=== PATIENT | female | born 1955 | race Caucasian/White ===

== ENCOUNTER 2016-08-25 16:36 | Inpatient (IN) ==
[2016-08-25] MEDS ORDERED: ASPIRIN 325 MG TABLET PO STA (17:23)
[2016-08-25] MEDS ORDERED: NITROGLYCERIN 2% OINT 1 INCH/GM PACK TOP STA (17:23)
[2016-08-25] MEDS ORDERED: NITROGLYCERIN 2% OINT 1 INCH/GM PACK TOP ONE (17:30)
[2016-08-25] MEDS ORDERED: ASPIRIN 325 MG TABLET ONE (17:31)
[2016-08-25] MEDS ORDERED: SODIUM CHLORIDE 0.9% 500 ML IV STA (18:04)
[2016-08-25] MEDS ORDERED: ENOXAPARIN 60 MG/0.6 ML SYRINGE SUBCUT STA (18:04)
--- NOTE | 2016-08-25 18:32 | Emergency Department Note ---
Hanh Alex Brittany, am scribing for, and in the presence of, Dani Goode MD 17:25. Russel Alex Doug C, MD, personally performed the services described in this documentation, ascribed by Trisha Schafer in my presence, and it is both accurate and complete 832 . Arrival - Arrival Chief Complaint: Chest Pain Stated Complaint: Chest pain ED Nursing Triage Note: Patient arrived from [place] via EMS. Complains of chest pain with shortness of breath. Denies pain at present. Patient had a CT at [place] and experienced a reaction. She was given Pepcid, Epi, SoluMedrol. Mode of Arrival: Stretcher Limitations: No Limitations Source: Patient Time Seen by Provider: 08/25/16 17:23 - History of Present Illness HPI Narrative: Patient is a 61-year-old white female who was sent here from [facility] for further evaluation of chest pain. Patient states the pain was substernal and sharp in character. Patient states she has had multiple episodes of the pain and it lasts up to 30 minutes of the time. Patient states it makes her nauseated and short of breath but does not radiate. Patient states he does have some pain between her shoulders now that she did not notice at the time of these episodes. Patient does have a history of coronary artery disease and had left heart cath and stenting performed earlier this year. Patient states she has several the blockages that need to be attended to according to her clinical data abstractor. Patient states she is not having any of the chest pain at present just a dull ache between her shoulders. She did have a CT of the chest performed at the other hospital that showed no evidence of pulmonary emboli. Patient did have an EKG performed at the other hospital that showed a interventricular conduction defect which has now resolved. Onset (ago): hour(s) (Started this morning at 1100) Consistency: constant Severity: mild, moderate Quality: sharp Allergies/Adverse Reactions: Allergies Allergy/AdvReac Type Severity Reaction Status Date / Time ceftriaxone [From Rocephin] Allergy Severe SHORTNESS Verified 05/26/16 07:39 OF BREATH Home Medications: Home Medications Medication Instructions Recorded Confirmed Type Omeprazole 20 mg PO DAILY 03/24/16 05/26/16 History PARoxetine [Paxil] 20 mg PO DAILY 03/24/16 05/26/16 History amLODIPine [Norvasc] 5 tablet PO DAILY 03/24/16 05/26/16 History Lisinopril/Hydrochlorothiazide 1 each PO DAILY 04/05/16 05/26/16 History [Lisinopril-Hctz 20-12.5 mg Tab] Aspirin Chew Tab 81 mg PO BEDTIME 05/26/16 05/26/16 History Cilostazol 50 mg PO BID 05/26/16 05/26/16 History Isosorbide Mononitrate [Isosorbide 30 mg PO DAILY 05/26/16 05/26/16 History Mononitrate ER] Metoprolol Succinate Xl [Toprol Xl] 25 mg PO BEDTIME 05/26/16 05/26/16 History Rosuvastatin [Crestor] 40 mg PO BEDTIME 05/26/16 05/26/16 History Ticagrelor [Brilinta] 90 mg PO BID #60 tablet 05/27/16 Rx Review of System - Review of System 12 point system: reviewed and no additional remarkable complaints except as stated - Review of System Constitutional: Present: chills. Absent: diaphoresis Cardiovascular: Present: chest pain, dyspnea on exertion Gastrointestinal: Present: nausea. Absent: vomiting Medical,Surgical,& Family Hx - Medical History Cardio: History of: Hypertension Comment Only: Valvular Heart Disease (DID NOT TELL DR Barajas NURSE ABOUT THIS EKG FAX TO [facility]03/24/15 9406), Cardiovascular Problems (DR TIERNEY IN [facility] SAID MAY HAVE BLOCKGE HAS NOT BEEN CHECK FOR THIS) Neurology: No history of: Seizures Genitourinary: History of: Bladder Problem (stress incontinence) Musculoskeletal: History of: Musculoskeletal Problems (legs hurt with ambulation ) No history of: Amputation Reproductive: History of: Breast Cancer (Rt) Other: History of: Anaphylaxis (rocephin), Cancer (R BREAST), MRSA, Miscellaneous Medical Problems (SEPIS COLON FROM BACTERILA INFECTION) - Surgical History Cardiac Surgeries: Sugical HX of: Cardiac Catheterization Thoracic Surgeries: Patient denies;: Organ Transplant, Lobectomy HEENT Surgeries: Patient denies: Eye Surgery, Tonsilectomy & Adenoidectomy Reproductive Surgeries: Surgical HX of;: Breast Surgery (RIGHT Mastectomy), Tubal Ligation Orthopedic Surgeries: Patient denies;: Implanted Devices - Family History Family History: Reports;: Family Cancer (MOM BROTHER 2 SISTRS), Family Diabetes (BROTHER), Family Heart Disease (SISTER) - Social History Smoking Status: Former smoker Exam Vital Signs: Vital Signs Temperature 99.6 F 08/25/16 16:52 Pulse Rate 96 H 08/25/16 16:52 Respiratory Rate 14 08/25/16 16:52 Blood Pressure 93/48 08/25/16 16:52 O2 Sat by Pulse Oximetry 99 08/25/16 16:52 - General General appearance: alert, in no apparent distress - Head Head exam: Present: atraumatic, normocephalic, normal inspection - Eye Eye exam: Present: normal appearance, PERRL, EOMI. Absent: scleral icterus, conjunctival injection, nystagmus, miosis, mydriasis - ENT ENT exam: Present: normal exam, normal oropharynx, mucous membranes moist - Neck Neck exam: Present: normal inspection, full ROM, trachea midline. Absent: tenderness, meningismus, lymphadenopathy, thyromegaly - Chest Chest inspection: Present: normal inspection, symmetric chest wall rise. Absent : tenderness, rash, abscess - Respiratory Respiratory exam: Present: normal lung sounds bilaterally. Absent: prolonged expiratory phase, rales, respiratory distress, rhonchi, stridor, wheezes - Cardiovascular Cardiovascular exam: Present: regular rate, normal rhythm, normal heart sounds. Absent: murmur, rubs, gallop, clicks, JVD - Abdominal Exam Abdominal exam: Present: soft, normal bowel sounds. Absent: distention, tenderness, guarding, rebound, rigidity - Rectal Exam Rectal exam: Present: deferred - Extremities Exam Extremities exam: Present: normal inspection, full ROM, normal capillary refill. Absent: tenderness, pedal edema, joint swelling, calf tenderness - Back Exam Back exam: Present: normal inspection, full ROM. Absent: tenderness, muscle spasm, rashes - Neurological Exam Neurological exam: Present: alert, oriented X3, CN II-XII intact. Absent: motor sensory deficit - Psychiatric Psychiatric exam: Present: normal affect, normal mood. Absent: depressed, agitated, anxious, flat affect, manic - Skin Skin exam: Present: warm, dry, intact, normal color. Absent: rash, cyanosis, diaphoresis, erythema, pallor, mottled Course Course Narrative: Patient's clinical presentation, laboratory radiograph findings were discussed with Dr. Ledy Rizzo. Patient will be admitted to telemetry unit and she was cautioned to notify the nurses immediately if she develops recurrent pain. She was given aspirin and some cutaneous Lovenox in the emergency room. Her Brilinta will be continued. Results - Labs Lab Results: I have reviewed the patients labs - EKG EKG results: interpreted by ALFIE, sinus rhythm (89 bpm), no acute changes Disposition Clinical Impression: Unstable angina Case discussed with: patient, patient's family Disposition: Still a Patient Condition: Guarded Time of Disposition: 18:32
[2016-08-25] MEDS ORDERED: MAGNESIUM SULF RIDER 2 GM in PREMIX 1 EACH IV PRN (18:33)
[2016-08-25] MEDS ORDERED: MAGNESIUM SULF RIDER 4 GM in PREMIX 1 EACH IV PRN (18:33)
[2016-08-25] MEDS ORDERED: POTASSIUM CHLORIDE 20 MEQ TABLET PO PRN (18:33)
[2016-08-25] MEDS ORDERED: MORPHINE 2 MG/1 ML SYRINGE IV PRN (18:33)
[2016-08-25] MEDS ORDERED: NITROGLYCERIN SL 0.4 MG TABLET SL PRN (18:43)
[2016-08-25] MEDS: SODIUM CHLORIDE 0.9% 1,000 ML IV SCH (20:06)
[2016-08-25] MEDS: CILOSTAZOL 50 MG TABLET PO SCH (20:31)
[2016-08-25] MEDS: TICAGRELOR 90 MG TABLET PO SCH (20:32)
[2016-08-25] MEDS: ROSUVASTATIN 20 MG TABLET PO SCH (20:32)
[2016-08-25] MEDS ORDERED: amLODIPine 5 MG TABLET PO SCH (21:00)
[2016-08-25] MEDS ORDERED: METOPROLOL SUCCINATE XL 25 MG TABLET PO SCH (21:00)
[2016-08-25] MEDS: ENOXAPARIN 60 MG/0.6 ML SYRINGE SUBCUT SCH (21:36)
[2016-08-26] MEDS: SODIUM CHLORIDE 0.9% 1,000 ML IV SCH ×4 (04:12→22:49)
--- NOTE | 2016-08-26 08:07 | EKG Report ---
Stationary ECG Study 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
--- NOTE | 2016-08-26 08:26 | EKG Report ---
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
[2016-08-26] MEDS ORDERED: ONDANSETRON 4 MG/2 ML VIAL IV PRN (08:37)
[2016-08-26] MEDS ORDERED: LOPERAMIDE 2 MG CAPSULE PO PRN (08:37)
--- NOTE | 2016-08-26 08:51 | Cardiology History & Physical ---
Assessment and Plan - Time spent with patient Time spent with patient: Greater than 30 minutes (1) Anemia Status: Acute Current Visit: Yes (2) Leukocytosis Status: Acute Assessment and plan: suspect demargination from epi and solumedrol, but given her c/o chill must have a high suspicion for infection. She has been getting CTX. I will ask Dr. Mejía to assist. Current Visit: Yes (3) CAD (coronary artery disease) Status: Chronic Current Visit: No (4) Dyslipidemia Status: Chronic Current Visit: No (5) S/P right mastectomy Status: Chronic Current Visit: No (6) Diarrhea Status: Acute Assessment and plan: likely CTX related but potentially infectious. Get studies. Current Visit: Yes (7) Chest pain Status: Acute Assessment and plan: sounds non-cardiac but she has severe CADz and got SC epinepherine. This looks like a med Rx situation unless becomes unstable. Current Visit: Yes History of Present Illness Chief complaint: Chills and shortness of breath History of present illness: Ms. Umana is a 61 year old female who presented to the [facility] emergency room yesterday after having a severe chill and acute onset of shortness of breath. She went to their facility and had labs drawn she had a mildly elevated d-dimer subsequently had a CT scan of the chest to rule out pulmonary embolism which was ruled out. She states that after getting to the emergency room she also complained of chest discomfort that was very sharp. Shortly after coming back from CT scan she developed a pruritic rash and was given epinephrine subcutaneously as well as a high dose of Solu-Medrol. I reviewed the labs from [facility] and she had a white count of 24,000 and a hemoglobin of 8. I do not know if these were drawn before or after the epinephrine and Solu-Medrol. The patient did have an abnormal EKG with intraventricular conduction delay and what appears to be secondary ST segment changes and was transferred here for cardiovascular evaluation. There is a rather impressive difference in her ECG with the IVCD. She has not had any cardiac sounding chest pain. She recieved SQ epinephrine and did not have any chest pain. She had a mild movement in troponin. Home Medications Medication Instructions Recorded Confirmed Type Omeprazole 20 mg PO QAM 03/24/16 08/25/16 History PARoxetine [Paxil] 20 mg PO QAM 03/24/16 08/25/16 History amLODIPine [Norvasc] 5 mg PO BEDTIME 03/24/16 08/25/16 History Lisinopril/Hydrochlorothiazide 1 each PO QAM 04/05/16 08/25/16 History [Lisinopril-Hctz 20-12.5 mg Tab] Aspirin Chew Tab 81 mg PO BEDTIME 05/26/16 08/25/16 History Cilostazol 50 mg PO BID 05/26/16 08/25/16 History Isosorbide Mononitrate [Isosorbide 30 mg PO QAM 05/26/16 08/25/16 History Mononitrate ER] Metoprolol Succinate Xl [Toprol Xl] 25 mg PO BEDTIME 05/26/16 08/25/16 History Rosuvastatin [Crestor] 40 mg PO BEDTIME 05/26/16 08/25/16 History Ticagrelor [Brilinta] 90 mg PO BID #60 tablet 05/27/16 08/25/16 Rx Allergies Allergy/AdvReac Type Severity Reaction Status Date / Time ceftriaxone [From Rocephin] Allergy Severe SHORTNESS Verified 05/26/16 07:39 OF BREATH - Constitutional Constitutional: Present: anorexia, fatigue, weakness, weight loss. Absent: fever(s) - EENT Eyes: Absent: blurry vision Ears: Absent: decreased hearing Nose, mouth and throat: Present: sore throat. Absent: epistaxis, hoarseness, lip swelling, neck mass, neck pain - Cardiovascular Cardiovascular: Present: chest pain at rest, dyspnea. Absent: chest pain with activity, diaphoresis, dyspnea on exertion, edema, lightheadedness, orthopnea, palpitations - Respiratory Respiratory: Present: dyspnea, dyspnea on exertion. Absent: cough, change in phlegm color - Gastrointestinal Gastrointestinal: Absent: abdominal pain, bloating, dyspepsia, early satiety, fecal incontinence - Genitourinary Genitourinary: Absent: abnormal vaginal bleeding, flank pain - Musculoskeletal Musculoskeletal: Absent: arthralgias, joint swelling - Neurological Neurological: Absent: abnormal gait, convulsions, disequilibrium, dizziness, memory loss - Psychiatric Psychiatric: Absent: anxiety, depression - Endocrine Endocrine: Absent: cold intolerance, heat intolerance - Hematologic/Lymphatic Hematologic/Lymphatic: Present: easy bruising. Absent: easy bleeding Medical,Surgical,& Family Hx - Medical History Cardio: History of: CAD, Hypertension Comment Only: Valvular Heart Disease (DID NOT TELL DR Barajas NURSE ABOUT THIS EKG FAX TO [facility]03/24/15 5720), Cardiovascular Problems (DR TIERNEY IN [facility] SAID MAY HAVE BLOCKGE HAS NOT BEEN CHECK FOR THIS) Psychological: No history of: Depression Neurology: No history of: Seizures Genitourinary: History of: Bladder Problem (stress incontinence) Musculoskeletal: History of: Musculoskeletal Problems (legs hurt with ambulation ) No history of: Amputation Reproductive: History of: Breast Cancer (Rt) Other: History of: Anaphylaxis (rocephin), Cancer (R BREAST), MRSA, Miscellaneous Medical Problems (SEPIS COLON FROM BACTERILA INFECTION) - Surgical History Cardiac Surgeries: Sugical HX of: Cardiac Catheterization Thoracic Surgeries: Patient denies;: Organ Transplant, Lobectomy HEENT Surgeries: Patient denies: Eye Surgery, Tonsilectomy & Adenoidectomy Reproductive Surgeries: Surgical HX of;: Breast Surgery (RIGHT Mastectomy), Tubal Ligation Orthopedic Surgeries: Patient denies;: Implanted Devices - Family History Family History: Reports;: Family Cancer (MOM BROTHER 2 SISTRS), Family Diabetes (BROTHER), Family Heart Disease (SISTER) - Social History Smoking Status: Former smoker Frequency of Alcohol Use: None Type of Drug Use: None Marital Status: Lives With:: Spouse Cardiology Physical Exam - Constitutional Vitals: Vital Signs Temp Pulse Resp BP Pulse Ox 97.6 F 86 18 92/51 96 08/26/16 08:00 08/26/16 08:00 08/26/16 08:00 08/26/16 08:00 08/26/16 08:00 Intake and Output 08/25/16 08/26/16 08/26/16 23:59 07:59 15:59 Intake Total 860 / 860 1260 / 1260 Output Total 200 / 200 1800 / 1800 Balance 660 / 660 -540 / -540 Intake: IV 1000 / 1000 Ns 1,000 ml @ 125 mls/hr 1000 / 1000 IV .Q8H MINDI Rx#: [id number] Intake - Additional IV 500 / 500 Volume (mLs) Left Hand 500 / 500 Oral 360 / 360 260 / 260 Output: Urine 200 / 200 1800 / 1800 Other: Weight 69.938 kg 71.384 kg Patient Weight 08/26/16 23:59 Weight 71.384 kg General appearance: normal weight - Head Head exam: Present: normal inspection - Eye Eye exam: Present: EOMI, other (pallor) Pupils: Present: ROSIE - ENT ENT exam: Present: normal exam - Neck Neck exam: Present: normal inspection - Respiratory Respiratory exam: Present: clear to auscultation bilaterally - Cardiovascular Cardiovascular exam: Present: regular rate and rhythm - GI/Abdominal GI/Abdominal exam: Present: normal bowel sounds - Extremities Exam Extremities exam: Present: normal inspection - Back Exam Back exam: Present: normal inspection - Neurological Exam Neurological exam: Present: alert, oriented X3 - Psychiatric Psychiatric exam: Present: normal affect - Skin Skin exam: Present: normal color, warm Result/EKG - Labs CBC & BMP: 08/26/16 08:48 Labs: Laboratory Results - last 24 hr 08/25/16 08/25/16 08/25/16 17:31 19:51 19:51 Troponin I < 0.015 0.027 TSH 3rd Generation 1.170 08/25/16 08/25/16 08/25/16 19:51 22:01 23:34 Troponin I 0.023 0.027 0.022 TSH 3rd Generation 08/26/16 04:34 Troponin I 0.055 H D TSH 3rd Generation - EKG EKG results: interpreted by me (intermittent IVCD - no diagnostic ECG changes)
[2016-08-26 08:55] LABS: Basophils # 0.1 10*3/uL (0.0-0.2); Basophils % 0.2 % (0.0-0.8); Hematocrit 22.3 VOL% (35.7-47.0); Hemoglobin 7.1 GM/DL (12.0-16.0); Immature Granulocytes % 12.5 %; Immature Granulocytes Absolute 4.04 #; Lymphocytes # 1.4 10*3/uL (1.4-4.0); Lymphocytes % 4.2 % (21.3-54.2); Mean Corpuscular HGB Conc 31.8 GM/DL (32-36); Mean Corpuscular Hemoglobin 32 PG (27-34); Mean Corpuscular Volume 99.1 FL (87-102); Mean Platelet Volume 9.6 FL (9.6-12.0); Monocytes # 1.5 10*3/uL (0.11-0.8); Monocytes % 4.7 % (1.7-12.7); Neutrophils # 25.3 10*3/uL (1.4-7.4); Neutrophils % 78.4 % (38.7-73.9); Platelet Count 160 T/CUMM (130-400); Red Blood Count 2.25 MC/CUMM (3.8-5.5); Red Cell Distribution Width 18.1 % (9.3-17.3); White Blood Count 32.3 T/CUMM (4-12)
[2016-08-26] MEDS ORDERED: PANTOPRAZOLE 40 MG TABLET PO SCH (09:00)
[2016-08-26 09:15] LABS: Band Neutrophils 6 % (0-10); Lymphocytes 3 % (20-55); Segmented Neutrophils 88 % (50-85); Total Cells Counted 100
[2016-08-26 09:16] LABS: Hypochromasia 1+; Microcytosis Slight; Ovalocytes Slight; Platelet Estimate Normal
[2016-08-26 09:24] LABS: Calcium 7.5 MG/DL (8.5-10.1); Osmolality,Calculated 292.6 MOS/KG (273-304); Potassium 4.2 MMOL/L (3.5-5.1)
[2016-08-26] MEDS ORDERED: LEVOFLOXACIN INJ 500 MG in PREMIX 1 EACH IV SCH (09:30)
[2016-08-26] MEDS ORDERED: SODIUM CHLORIDE 0.9% 250 ML IV PRN (09:34)
--- NOTE | 2016-08-26 09:39 | Oncology Progress Note ---
Oncology Subjective PN Interval history: Patient with early-stage good prognosis breast cancer who has recently completed 4 cycles of adjuvant chemotherapy. This chemotherapy was approximately 8-9 days prior. She did receive Neulasta as a white blood cell growth factor. She was given 2 L of IV fluids in the office earlier this week for diarrhea. This has significantly improved. She presented yesterday to outside ER initially with chills and some shortness of breath. During the course of her hospital evaluation this worsened to include chest pain with radiation to the left jaw and left shoulder. At the outside hospital CT chest was negative for PE. She was given epinephrine injection subcutaneously for concern of allergic reaction to IV contrast. She was admitted to [facility] after transfer for further cardiac evaluation. Coronary history is notable for cardiac stent placement 1 as well as peripheral leg stance 2. Case has been discussed with cardiology who will likely recommend medical management due to the fact of patient with small coronary vessels and diffuse disease. We are going to give a transfusion as her anemia is severe at this time. She denies bleeding and this is from the last 12 weeks of chemotherapy. On exam her heart rhythm is regular. Her lungs are clear. No leg edema is noted. No calf tenderness. Abdomen soft and nontender. Breast exam deferred. Labs are noted with normal creatinine. Very mild troponin elevation. Patient appears nontoxic. We will transfuse red blood cells and likely discharge home within the next 24 hours. Exam - Constitutional Vitals: Period Temp Pulse Resp BP Sys/Guaman Pulse Ox Last 24 Hr 97.2 F-99.6 F 73-99 12-20 76-113/30-60 96-99 Results - Labs CBC & BMP: 08/26/16 08:48 08/26/16 08:48
[2016-08-26] MEDS: CARVEDILOL 3.125 MG TABLET PO SCH ×2 (09:47→20:07)
[2016-08-26] MEDS: TICAGRELOR 90 MG TABLET PO SCH ×2 (09:47→20:07)
[2016-08-26] MEDS: CILOSTAZOL 50 MG TABLET PO SCH ×2 (09:47→20:07)
[2016-08-26] MEDS: PARoxetine 20 MG TABLET PO SCH (09:47)
[2016-08-26] MEDS: ENOXAPARIN 60 MG/0.6 ML SYRINGE SUBCUT SCH ×2 (09:47→20:10)
[2016-08-26] MEDS: PANTOPRAZOLE 40 MG TABLET PO SCH (09:47)
[2016-08-26] MEDS: LISINOPRIL 2.5 MG TABLET PO SCH (09:47)
[2016-08-26] MEDS: ISOSORBIDE MONONITRATE 30 MG TABLET PO SCH (09:47)
--- NOTE | 2016-08-26 10:44 | XRay Report ---
XR chest 2V Date: 08/26/2016 8:34 AM History: Shortness of breath with chills and leukocytosis Comparison: 03/24/2016 Technique: PA and lateral chest Findings: The heart is normal in size. The lungs are overexpanded with progressive minimal diffuse parenchymal findings with very small pleural effusions. Prior right mastectomy with postoperative findings right axilla. Osteopenia with atelectasis. Impression: COPD with chronic scarring. Findings which can be seen with mild CHF/pneumonitis. Minimal atelectasis and small pleural effusions. Prior right mastectomy and therefore follow-up x-ray may be helpful to document clearing. PROCEDURE INTERPRETED AT [facility] DEPARTMENT OF RADIOLOGY Final Report Signed by: Dr. Elsa Marcano
[2016-08-26] MEDS: ASPIRIN CHEW 81 MG TABLET PO SCH (20:07)
[2016-08-26] MEDS: ROSUVASTATIN 20 MG TABLET PO SCH (20:07)
[2016-08-26 22:35] LABS: Hematocrit 27.5 VOL% (35.7-47.0)
[2016-08-27 03:30] LABS: Basophils # 0.1 10*3/uL (0.0-0.2); Basophils % 0.2 % (0.0-0.8); Hematocrit 24.5 VOL% (35.7-47.0); Hemoglobin 7.8 GM/DL (12.0-16.0); Immature Granulocytes % 8.9 %; Immature Granulocytes Absolute 2.45 #; Lymphocytes # 1.7 10*3/uL (1.4-4.0); Mean Corpuscular HGB Conc 31.8 GM/DL (32-36); Mean Corpuscular Hemoglobin 30 PG (27-34); Mean Platelet Volume 10.5 FL (9.6-12.0); Monocytes # 1.9 10*3/uL (0.11-0.8); Monocytes % 6.8 % (1.7-12.7); NRBC # 0.03 10*3/uL; Neutrophils # 21.4 10*3/uL (1.4-7.4); Neutrophils % 78.1 % (38.7-73.9); Platelet Count 129 T/CUMM (130-400); Red Blood Count 2.58 MC/CUMM (3.8-5.5); Red Cell Distribution Width 18.9 % (9.3-17.3); White Blood Count 27.5 T/CUMM (4-12)
[2016-08-27 04:07] LABS: Calcium 7.6 MG/DL (8.5-10.1); Osmolality,Calculated 291.4 MOS/KG (273-304); Potassium 4.1 MMOL/L (3.5-5.1)
[2016-08-27] MEDS: SODIUM CHLORIDE 0.9% 1,000 ML IV SCH ×2 (04:21→10:39)
[2016-08-27 04:54] LABS: Band Neutrophils 2 % (0-10); Lymphocytes 5 % (20-55); Myelocytes 1 %; Segmented Neutrophils 90 % (50-85); Total Cells Counted 100
[2016-08-27 04:55] LABS: Anisocytosis 1+; Hypochromasia 1+; Platelet Estimate Normal
--- NOTE | 2016-08-27 07:34 | EKG Report ---
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
[2016-08-27] MEDS: LISINOPRIL 2.5 MG TABLET PO SCH (08:47)
[2016-08-27] MEDS: TICAGRELOR 90 MG TABLET PO SCH ×2 (08:47→20:11)
[2016-08-27] MEDS: CILOSTAZOL 50 MG TABLET PO SCH ×2 (08:47→20:11)
[2016-08-27] MEDS: CARVEDILOL 3.125 MG TABLET PO SCH ×2 (08:48→20:11)
[2016-08-27] MEDS: PANTOPRAZOLE 40 MG TABLET PO SCH (08:48)
[2016-08-27] MEDS: PARoxetine 20 MG TABLET PO SCH (08:48)
[2016-08-27] MEDS: ISOSORBIDE MONONITRATE 30 MG TABLET PO SCH (08:48)
--- NOTE | 2016-08-27 10:13 | Cardiology Progress Note ---
Assessment and Plan - Time spent with patient Time spent with patient: Less than 30 minutes (1) Anemia Status: Acute Assessment and plan: as per HPI Current Visit: Yes (2) Leukocytosis Status: Acute Assessment and plan: suspect demargination from epi and solumedrol, but given her c/o chill must have a high suspicion for infection. She has been getting CTX and recently got Nuelasta. Current Visit: Yes (3) CAD (coronary artery disease) Status: Chronic Current Visit: No (4) Dyslipidemia Status: Chronic Current Visit: No (5) S/P right mastectomy Status: Chronic Current Visit: No (6) Diarrhea Status: Resolved Current Visit: Yes (7) Chest pain Status: Acute Assessment and plan: sounds non-cardiac but she has severe CADz and got SC epinepherine. This looks like a med Rx situation unless becomes unstable. Current Visit: Yes Cardiology - PN: Subj Interval history: This this is a 61-year-old patient who is admitted yesterday with chest discomfort and shortness of breath. She has breast carcinoma is undergoing chemotherapy she is approximately week and 1/2-2 weeks after her last treatment she was found to be anemic. She had a CT PE protocol at [place] which time they felt she was having a reaction to contrast the gave her subcu epinephrine and Solu-Medrol. She has known advanced coronary disease with a very small diffusely diseased dominant RCA that Dr. Marks attempted PCI on back in May unsuccessfully. He did PCI the proximal vessel but the whole vessel had limited flow completion of the procedure despite concerted effort to get this open. She also has an ostial circumflex disease that was mild. Her chest pain was atypical and very short-lived but she did have mild troponin elevation. She is anemic. She is on Brilinta. We have been observing. She had a significant amount of diarrhea that has resolved she denies any melena. She has not had a bowel movement since she has been here she is status post 2 units of packed red cells and continues to have declining H&H. Dr. Mejía is assisting with her care. I am reluctant to hold her Brilinta at this time given her recent stent. Ms. Umana has no complaints this morning no chest pain no shortness of breath and she not had any bowel movements. She received 2 units of packed cells yesterday and initially her hemoglobin came up but is back down to 7.8 today. She has not had any bowel movements. This is concerning. She has been receiving rather aggressive hydration I will see her back this off. She has not had any more chest pain no more shortness of breath. Her biomarkers were up slightly and I did clarify that her chest discomfort occurred before she received her epinephrine in the emergency room at [place]. Exam (Progress Note) - Constitutional Vitals: Period Temp Pulse Resp BP Sys/Guaman Pulse Ox Last 24 Hr 96.6 F-97.8 F 76-96 16-20 95-130/22-66 93-99 General appearance: normal weight - Head Head exam: Present: normal inspection - Eye Eye exam: Present: EOMI, other (pallor) Pupils: Present: ROSIE - ENT ENT exam: Present: normal exam - Respiratory Respiratory exam: Present: clear to auscultation bilaterally - Cardiovascular Cardiovascular exam: Present: regular rate and rhythm - GI/Abdominal GI/Abdominal exam: Present: normal bowel sounds - Extremities Exam Extremities exam: Present: normal inspection - Back Exam Back exam: Present: normal inspection - Neurological Exam Neurological exam: Present: alert, oriented X3 - Psychiatric Psychiatric exam: Present: normal affect, normal mood - Skin Skin exam: Present: normal color, warm, dry Result/EKG - Labs CBC & BMP: 08/27/16 02:52 08/27/16 02:52 Labs: Laboratory Results - last 24 hr 08/26/16 08/26/16 08/26/16 08:48 11:41 22:14 WBC RBC Hgb 9.0 L D Hct 27.5 L MCV MCH MCHC RDW Plt Count MPV Neut % (Auto) Lymph % (Auto) Sampson % (Auto) Eos % (Auto) Baso % (Auto) Neut # (Auto) Lymph # (Auto) Sampson # (Auto) Eos # (Auto) Baso # (Auto) Total Counted Immature Gran % Nucleated RBC % Immature Gran # Segmented Neutrophils Band Neutrophils Lymphocytes Monocytes Myelocytes Nucleated RBCs # Platelet Estimate Hypochromasia Anisocytosis Sodium Potassium Chloride Carbon Dioxide Anion Gap BUN Creatinine GFR Calculation BUN/Creatinine Ratio Glucose Calculated Osmolality Calcium Troponin I 0.143 H D Blood Type B POSITIVE Antibody Screen Negative Crossmatch See Detail 08/26/16 08/27/16 08/27/16 Unknown 02:52 02:52 WBC 27.5 H RBC 2.58 L Hgb 7.8 L Hct 24.5 L MCV 95.0 MCH 30 MCHC 31.8 L RDW 18.9 H Plt Count 129 L MPV 10.5 Neut % (Auto) 78.1 H Lymph % (Auto) 6.0 L Sampson % (Auto) 6.8 Eos % (Auto) 0.0 Baso % (Auto) 0.2 Neut # (Auto) 21.4 H Lymph # (Auto) 1.7 Sampson # (Auto) 1.9 H Eos # (Auto) 0.0 Baso # (Auto) 0.1 Total Counted 100 Immature Gran % 8.9 Nucleated RBC % 0.1 Immature Gran # 2.45 Segmented Neutrophils 90 H Band Neutrophils 2 Lymphocytes 5 L Monocytes 2 Myelocytes 1 Nucleated RBCs # 0.03 Platelet Estimate Normal Hypochromasia 1+ Anisocytosis 1+ Sodium 147 H Potassium 4.1 Chloride 117 H Carbon Dioxide 24 Anion Gap 10.1 BUN 11 Creatinine 0.90 GFR Calculation 68 BUN/Creatinine Ratio 12.00 Glucose 110 H Calculated Osmolality 291.4 Calcium 7.6 L Troponin I Blood Type B POSITIVE Antibody Screen Crossmatch
[2016-08-27] MEDS: ACETAMINOPHEN 325 MG TABLET PO PRN ×2 (11:35→15:55)
[2016-08-27] MEDS: ROSUVASTATIN 20 MG TABLET PO SCH (20:11)
[2016-08-27] MEDS: ASPIRIN CHEW 81 MG TABLET PO SCH (20:11)
[2016-08-28 05:17] LABS: Basophils # 0.1 10*3/uL (0.0-0.2); Basophils % 0.4 % (0.0-0.8); Eosinophils % 0.2 % (0.00-10.9); Hematocrit 28.8 VOL% (35.7-47.0); Hemoglobin 9.4 GM/DL (12.0-16.0); Immature Granulocytes % 8.8 %; Immature Granulocytes Absolute 1.24 #; Mean Corpuscular HGB Conc 32.6 GM/DL (32-36); Mean Corpuscular Hemoglobin 30 PG (27-34); Mean Corpuscular Volume 93.2 FL (87-102); Mean Platelet Volume 10.5 FL (9.6-12.0); Monocytes # 1.1 10*3/uL (0.11-0.8); Monocytes % 8.1 % (1.7-12.7); Neutrophils # 9.7 10*3/uL (1.4-7.4); Neutrophils % 68.5 % (38.7-73.9); Platelet Count 155 T/CUMM (130-400); Red Blood Count 3.09 MC/CUMM (3.8-5.5); Red Cell Distribution Width 18.4 % (9.3-17.3); White Blood Count 14.1 T/CUMM (4-12)
[2016-08-28 05:58] LABS: Calcium 8.3 MG/DL (8.5-10.1); Osmolality,Calculated 286.8 MOS/KG (273-304); Potassium 3.8 MMOL/L (3.5-5.1)
[2016-08-28 05:59] LABS: Troponin I Only 0.299 NG/ML (0.00-0.045)
[2016-08-28 06:07] LABS: Band Neutrophils 5 % (0-10); Eosinophils 1 % (0-10); Lymphocytes 11 % (20-55); Platelet Estimate Normal; Segmented Neutrophils 82 % (50-85); Total Cells Counted 100
[2016-08-28 06:08] LABS: Hypochromasia 1+; Microcytosis Slight; Ovalocytes Slight
--- NOTE | 2016-08-28 06:51 | EKG Report ---
Stationary ECG Study [facility] Test Date: 08/28/2016 6:52:39 AM Pat Name: ROME PERALTA Department: Room: 290 Gender: F Plan Nurse: ALL : 1955 Requested by: Romero Tolentino Order Number: [id number] Reading MD: JARRELL LUNA Intervals [place] Rate: 70 P: 69 ME: 134 QRS: 51 QRSD: 94 T: 37 QT: 388 QTc: 409 Interpretive Statements SINUS RHYTHM LOW QRS VOLTAGE IN PRECORDIAL LEADS Electronically Signed On 08-28-16 13:05:52 CDT by JARRELL LUNA [email or web address]
[2016-08-28] MEDS: PANTOPRAZOLE 40 MG TABLET PO SCH (08:41)
[2016-08-28] MEDS: TICAGRELOR 90 MG TABLET PO SCH ×2 (08:41→20:20)
[2016-08-28] MEDS: CILOSTAZOL 50 MG TABLET PO SCH ×2 (08:41→20:20)
[2016-08-28] MEDS: PARoxetine 20 MG TABLET PO SCH (08:41)
[2016-08-28] MEDS: ISOSORBIDE MONONITRATE 30 MG TABLET PO SCH (08:41)
[2016-08-28] MEDS: CARVEDILOL 3.125 MG TABLET PO SCH ×2 (08:42→20:20)
[2016-08-28] MEDS: LISINOPRIL 2.5 MG TABLET PO SCH (08:42)
--- NOTE | 2016-08-28 12:26 | Cardiology Progress Note ---
Cardiology - PN: Subj Interval history: Cardiology note 61-year-old woman with atypical chest and anemia. Status post right mastectomy April 17, [address] CA by Dr. Patrick. Patient completed 4 course of adjuvant chemotherapy with Dr. Mejía. Status post 2 unit transfusion. H&H 9.4 and 28.6 respectively No fever chills or itching. Decreased breath sounds but clear. Regular rhythm no murmur or gallop. No chest wall tenderness to palpation. Blood cultures negative at 24 hours. Negative for occult blood. Atypical chest pain Anemia status post 2 unit transfusion Shortness of breath with negative CT [facility] at [facility] Status post RCA stent May [address] Marks Bilateral leg PVD-office visit September [address] Marks Bilateral carotid bruits Tobacco abuse 1 pack per day since age 26, quit 2014 Hyperlipidemia Hypertension Status post right mastectomy April 17, [address] Patrick. She has completed 4 cycles of adjuvant chemotherapy today Plan Ambulate and monitor Home in a.m. Exam (Progress Note) - Constitutional Vitals: Period Temp Pulse Resp BP Sys/Guaman Pulse Ox Last 24 Hr 97.6 F-99.0 F 68-79 16-20 96-131/51-63 94-98 Result/EKG - Labs CBC & BMP: 08/28/16 04:41 08/28/16 04:41 Labs: Laboratory Results - last 24 hr 08/28/16 08/28/16 04:41 04:41 WBC 14.1 H D RBC 3.09 L Hgb 9.4 L D Hct 28.8 L MCV 93.2 MCH 30 MCHC 32.6 RDW 18.4 H Plt Count 155 D MPV 10.5 Neut % (Auto) 68.5 Lymph % (Auto) 14.0 L Sharp % (Auto) 8.1 Eos % (Auto) 0.2 Baso % (Auto) 0.4 Neut # (Auto) 9.7 H Lymph # (Auto) 2.0 Sharp # (Auto) 1.1 H Eos # (Auto) 0.0 Baso # (Auto) 0.1 Total Counted 100 Immature Gran % 8.8 Nucleated RBC % 0.7 Immature Gran # 1.24 Segmented Neutrophils 82 Band Neutrophils 5 Lymphocytes 11 L Monocytes 1 L Eosinophils 1 Nucleated RBCs # 0.10 Platelet Estimate Normal Hypochromasia 1+ Microcytosis Slight Ovalocytes Slight Sodium 144 Potassium 3.8 Chloride 108 H Carbon Dioxide 28 Anion Gap 11.8 BUN 14 Creatinine 1.00 GFR Calculation 60 BUN/Creatinine Ratio 14.00 Glucose 94 Calculated Osmolality 286.8 Calcium 8.3 L Troponin I 0.299 H D
[2016-08-28] MEDS: ROSUVASTATIN 20 MG TABLET PO SCH (20:20)
[2016-08-28] MEDS: ASPIRIN CHEW 81 MG TABLET PO SCH (20:20)
[2016-08-29 05:17] LABS: Basophils # 0.1 10*3/uL (0.0-0.2); Basophils % 0.5 % (0.0-0.8); Eosinophils # 0.1 10*3/uL (0.0-0.87); Eosinophils % 0.3 % (0.00-10.9); Hematocrit 32.7 VOL% (35.7-47.0); Hemoglobin 10.6 GM/DL (12.0-16.0); Immature Granulocytes % 5.3 %; Immature Granulocytes Absolute 0.79 #; Lymphocytes # 1.7 10*3/uL (1.4-4.0); Lymphocytes % 11.8 % (21.3-54.2); Mean Corpuscular HGB Conc 32.4 GM/DL (32-36); Mean Corpuscular Hemoglobin 30 PG (27-34); Mean Corpuscular Volume 92.9 FL (87-102); Monocytes % 6.5 % (1.7-12.7); NRBC # 0.05 10*3/uL; Neutrophils # 11.2 10*3/uL (1.4-7.4); Neutrophils % 75.6 % (38.7-73.9); Platelet Count 156 T/CUMM (130-400); Red Blood Count 3.52 MC/CUMM (3.8-5.5); Red Cell Distribution Width 17.9 % (9.3-17.3); White Blood Count 14.8 T/CUMM (4-12)
[2016-08-29 05:48] LABS: Calcium 8.9 MG/DL (8.5-10.1); Magnesium 2.1 MG/DL (1.8-2.4); Osmolality,Calculated 282.4 MOS/KG (273-304); Potassium 4.1 MMOL/L (3.5-5.1)
[2016-08-29 05:51] LABS: Band Neutrophils 4 % (0-10); Eosinophils 1 % (0-10); Hypochromasia 1+; Lymphocytes 16 % (20-55); Microcytosis 1+; Segmented Neutrophils 74 % (50-85); Total Cells Counted 100
[2016-08-29 05:52] LABS: Ovalocytes Slight; Platelet Estimate Adequate
[2016-08-29 07:31] VITALS: BP 113/55
[2016-08-29] MEDS: CILOSTAZOL 50 MG TABLET PO SCH (08:28)
[2016-08-29] MEDS: TICAGRELOR 90 MG TABLET PO SCH (08:28)
[2016-08-29] MEDS: PANTOPRAZOLE 40 MG TABLET PO SCH (08:28)
[2016-08-29] MEDS: ISOSORBIDE MONONITRATE 30 MG TABLET PO SCH (08:28)
[2016-08-29] MEDS: LISINOPRIL 2.5 MG TABLET PO SCH (08:28)
[2016-08-29] MEDS: PARoxetine 20 MG TABLET PO SCH (08:28)
[2016-08-29] MEDS: CARVEDILOL 3.125 MG TABLET PO SCH (08:28)
--- NOTE | 2016-08-29 10:24 | Discharge Summary ---
Hospital Course - Hospital Course Hospital Course: DRIVER STARTING GATE: DR. QUINN. Ms. Umana, 61WF, has a history of known diffuse coronary artery disease (Very small diffusely diseased dominant RCA that Dr. Quinn attempted PCI on back in May 2016 unsuccessfully. He did PCI the proximal vessel but the whole vessel had limited flow completion of the procedure despite concerted effort to get this open. She also has an ostial circumflex disease that was mild), PAD, hypertension, dyslipidemia and right breast cancer. Patient was admitted August 25, 2016 in transfer from [facility] after experiencing severe chill and acute onset of shortness of breath. She had a mildly elevated d-dimer, subsequently ruled out for pulmonary embolism with CT chest. She developed pruritic rash immediately post CT scan and was given epinephrine subcutaneously as well as a high dose of Solu-Medrol. Patient experienced abnormal EKG with impressive intraventricular conduction delay secondary to ST segment changes and was transferred to our facility. White blood cell count 22, 000 with a hemoglobin which decreased to 7.8. She was ruled out for infection ( blood cultures were negative, no UTI). Troponin was only minimally elevated but flat during hospital stay. She had only atypical chest pain which resolved prior to arrival. She required transfusion of 2 units of packed red blood cells. Labs were stable during the remainder the hospital stay and she is anxious for release home. She currently has an appointment to see Dr. Quinn September 13, 2016 at 10:40 AM. She has been instructed to keep this appointment. She will have the following labs drawn at this appointment: BMP, magnesium, CBC. Dr. Mejía was consulted during this hospitalization. At this point, she has been given good prognosis. She currently has an appointment to return to see divorce soon and, of course, she will keep this appointment. Having felt she met maximal medical therapy, patient is anxious for release home and she is being discharged home in stable condition. She will continue all of her preadmission medications including the following: Aspirin 81 mg orally daily Carvedilol 3.125 mg orally twice daily (new) Cilostazol 50 mg p.o. twice daily Isosorbide mononitrate 30 mg orally daily Lisinopril 2.5 mg orally daily (new) Pantoprazole 40 mm orally daily Crestor 40 mg orally each evening Brilinta 90 mg orally twice daily Paxil 20 mg orally daily - Time spent with patient Time with patient DS: Greater than 30 minutes Diagnosis - Discharge Diagnosis (1) Hypertension Status: Chronic (2) Breast cancer Status: Chronic (3) CAD (coronary artery disease) Status: Chronic (4) Dyslipidemia Status: Chronic (5) S/P right mastectomy Status: Chronic (6) Anemia Status: Chronic (7) Leukocytosis Status: Resolved (8) Chest pain Status: Resolved Specialty Discharge - Follow Up or Referrals Follow up with: Jac Quinn MD [Physician] - (Has appointment in September. Please keep appointment. Please arrange for the following labs at this appointment: BMP, Mg, CBC) Melo Mejía MD [Physician] - (Keep follow-up appointment with Dr. Mejía) Discharge Plan - Discharge Data Disposition: Disch To Home/Self Care Condition at Discharge: Stable Discharge Diet: heart healthy Activity: resume usual activities as tolerated Hygiene: no restrictions Weight Bearing at Discharge: full weight bearing Driving: no restrictions Contact your physician if you experience:: fever over 101, Difficulty voiding, Redness or swelling, Nausea/Vomiting, Shortness of breath, Bleeding, pain uncontrolled by pain medications - Discharge Medications New Lisinopril [Prinivil] 2.5 mg PO DAILY #30 tablet Nitroglycerin Sl Tab [Nitrostat] 0.4 mg SL Q5M PRN tablet PRN Reason: Chest Pain Pantoprazole Tab [Protonix Tab] 40 mg PO DAILY #30 tablet Carvedilol [Coreg] 3.125 mg PO BID #60 tablet Continue Omeprazole 20 mg PO QAM PARoxetine [Paxil] 20 mg PO QAM Rosuvastatin [Crestor] 40 mg PO BEDTIME Cilostazol 50 mg PO BID Isosorbide Mononitrate [Isosorbide Mononitrate ER] 30 mg PO QAM Ticagrelor [Brilinta] 90 mg PO BID #60 tablet Aspirin Chew Tab 81 mg PO BEDTIME Discontinued Metoprolol Succinate Xl [Toprol Xl] 25 mg PO BEDTIME amLODIPine [Norvasc] 5 mg PO BEDTIME Lisinopril/Hydrochlorothiazide [Lisinopril-Hctz 20-12.5 mg Tab] 1 each PO QAM - Follow Up or Referral - Forms/Instructions Exam - Constitutional Vitals: Period Temp Pulse Resp BP Sys/Guaman Pulse Ox Last 24 Hr 97.4 F-98.7 F 68-78 16-18 95-119/50-65 94-98 Exam: General: [Appears well with no apparent distress.] [Pleasant and cooperative. ] [Appears comfortable.] HEENT: [Alopecia. PERRL, normocephalic, atraumatic. Mucous membranes moist. No jaundice noted. Conjunctiva moist and clear, sclerae anicteric] Neck: No JVD/HJR, no thyromegaly or lymphadenopathy noted. No carotid bruit appreciated Cardiac: [Regular rate and rhythm.] [No murmur rub or gallop.] Lungs: [Clear to auscultation without accessory muscle use to assist the respiratory pattern.] Not requiring oxygen Abdomen: Soft, bowel sounds normoactive. Nontender and nondistended. No abdominal bruit or thrill noted. No masses noted. Musculoskeletal: No fluid collection. Decreased range of motion is noted. Extremities: No clubbing, cyanosis noted. [ No edema noted.] Upper extremity pulses 2+. Lower extremity pulses 2+. Capillary refill less than 3 seconds. Skin: No unusual lesions or rashes. No skin breakdown appreciated. Neuro: Awake, alert and oriented 3. Moves all extremities well without hemiparesis or paralysis. No essential tremor is appreciated. Discharge Results Procedures and tests throughout hospitalization: Pending Orders 08/26/16 09:16 Blood Culture Stat 08/28/16 06:36 Occult Blood, Stool Routine Labs on day of discharge: Labs from last 24 hours 08/29/16 08/29/16 04:46 04:46 WBC 14.8 H RBC 3.52 L Hgb 10.6 L Hct 32.7 L MCV 92.9 MCH 30 MCHC 32.4 RDW 17.9 H Plt Count 156 MPV 10.0 Neut % (Auto) 75.6 H Lymph % (Auto) 11.[address] [place] % (Auto) 6.5 Eos % (Auto) 0.3 Baso % (Auto) 0.5 Neut # (Auto) 11.2 H Lymph # (Auto) 1.7 [place] # (Auto) 1.0 H Eos # (Auto) 0.1 Baso # (Auto) 0.1 Total Counted 100 Immature Gran % 5.3 Nucleated RBC % 0.3 Immature Gran # 0.79 Segmented Neutrophils 74 Band Neutrophils 4 Lymphocytes 16 L Monocytes 5 Eosinophils 1 Nucleated RBCs # 0.05 Platelet Estimate Adequate Hypochromasia 1+ Microcytosis 1+ Ovalocytes Slight Sodium 140 Potassium 4.1 Chloride 104 Carbon Dioxide 26 Anion Gap 14.1 BUN 18 Creatinine 1.00 GFR Calculation 60 BUN/Creatinine Ratio 18.00 Glucose 132 H Calculated Osmolality 282.4 Calcium 8.9 Magnesium 2.1 Preliminary micro results at discharge 08/26/16 09:16 Blood Culture - Preliminary Blood No growth at 3 days 08/26/16 09:16 Blood Culture - Preliminary Blood No growth at 3 days - Imaging and Cardiology Cardiology Procedure: report reviewed by me Procedure: Chest x-ray: report reviewed by me, CT - chest: report reviewed by me DS: Provider Date of admission: 08/25/16 18:33 Primary care physician: . No PCP Attending physician on admission: Ledy Rizzo DO Consults: 08/25/16 20:05 Consult to Pastoral Services [CONS] Routine Comment: Pastoral Screen: Request Director Auto Visit Pastoral Screen Source of Request: Patient 08/26/16 08:34 Consult to Physician [CONS] Routine Comment: Consulting Provider: Melo Mejía Discharging clinician: Torie Carranza NP Expected date of discharge: 08/29/16
[2016-08-29] MEDS: ENOXAPARIN 60 MG/0.6 ML SYRINGE SUBCUT SCH (10:27)
== END 2016-08-29 11:23 | disposition home or self-care (01) | DRG 198 ==
LOC: EDUNIT# → EDBD → N.ED 16:36 → N.EDINP 18:33 → N.TELEN 19:12
PROVIDERS: ADMIT Internal Medicine Cardiovascular Disease; ATTEND Internal Medicine Cardiovascular Disease

== ENCOUNTER 2016-10-11 09:15 | Inpatient (IN) ==
[2016-10-11 09:54] LABS: Basophils % 0.2 % (0.0-0.8); Hematocrit 26.5 VOL% (35.7-47.0); Hemoglobin 8.9 GM/DL (12.0-16.0); Immature Granulocytes % 0.8 %; Immature Granulocytes Absolute 0.14 #; Lymphocytes # 1.1 10*3/uL (1.4-4.0); Lymphocytes % 6.1 % (21.3-54.2); Mean Corpuscular HGB Conc 33.6 GM/DL (32-36); Mean Corpuscular Hemoglobin 31 PG (27-34); Mean Corpuscular Volume 91.7 FL (87-102); Mean Platelet Volume 9.6 FL (9.6-12.0); Monocytes # 0.9 10*3/uL (0.11-0.8); Monocytes % 4.9 % (1.7-12.7); Neutrophils # 15.4 10*3/uL (1.4-7.4); Platelet Count 272 T/CUMM (130-400); Red Blood Count 2.89 MC/CUMM (3.8-5.5); Red Cell Distribution Width 17.3 % (9.3-17.3); White Blood Count 17.5 T/CUMM (4-12)
[2016-10-11 10:09] LABS: Albumin 2.7 G/DL (3.4-5.0); Bilirubin,Total 0.9 MG/DL (0.2-1.0); Calcium 8.1 MG/DL (8.5-10.1); Magnesium 1.8 MG/DL (1.8-2.4); Osmolality,Calculated 261.1 MOS/KG (273-304)
[2016-10-11] MEDS ORDERED: SODIUM CHLORIDE 0.9% 1,000 ML IV STA (10:12)
--- NOTE | 2016-10-11 10:12 | Emergency Department Note ---
Bryon Alex Manpreet, am scribing for, and in the presence of, Toño Melchor MD 10: 06. Jill Alex James D, MD, personally performed the services described in this documentation, ascribed by Enrico Slater in my presence, and it is both accurate and complete . Arrival - Arrival Chief Complaint: Extremity Problem Stated Complaint: foot swollen/fever/chills ED Nursing Triage Note: PT C/O EDEMA TO RIGHT FOOT SINCE THIS MORNING. PT HAS HISTORY OF DVT WITH STENTS IN RIGHT GROIN/RLE. PT REPORTS CHILLS AND TEMP OF 104 THIS MORNING. Mode of Arrival: Wheelchair Limitations: No Limitations Source: Patient, RN Notes Reviewed Time Seen by Provider: 10/11/16 09:55 - History of Present Illness HPI Narrative: Pt is a 61 y/o female, with PMHx of Breast CA, CAD, and HTN, who presents to the ED with CC of fever, chills, and swollen right foot. Pt states she had fever for the past few days and decided to come to the ED. Pt also had stents placed in right leg and ankle recently. Pt went to her PCP last week for the same complaint and was Rx Bactrim for a UTI. Pt states she is finished with her breast CA treatments. No other pains/complaints reported to ED. Onset (ago): day(s) Consistency: constant Severity: moderate Allergies/Adverse Reactions: Allergies Allergy/AdvReac Type Severity Reaction Status Date / Time ceftriaxone [From Rocephin] Allergy Severe SHORTNESS Verified 10/11/16 09:23 OF BREATH Home Medications: Home Medications Medication Instructions Recorded Confirmed Type Omeprazole 20 mg PO QAM 03/24/16 09/28/16 History PARoxetine [Paxil] 20 mg PO QAM 03/24/16 09/28/16 History Aspirin Chew Tab 81 mg PO BEDTIME 05/26/16 09/28/16 History Cilostazol 50 mg PO BID 05/26/16 09/28/16 History Isosorbide Mononitrate [Isosorbide 30 mg PO QAM 05/26/16 09/28/16 History Mononitrate ER] Rosuvastatin [Crestor] 40 mg PO BEDTIME 05/26/16 09/28/16 History Carvedilol [Coreg] 3.125 mg PO BID #60 tablet 08/29/16 09/28/16 Rx Lisinopril [Prinivil] 2.5 mg PO DAILY #30 tablet 08/29/16 09/28/16 Rx Nitroglycerin Sl Tab [Nitrostat] 0.4 mg SL Q5M PRN tablet 08/29/16 09/28/16 Rx Pantoprazole Tab [Protonix Tab] 40 mg PO DAILY #30 tablet 08/29/16 09/28/16 Rx Clopidogrel [Plavix] 75 mg PO DAILY 09/28/16 09/28/16 History Ranolazine [Ranexa] 500 mg PO BID 09/28/16 09/28/16 History Review of System - Review of System 12 point system: reviewed and no additional remarkable complaints except as stated - Review of System Constitutional: Present: chills, fever. Absent: diaphoresis Respiratory: Present: cough. Absent: respiratory distress Cardiovascular: Present: edema (Swollen right foot). Absent: chest pain Gastrointestinal: Absent: abdominal pain, nausea, vomiting Genitourinary female: Absent: dysuria Musculoskeletal: Absent: back pain, lower back pain, leg pain, upper back pain Neurological: Absent: headache, weakness, numbness, paresthesias Medical,Surgical,& Family Hx - Medical History Cardio: History of: CAD, Hypertension Comment Only: Valvular Heart Disease (DID NOT TELL DR Barajas NURSE ABOUT THIS EKG FAX TO [facility]03/24/15 4142), Cardiovascular Problems (DR TIERNEY IN [facility] SAID MAY HAVE BLOCKGE HAS NOT BEEN CHECK FOR THIS) Psychological: No history of: Depression Neurology: No history of: Seizures Genitourinary: History of: Bladder Problem (stress incontinence) Musculoskeletal: History of: Musculoskeletal Problems (legs hurt with ambulation ) No history of: Amputation Reproductive: History of: Breast Cancer (Rt mastectomy) Other: History of: Anaphylaxis (rocephin), Cancer (R BREAST), MRSA, Miscellaneous Medical Problems (SEPIS COLON FROM BACTERILA INFECTION) - Surgical History Cardiac Surgeries: Sugical HX of: Cardiac Catheterization Thoracic Surgeries: Patient denies;: Organ Transplant, Lobectomy HEENT Surgeries: Patient denies: Eye Surgery, Tonsilectomy & Adenoidectomy Reproductive Surgeries: Surgical HX of;: Breast Surgery (RIGHT Mastectomy), Tubal Ligation Orthopedic Surgeries: Patient denies;: Implanted Devices - Family History Family History: Reports;: Family Cancer (MOM BROTHER 2 SISTRS), Family Diabetes (BROTHER), Family Heart Disease (SISTER) - Social History Smoking Status: Former smoker Frequency of Alcohol Use: None Type of Drug Use: None Exam Vital Signs: Vital Signs Temperature 100 F H 10/11/16 09:48 Pulse Rate 96 H 10/11/16 09:48 Respiratory Rate 16 10/11/16 09:48 Blood Pressure 110/61 10/11/16 09:48 O2 Sat by Pulse Oximetry 95 10/11/16 09:19 GENERAL: This is a well-nourished well-developed white female, chronically ill- appearing, in no apparent distress. VITAL SIGNS: Reviewed HEENT: Head is atraumatic and normocephalic. Pupils are equal round react to light. Extraocular movements are intact. Oropharynx is benign with moist mucous membranes. NECK: Neck is soft and supple without tenderness. There are no masses. There is no lymphadenopathy. LUNGS: Lungs are clear to auscultation. Chest rises symmetrically. There is no chest wall tenderness. CV: Heart is regular rate and rhythm without murmurs rubs or gallops. ABDOMEN: Abdomen is soft, nontender to palpation. There are no abdominal abnormal masses palpated. There is no organomegaly. Bowel sounds are present and active. SKIN: Skin is warm and dry. No rash. EXTREMITIES: Patient has full range of motion without tenderness. There is trace to 1+ nonpitting pedal edema of right lower extremity. There is no erythema but right ankle is warm to touch. NEUROLOGIC: Awake alert and oriented 4. Cranial nerves II through XII are grossly intact. Motor is 5 over 5 in all extremities bilaterally. Deep tendon reflexes are 2+ and bilaterally equal. Course Course Narrative: Patient was given a bolus of normal saline 1 L. Patient was given Levaquin while in the emergency department. - Consultations Consultation #1: Discussed with hospitalist. Patient will be admitted to their service. Time: 11:23 Results - Labs CBC & BMP: 10/11/16 09:38 10/11/16 09:38 Lab Results: I have reviewed the patients labs Labs: Laboratory Tests 10/11/16 09:38 Lactic Acid 1.5 Laboratory Tests 10/11/16 09:59 Urine pH 5.0 Ur Specific [place] 1.017 Urine Protein 100 Urine RBC 3 Urine WBC 3 - Diagnostic Findings Procedure: Chest x-ray: image reviewed by me (No infiltrates, no pleural effusions.), X-ray: image reviewed by me (Right ankle x-ray:) Critical Care Time Critical Care Time: No Disposition Clinical Impression: Fever, Peripheral artery disease, SIRS (systemic inflammatory response syndrome ), Hypokalemia, Hyponatremia Case discussed with: patient, patient's family Disposition: Still a Patient Condition: Stable
[2016-10-11 10:16] LABS: Apearance,Urine Slightly Hazy (Clear); Bacteria,Urine Occasional /HPF (Few); Bilirubin,Urine Negative (Negative); Blood, Urine Small mg/dL (Negative); Glucose,Urine (UA) Negative (Negative); Ketones,Urine Negative (Negative); Mucus,Urine Moderate /LPF (Occasional); Nitrite,Urine Negative (Negative); Protein,Urine 100 MG/DL; RBC,Urine 3 /HPF (0-4); Squamous Epithelial Cell,Urine Occasional /HPF (0-10); Urine Specific Gravity 1.017 (1.001-1.035); WBC,Urine 3 /HPF (0-6)
[2016-10-11 10:16] LABS: Lactic Acid 1.5 MMOL/L (0.4-2.0)
[2016-10-11 10:17] LABS: Urine Color Dark yellow (Yellow)
--- NOTE | 2016-10-11 10:33 | Ultrasound Report ---
Venous Doppler ultrasound right lower extremity Indication: Edema and fever Comparison: None available Findings: No evidence of echogenic, noncompressible thrombus seen in the visualized veins of the extremities. Color Doppler venous waveform pattern is within normal limits. Impression: No evidence of deep venous thrombosis. Ultrasound images stored and captured. PROCEDURE INTERPRETED AT [facility] DEPARTMENT OF RADIOLOGY Final Report Signed by: Dr. Jean Babcock
--- NOTE | 2016-10-11 11:08 | XRay Report ---
XR chest 1V portable Indication: Fever Comparison: Chest x-ray dated August 26, 2016 Technique: Single frontal view of the chest. Findings: The cardiomediastinal silhouette is stable in configuration. Chronic change of the lungs without focal consolidation, pleural effusion, or pneumothorax. Visualized osseous and surrounding soft tissue structures appear grossly unchanged. IMPRESSION: No acute cardiopulmonary process demonstrated. PROCEDURE INTERPRETED AT [facility] DEPARTMENT OF RADIOLOGY Final Report Signed by: Dr Jack Gauthier
[2016-10-11] MEDS ORDERED: POTASSIUM CHLORIDE 20 MEQ TABLET PO STA (11:19)
[2016-10-11] MEDS ORDERED: LEVOFLOXACIN INJ 500 MG in PREMIX 1 EACH IV STA (11:20)
[2016-10-11] MEDS ORDERED: POTASSIUM CHLORIDE 20 MEQ TABLET PO ONE (11:23)
[2016-10-11] MEDS ORDERED: LEVOFLOXACIN INJ 100 ML IV ONE (11:23)
--- NOTE | 2016-10-11 11:40 | XRay Report ---
XR ankle 2V RT Indication: Ankle pain Comparison: None available Findings: No evidence of fracture seen. The alignment of the joints appears normal. Mild ankle degenerative change is present. No soft tissue abnormality is seen. Impression: Mild ankle osteoarthrosis. PROCEDURE INTERPRETED AT [facility] DEPARTMENT OF RADIOLOGY Final Report Signed by: Dr. Jean Babcock
--- NOTE | 2016-10-11 12:16 | Hospitalist History & Physical ---
<Symone Parsonsda - Last Filed: 10/11/16 12:13> Assessment and Plan (1) Fever Status: Acute Assessment and plan: The patient was febrile at the time of ED presentation with a temperature noted at 100.00 and white blood cell count was noted at 17.5. Blood cultures have been obtained we will await culture and sensitivity report. We will continue empiric antibiotic coverage as previously ordered. Current Visit: Yes (2) Hypokalemia Status: Acute Assessment and plan: Potassium is noted at 3.0. We will gently rehydrate and correct the deficit. We will recheck labs in a.m. Current Visit: Yes (3) Hyponatremia Status: Acute Assessment and plan: Sodium noted at 128. We will gently rehydrate and correct the deficit. We will recheck labs in a.m Current Visit: Yes (4) Edema of right lower extremity Status: Acute Assessment and plan: +1 edema noted to the right lower extremity. Venous Doppler studies were essentially negative for DVT. X-ray was essentially unremarkable for any acute deformity or fracture; however reported mild ankle osteoarthrosis. We will consult physical therapy to evaluate. Current Visit: Yes History of Present Illness Chief complaint: right foot edema History of present illness: This is a chronically ill 61-year-old female that presented to the ED at [facility] this morning for the evaluation of peripheral edema. The patient has a medical history significant for hypertension, valvular heart disease, coronary artery disease, stress incontinence, and breast cancer. Patient surgical history significant for cardiac catheterization , right mastectomy, tubal ligation. The patient reported the onset of symptoms this morning. Patient reported that she noticed that her right foot the swelling this morning upon awakening. In addition, the patient reported that she had had fever for the past few days however she did not report exactly how high the fever was. She presented to her primary care physician on last week for the above complaint. During that encounter, the patient was subsequently diagnosed with a urinary tract infection and discharged home with Bactrim. She became concerned because of recent stent placement to the right leg; which prompted her to present to the ED for further evaluation. The patient was seen at the time of ED presentation. Labs were obtained; m complete blood count reported white blood cell count 17.5, hemoglobin 8.9, hematocrit 26.5, platelet count of 272, sodium 128, potassium 3.0, chloride 91, carbon dioxide 28, BUN 11, creatinine 1.20, and glucose at 208. Lactic acid was noted at 1.5. Urinalysis reported red blood cell count at 3, white blood cell count at 3, and urine urobilinogen at 4.0. In addition urinalysis reported occasional squamous epithelial cells, urine bacteria, and a moderate amount of mucus was noted. Chest x-ray was essentially unremarkable for any acute cardiopulmonary processes. Venous Doppler studies of the right lower extremity were unremarkable for the presence of deep vein thrombosis. After brief discussion with both Dr. Melchor and Dr. Mccoy, the patient will be admitted to the hospitalist group for continuation of care. Home medications have been reviewed and reconciled. CODE STATUS discussed; patient is FULL CODE. Home Medications Medication Instructions Recorded Confirmed Type Omeprazole 20 mg PO QAM 03/24/16 10/11/16 History PARoxetine [Paxil] 20 mg PO QAM 03/24/16 10/11/16 History Aspirin Chew Tab 81 mg PO BEDTIME 05/26/16 10/11/16 History Cilostazol 50 mg PO BID 05/26/16 10/11/16 History Isosorbide Mononitrate [Isosorbide 30 mg PO QAM 05/26/16 10/11/16 History Mononitrate ER] Rosuvastatin [Crestor] 40 mg PO BEDTIME 05/26/16 10/11/16 History Carvedilol [Coreg] 3.125 mg PO BID #60 tablet 08/29/16 10/11/16 Rx Nitroglycerin Sl Tab [Nitrostat] 0.4 mg SL Q5M PRN tablet 08/29/16 10/11/16 Rx Clopidogrel [Plavix] 75 mg PO QPM 09/28/16 10/11/16 History Ranolazine [Ranexa] 500 mg PO BID 09/28/16 10/11/16 History Lisinopril [Prinivil] 2.5 mg PO QAM 10/11/16 10/11/16 History Pantoprazole Tab [Protonix Tab] 40 mg PO QAM 10/11/16 10/11/16 History Allergies Allergy/AdvReac Type Severity Reaction Status Date / Time ceftriaxone [From Rocephin] Allergy Severe SHORTNESS Verified 10/11/16 09:23 OF BREATH Medical,Surgical,& Family Hx - Medical History Cardio: History of: CAD, Hypertension Comment Only: Valvular Heart Disease (DID NOT TELL DR Barajas NURSE ABOUT THIS EKG FAX TO [facility]03/24/15 7965), Cardiovascular Problems (DR TIERNEY IN [facility] SAID MAY HAVE BLOCKGE HAS NOT BEEN CHECK FOR THIS) Psychological: No history of: Depression Neurology: No history of: Seizures Genitourinary: History of: Bladder Problem (stress incontinence) Musculoskeletal: History of: Musculoskeletal Problems (legs hurt with ambulation ) No history of: Amputation Reproductive: History of: Breast Cancer (Rt mastectomy) Other: History of: Anaphylaxis (rocephin), Cancer (R BREAST), MRSA, Miscellaneous Medical Problems (SEPIS COLON FROM BACTERILA INFECTION) - Surgical History Cardiac Surgeries: Sugical HX of: Cardiac Catheterization Thoracic Surgeries: Patient denies;: Organ Transplant, Lobectomy HEENT Surgeries: Patient denies: Eye Surgery, Tonsilectomy & Adenoidectomy Reproductive Surgeries: Surgical HX of;: Breast Surgery (RIGHT Mastectomy), Tubal Ligation Orthopedic Surgeries: Patient denies;: Implanted Devices - Family History Family History: Reports;: Family Cancer (MOM BROTHER 2 SISTRS), Family Diabetes (BROTHER), Family Heart Disease (SISTER) - Social History Smoking Status: Former smoker Frequency of Alcohol Use: None Type of Drug Use: None 12 point system: reviewed and no additional remarkable complaints except as stated Exam - Constitutional Vitals: Period Temp Pulse Resp BP Sys/[place] Pulse Ox Last 24 Hr 100 F-100.0 F 96-96 16-16 110-110/61-61 95 General appearance: normal weight, no acute distress - Head Head exam: Present: normal inspection, normocephalic, atraumatic - Eye Eye exam: Present: EOMI. Absent: conjunctival injection, nystagmus Pupils: Present: ROSIE, normal accommodation - ENT ENT exam: Present: normal exam, normal external ear exam - Neck Neck exam: Present: normal inspection. Absent: lymphadenopathy, meningismus, thyromegaly - Respiratory Respiratory exam: Present: clear to auscultation bilaterally. Absent: rales, rhonchi, stridor, wheezes - Cardiovascular Cardiovascular exam: Present: regular rate and rhythm. Absent: carotid bruit, diastolic murmur, gallop, JVD, rubs, systolic murmur - GI/Abdominal GI/Abdominal exam: Present: normal bowel sounds. Absent: tenderness - Extremities Exam Extremities exam: Present: normal inspection, normal capillary refill, edema (+ 1 edema noted in the right lower extremity) - Back Exam Back exam: Present: normal inspection - Neurological Exam Neurological exam: Present: alert, oriented X3, CN II-XII intact - Psychiatric Psychiatric exam: Present: normal affect, normal mood - Skin Skin exam: Present: normal color, warm, dry Results - Labs CBC & BMP: 10/11/16 09:38 10/11/16 09:38 Lab Results: I have reviewed the past 24 hour labs <Haley Mccoy - Last Filed: 10/11/16 14:48> History of Present Illness History of present illness: Ms. Umana is a 61 year old female with multiple medical issues now presenting with fever and electrolytes derrangement. Patient was seen, examined by me.I agree with the current management. Plan -will broaden antibiotic coverage to meropenem and vanc -conley culture doppler uss of left leg to r/o DVT Tylenol prn for fever labs in am Exam - Constitutional Vitals: Period Temp Pulse Resp BP Sys/[place]aman Pulse Ox Last 24 Hr 100 F-105.5 F 96-97 16-20 110-118/44-61 94-95 Results - Labs CBC & BMP: 10/11/16 09:38 10/11/16 09:38
[2016-10-11] MEDS ORDERED: ACETAMINOPHEN 325 MG TABLET PO PRN (12:51)
[2016-10-11] MEDS ORDERED: ONDANSETRON 4 MG/2 ML VIAL IV PRN (12:51)
[2016-10-11] MEDS ORDERED: SODIUM CHLORIDE 0.9% 1,000 ML IV SCH (13:00)
[2016-10-11] MEDS ORDERED: ENOXAPARIN 40 MG/0.4 ML SYRINGE SUBCUT SCH (13:00)
[2016-10-11] MEDS ORDERED: NITROGLYCERIN SL 0.4 MG TABLET SL PRN (13:54)
[2016-10-11] MEDS ORDERED: LEVOFLOXACIN INJ 500 MG in PREMIX 1 EACH IV SCH (14:00)
[2016-10-11] MEDS ORDERED: VANCOMYCIN INJ 1,000 MG in SODIUM CHLORIDE 0.9% 250 ML IV ONE (15:00)
[2016-10-11] MEDS ORDERED: MEROPENEM 500 MG in SODIUM CHLORIDE 0.9% 100 ML IV SCH (16:00)
--- NOTE | 2016-10-11 16:22 | Ultrasound Report ---
US venous doppler LE LT Indication: Swelling of leg. Comparison: None. Technique: Grayscale, spectral, and color Doppler interrogation of the left lower extremity veins was performed. Augmentation and compression was performed. Findings: Grayscale, color Doppler, and pulsed Doppler evaluation of the veins of the left lower extremity demonstrates no evidence of deep venous thrombosis. IMPRESSION: No evidence of deep venous thrombosis in the left lower extremity. PROCEDURE INTERPRETED AT [facility] DEPARTMENT OF RADIOLOGY Final Report Signed by: Dr Jack Gauthier
--- NOTE | 2016-10-11 17:10 | Cardiology Consult Note ---
Assessment and Plan (1) Edema of right lower extremity Status: Acute Assessment and plan: 1. 61-year-old WF well known to me with breast cancer status post mastectomy, completed chemotherapy about 6-7 weeks ago, and whom I open her long right superficial femoral artery occlusion 2 weeks ago with stenting 2 who now has 3 days of right lower extremity pain and modest foot swelling as well as intermittent high fever. 2. Recent UTI treated with Bactrim 3. Routine culture and evaluation/treatment for infection or appropriate, given her history of cancer and recent chemotherapy. However I suspect her right leg pain is related to reperfusion pain from opening her long right SFA occlusion 2 weeks ago. This a bit of a late presentation, but would give NSAIDs and gentle hydration. She has a clearly palpable right DP pulse and is neurologically intact without deficit in her right foot or lower leg. Right distal anterior tibial access site is clean without tenderness per 4. We will follow with you. Current Visit: Yes (2) Fever Status: Acute Current Visit: Yes History of Present Illness - Consult Narrative History of present illness: Ms. Umana is a 61 year old female well known to me with breast cancer status post mastectomy and finished chemotherapy 6 or 7 weeks ago. She has coronary artery disease in the form of intervention percutaneously on her right coronary artery previously. She had a long right SFA occlusion that I opened and stented with 2 overlapping stents covering the ostium 2 weeks ago. She now has had 3 days of intermittent right leg pain especially on her right inner thigh this morning with swelling in her foot. There is wax and wane but was most severe this morning. Is improved a bit but still persists. She has had fever to over 104. She had UTI for which she got Bactrim and recent week or 2. CC: Haley Mccoy MD - Home Medications and Allergies Home Medications: Home Medications Medication Instructions Recorded Confirmed Type Omeprazole 20 mg PO QAM 03/24/16 10/11/16 History PARoxetine [Paxil] 20 mg PO QAM 03/24/16 10/11/16 History Aspirin Chew Tab 81 mg PO BEDTIME 05/26/16 10/11/16 History Cilostazol 50 mg PO BID 05/26/16 10/11/16 History Isosorbide Mononitrate [Isosorbide 30 mg PO QAM 05/26/16 10/11/16 History Mononitrate ER] Rosuvastatin [Crestor] 40 mg PO BEDTIME 05/26/16 10/11/16 History Carvedilol [Coreg] 3.125 mg PO BID #60 tablet 08/29/16 10/11/16 Rx Nitroglycerin Sl Tab [Nitrostat] 0.4 mg SL Q5M PRN tablet 08/29/16 10/11/16 Rx Clopidogrel [Plavix] 75 mg PO QPM 09/28/16 10/11/16 History Ranolazine [Ranexa] 500 mg PO BID 09/28/16 10/11/16 History Lisinopril [Prinivil] 2.5 mg PO QAM 10/11/16 10/11/16 History Pantoprazole Tab [Protonix Tab] 40 mg PO QAM 10/11/16 10/11/16 History Allergies/Adverse Reactions: Allergies Allergy/AdvReac Type Severity Reaction Status Date / Time ceftriaxone [From Rocephin] Allergy Severe SHORTNESS Verified 10/11/16 09:23 OF BREATH Medical,Surgical,& Family Hx - Medical History Cardio: History of: CAD, Hypertension Comment Only: Valvular Heart Disease (DID NOT TELL DR Barajas NURSE ABOUT THIS EKG FAX TO [facility]03/24/15 2146), Cardiovascular Problems (DR TIERNEY IN [facility] SAID MAY HAVE BLOCKGE HAS NOT BEEN CHECK FOR THIS) Psychological: No history of: Depression Neurology: No history of: Seizures Genitourinary: History of: Bladder Problem (stress incontinence) Musculoskeletal: History of: Musculoskeletal Problems (legs hurt with ambulation ) No history of: Amputation Reproductive: History of: Breast Cancer (Rt mastectomy) Other: History of: Anaphylaxis (rocephin), Cancer (R BREAST), MRSA, Miscellaneous Medical Problems (SEPIS COLON FROM BACTERILA INFECTION) - Surgical History Cardiac Surgeries: Sugical HX of: Cardiac Catheterization Thoracic Surgeries: Patient denies;: Organ Transplant, Lobectomy HEENT Surgeries: Patient denies: Eye Surgery, Tonsilectomy & Adenoidectomy Reproductive Surgeries: Surgical HX of;: Breast Surgery (RIGHT Mastectomy), Tubal Ligation Orthopedic Surgeries: Patient denies;: Implanted Devices - Family History Family History: Reports;: Family Cancer (MOM BROTHER 2 SISTRS), Family Diabetes (BROTHER), Family Heart Disease (SISTER) - Social History Smoking Status: Former smoker Frequency of Alcohol Use: None Type of Drug Use: None Physical Examination Vital Signs Temp Pulse Resp BP Pulse Ox 100.0 F H 96 H 16 110/61 95 10/11/16 09:19 10/11/16 09:19 10/11/16 09:19 10/11/16 09:19 10/11/16 09:19 General: Present: Appears Well, No Apparent Distress, Other Cardiac: Present: Reg Rate and Rhythm. Absent: Systolic Murmur, Diastolic Murmur Lungs: Present: No Wheeze, Rales, Rhonchi Neuro: Absent: Resting Tremor Abdomen: Present: Soft, Non-Tender Extremities: Present: Other (Slightly warmer right leg and foot with mild swelling of the right foot; normal sensation of the foot normal motion of the foot is noted; palpable right DP pulse noted. No tenderness at the right distal anterior tibial artery access site.) Result/EKG - Labs CBC & BMP: 10/11/16 09:38 10/11/16 09:38 Labs: Laboratory Results - last 24 hr 10/11/16 10/11/16 10/11/16 09:38 09:38 09:38 WBC 17.5 H RBC 2.89 L Hgb 8.9 L Hct 26.5 L MCV 91.7 MCH 31 MCHC 33.6 RDW 17.3 Plt Count 272 MPV 9.6 Neut % (Auto) 88.0 H Lymph % (Auto) 6.1 L [place] % (Auto) 4.9 Eos % (Auto) 0.0 Baso % (Auto) 0.2 Neut # (Auto) 15.4 H Lymph # (Auto) 1.1 L [place] # (Auto) 0.9 H Eos # (Auto) 0.0 Baso # (Auto) 0.0 Immature Gran % 0.8 Nucleated RBC % 0.0 Immature Gran # 0.14 Nucleated RBCs # 0.00 Immature Plt Fraction 0.0 Sodium 128 L Potassium 3.0 L Chloride 91 L Carbon Dioxide 28 Anion Gap 12.0 BUN 11 Creatinine 1.20 H GFR Calculation 47 BUN/Creatinine Ratio 9.00 Glucose 208 H Calculated Osmolality 261.1 L Lactic Acid 1.5 Uric Acid 3.5 Calcium 8.1 L Magnesium 1.8 Total Bilirubin 0.90 AST 25 ALT 17 Alkaline Phosphatase 85 Total Protein 8.0 Albumin 2.7 L Globulin 5.3 H Albumin/Globulin Ratio 0.5 L Urine Color Urine Appearance Urine pH Ur Specific [place] Urine Protein Urine Glucose (UA) Urine Ketones Urine Blood Urine Nitrate Urine Bilirubin Urine Urobilinogen Urine Leukocytes Urine RBC Urine WBC Ur Squamous Epith Cells Urine Bacteria Urine Mucus Ur Culture Indicated? 10/11/16 09:59 WBC RBC Hgb Hct MCV MCH MCHC RDW Plt Count MPV Neut % (Auto) Lymph % (Auto) [place] % (Auto) Eos % (Auto) Baso % (Auto) Neut # (Auto) Lymph # (Auto) [place] # (Auto) Eos # (Auto) Baso # (Auto) Immature Gran % Nucleated RBC % Immature Gran # Nucleated RBCs # Immature Plt Fraction Sodium Potassium Chloride Carbon Dioxide Anion Gap BUN Creatinine GFR Calculation BUN/Creatinine Ratio Glucose Calculated Osmolality Lactic Acid Uric Acid Calcium Magnesium Total Bilirubin AST ALT Alkaline Phosphatase Total Protein Albumin Globulin Albumin/Globulin Ratio Urine Color Dark yellow Urine Appearance Slightly hazy Urine pH 5.0 Ur Specific [place] 1.017 Urine Protein 100 Urine Glucose (UA) Negative Urine Ketones Negative Urine Blood Small Urine Nitrate Negative Urine Bilirubin Negative Urine Urobilinogen 4.0 H Urine Leukocytes Negative Urine RBC 3 Urine WBC 3 Ur Squamous Epith Cells Occasional Urine Bacteria Occasional Urine Mucus Moderate Ur Culture Indicated? Not indicated
[2016-10-11] MEDS ORDERED: KETOROLAC 15 MG/1 ML VIAL IV PRN (17:19)
[2016-10-11] MEDS ORDERED: KETOROLAC 30 MG/1 ML VIAL IV ONE (17:30)
[2016-10-11] MEDS: CLOPIDOGREL 75 MG TABLET PO SCH (18:13)
[2016-10-11] MEDS: MEROPENEM 1,000 MG in SODIUM CHLORIDE 0.9% 100 ML IV SCH (18:14)
[2016-10-11] MEDS: SODIUM CHLORIDE 0.9% 1,000 ML IV SCH (18:16)
[2016-10-11] MEDS: ROSUVASTATIN 20 MG TABLET PO SCH (20:43)
[2016-10-11] MEDS: ASPIRIN CHEW 81 MG TABLET PO SCH (20:43)
[2016-10-11] MEDS: CILOSTAZOL 50 MG TABLET PO SCH (20:43)
[2016-10-11] MEDS ORDERED: RANOLAZINE 500 MG TABLET PO SCH (21:00)
[2016-10-11] MEDS ORDERED: IBUPROFEN 400 MG TABLET PO SCH (21:00)
[2016-10-11] MEDS ORDERED: CARVEDILOL 3.125 MG TABLET PO SCH (21:00)
[2016-10-11] MEDS ORDERED: SODIUM CHLORIDE 0.9% 500 ML IV ONE (21:38)
--- NOTE | 2016-10-11 22:31 | Event Note ---
Called to evaluate patient with hypotension. The chart was reviewed. The patient was admitted earlier today with fever. She also has leukocytosis and hypotension. She meets criteria for sepsis. Lactic acid was 1.5. She also has hyponatremia. Please see my sepsis physical exam below. Repeat lactic acid ordered given her hypotension. A definitive source is unclear. The patient was recently treated for urinary tract infection and has no urinary symptoms at this time. A Farrell catheter is in place. She complains of right lower extremity pain. Examination of her right lower extremity shows redness and swelling involving the toes of the right foot with tenderness to palpation of the right foot. She reports pain goes all the way up the leg and into the thigh. There is no girth discrepancy between the right and left. Bilateral lower extremity Dopplers are negative. She may have a reperfusion injury after stenting for her PAD. Cardiology notes reviewed. Will continue to monitor. Sepsis - Sepsis Classification of Sepsis: Sepsis Sepsis documentation within 6 hours of presentation: fluid change - Physical Exam Respiratory exam: clear to auscultation bilaterally Capillary Refill: Less Than 3 Seconds Peripheral pulses: Radial (L): 3+/4+, Radial (R): 3+/4+, Dorsalis Pedis (L) PM: 3+/4+, Dorsalis Pedis (R) PM: 3+/4+, Posterior Tibialis (L): 3+/4+, Posterior Tibialis (R): 3+/4+ Cardiovascular exam: regular rate and rhythm Skin exam: normal color
[2016-10-12 01:51] LABS: Basophils % 0.1 % (0.0-0.8); Eosinophils % 0.3 % (0.00-10.9); Hematocrit 21.6 VOL% (35.7-47.0); Hemoglobin 7.1 GM/DL (12.0-16.0); Immature Granulocytes % 0.8 %; Immature Granulocytes Absolute 0.07 #; Lymphocytes # 0.9 10*3/uL (1.4-4.0); Lymphocytes % 9.8 % (21.3-54.2); Mean Corpuscular HGB Conc 32.9 GM/DL (32-36); Mean Corpuscular Hemoglobin 30 PG (27-34); Mean Corpuscular Volume 92.3 FL (87-102); Mean Platelet Volume 9.7 FL (9.6-12.0); Monocytes # 0.6 10*3/uL (0.11-0.8); Monocytes % 6.8 % (1.7-12.7); Neutrophils # 7.3 10*3/uL (1.4-7.4); Neutrophils % 82.2 % (38.7-73.9); Platelet Count 204 T/CUMM (130-400); Red Blood Count 2.34 MC/CUMM (3.8-5.5); Red Cell Distribution Width 17.6 % (9.3-17.3); White Blood Count 8.9 T/CUMM (4-12)
[2016-10-12 02:15] LABS: Bilirubin,Total 0.5 MG/DL (0.2-1.0); Calcium 7.8 MG/DL (8.5-10.1); Magnesium 2.1 MG/DL (1.8-2.4); Osmolality,Calculated 272.8 MOS/KG (273-304); Potassium 3.3 MMOL/L (3.5-5.1); Total Protein 6.3 G/DL (6.4-8.3)
[2016-10-12] MEDS: SODIUM CHLORIDE 0.9% 1,000 ML IV SCH ×2 (02:19→10:10)
[2016-10-12 02:26] LABS: Eosinophils 1 % (0-10); Lymphocytes 8 % (20-55); Segmented Neutrophils 89 % (50-85); Total Cells Counted 100
[2016-10-12 02:27] LABS: Hypochromasia 1+; Microcytosis 1+; Platelet Estimate Normal
[2016-10-12] MEDS: MEROPENEM 1,000 MG in SODIUM CHLORIDE 0.9% 100 ML IV SCH ×3 (06:27→22:37)
[2016-10-12] MEDS ORDERED: POTASSIUM CHLORIDE 20 MEQ TABLET PO ONE (07:01)
--- NOTE | 2016-10-12 08:21 | Cardiology Progress Note ---
Assessment and Plan (1) Edema of right lower extremity Status: Acute Assessment and plan: 1. 61-year-old WF well known to me with breast cancer status post mastectomy, completed chemotherapy about 6-7 weeks ago, and whom I open her long right superficial femoral artery occlusion 2 weeks ago with stenting 2 who now has 3 days of right lower extremity pain and modest foot swelling as well as intermittent high fever. 2. Recent UTI treated with Bactrim 3. Routine culture and evaluation/treatment for infection or appropriate, given her history of cancer and recent chemotherapy. However I suspect her right leg pain is related to reperfusion pain from opening her long right SFA occlusion 2 weeks ago. This a bit of a late presentation, but would give NSAIDs and gentle hydration. She has a clearly palpable right DP pulse and is neurologically intact without deficit in her right foot or lower leg. Right distal anterior tibial access site is clean without tenderness per 4. We will follow with you. October 12, 2016: 1. Ms. Umana's fever has resolved but her hematocrit is dropped to below 20% 2. Her anemia is probably at least delusional in part, and has no evidence of bleeding. 3. She clearly has reperfusion pain (foot is slightly warmer and more swollen) that developed 10 days out from revascularization of right SFA occlusion, but also has septic picture with some hypotension and initial leukocytosis being immunocompromised with recent cancer/chemotherapy; she is currently on multiple IV antibiotics with cultures pending. 4. Continue NSAIDs to reduce inflammation 5. Reduce IV fluids to reduce a dilutional effect on her hematocrit 6. She still has a clearly palpable right dorsalis pedis pulse, will check segmental Dopplers to document perfusion. 7. Previous access sites in the distal anterior tibial artery and left groin both look good without evidence of tenderness hematoma or bleeding. Current Visit: Yes (2) Fever Status: Acute Current Visit: Yes Cardiology - PN: Subj Interval history: Ms. Umana had a bit of relief yesterday late but return of her right leg discomfort today "I feel like it has got fever". She is not having any cough dysuria or shortness of breath. She has not had any hematochezia or melena. She has not had any bleeding of any kind. Her fevers resolved. Exam (Progress Note) - Constitutional Vitals: Period Temp Pulse Resp BP Sys/[place] Pulse Ox Last 24 Hr 96.2 F-105.5 F 62-97 15-20 76-118/38-64 94-99 General appearance: normal weight, mild distress - Neck Neck exam: Present: normal inspection - Respiratory Respiratory exam: Present: clear to auscultation bilaterally - Cardiovascular Cardiovascular exam: Present: regular rate and rhythm. Absent: diastolic murmur , rubs - GI/Abdominal GI/Abdominal exam: Present: soft. Absent: tenderness - Extremities Exam Extremities exam: Present: edema (trace RLE edema; warm; palpable R DP pulse) - Neurological Exam Neurological exam: Present: alert, oriented X3 Result/EKG - Labs CBC & BMP: 10/12/16 01:25 10/12/16 01:25 Labs: Laboratory Results - last 24 hr 10/11/16 10/11/16 10/11/16 09:38 09:38 09:38 WBC 17.5 H RBC 2.89 L Hgb 8.9 L Hct 26.5 L MCV 91.7 MCH 31 MCHC 33.6 RDW 17.3 Plt Count 272 MPV 9.6 Neut % (Auto) 88.0 H Lymph % (Auto) 6.1 L [place] % (Auto) 4.9 Eos % (Auto) 0.0 Baso % (Auto) 0.2 Neut # (Auto) 15.4 H Lymph # (Auto) 1.1 L [place] # (Auto) 0.9 H Eos # (Auto) 0.0 Baso # (Auto) 0.0 Total Counted Immature Gran % 0.8 Nucleated RBC % 0.0 Immature Gran # 0.14 Segmented Neutrophils Lymphocytes Monocytes Eosinophils Nucleated RBCs # 0.00 Platelet Estimate Immature Plt Fraction 0.0 Hypochromasia Microcytosis Sodium 128 L Potassium 3.0 L Chloride 91 L Carbon Dioxide 28 Anion Gap 12.0 BUN 11 Creatinine 1.20 H GFR Calculation 47 BUN/Creatinine Ratio 9.00 Glucose 208 H Calculated Osmolality 261.1 L Lactic Acid 1.5 Uric Acid 3.5 Calcium 8.1 L Magnesium 1.8 Total Bilirubin 0.90 AST 25 ALT 17 Alkaline Phosphatase 85 Total Protein 8.0 Albumin 2.7 L Globulin 5.3 H Albumin/Globulin Ratio 0.5 L Urine Color Urine Appearance Urine pH Ur Specific [place] Urine Protein Urine Glucose (UA) Urine Ketones Urine Blood Urine Nitrate Urine Bilirubin Urine Urobilinogen Urine Leukocytes Urine RBC Urine WBC Ur Squamous Epith Cells Urine Bacteria Urine Mucus Ur Culture Indicated? 10/11/16 10/12/16 10/12/16 09:59 01:25 01:25 WBC 8.9 D RBC 2.34 L Hgb 7.1 L D Hct 21.6 L MCV 92.3 MCH 30 MCHC 32.9 RDW 17.6 H Plt Count 204 D MPV 9.7 Neut % (Auto) 82.2 H Lymph % (Auto) 9.8 L [place] % (Auto) 6.8 Eos % (Auto) 0.3 Baso % (Auto) 0.1 Neut # (Auto) 7.3 Lymph # (Auto) 0.9 L [place] # (Auto) 0.6 Eos # (Auto) 0.0 Baso # (Auto) 0.0 Total Counted 100 Immature Gran % 0.8 Nucleated RBC % 0.0 Immature Gran # 0.07 Segmented Neutrophils 89 H Lymphocytes 8 L Monocytes 2 Eosinophils 1 Nucleated RBCs # 0.00 Platelet Estimate Normal Immature Plt Fraction 0.0 Hypochromasia 1+ Microcytosis 1+ Sodium 137 Potassium 3.3 L Chloride 103 Carbon Dioxide 28 Anion Gap 9.3 BUN 12 Creatinine 0.90 GFR Calculation 67 BUN/Creatinine Ratio 13.00 Glucose 98 Calculated Osmolality 272.8 L Lactic Acid Uric Acid Calcium 7.8 L Magnesium 2.1 Total Bilirubin 0.50 AST 20 ALT 14 Alkaline Phosphatase 63 Total Protein 6.3 L Albumin 2.0 L Globulin 4.3 H Albumin/Globulin Ratio 0.4 L Urine Color Dark yellow Urine Appearance Slightly hazy Urine pH 5.0 Ur Specific [place] 1.017 Urine Protein 100 Urine Glucose (UA) Negative Urine Ketones Negative Urine Blood Small Urine Nitrate Negative Urine Bilirubin Negative Urine Urobilinogen 4.0 H Urine Leukocytes Negative Urine RBC 3 Urine WBC 3 Ur Squamous Epith Cells Occasional Urine Bacteria Occasional Urine Mucus Moderate Ur Culture Indicated? Not indicated 10/12/16 01:25 WBC RBC Hgb Hct MCV MCH MCHC RDW Plt Count MPV Neut % (Auto) Lymph % (Auto) [place] % (Auto) Eos % (Auto) Baso % (Auto) Neut # (Auto) Lymph # (Auto) [place] # (Auto) Eos # (Auto) Baso # (Auto) Total Counted Immature Gran % Nucleated RBC % Immature Gran # Segmented Neutrophils Lymphocytes Monocytes Eosinophils Nucleated RBCs # Platelet Estimate Immature Plt Fraction Hypochromasia Microcytosis Sodium Potassium Chloride Carbon Dioxide Anion Gap BUN Creatinine GFR Calculation BUN/Creatinine Ratio Glucose Calculated Osmolality Lactic Acid 0.9 Uric Acid Calcium Magnesium Total Bilirubin AST ALT Alkaline Phosphatase Total Protein Albumin Globulin Albumin/Globulin Ratio Urine Color Urine Appearance Urine pH Ur Specific [place] Urine Protein Urine Glucose (UA) Urine Ketones Urine Blood Urine Nitrate Urine Bilirubin Urine Urobilinogen Urine Leukocytes Urine RBC Urine WBC Ur Squamous Epith Cells Urine Bacteria Urine Mucus Ur Culture Indicated?
[2016-10-12] MEDS ORDERED: PANTOPRAZOLE 40 MG TABLET PO SCH (09:00)
[2016-10-12] MEDS ORDERED: ISOSORBIDE MONONITRATE 30 MG TABLET PO SCH (09:00)
[2016-10-12] MEDS ORDERED: LISINOPRIL 2.5 MG TABLET PO SCH (09:00)
[2016-10-12] MEDS: CILOSTAZOL 50 MG TABLET PO SCH ×2 (10:09→21:17)
[2016-10-12] MEDS: KETOROLAC 15 MG/1 ML VIAL IV SCH ×3 (10:10→21:11)
[2016-10-12] MEDS: PARoxetine 20 MG TABLET PO SCH (10:10)
[2016-10-12] MEDS: PANTOPRAZOLE 40 MG TABLET PO SCH (10:10)
[2016-10-12] MEDS: ENOXAPARIN 40 MG/0.4 ML SYRINGE SUBCUT SCH (12:52)
--- NOTE | 2016-10-12 14:16 | Hospitalist Progress Note ---
Assessment and Plan (1) CAD (coronary artery disease) Status: Chronic Assessment and plan: The patient had intra-vascular therapy for right leg ischemia. The patient then developed right hotness and swelling of that same extremity. This may be reperfusion injury or alternatively a somewhat localized reaction to methicillin sensitive staph aureus. We will continue antibiotics for now and await final culture reports. Current Visit: No (2) Anemia Status: Chronic Current Visit: No (3) Leukocytosis Status: Resolved Current Visit: No (4) Edema of right lower extremity Status: Acute Current Visit: Yes Hospitalist: Subjective Interval history: The patient began having right leg pain redness and swelling a couple of weeks after endovascular intervention to the circulation of the right leg. The patient now has fever and some hypotension overnight. She has responded to fluid challenge and the patient is afebrile in the face of new antibiotics with vancomycin and meropenem. The patient's blood cultures revealing methicillin sensitive staph aureus Exam - Constitutional Vitals: Period Temp Pulse Resp BP Sys/Guaman Pulse Ox Last 24 Hr 96.2 F-104.3 F 62-87 15-18 76-160/38-82 95-99 General appearance: mild distress - Respiratory Respiratory exam: Present: clear to auscultation bilaterally - Cardiovascular Cardiovascular exam: Present: regular rate and rhythm - GI/Abdominal GI/Abdominal exam: Present: hypoactive bowel sounds Results - Labs CBC & BMP: 10/12/16 01:25 10/12/16 01:25 Lab Results: I have reviewed the past 24 hour labs
[2016-10-12] MEDS: CLOPIDOGREL 75 MG TABLET PO SCH (18:11)
[2016-10-12] MEDS: ROSUVASTATIN 20 MG TABLET PO SCH (21:13)
[2016-10-12] MEDS: ASPIRIN CHEW 81 MG TABLET PO SCH (21:13)
[2016-10-13] MEDS: KETOROLAC 15 MG/1 ML VIAL IV SCH ×4 (01:30→20:53)
[2016-10-13] MEDS: SODIUM CHLORIDE 0.9% 1,000 ML IV SCH (05:43)
[2016-10-13] MEDS: MEROPENEM 1,000 MG in SODIUM CHLORIDE 0.9% 100 ML IV SCH ×3 (06:12→23:38)
--- NOTE | 2016-10-13 08:26 | Cardiology Progress Note ---
Assessment and Plan (1) Edema of right lower extremity Status: Acute Assessment and plan: 1. 61-year-old WF well known to me with breast cancer status post mastectomy, completed chemotherapy about 6-7 weeks ago, and whom I open her long right superficial femoral artery occlusion 2 weeks ago with stenting 2 who now has 3 days of right lower extremity pain and modest foot swelling as well as intermittent high fever. 2. Recent UTI treated with Bactrim 3. Routine culture and evaluation/treatment for infection or appropriate, given her history of cancer and recent chemotherapy. However I suspect her right leg pain is related to reperfusion pain from opening her long right SFA occlusion 2 weeks ago. This a bit of a late presentation, but would give NSAIDs and gentle hydration. She has a clearly palpable right DP pulse and is neurologically intact without deficit in her right foot or lower leg. Right distal anterior tibial access site is clean without tenderness per 4. We will follow with you. October 12, 2016: 1. Ms. Umana's fever has resolved but her hematocrit is dropped to below 20% 2. Her anemia is probably at least delusional in part, and has no evidence of bleeding. 3. She clearly has reperfusion pain (foot is slightly warmer and more swollen) that developed 10 days out from revascularization of right SFA occlusion, but also has septic picture with some hypotension and initial leukocytosis being immunocompromised with recent cancer/chemotherapy; she is currently on multiple IV antibiotics with cultures pending. 4. Continue NSAIDs to reduce inflammation 5. Reduce IV fluids to reduce a dilutional effect on her hematocrit 6. She still has a clearly palpable right dorsalis pedis pulse, will check segmental Dopplers to document perfusion. 7. Previous access sites in the distal anterior tibial artery and left groin both look good without evidence of tenderness hematoma or bleeding. October 13, 2016: 1. Previous fever to 105.5 but afebrile 36 hours with staph aureus and multiple blood cultures (not MRSA) on IV antibiotics. 2. Right foot swelling is still present but discomfort is much improved; her right inner thigh tenderness is unchanged; there was no access site here for her peripheral intervention, but this is over the area of her stent. I will order arterial ultrasound to check stent patency. Infected stent will be in the differential but is extremely uncommon. However her immunocompromised state with recent cancer and chemotherapy (last about 7 weeks ago) are noted. 3. Check CBC given her hematocrit just over 21% yesterday; she has no evidence of bleeding and anemia is normocytic. 4. Still has moderate hypotension with sepsis picture but this seems to be improving. Antihypertensives and beta-jennifer are held. 5. We will follow with you. Current Visit: Yes (2) Fever Status: Acute Current Visit: Yes Cardiology - PN: Subj Interval history: Ms. Umana feels better overall but still has unchanged tenderness at her right inner thigh. She still has right foot swelling but the discomfort has improved. Exam (Progress Note) - Constitutional Vitals: Period Temp Pulse Resp BP Sys/Guaman Pulse Ox Last 24 Hr 96.0 F-98.6 F 76-91 15-18 111-160/58-82 93-98 General appearance: normal weight, no acute distress - Head Head exam: Present: normal inspection, normocephalic, atraumatic - Neck Neck exam: Present: normal inspection - Respiratory Respiratory exam: Present: clear to auscultation bilaterally - Cardiovascular Cardiovascular exam: Present: diastolic murmur, regular rate and rhythm, rubs - GI/Abdominal GI/Abdominal exam: Present: soft. Absent: tenderness - Extremities Exam Extremities exam: Present: edema (Modest right foot edema; tiny ecchymotic area distal second toe; warm with palpable DP pulse) Result/EKG - Labs CBC & BMP: 10/12/16 01:25 10/12/16 01:25
[2016-10-13 08:40] LABS: Basophils % 0.2 % (0.0-0.8); Eosinophils # 0.1 10*3/uL (0.0-0.87); Eosinophils % 1.1 % (0.00-10.9); Immature Granulocytes % 0.6 %; Immature Granulocytes Absolute 0.05 #; Lymphocytes % 12.5 % (21.3-54.2); Mean Corpuscular Hemoglobin 30 PG (27-34); Mean Platelet Volume 9.7 FL (9.6-12.0); Monocytes # 0.4 10*3/uL (0.11-0.8); Monocytes % 4.4 % (1.7-12.7); Neutrophils # 6.8 10*3/uL (1.4-7.4); Neutrophils % 81.2 % (38.7-73.9); Platelet Count 221 T/CUMM (130-400); Red Blood Count 2.66 MC/CUMM (3.8-5.5); Red Cell Distribution Width 17.8 % (9.3-17.3); White Blood Count 8.3 T/CUMM (4-12)
[2016-10-13 09:21] LABS: Bilirubin,Total 0.4 MG/DL (0.2-1.0); Calcium 8.1 MG/DL (8.5-10.1); Osmolality,Calculated 274.7 MOS/KG (273-304); Total Protein 6.6 G/DL (6.4-8.3)
[2016-10-13] MEDS: PANTOPRAZOLE 40 MG TABLET PO SCH (10:09)
[2016-10-13] MEDS: PARoxetine 20 MG TABLET PO SCH (10:10)
[2016-10-13] MEDS: CILOSTAZOL 50 MG TABLET PO SCH ×2 (10:10→20:53)
--- NOTE | 2016-10-13 11:20 | Ultrasound Report ---
History: Right thigh pain and swelling. 2 weeks postop stent placement Date: 10/13/2016 Study: Ultrasound arterial duplex limited to the right leg Comparison exam: No previous similar study Real-time ultrasound images are captured and archived. Color Doppler, pulse wave Doppler, and grayscale images of the right lower extremity were obtained. The stents at the right SFA level are patent without obvious focal high-grade stenosis. As discussed Dr. Marks by telephone, the superior margin of the stent complex near the junction of the right common femoral and superficial femoral arteries is at the level of an area of apparent aneurysmal dilatation of the artery which measures up to 2.8 cm. This could represent true aneurysm or could represent potential pseudoaneurysm. CT angiogram may provide clarification. There is increased peak systolic velocity in the right common femoral artery superior to the stent compatible with moderate or greater stenosis. There is generally monophasic flow throughout. 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 Further evaluation with CTA may provide clarification PROCEDURE INTERPRETED AT [facility] DEPARTMENT OF RADIOLOGY Final Report Signed by: Dr. Isabella Alberto
[2016-10-13] MEDS: ENOXAPARIN 40 MG/0.4 ML SYRINGE SUBCUT SCH (11:36)
--- NOTE | 2016-10-13 12:36 | Hospitalist Progress Note ---
Assessment and Plan (1) CAD (coronary artery disease) Status: Chronic Assessment and plan: The patient had intra-vascular therapy for right leg ischemia. The patient then developed right hotness and swelling of that same extremity. Methicillin sensitive staph aureus was isolated from the patient's blood. 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 Dr. Lindsey is following that up Current Visit: No (2) Anemia Status: Chronic Current Visit: No (3) Leukocytosis Status: Resolved Current Visit: No (4) Edema of right lower extremity Status: Acute Current Visit: Yes Hospitalist: Subjective Interval history: The patient has less pain in the right foot. The patient has increased pain in the right thigh. The patient did not have fever today. Exam - Constitutional Vitals: Period Temp Pulse Resp BP Sys/Guaman Pulse Ox Last 24 Hr 96.0 F-98.6 F 75-91 15-18 111-146/58-78 93-99 General appearance: mild distress - Respiratory Respiratory exam: Present: clear to auscultation bilaterally - Cardiovascular Cardiovascular exam: Present: regular rate and rhythm - Extremities Exam Extremities exam: Present: other (Decreased pulses in the right leg. The right toes have less mottling than the had yesterday.) Results - Labs CBC & BMP: 10/13/16 08:33 10/13/16 08:33 Lab Results: I have reviewed the past 24 hour labs
--- NOTE | 2016-10-13 13:44 | CT Report ---
Exam: CT angio abdomen/femoral Date: 10/13/2016 11:26 AM Comparison: None Indication: Abnormal arterial Doppler ultrasound Technical: Axial CT imaging was performed from the lung bases through the iliac crest with to the toes. Coronal and sagittal reformatted images were additionally created and submitted for review. 3-D Maximal intensity projection images of the vasculature were additionally created and are available for review. 100 cc of Omnipaque 350 were utilized. Dose reduction: This CT exam was performed using one or more of the following dose reduction techniques: Automated exposure control, automated adjustment of the mA and/or KV according to patient size, or use of iterative reconstruction technique. Total DLP: 652 mGy*cm Findings: CT angiogram: Abdomen/pelvis. Descending thoracic aorta demonstrates multifocal noncalcified plaque but no luminal stenosis or aneurysm. The celiac and superior mesenteric arteries are essentially widely patent proximally. There are single bilateral renal arteries with minimal atherosclerotic disease and luminal stenosis. Infrarenal abdominal aorta is mildly ectatic measuring approximately 2.6 cm in the axial plane with multifocal scattered primarily noncalcified plaque. Additionally, there is a small noncalcified plaque versus thrombus versus dissection flap (axial image 67) noted within the distal aorta. The distal aorta is otherwise patent with mild (30-40%) luminal stenosis at the proximal right common iliac artery. Mild scattered atherosclerotic plaque is noted throughout the common, internal and external iliac arteries bilaterally. Right lower extremity: In the right groin soft tissues, there is an area of inflammatory changes measuring up to 3.9 x 3.8 cm in the axial plane. This area of inflammatory stranding is about the common femoral and proximal superficial femoral arteries immediately adjacent to the proximal aspect of the indwelling SFA stent. Additionally at the level of the proximal aspect of the indwelling SFA stent, there is a focal area of enhancement measuring approximately 1.3 x 0.9 cm, most compatible with a pseudoaneurysm. Deep femoral artery and muscular branches appear patent. The SFA stents are otherwise patent with mild-moderate scattered atherosclerotic plaque at the proximal popliteal artery and mild luminal stenosis. Below the knee, there is a normal popliteal trifurcation and runoff to the right foot. Some patient motion limits evaluation of the small vessels below the knee. Left lower extremity: Multifocal atherosclerotic plaque noted within the distal external iliac and common femoral arteries with mild stenosis noted. There is severe (99%) luminal stenosis within the proximal SFA which becomes complete occlusion throughout the remainder of the superficial femoral artery. There is reconstitution near the abductor hiatus with multiple large muscular branches noted. Posterior to the knee, the popliteal artery is essentially widely patent with minimal atherosclerotic plaque. Below the knee, there is a three-vessel runoff to the left foot with minimal atherosclerotic disease noted. Soft tissue analysis: Lung bases: Minimal posterior basilar atelectasis and trace left pleural effusion. No focal lesions. No pericardial effusion. Liver and gallbladder: No abnormal enhancing hepatic lesions. No gallstones or biliary ductal dilatation. Portal vein is patent. Spleen: Within normal limits Pancreas: Unremarkable Adrenals: Unremarkable Kidneys: Both kidneys are equally perfused and demonstrate no evidence for obstructive uropathy. Bowel and Mesentery: Small bowel is nondilated. No free fluid/air within the abdomen. Moderate stool throughout colon suggesting a degree of fecal stasis/constipation. No mesenteric adenopathy. There is a small anterior abdominal wall fascial defect containing herniated mesenteric fat near the umbilicus. Retroperitoneum: No enlarged lymph nodes. IVC: Patent Pelvis: Bladder: Bladder is nondistended and otherwise poorly evaluated with a Farrell catheter in place. Fluid: No free fluid identified. Lymph nodes: No enlarged lymph nodes. Pelvic organs: Unremarkable Osseous structures: No suspicious appearing osseous abnormalities noted. Impression: 1. Area of soft tissue thickening about the right common and superficial femoral arteries and indwelling patent right SFA stents as detailed above. There is an area of focal contrast adjacent to the proximal aspect of the SFA stent suggestive of a pseudoaneurysm measuring approximately 1.3 x 0.9 cm. 2. Patent SFA/popliteal arteries with indwelling stents and three-vessel runoff to the right lower extremity. Occluded left SFA with reconstitution at the popliteal artery above the knee and three-vessel runoff to the left foot. 3. Small distal aortic aneurysm/ectasia and scattered primarily noncalcified atherosclerotic plaque with possible small focal dissection flap or noncalcified thrombus within the distal aorta as detailed above. 4. Findings suggestive of moderate fecal stasis/constipation. PROCEDURE INTERPRETED AT [facility] DEPARTMENT OF RADIOLOGY Final Report Signed by: Ramiro Arechiga
--- NOTE | 2016-10-13 16:07 | Event Note ---
Ms. Umana is still afebrile for around 72 hours now. She still has a bit of swelling in her right foot but it is nontender since this morning, and her right groin/inner thigh is nontender currently. A relatively small pseudoaneurysm was noted at the proximal portion of the stent at the right SFA ostium. I would recommend simply continuing her IV antibiotics for her staph aureus bacteremia/sepsis (sensitivities?). Even if it was needed, I would not want to intervene on the area given her recent bacteremia. If she continues to be asymptomatic, I would just see her as an outpatient in consider angiography in the coming weeks. If significant symptoms return, will consider angiography without intervention early next week. I will check on her Sunday. 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
[2016-10-13] MEDS: CLOPIDOGREL 75 MG TABLET PO SCH (18:03)
[2016-10-13] MEDS: ROSUVASTATIN 20 MG TABLET PO SCH (20:52)
[2016-10-13] MEDS: ASPIRIN CHEW 81 MG TABLET PO SCH (20:53)
[2016-10-14] MEDS: SODIUM CHLORIDE 0.9% 1,000 ML IV SCH ×3 (02:02→22:36)
[2016-10-14] MEDS: KETOROLAC 15 MG/1 ML VIAL IV SCH ×4 (02:21→21:36)
[2016-10-14 03:30] LABS: Basophils % 0.3 % (0.0-0.8); Eosinophils # 0.2 10*3/uL (0.0-0.87); Eosinophils % 3.2 % (0.00-10.9); Hematocrit 23.3 VOL% (35.7-47.0); Hemoglobin 7.4 GM/DL (12.0-16.0); Immature Granulocytes % 0.7 %; Immature Granulocytes Absolute 0.05 #; Lymphocytes # 1.5 10*3/uL (1.4-4.0); Lymphocytes % 19.5 % (21.3-54.2); Mean Corpuscular HGB Conc 31.8 GM/DL (32-36); Mean Corpuscular Hemoglobin 30 PG (27-34); Mean Platelet Volume 10.2 FL (9.6-12.0); Monocytes # 0.6 10*3/uL (0.11-0.8); Monocytes % 7.6 % (1.7-12.7); Neutrophils # 5.2 10*3/uL (1.4-7.4); Neutrophils % 68.7 % (38.7-73.9); Platelet Count 233 T/CUMM (130-400); Red Blood Count 2.48 MC/CUMM (3.8-5.5); Red Cell Distribution Width 17.9 % (9.3-17.3); White Blood Count 7.5 T/CUMM (4-12)
[2016-10-14 03:43] LABS: Calcium 8.5 MG/DL (8.5-10.1); Magnesium 2.3 MG/DL (1.8-2.4); Osmolality,Calculated 274.5 MOS/KG (273-304); Potassium 4.1 MMOL/L (3.5-5.1)
[2016-10-14 05:02] LABS: Band Neutrophils 1 % (0-10); Eosinophils 2 % (0-10); Hypochromasia Slight; Lymphocytes 21 % (20-55); Ovalocytes 1+; Platelet Estimate Normal; Polychromasia 2+; Segmented Neutrophils 71 % (50-85); Total Cells Counted 100
[2016-10-14] MEDS: MEROPENEM 1,000 MG in SODIUM CHLORIDE 0.9% 100 ML IV SCH ×3 (06:04→22:35)
[2016-10-14] MEDS: CILOSTAZOL 50 MG TABLET PO SCH ×2 (08:29→21:36)
[2016-10-14] MEDS: PARoxetine 20 MG TABLET PO SCH (08:29)
[2016-10-14] MEDS: PANTOPRAZOLE 40 MG TABLET PO SCH (08:29)
--- NOTE | 2016-10-14 11:00 | Hospitalist Progress Note ---
Assessment and Plan (1) CAD (coronary artery disease) Status: Chronic Assessment and plan: The patient had intra-vascular therapy for right leg ischemia. The patient then developed right hotness and swelling of that same extremity. Methicillin sensitive staph aureus was isolated from the patient's blood. 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 Dr. Lindsey is following that. Current Visit: No (2) Anemia Status: Chronic Current Visit: No (3) Leukocytosis Status: Resolved Current Visit: No (4) Edema of right lower extremity Status: Acute Current Visit: Yes Hospitalist: Subjective Interval history: The patient has continued improvement. She has less tenderness in the right thigh today. The patient continues on antibiotics for MSSA bacteremia and sepsis. Exam - Constitutional Vitals: Period Temp Pulse Resp BP Sys/Guaman Pulse Ox Last 24 Hr 96.8 F-98.4 F 75-84 15-20 108-137/57-73 96-100 General appearance: no acute distress - Respiratory Respiratory exam: Present: clear to auscultation bilaterally - Cardiovascular Cardiovascular exam: Present: regular rate and rhythm - GI/Abdominal GI/Abdominal exam: Present: normal bowel sounds Results - Labs CBC & BMP: 10/14/16 02:29 10/14/16 02:29 Lab Results: I have reviewed the past 24 hour labs
[2016-10-14] MEDS: ENOXAPARIN 40 MG/0.4 ML SYRINGE SUBCUT SCH (11:31)
[2016-10-14] MEDS: CLOPIDOGREL 75 MG TABLET PO SCH (18:02)
[2016-10-14] MEDS: ASPIRIN CHEW 81 MG TABLET PO SCH (21:36)
[2016-10-14] MEDS: ROSUVASTATIN 20 MG TABLET PO SCH (21:36)
[2016-10-15] MEDS: KETOROLAC 15 MG/1 ML VIAL IV SCH ×4 (02:19→19:42)
[2016-10-15] MEDS: MEROPENEM 1,000 MG in SODIUM CHLORIDE 0.9% 100 ML IV SCH ×3 (06:24→23:15)
[2016-10-15] MEDS: PARoxetine 20 MG TABLET PO SCH (09:08)
[2016-10-15] MEDS: CILOSTAZOL 50 MG TABLET PO SCH ×2 (09:08→21:33)
[2016-10-15] MEDS: PANTOPRAZOLE 40 MG TABLET PO SCH (09:08)
--- NOTE | 2016-10-15 12:32 | Hospitalist Progress Note ---
Assessment and Plan (1) Edema of right lower extremity Status: Acute Assessment and plan: The patient has had inflammation and apparent infection of the right leg. This has improved with IV antibiotics. The patient's condition is improving and incremental fashion and will have further vascular reassessment tomorrow by Dr. Sheppard. Current Visit: Yes (2) CAD (coronary artery disease) Status: Chronic Assessment and plan: The patient had intra-vascular therapy for right leg ischemia. The patient then developed right hotness and swelling of that same extremity. Methicillin sensitive staph aureus was isolated from the patient's blood. 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 Dr. Lindsey is following that. Current Visit: No (3) Anemia Status: Chronic Current Visit: No Hospitalist: Subjective Interval history: This is a 61-year-old lady who had stent placement after intervention by Dr. Sheppard in the right femoral artery. 2 weeks following surgery the patient developed septicemia and has cultured methicillin sensitive staph aureus. The bacteremia is persistent and last culture on the still shows growth. Further cultures were obtained on the and are not yet intubated. The patient's symptoms are improving with the right leg being less tender and toes no longer blue. The patient has a possible fluid collection and/or aneurysm at the femoral artery site which Dr. Marks is evaluating. We note that access was via the left groin which is contralateral to the symptoms. Exam - Constitutional Vitals: Period Temp Pulse Resp BP Sys/Guaman Pulse Ox Last 24 Hr 96.8 F-99.1 F 67-78 16-20 120-154/56-83 96-98 General appearance: no acute distress - Respiratory Respiratory exam: Present: clear to auscultation bilaterally - Cardiovascular Cardiovascular exam: Present: regular rate and rhythm - GI/Abdominal GI/Abdominal exam: Present: normal bowel sounds - Extremities Exam Extremities exam: Present: other (Right lower extremity has less induration and pain in the right thigh and the dusky right toes are now with normal nail bed refill.) Results - Labs CBC & BMP: 10/14/16 02:29 10/14/16 02:29 Lab Results: I have reviewed the past 24 hour labs
[2016-10-15] MEDS: ENOXAPARIN 40 MG/0.4 ML SYRINGE SUBCUT SCH (13:17)
[2016-10-15] MEDS: SODIUM CHLORIDE 0.9% 1,000 ML IV SCH (18:17)
[2016-10-15] MEDS: CLOPIDOGREL 75 MG TABLET PO SCH (19:42)
[2016-10-15] MEDS: ASPIRIN CHEW 81 MG TABLET PO SCH (21:32)
[2016-10-15] MEDS: ROSUVASTATIN 20 MG TABLET PO SCH (21:32)
[2016-10-16] MEDS: KETOROLAC 15 MG/1 ML VIAL IV SCH ×4 (02:26→20:44)
[2016-10-16] MEDS: PARoxetine 20 MG TABLET PO SCH (08:51)
[2016-10-16] MEDS: CILOSTAZOL 50 MG TABLET PO SCH (08:51)
[2016-10-16] MEDS: PANTOPRAZOLE 40 MG TABLET PO SCH (08:51)
[2016-10-16] MEDS: MEROPENEM 1,000 MG in SODIUM CHLORIDE 0.9% 100 ML IV SCH (08:51)
--- NOTE | 2016-10-16 09:50 | Cardiology Progress Note ---
Assessment and Plan (1) Edema of right lower extremity Status: Acute Assessment and plan: 1. 61-year-old WF well known to me with breast cancer status post mastectomy, completed chemotherapy about 6-7 weeks ago, and whom I open her long right superficial femoral artery occlusion 2 weeks ago with stenting 2 who now has 3 days of right lower extremity pain and modest foot swelling as well as intermittent high fever. 2. Recent UTI treated with Bactrim 3. Routine culture and evaluation/treatment for infection or appropriate, given her history of cancer and recent chemotherapy. However I suspect her right leg pain is related to reperfusion pain from opening her long right SFA occlusion 2 weeks ago. This a bit of a late presentation, but would give NSAIDs and gentle hydration. She has a clearly palpable right DP pulse and is neurologically intact without deficit in her right foot or lower leg. Right distal anterior tibial access site is clean without tenderness per 4. We will follow with you. October 12, 2016: 1. Ms. Umana's fever has resolved but her hematocrit is dropped to below 20% 2. Her anemia is probably at least delusional in part, and has no evidence of bleeding. 3. She clearly has reperfusion pain (foot is slightly warmer and more swollen) that developed 10 days out from revascularization of right SFA occlusion, but also has septic picture with some hypotension and initial leukocytosis being immunocompromised with recent cancer/chemotherapy; she is currently on multiple IV antibiotics with cultures pending. 4. Continue NSAIDs to reduce inflammation 5. Reduce IV fluids to reduce a dilutional effect on her hematocrit 6. She still has a clearly palpable right dorsalis pedis pulse, will check segmental Dopplers to document perfusion. 7. Previous access sites in the distal anterior tibial artery and left groin both look good without evidence of tenderness hematoma or bleeding. October 13, 2016: 1. Previous fever to 105.5 but afebrile 36 hours with staph aureus and multiple blood cultures (not MRSA) on IV antibiotics. 2. Right foot swelling is still present but discomfort is much improved; her right inner thigh tenderness is unchanged; there was no access site here for her peripheral intervention, but this is over the area of her stent. I will order arterial ultrasound to check stent patency. Infected stent will be in the differential but is extremely uncommon. However her immunocompromised state with recent cancer and chemotherapy (last about 7 weeks ago) are noted. 3. Check CBC given her hematocrit just over 21% yesterday; she has no evidence of bleeding and anemia is normocytic. 4. Still has moderate hypotension with sepsis picture but this seems to be improving. Antihypertensives and beta-jennifer are held. 5. We will follow with you. October 16, 2016: 1. Ms. Umana's leg looks dramatically better and is basically asymptomatic with at most trivial tenderness at her right groin/inner thigh 2. She has been afebrile since the day after admission (staph aureus bacteremia with 105 5 temperature prior to that) now on IV antibiotics for 5 days 3. I suspect her small right proximal SFA pseudoaneurysm is the source of her bacteremia/sepsis (the right groin was not accessed, but I suspect a small " kyleigh "from the proximal portion of the stent made a tiny perforation that got infected late; angiographic result was very good after the procedure 3 weeks ago 4. Check arterial ultrasound right groin today to follow-up pseudoaneurysm; if it is not grown/stable I would simply complete her IV antibiotics (2 weeks?); if her pseudoaneurysms persists after thiis, I would consider angiography. 5. Stable normocytic anemia with no evidence of bleeding; likely related to her recent cancer/chemotherapy Current Visit: Yes (2) Fever Status: Acute Current Visit: Yes Cardiology - PN: Subj Interval history: Ms. Umana feels dramatically better and has no increased warmth or right foot swelling or pain. She has no or trivial right groin tenderness. She has had no bleeding. She is gotten up with assistance and "I feel a lot better if I can walk". Exam (Progress Note) - Constitutional Vitals: Period Temp Pulse Resp BP Sys/Guaman Pulse Ox Last 24 Hr 96.8 F-98.0 F 68-74 18-18 120-152/68-88 95-98 General appearance: normal weight, no acute distress - Head Head exam: Present: normal inspection, normocephalic, atraumatic - Neck Neck exam: Present: normal inspection - Respiratory Respiratory exam: Present: clear to auscultation bilaterally. Absent: stridor, wheezes - Cardiovascular Cardiovascular exam: Present: regular rate and rhythm. Absent: diastolic murmur , rubs - GI/Abdominal GI/Abdominal exam: Present: soft. Absent: tenderness - Extremities Exam Extremities exam: Present: edema, other (Palpable right DP pulse with trivial or no foot swelling; normal temperature/warm) Result/EKG - Labs CBC & BMP: 10/14/16 02:29 10/14/16 02:29
[2016-10-16] MEDS ORDERED: VANCOMYCIN INJ 1,000 MG in SODIUM CHLORIDE 0.9% 250 ML IV SCH (11:00)
--- NOTE | 2016-10-16 11:22 | Vascular Surgery Consult Note ---
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 Umana is a 61 year old female Ms. Mac is a 61-year-old woman admitted with acute fever infection and positive blood cultures growing staph aureus. She is approximately 2 weeks post recanalization and stenting of her right superficial femoral artery. She was admitted with a right groin and thigh pain which is still somewhat persistent just at the groin. She has defervesced her white blood count has come down and she is much more comfortable than she was on admission. CT angiogram has been done and shows what appears to be a small pseudoaneurysm at the very top of her superficial femoral stent. There is surrounding cellulitis noted on the CT angiogram but flows are good. Significantly Ms. Umana has been undergoing chemotherapy for breast cancer in her last treatment was in August Dr. Mejía is her oncologist. At this point I suspect that Ms. Umana has an infected pseudoaneurysm involving her right femoral artery. I have concerns that her stents have become infected as well. I do not know if these stents are covered with a PTFE material or whether there bare-metal stents. Bare metal stents would certainly be more easily cleared of colonizing bacteria. My thoughts are that we should ask infectious disease to advise on the long-term treatment plans similar to what would be done for endocarditis. I would also inform Dr. Mejía of this patient's presence and ask his advice if there is anything that may improve her immune status. The greatest concern that we will have is that of the infection cannot be cleared of the stents and if that is so will require likely the excision of the entire superficial femoral artery to remove all foreign material and that may also require an extra extra anatomic bypass to try to maintain flow in the lower leg away from the infected area. I will follow with you while she is hospitalized here. Home Medications Medication Instructions Recorded Confirmed Type Omeprazole 20 mg PO QAM 03/24/16 10/11/16 History PARoxetine [Paxil] 20 mg PO QAM 03/24/16 10/11/16 History Aspirin Chew Tab 81 mg PO BEDTIME 05/26/16 10/11/16 History Cilostazol 50 mg PO BID 05/26/16 10/11/16 History Isosorbide Mononitrate [Isosorbide 30 mg PO QAM 05/26/16 10/11/16 History Mononitrate ER] Rosuvastatin [Crestor] 40 mg PO BEDTIME 05/26/16 10/11/16 History Carvedilol [Coreg] 3.125 mg PO BID #60 tablet 08/29/16 10/11/16 Rx Nitroglycerin Sl Tab [Nitrostat] 0.4 mg SL Q5M PRN tablet 08/29/16 10/11/16 Rx Clopidogrel [Plavix] 75 mg PO QPM 09/28/16 10/11/16 History Ranolazine [Ranexa] 500 mg PO BID 09/28/16 10/11/16 History Lisinopril [Prinivil] 2.5 mg PO QAM 10/11/16 10/11/16 History Pantoprazole Tab [Protonix Tab] 40 mg PO QAM 10/11/16 10/11/16 History Allergies Allergy/AdvReac Type Severity Reaction Status Date / Time ceftriaxone [From Rocephin] Allergy Severe SHORTNESS Verified 10/11/16 09:23 OF BREATH Medical,Surgical,& Family Hx - Medical History Cardio: History of: CAD, Hypertension Comment Only: Valvular Heart Disease (DID NOT TELL DR Barajas NURSE ABOUT THIS EKG FAX TO [facility]03/24/15 9068), Cardiovascular Problems (DR TIERNEY IN [facility] SAID MAY HAVE BLOCKGE HAS NOT BEEN CHECK FOR THIS) Psychological: No history of: Depression Neurology: No history of: Seizures Genitourinary: History of: Bladder Problem (stress incontinence) Musculoskeletal: History of: Musculoskeletal Problems (legs hurt with ambulation ) No history of: Amputation Reproductive: History of: Breast Cancer (Rt mastectomy) Other: History of: Anaphylaxis (rocephin), Cancer (R BREAST), MRSA, Miscellaneous Medical Problems (SEPIS COLON FROM BACTERILA INFECTION) - Surgical History Cardiac Surgeries: Sugical HX of: Cardiac Catheterization Thoracic Surgeries: Patient denies;: Organ Transplant, Lobectomy HEENT Surgeries: Patient denies: Eye Surgery, Tonsilectomy & Adenoidectomy Reproductive Surgeries: Surgical HX of;: Breast Surgery (RIGHT Mastectomy), Tubal Ligation Orthopedic Surgeries: Patient denies;: Implanted Devices - Family History Family History: Reports;: Family Cancer (MOM BROTHER 2 SISTRS), Family Diabetes (BROTHER), Family Heart Disease (SISTER) - Social History Smoking Status: Former smoker Frequency of Alcohol Use: None Type of Drug Use: None Exam - Constitutional Vitals: Period Temp Pulse Resp BP Sys/Guaman Pulse Ox Last 24 Hr 96.8 F-98.0 F 68-74 18-18 120-152/68-88 95-98 Results - Labs CBC & BMP: 10/14/16 02:29 10/14/16 02:29
--- NOTE | 2016-10-16 11:41 | Ultrasound Report ---
US venous doppler LE RT Indication: Leg swelling. UNILATERAL (RIGHT) LOWER EXTREMITY VENOUS ULTRASOUND Comparison: None Findings: Graded grayscale compression, color Doppler and pulsed Doppler ultrasound evaluation of the venous structures performed. Normal compressibility, augmentation and color saturation is present within the right common femoral, superficial femoral, popliteal and proximal greater saphenous veins. Impression: No evidence of DVT. PROCEDURE INTERPRETED AT [facility] DEPARTMENT OF RADIOLOGY Final Report Signed by: Melo Ford M.D.
[2016-10-16] MEDS: ENOXAPARIN 40 MG/0.4 ML SYRINGE SUBCUT SCH (12:23)
--- NOTE | 2016-10-16 16:01 | Post Interventional Procedure ---
Pre-op diagnosis: possible infected pseudoaneurysm right SFA Post-op diagnosis: same Procedure: PICC placement Contrast: none Flouroscopy: 0.1 min Radiologist: Ramiro Arechiga Anesthesia: local Specimens: none sent Estimated blood loss: none Complications: none Condition: stable Description/Findings: 5 Turkish dual lumen PICC placement done and ready to use Assessment and Plan - Time spent with patient Time spent with patient: Less than 30 minutes
[2016-10-16] MEDS ORDERED: SODIUM CHLORIDE 0.9% 250 ML IV PRN (16:02)
--- NOTE | 2016-10-16 16:05 | Interventional Radiology Rpt ---
IR PICC line insertion, US guide vascular access IR PICC Placement Peripherally-inserted central catheter (PICC) placement using ultrasound and fluoroscopic guidance Ultrasound of the right upper extremity Clinical Information: Breast cancer with possible infected right groin pseudoaneurysm/endovascular stent. PICC line is requested for long-term intravenous antibiotic administration Physician: Dr. Arechiga Procedure: The patient was advised of the benefits, risks, and alternatives of the procedure and informed consent was obtained. A time out was performed with verification of the patient's name, MRN, site of procedure, and type of procedure to be performed. The patient was positioned in the supine position on the angiographic table. The site was prepped and draped in the usual sterile fashion. Additionally, maximal sterile barrier technique was employed for the procedure. A ticket attendant radiograph reveals no relevant abnormality. Ultrasound examination of the right arm demonstrates patent and compressible brachial and basilic veins. The right arm was prepped and draped in the usual sterile fashion. The right basilic vein was again identified. Using ultrasound guidance, a 21 gauge needle was used to access the vein. A permanent ultrasound recording of vascular access was obtained for the patient's record. A 0.018" cope wire was then advanced into the vein. The needle was exchanged for a 5 Vincentian peel-away sheath. A 5 Vincentian double lumen Bard Solo PICC catheter was measured and trimmed to the 40 cm jacque. The PICC line was advanced through the sheath and into the central circulation. The catheter tip was positioned at the cavo-atrial junction. The peel-away sheath was then removed. At the conclusion of the procedure, the catheter was secured in place using a Stat-Lock device. A sterile dressing was applied. The lumens aspirate and flush freely. The catheter is ready for immediate use. The patient tolerated the procedure well and was returned to the PRU in stable condition. EBL: < 5 mL. Complications: None. Fluoroscopy time: 0.1 minutes Total number of images for this study: 2 Conclusion: Successful placement of a 5 Vincentian double lumen Bard Solo power injectable PICC via the right basilic vein. The catheter is ready for immediate use. PROCEDURE INTERPRETED AT [facility] DEPARTMENT OF RADIOLOGY Final Report Signed by: Ramiro Arechiga
--- NOTE | 2016-10-16 16:21 | Hospitalist Progress Note ---
Assessment and Plan (1) Staphylococcus aureus bacteremia Status: Acute Assessment and plan: Unasyn 3 g IV every 6 for at least 6 weeks, Dr. Russell consulted for opinion. Dr. Sommer feels that patient will need to be treated for an extended period time as he does feel that the stent is the source of her infection. Patient has a small aneurysm or stent was placed. PICC line placed today Current Visit: Yes (2) Breast cancer Status: Acute Assessment and plan: Status post right mastectomy. Dr. Mejía is her oncologist. Her last chemotherapy was in August 2016 Current Visit: Yes (3) CAD (coronary artery disease) Status: Chronic Assessment and plan: Status post cardiac cath in May with stents to the mid RCA, continue aspirin and Plavix Current Visit: No (4) Anemia Status: Chronic Assessment and plan: We will stop DVT prophylaxis and Pletal continue Plavix and aspirin, stool for occult blood, transfuse 2 units packed red blood cells. Current Visit: No (5) Hypertension Status: Chronic Assessment and plan: Controlled on Coreg, isosorbide mononitrate and lisinopril. Current Visit: No (6) Peripheral artery disease Status: Acute Assessment and plan: Status post stent to right superficial femoral artery. Bare-metal stent was used. Stent is now thought to be infected. Current Visit: Yes Hospitalist: Subjective Interval history: Patient had a cardiac stent placed to the mid RCA back in May. Patient was being treated with chemotherapy for breast cancer by Dr. Mejía. Patient had a bare-metal stent placed by Dr. Marks on September 28, 2016. I am asked Dr. Sommer to see patient today and have spoken with him he believes patient will need 6 weeks of IV antibiotics. He reports the stent could not be removed and would have to be resected. He has asked Dr. Russell to see her with further recommendations. Patient denies any blood in her stools or any dark tarry stools. During her last admission she also had to receive blood. Patient sees Dr. Mejía for breast cancer. She has not had chemotherapy since August 2016. Exam - Constitutional Vitals: Period Temp Pulse Resp BP Sys/Guaman Pulse Ox Last 24 Hr 97.1 F-98.0 F 68-87 18-20 122-152/70-88 96-99 Exam: Heart Rate-[RRR] Lungs-[CTAB] GI-[+bs soft, NT] Ext-[no edema, good pulses] Neuro [Motor 5/5], [alert and oriented times 3] psych [normal mood and affect] General [no acute distress] Results - Labs CBC & BMP: 10/14/16 02:29 10/14/16 02:29 Lab Results: I have reviewed the past 24 hour labs Labs: Repeat blood cultures are negative will do PICC line today. - Diagnostic Findings Procedure: Ultrasound: report reviewed by me (No evidence of DVT)
[2016-10-16] MEDS: CLOPIDOGREL 75 MG TABLET PO SCH (18:09)
[2016-10-16] MEDS: AMPICILLIN/SULBACTAM 3,000 MG in SODIUM CHLORIDE 0.9% 100 ML IV SCH ×2 (18:10→23:39)
[2016-10-16] MEDS: ASPIRIN CHEW 81 MG TABLET PO SCH (20:44)
[2016-10-16] MEDS: ROSUVASTATIN 20 MG TABLET PO SCH (20:44)
[2016-10-17 01:44] LABS: Basophils % 0.7 % (0.0-0.8); Eosinophils # 0.4 10*3/uL (0.0-0.87); Eosinophils % 8.4 % (0.00-10.9); Hematocrit 29.5 VOL% (35.7-47.0); Hemoglobin 9.5 GM/DL (12.0-16.0); Immature Granulocytes % 0.7 %; Immature Granulocytes Absolute 0.03 #; Lymphocytes # 1.5 10*3/uL (1.4-4.0); Lymphocytes % 36.8 % (21.3-54.2); Mean Corpuscular HGB Conc 32.2 GM/DL (32-36); Mean Corpuscular Hemoglobin 29 PG (27-34); Mean Corpuscular Volume 90.2 FL (87-102); Monocytes # 0.5 10*3/uL (0.11-0.8); Monocytes % 11.5 % (1.7-12.7); Neutrophils # 1.8 10*3/uL (1.4-7.4); Neutrophils % 41.9 % (38.7-73.9); Platelet Count 239 T/CUMM (130-400); Red Blood Count 3.27 MC/CUMM (3.8-5.5); Red Cell Distribution Width 19.1 % (9.3-17.3); White Blood Count 4.2 T/CUMM (4-12)
[2016-10-17 01:49] LABS: Calcium 8.5 MG/DL (8.5-10.1); Osmolality,Calculated 277.3 MOS/KG (273-304)
[2016-10-17 02:40] LABS: Eosinophils 7 % (0-10); Lymphocytes 37 % (20-55); Myelocytes 1 %; Total Cells Counted 100
[2016-10-17 02:43] LABS: Ovalocytes Few; Platelet Estimate Normal; Polychromasia Few
[2016-10-17 02:44] LABS: Segmented Neutrophils 44 % (50-85)
[2016-10-17] MEDS: KETOROLAC 15 MG/1 ML VIAL IV SCH (03:22)
[2016-10-17] MEDS: AMPICILLIN/SULBACTAM 3,000 MG in SODIUM CHLORIDE 0.9% 100 ML IV SCH ×2 (05:01→10:23)
[2016-10-17] MEDS: PANTOPRAZOLE 40 MG TABLET PO SCH (08:34)
[2016-10-17] MEDS: PARoxetine 20 MG TABLET PO SCH (08:35)
--- NOTE | 2016-10-17 09:23 | Oncology Progress Note ---
Oncology Subjective PN Interval history: Stage I triple negative right-sided breast cancer with diagnosis early 2016. Patient received mastectomy followed by adjuvant chemotherapy. She completed this in August. Her hematocrit was around 28 at that time and was felt to be acceptable given the recent chemotherapy. She reports lower extremity stent placement 3 weeks ago with development of high fevers and chills 2 weeks thereafter. She has been in the hospital for 7 days now and has had PICC line placed and is receiving antibiotics. Chart review states these will be long- term up to 6 weeks. Blood cultures are positive for staph aureus. She appears nontoxic at this time. The right chest and axilla are clinically negative to palpation. No specific recommendations regarding breast cancer with plans to pursue long-term antibiotics Exam - Constitutional Vitals: Period Temp Pulse Resp BP Sys/Guaman Pulse Ox Last 24 Hr 96.9 F-99.4 F 58-87 16-20 122-166/69-91 96-100 Results - Labs CBC & BMP: 10/17/16 00:54 10/17/16 00:54
--- NOTE | 2016-10-17 09:28 | Discharge Summary ---
<Megan Blank - Last Filed: 10/17/16 08:39> Hospital Course - Hospital Course Hospital Course: Ms. Umana is a 61 yr old female with a history of hypertension, valvular heart disease, coronary artery disease, stress incontinence, and breast cancer ( s/p chemotherapy which was completed in 08/19) presents to the ED on 10/11 for evaluation of peripheral edema to right lower extremity. Pt had fever with a white blood cell count 17.5 and Lactic acid was noted at 1.5. Patient had a heart catheterization with a stent placed in May 26, 2016 without complication. Patient was also noted to have peripheral arterial disease and a stent was placed in her right SFA by Dr. Marks on September 28, 2016. This stent is now thought to be infected and the source of her fevers. CT angiogram shows a small pseudoaneurysm at the very top of her superficial femoral stent there is also surrounding cellulitis on the CT. Her serial blood cultures were positive for staph aureus sensitive to Unasyn. Her repeat blood cultures on October 15, 2016 show clearing of the infection. Patient will need 6 weeks of IV antibiotics starting from October 15, 2016. Dr. Sommer was consulted and he recommend 6 weeks of IV antibiotics and consulted Dr. Russell, [place], for her opinion. Pt. was noted to be anemic (7.1/21.6)during stay but must remain on Plavix and aspirin due to her recent stent. She received 2 units packed red blood cells and her hemoglobin is stabilized at 9.5. She also has hypertension which is well-controlled on her current medication. Patient also has a history of breast cancer and is status post right mastectomy. She finished all her chemo and radiation by Dr. Vasques in August 2016 and was [address] Mejía did see her while in the hospital. She will be discharged home today with follow-up with Dr. Verdugo, Dr. Sommer and Dr. Russell. Patient seen and examined. Hospital course reviewed and edited. Discharge Plan - Discharge Data Disposition: Home Health Service - Discharge Medications New Ampicillin/Sulbactam [Unasyn] 3,000 mg IV Q6H 42 Days HYDROcodone/ACETAMIN 7.5-325 [[place] 7.5-325] 1 tablet PO Q4H PRN #30 tablet PRN Reason: Pain Moderate (4-7) Lisinopril [Prinivil] 10 mg PO BID #60 tablet Continue PARoxetine [Paxil] 20 mg PO QAM Rosuvastatin [Crestor] 40 mg PO BEDTIME Isosorbide Mononitrate [Isosorbide Mononitrate ER] 30 mg PO QAM Nitroglycerin Sl Tab [Nitrostat] 0.4 mg SL Q5M PRN tablet PRN Reason: Chest Pain Clopidogrel [Plavix] 75 mg PO QPM Pantoprazole Tab [Protonix Tab] 40 mg PO QAM Aspirin Chew Tab 81 mg PO BEDTIME Carvedilol [Coreg] 3.125 mg PO BID #60 tablet Ranolazine [Ranexa] 500 mg PO BID Discontinued Omeprazole 20 mg PO QAM Cilostazol 50 mg PO BID Lisinopril [Prinivil] 2.5 mg PO QAM - Follow Up or Referral Follow Up: Jer Sommer MD [Physician] - 2 Weeks Jac Marks MD [Physician] - 2 Weeks Kennedi Hodgson MD [Physician] - 2 Weeks - Forms/Instructions Exam - Constitutional Vitals: Period Temp Pulse Resp BP Sys/Guaman Pulse Ox Last 24 Hr 96.9 F-99.4 F 58-87 16-20 122-166/69-91 96-100 Discharge Results Procedures and tests throughout hospitalization: Pending Orders 10/15/16 08:50 Blood Culture Routine 10/16/16 16:09 Occult Blood, Stool Routine 10/17/16 11:03 US arterial duplex LE RT Stat Labs on day of discharge: Labs from last 24 hours 10/17/16 10/17/16 10/16/16 00:54 00:54 16:30 WBC 4.2 D RBC 3.27 L D Hgb 9.5 L D Hct 29.5 L MCV 90.2 MCH 29 MCHC 32.2 RDW 19.1 H Plt Count 239 MPV 10.0 Neut % (Auto) 41.9 Lymph % (Auto) 36.8 [place] % (Auto) 11.5 Eos % (Auto) 8.4 Baso % (Auto) 0.7 Neut # (Auto) 1.8 Lymph # (Auto) 1.5 [place] # (Auto) 0.5 Eos # (Auto) 0.4 Baso # (Auto) 0.0 Total Counted 100 Immature Gran % 0.7 Nucleated RBC % 0.0 Immature Gran # 0.03 Segmented Neutrophils 44 L Lymphocytes 37 Monocytes 10 Eosinophils 7 Basophils 1.0 H Myelocytes 1 Nucleated RBCs # 0.00 Platelet Estimate Normal Immature Plt Fraction 0.0 Polychromasia Few Ovalocytes Few Sodium 141 Potassium 4.0 Chloride 106 Carbon Dioxide 29 Anion Gap 10.0 BUN 8 Creatinine 0.60 GFR Calculation 96 BUN/Creatinine Ratio 13.00 Glucose 85 Calculated Osmolality 277.3 Calcium 8.5 Blood Type B POSITIVE Antibody Screen Negative Crossmatch See Detail Preliminary micro results at discharge 10/15/16 08:50 Blood Culture - Preliminary Blood No growth at 1 day 10/15/16 08:50 Blood Culture - Preliminary Blood No growth at 1 day DS: Provider Date of admission: 10/11/16 12:23 Primary care physician: AYLEEN Lin Attending physician on admission: Haley Mccoy MD Consults: 10/11/16 12:52 Consult to Physical Therapy [CONS] Routine Reason for Physical Therapy: Evaluate and Treat 10/11/16 17:08 Consult to Physician [CONS] Routine Comment: Consulting Provider: Jac Marks Consulting Provider Notified: Yes When should Consulting Provider be notified: Now Person Notified: Dr. Marks saw 10/16/16 09:32 Consult to Physician [CONS] Routine Comment: infected stent Consulting Provider: Jer Sommer Consulting Provider Notified: Yes When should Consulting Provider be notified: Now Person Notified: diann called Date Notified: 10/16/16 Time Notified: 09:47 10/16/16 11:23 Consult to Physician [CONS] Routine Comment: possibly infected arterial stents Consulting Provider: Kennedi Hodgson Consulting Provider Notified: Yes When should Consulting Provider be notified: Now Consult to Specialist Group: Infectious Disease Person Notified: [email or web address] called Date Notified: 10/16/16 Time Notified: 16:17 Consult Notification Comment: message called at 12:00 10/16/16 10/16/16 11:24 Consult to Physician [CONS] Routine Comment: patient known to you Consulting Provider: Melo Mejía Consulting Provider Notified: Yes When should Consulting Provider be notified: Now Person Notified: jhonny called Date Notified: 10/16/16 Time Notified: 11:36 10/16/16 14:52 Consult to Case Mgmt/Social Srvs [CONS] Routine Reason for Case Mgmt/Social Srvs: Equipment Discharge Planning Consult Comment: rolator, IV abx for six 6 weeks 10/16/16 16:24 Consult to Case Mgmt/Social Srvs [CONS] Routine Reason for Case Mgmt/Social Srvs: Other Home IV Therapy Home Health Consult Comment: unasyn 3 grams IV every 6 hours for 6 weeks Discharging clinician: Megan Blank NP <Mirtha Garcia - Last Filed: 10/17/16 11:53> Hospital Course - Time spent with patient Time with patient DS: Greater than 30 minutes (50 min) Diagnosis - Discharge Diagnosis (1) Staphylococcus aureus bacteremia Status: Acute (2) Breast cancer Status: Acute (3) CAD (coronary artery disease) Status: Chronic (4) Anemia Status: Chronic (5) Hypertension Status: Chronic (6) Peripheral artery disease Status: Acute Discharge Plan - Discharge Data Condition at Discharge: Stable Discharge Diet: heart healthy Activity: resume usual activities as tolerated Hygiene: no restrictions Weight Bearing at Discharge: full weight bearing Contact your physician if you experience:: fever over 101 Exam - Constitutional General appearance: normal weight, no acute distress - Respiratory Respiratory exam: Present: clear to auscultation bilaterally. Absent: rhonchi, wheezes - Cardiovascular Cardiovascular exam: Present: regular rate and rhythm. Absent: systolic murmur - GI/Abdominal GI/Abdominal exam: Present: normal bowel sounds, soft. Absent: tenderness - Extremities Exam Extremities exam: Present: normal inspection, normal capillary refill. Absent: edema
--- NOTE | 2016-10-17 09:39 | Cardiology Progress Note ---
Assessment and Plan (1) Edema of right lower extremity Status: Acute Assessment and plan: 1. 61-year-old WF well known to me with breast cancer status post mastectomy, completed chemotherapy about 6-7 weeks ago, and whom I open her long right superficial femoral artery occlusion 2 weeks ago with stenting 2 who now has 3 days of right lower extremity pain and modest foot swelling as well as intermittent high fever. 2. Recent UTI treated with Bactrim 3. Routine culture and evaluation/treatment for infection or appropriate, given her history of cancer and recent chemotherapy. However I suspect her right leg pain is related to reperfusion pain from opening her long right SFA occlusion 2 weeks ago. This a bit of a late presentation, but would give NSAIDs and gentle hydration. She has a clearly palpable right DP pulse and is neurologically intact without deficit in her right foot or lower leg. Right distal anterior tibial access site is clean without tenderness per 4. We will follow with you. October 12, 2016: 1. Ms. Umana's fever has resolved but her hematocrit is dropped to below 20% 2. Her anemia is probably at least delusional in part, and has no evidence of bleeding. 3. She clearly has reperfusion pain (foot is slightly warmer and more swollen) that developed 10 days out from revascularization of right SFA occlusion, but also has septic picture with some hypotension and initial leukocytosis being immunocompromised with recent cancer/chemotherapy; she is currently on multiple IV antibiotics with cultures pending. 4. Continue NSAIDs to reduce inflammation 5. Reduce IV fluids to reduce a dilutional effect on her hematocrit 6. She still has a clearly palpable right dorsalis pedis pulse, will check segmental Dopplers to document perfusion. 7. Previous access sites in the distal anterior tibial artery and left groin both look good without evidence of tenderness hematoma or bleeding. October 13, 2016: 1. Previous fever to 105.5 but afebrile 36 hours with staph aureus and multiple blood cultures (not MRSA) on IV antibiotics. 2. Right foot swelling is still present but discomfort is much improved; her right inner thigh tenderness is unchanged; there was no access site here for her peripheral intervention, but this is over the area of her stent. I will order arterial ultrasound to check stent patency. Infected stent will be in the differential but is extremely uncommon. However her immunocompromised state with recent cancer and chemotherapy (last about 7 weeks ago) are noted. 3. Check CBC given her hematocrit just over 21% yesterday; she has no evidence of bleeding and anemia is normocytic. 4. Still has moderate hypotension with sepsis picture but this seems to be improving. Antihypertensives and beta-jennifer are held. 5. We will follow with you. October 16, 2016: 1. Ms. Umana's leg looks dramatically better and is basically asymptomatic with at most trivial tenderness at her right groin/inner thigh 2. She has been afebrile since the day after admission (staph aureus bacteremia with 105 5 temperature prior to that) now on IV antibiotics for 5 days 3. I suspect her small right proximal SFA pseudoaneurysm is the source of her bacteremia/sepsis (the right groin was not accessed, but I suspect a small " kyleigh "from the proximal portion of the stent made a tiny perforation that got infected late; angiographic result was very good after the procedure 3 weeks ago 4. Check arterial ultrasound right groin today to follow-up pseudoaneurysm; if it is not grown/stable I would simply complete her IV antibiotics (2 weeks?); if her pseudoaneurysms persists after thiis, I would consider angiography. 5. Stable normocytic anemia with no evidence of bleeding; likely related to her recent cancer/chemotherapy October 17, 2016: 1. Ms. Umana is feeling better after blood transfusion and is ambulating on the caba's "I feel much better after a walk" 2. 2+ right pedal pulse with mild tenderness at her proximal SFA stent site 3. Follow-up arterial ultrasound right groin was miss ordered as a venous Doppler; reordered today to follow-up pseudoaneurysm 4. I agree she likely has infected pseudoaneurysm with newly placed stent, and so 6 weeks of IV antibiotics seems reasonable; is encouraging that she defervesced rapidly and her staph aureus is sensitive to everything on her sensitivity panel. 5. Resume her low-dose Coreg 3.125 mg twice daily; hold if her heart rate runs 55 or lower bpm; add lisinopril given her hypertension and normal creatinine. Current Visit: Yes (2) Fever Status: Acute Current Visit: Yes Cardiology - PN: Subj Interval history: This is different Dong is feeling well today but still has mild tenderness in her right groin site. She feels better after blood transfusion. She has no chest discomfort shortness of breath or dizziness. She is walked up and down the halls "I feel a lot better after walking" Exam (Progress Note) - Constitutional Vitals: Period Temp Pulse Resp BP Sys/Guaman Pulse Ox Last 24 Hr 96.9 F-99.4 F 58-87 16-20 122-166/69-91 96-100 General appearance: normal weight, no acute distress - Head Head exam: Present: normal inspection, normocephalic, atraumatic - Neck Neck exam: Present: normal inspection - Respiratory Respiratory exam: Present: clear to auscultation bilaterally. Absent: stridor, wheezes - Cardiovascular Cardiovascular exam: Present: bradycardia. Absent: diastolic murmur, rubs - GI/Abdominal GI/Abdominal exam: Present: soft. Absent: tenderness - Extremities Exam Extremities exam: Present: other (Minimal right groin tenderness at the ostial stent site. 2+ right DP pulse). Absent: edema Result/EKG - Labs CBC & BMP: 10/17/16 00:54 10/17/16 00:54 Labs: Laboratory Results - last 24 hr 10/16/16 10/17/16 10/17/16 16:30 00:54 00:54 WBC 4.2 D RBC 3.27 L D Hgb 9.5 L D Hct 29.5 L MCV 90.2 MCH 29 MCHC 32.2 RDW 19.1 H Plt Count 239 MPV 10.0 Neut % (Auto) 41.9 Lymph % (Auto) 36.8 [place] % (Auto) 11.5 Eos % (Auto) 8.4 Baso % (Auto) 0.7 Neut # (Auto) 1.8 Lymph # (Auto) 1.5 [place] # (Auto) 0.5 Eos # (Auto) 0.4 Baso # (Auto) 0.0 Total Counted 100 Immature Gran % 0.7 Nucleated RBC % 0.0 Immature Gran # 0.03 Segmented Neutrophils 44 L Lymphocytes 37 Monocytes 10 Eosinophils 7 Basophils 1.0 H Myelocytes 1 Nucleated RBCs # 0.00 Platelet Estimate Normal Immature Plt Fraction 0.0 Polychromasia Few Ovalocytes Few Sodium 141 Potassium 4.0 Chloride 106 Carbon Dioxide 29 Anion Gap 10.0 BUN 8 Creatinine 0.60 GFR Calculation 96 BUN/Creatinine Ratio 13.00 Glucose 85 Calculated Osmolality 277.3 Calcium 8.5 Blood Type B POSITIVE Antibody Screen Negative Crossmatch See Detail
--- NOTE | 2016-10-17 12:14 | Ultrasound Report ---
US arterial duplex LE RT Indication: Follow-up pseudoaneurysm. Ultrasound right groin: Russ scale, color Doppler and pulsed Doppler interrogation of the right groin performed. Proximal right SFA stent is identified. Stent is patent. On the inflow side of the stent, there is an area of flow that is external to the stent, and somewhat anteromedial of the inflow margin of the stent. This area of flow measures approximately 10 x 25 mm in size and correlates to the small pseudoaneurysm present on the CT angiogram from 10/13/2016. The right from horse profunda is patent. No thrombus is seen in the right common femoral vein and normal arterial and venous waveforms are present in the right common femoral artery and vein respectively. Impression: Continued pseudoaneurysm around the anteromedial aspect of the inflow segment of the right SFA stent, unchanged and better demonstrated on CT angiogram from 10/13/2016. PROCEDURE INTERPRETED AT [facility] DEPARTMENT OF RADIOLOGY Final Report Signed by: Melo Ford M.D.
[2016-10-17] MEDS ORDERED: NAFCILLIN 2,000 MG in SODIUM CHLORIDE 0.9% 100 ML IV SCH (13:00)
--- NOTE | 2016-10-17 15:30 | Infectious Disease Consult ---
Assessment and Plan (1) Breast cancer Status: Acute Assessment and plan: Patient completed treatment for this. Current Visit: Yes (2) Edema of right lower extremity Status: Acute Assessment and plan: Probably related to infection of vascular stent with pseudoaneurysm formation. The edema has resolved since admission. Current Visit: Yes (3) Staphylococcus aureus bacteremia Status: Acute Assessment and plan: MSSA septicemia 2 weeks following vascular intervention with stent placement. Ultrasound shows pseudoaneurysm around the SFA stent and so there is concern that there is infection about the stent, that is endovascular infection. Patient has an allergic reaction documented to ceftriaxone but interestingly she has tolerated the Unasyn without any problems. Recommendations: 1. Since patient has tolerated Unasyn and I am going to try her on oxacillin 2 g IV every 4 hours and stop the Unasyn. 2. Once patient tolerates oxacillin she can go home on this as a continuous infusion for convenience sake so it would be 12 g per 24 hours. 3. Follow-up repeat blood cultures sent off yesterday; ideally I would have liked to see that they are indeed negative before she got her PICC line. 4. Given endovascular infection, duration of treatment will be for 6 weeks with antibiotics, so until November 26 5. Echocardiogram for completeness sake Thank you very much for the consult. Will follow. Discussed with Dr. Garcia. Current Visit: Yes History of Present Illness Chief complaint: MSSA bacteremia History of present illness: Ms. Umana is a 61 year old female presented to hospital last Sunday with severe swelling of her right lower extremity associated with pain, and also fever and chills. She had had a stent placed in that extremity about 2 weeks prior by cardiology. Blood cultures done on admission came out positive for MSSA in 4 of 4 sets. The patient has been on Unasyn and I am asked to advise therapy. The right lower extremity swelling has gone down since admission. She got a PICC line placed yesterday. Patient given history of being allergic to ceftriaxone, says it caused hives. She has been tolerating the Unasyn without any difficulties. Notably as well the patient has a history of breast cancer diagnosed earlier this year. She completed adjuvant chemotherapy this past August after initially having mastectomy done. Home Medications Medication Instructions Recorded Confirmed Type PARoxetine [Paxil] 20 mg PO QAM 03/24/16 10/11/16 History Aspirin Chew Tab 81 mg PO BEDTIME 05/26/16 10/11/16 History Isosorbide Mononitrate [Isosorbide 30 mg PO QAM 05/26/16 10/11/16 History Mononitrate ER] Rosuvastatin [Crestor] 40 mg PO BEDTIME 05/26/16 10/11/16 History Carvedilol [Coreg] 3.125 mg PO BID #60 tablet 08/29/16 10/11/16 Rx Nitroglycerin Sl Tab [Nitrostat] 0.4 mg SL Q5M PRN tablet 08/29/16 10/11/16 Rx Clopidogrel [Plavix] 75 mg PO QPM 09/28/16 10/11/16 History Ranolazine [Ranexa] 500 mg PO BID 09/28/16 10/11/16 History Pantoprazole Tab [Protonix Tab] 40 mg PO QAM 10/11/16 10/11/16 History Ampicillin/Sulbactam [Unasyn] 3,000 mg IV Q6H 42 Days 10/17/16 Rx HYDROcodone/ACETAMIN 7.5-325 1 tablet PO Q4H PRN #30 tablet 10/17/16 Rx [[place] 7.5-325] Lisinopril [Prinivil] 10 mg PO BID #60 tablet 10/17/16 Rx Allergies Allergy/AdvReac Type Severity Reaction Status Date / Time ceftriaxone [From Rocephin] Allergy Severe SHORTNESS Verified 10/11/16 09:23 OF BREATH 12 point system: reviewed and no additional remarkable complaints except as stated (Per HPI) Medical,Surgical,& Family Hx - Medical History Cardio: History of: CAD, Hypertension Comment Only: Valvular Heart Disease (DID NOT TELL DR Barajas NURSE ABOUT THIS EKG FAX TO [facility]03/24/15 8602), Cardiovascular Problems (DR TIERNEY IN [facility] SAID MAY HAVE BLOCKGE HAS NOT BEEN CHECK FOR THIS) Psychological: No history of: Depression Neurology: No history of: Seizures Genitourinary: History of: Bladder Problem (stress incontinence) Musculoskeletal: History of: Musculoskeletal Problems (legs hurt with ambulation ) No history of: Amputation Reproductive: History of: Breast Cancer (Rt mastectomy) Other: History of: Anaphylaxis (rocephin), Cancer (R BREAST), MRSA, Miscellaneous Medical Problems (SEPIS COLON FROM BACTERILA INFECTION) - Surgical History Cardiac Surgeries: Sugical HX of: Cardiac Catheterization Thoracic Surgeries: Patient denies;: Organ Transplant, Lobectomy HEENT Surgeries: Patient denies: Eye Surgery, Tonsilectomy & Adenoidectomy Reproductive Surgeries: Surgical HX of;: Breast Surgery (RIGHT Mastectomy), Tubal Ligation Orthopedic Surgeries: Patient denies;: Implanted Devices - Family History Family History: Reports;: Family Cancer (MOM BROTHER 2 SISTRS), Family Diabetes (BROTHER), Family Heart Disease (SISTER) - Social History Smoking Status: Former smoker Frequency of Alcohol Use: None Type of Drug Use: None Infectious Disease Exam H&P - Constitutional Vitals: Vital Signs Temp Pulse Resp BP Pulse Ox 97.6 F 55 L 16 141/77 98 10/17/16 11:07 10/17/16 11:07 10/17/16 11:07 10/17/16 11:07 10/17/16 11:07 Intake and Output 10/16/16 10/17/16 10/17/16 23:59 07:59 15:59 Intake Total 1040 / 1040 200 / 200 480 / 480 Balance 1040 / 1040 200 / 200 480 / 480 Intake: IV 100 / 100 200 / 200 Unasyn 3,000 mg In Ns 100 100 / 100 200 / 200 ml @ 200 mls/hr IV Q6H [facility] Rx#:[id number] Oral 240 / 240 480 / 480 Blood Product 700 / 700 Red Blood Cells Lr Split 350 / 350 1 Unit [id number] Red Blood Cells Lr Split 350 / 350 2 Unit [id number] Other: Voiding Method Toilet Toilet Toilet # Voids 3 3 3 # Bowel Movements 0 Exam: General: Patient comfortable, nontoxic appearing HEENT: Mucous membranes pink and moist, anicteric acyanotic, ROSIE, no oropharyngeal exudates Neck: Supple, no thyroid gland enlargement Respiratory system: Breath sounds vesicular, no crepitations or wheezes Cardiovascular: Normal S1 and S2, no murmurs appreciated Abdomen: Normal bowel sounds, soft nontender throughout, no organomegaly or mass Genitourinary: No suprapubic pain or bladder distention Extremities: no edema of either leg, but there is mild tenderness on palpation of right leg and thigh. No areas of redness or irritation noted in groin where she had access for placement of the stent. Skin: No rash Reports - Labs CBC & BMP: 10/17/16 00:54 10/17/16 00:54 Labs: Laboratory Results - last 24 hr 10/16/16 10/17/16 10/17/16 16:30 00:54 00:54 WBC 4.2 D RBC 3.27 L D Hgb 9.5 L D Hct 29.5 L MCV 90.2 MCH 29 MCHC 32.2 RDW 19.1 H Plt Count 239 MPV 10.0 Neut % (Auto) 41.9 Lymph % (Auto) 36.8 [place] % (Auto) 11.5 Eos % (Auto) 8.4 Baso % (Auto) 0.7 Neut # (Auto) 1.8 Lymph # (Auto) 1.5 [place] # (Auto) 0.5 Eos # (Auto) 0.4 Baso # (Auto) 0.0 Total Counted 100 Immature Gran % 0.7 Nucleated RBC % 0.0 Immature Gran # 0.03 Segmented Neutrophils 44 L Lymphocytes 37 Monocytes 10 Eosinophils 7 Basophils 1.0 H Myelocytes 1 Nucleated RBCs # 0.00 Platelet Estimate Normal Immature Plt Fraction 0.0 Polychromasia Few Ovalocytes Few Sodium 141 Potassium 4.0 Chloride 106 Carbon Dioxide 29 Anion Gap 10.0 BUN 8 Creatinine 0.60 GFR Calculation 96 BUN/Creatinine Ratio 13.00 Glucose 85 Calculated Osmolality 277.3 Calcium 8.5 Blood Type B POSITIVE Antibody Screen Negative Crossmatch See Detail - Diagnostic Findings Procedure: Ultrasound: report reviewed by me (Vascular ultrasound showed pseudoaneurysm around SFA stent in right lower extremity) Specialty Discharge - Follow Up or Referrals Follow up with: Kennedi Hodgson MD [Physician] - 2 Weeks Melo Mejía MD [Physician] - (KEEP SCHEDULED APPOINTMENT) Jac Marks MD [Physician] - (6 WEEKS) Jer Sommer MD [Physician] - 2 Weeks
[2016-10-17] MEDS: OXACILLIN 2,000 MG in SODIUM CHLORIDE 0.9% 100 ML IV SCH ×2 (17:09→21:06)
[2016-10-17] MEDS: CLOPIDOGREL 75 MG TABLET PO SCH (20:52)
[2016-10-17] MEDS: ROSUVASTATIN 20 MG TABLET PO SCH (21:18)
[2016-10-17] MEDS: ASPIRIN CHEW 81 MG TABLET PO SCH (21:18)
[2016-10-17] MEDS: CARVEDILOL 3.125 MG TABLET PO SCH (21:19)
[2016-10-17] MEDS: LISINOPRIL 10 MG TABLET PO SCH (21:19)
[2016-10-18] MEDS: OXACILLIN 2,000 MG in SODIUM CHLORIDE 0.9% 100 ML IV SCH ×3 (01:14→08:33)
[2016-10-18] MEDS: PARoxetine 20 MG TABLET PO SCH (08:32)
[2016-10-18] MEDS: CARVEDILOL 3.125 MG TABLET PO SCH (08:32)
[2016-10-18] MEDS: LISINOPRIL 10 MG TABLET PO SCH (08:32)
[2016-10-18] MEDS: PANTOPRAZOLE 40 MG TABLET PO SCH (08:32)
--- NOTE | 2016-10-18 10:30 | ECHO Report ---
Terri Umana Exam Date: 10/17/2016 13:59 Referring Physician: Technologist: Sheridan Medina RDCS Age: 61 Ht (in): 60 Wt (lb): 155 Gender: F Exam Location: [facility] Echo Indications: Staph aureus bacteremia, CAD with previoius stent, hx breast CA, Essential (primary) hypertension, PAD, Anemia BP: 141 / 77 HR: 57 Rhythm: Sinus Technical Quality: IMPRESSIONS Borderline left atrial enlargement 1+ concentric LVH Normal LV systolic function with ejection fraction estimated 60% without segmental wall motion reality 1+ tricuspid regurgitation with RVSP 29 mmHg plus RAP No evidence of vegetation MEASUREMENTS (Male / Female) Normal Values 2D ECHO LV Diastolic Diameter PLAX 4.8 cm 4.2 - 5.9 / 3.9 - 5.3 cm LV Systolic Diameter PLAX 3.5 cm LV Fractional Shortening PLAX 26.4 % IVS Diastolic Thickness 1.1 cm 0.6 - 1.0 / 0.6 - 0.9 cm LVPW Diastolic Thickness 1.1 cm 0.6 - 1.0 / 0.6 - 0.9 cm RV Internal Dim ED PLAX 2.7 cm Aortic Root Diameter 3.5 cm LA Systolic Diameter LX 3.5 cm 3.0 - 4.0 / 2.7 - 3.8 cm DOPPLER TR Peak Velocity 271.0 cm/s TR Peak Gradient 29.4 mmHg FINDINGS Left Ventricle Normal left ventricular cavity size. Mild left ventricular hypertrophy. Left ventricular ejection fraction is estimated at 55 %. Right Ventricle Mildly increased right ventricular size. Right Atrium Moderately increased right atrial size. Left Atrium The left atrium is mildly enlarged. Mitral Valve Morphologically normal mitral valve. Mild mitral annular calcification. Mild mitral valve regurgitation. Aortic Valve Morphologically normal aortic valve without significant sclerosis or stenosis. There is no aortic regurgitation. Tricuspid Valve Morphologically normal tricuspid valve. Mild tricuspid valve regurgitation. Tricuspid regurgitation velocities suggest a PAP of 39 mmHg. Pulmonic Valve Morphologically normal pulmonic valve. Trace pulmonary valve regurgitation. Pericardium Normal pericardium without effusion. Aorta Normal ascending aorta dimension. Jac Marks (Electronically Signed) Final Date: 18 October 2016 10:29
[2016-10-18 11:25] VITALS: BP 146/67
--- NOTE | 2016-10-18 12:02 | Infectious Disease Progress ---
Assessment and Plan (1) Breast cancer Status: Acute Assessment and plan: Patient completed treatment for this. Current Visit: Yes (2) Edema of right lower extremity Status: Acute Assessment and plan: Probably related to infection of vascular stent with pseudoaneurysm formation. Current Visit: Yes (3) Staphylococcus aureus bacteremia Status: Acute Assessment and plan: MSSA septicemia 2 weeks following vascular intervention with stent placement. Ultrasound shows pseudoaneurysm around the SFA stent and so there is concern that there is infection about the stent, that is, endovascular infection. Patient has an allergic reaction documented to ceftriaxone but interestingly she has tolerated the Unasyn and oxacillin without any problems. TTE without mention of endocarditis. Recommendations: 1. Patient's insurance improved nafcillin over oxacillin which is okay. She will go home on this as a continuous infusion for convenience sake; so it would be 12 g per 24 hours. 2. Given endovascular infection, duration of treatment will be for 6 weeks with antibiotics, so until November 26 3. I will review weekly labs while on IV antibiotics and I will see her in the office towards the end of therapy. Current Visit: Yes Infectious Disease - PN: Subj Interval history: Patient doing fairly okay, no fever, less right leg pain and swelling. Infectious Disease Exam (PN) - Constitutional Vitals: Temp Pulse Resp BP Pulse Ox 98.5 F 53 L 18 146/67 96 10/18/16 11:24 10/18/16 11:24 10/18/16 11:24 10/18/16 11:24 10/18/16 11:24 General appearance: normal weight, no acute distress Exam: General appearance: no acute distress - Eye Eye exam: Present: EOMI. no icterus Pupils: Present: ROSIE - ENT ENT exam: no oropharyhgeal exudates - Extremities Exam Extremities exam: Mild right lower extremity edema, with mild pain to inner thigh - Skin Skin exam: no rash Results - Labs CBC & BMP: 10/17/16 00:54 10/17/16 00:54 Lab Results: I have reviewed the past 24 hour labs (Blood cultures negative at day 3; TTE without mention of endocarditis; inflammatory markers noted elevated) Specialty Discharge - Follow Up or Referrals Follow up with: Kennedi Hodgson MD [Physician] - 11/28/16 9:00 am (CBC, CMP, SED RATE, C REACTIVE PROTEIN WEEKLY LABS FAXED TO [phone].) Melo Muñoz MD [Physician] - 11/29/16 12:10 pm (KEEP SCHEDULED APPOINTMENT LAB WORK AT 12:10, SEE DR MUÑOZ AT 12:40) Jac Marks MD [Physician] - 11/29/16 2:10 pm (6 WEEKS) Jer Sommer MD [Physician] - (CALL NEEDED)
--- NOTE | 2016-10-18 13:30 | Cardiology Progress Note ---
Assessment and Plan (1) Edema of right lower extremity Status: Acute Assessment and plan: 1. 61-year-old WF well known to me with breast cancer status post mastectomy, completed chemotherapy about 6-7 weeks ago, and whom I open her long right superficial femoral artery occlusion 2 weeks ago with stenting 2 who now has 3 days of right lower extremity pain and modest foot swelling as well as intermittent high fever. 2. Recent UTI treated with Bactrim 3. Routine culture and evaluation/treatment for infection or appropriate, given her history of cancer and recent chemotherapy. However I suspect her right leg pain is related to reperfusion pain from opening her long right SFA occlusion 2 weeks ago. This a bit of a late presentation, but would give NSAIDs and gentle hydration. She has a clearly palpable right DP pulse and is neurologically intact without deficit in her right foot or lower leg. Right distal anterior tibial access site is clean without tenderness per 4. We will follow with you. October 12, 2016: 1. Ms. Umana's fever has resolved but her hematocrit is dropped to below 20% 2. Her anemia is probably at least delusional in part, and has no evidence of bleeding. 3. She clearly has reperfusion pain (foot is slightly warmer and more swollen) that developed 10 days out from revascularization of right SFA occlusion, but also has septic picture with some hypotension and initial leukocytosis being immunocompromised with recent cancer/chemotherapy; she is currently on multiple IV antibiotics with cultures pending. 4. Continue NSAIDs to reduce inflammation 5. Reduce IV fluids to reduce a dilutional effect on her hematocrit 6. She still has a clearly palpable right dorsalis pedis pulse, will check segmental Dopplers to document perfusion. 7. Previous access sites in the distal anterior tibial artery and left groin both look good without evidence of tenderness hematoma or bleeding. October 13, 2016: 1. Previous fever to 105.5 but afebrile 36 hours with staph aureus and multiple blood cultures (not MRSA) on IV antibiotics. 2. Right foot swelling is still present but discomfort is much improved; her right inner thigh tenderness is unchanged; there was no access site here for her peripheral intervention, but this is over the area of her stent. I will order arterial ultrasound to check stent patency. Infected stent will be in the differential but is extremely uncommon. However her immunocompromised state with recent cancer and chemotherapy (last about 7 weeks ago) are noted. 3. Check CBC given her hematocrit just over 21% yesterday; she has no evidence of bleeding and anemia is normocytic. 4. Still has moderate hypotension with sepsis picture but this seems to be improving. Antihypertensives and beta-jennifer are held. 5. We will follow with you. October 16, 2016: 1. Ms. Umana's leg looks dramatically better and is basically asymptomatic with at most trivial tenderness at her right groin/inner thigh 2. She has been afebrile since the day after admission (staph aureus bacteremia with 105 5 temperature prior to that) now on IV antibiotics for 5 days 3. I suspect her small right proximal SFA pseudoaneurysm is the source of her bacteremia/sepsis (the right groin was not accessed, but I suspect a small " kyleigh "from the proximal portion of the stent made a tiny perforation that got infected late; angiographic result was very good after the procedure 3 weeks ago 4. Check arterial ultrasound right groin today to follow-up pseudoaneurysm; if it is not grown/stable I would simply complete her IV antibiotics (2 weeks?); if her pseudoaneurysms persists after thiis, I would consider angiography. 5. Stable normocytic anemia with no evidence of bleeding; likely related to her recent cancer/chemotherapy October 17, 2016: 1. Ms. Umana is feeling better after blood transfusion and is ambulating on the caba's "I feel much better after a walk" 2. 2+ right pedal pulse with mild tenderness at her proximal SFA stent site 3. Follow-up arterial ultrasound right groin was miss ordered as a venous Doppler; reordered today to follow-up pseudoaneurysm 4. I agree she likely has infected pseudoaneurysm with newly placed stent, and so 6 weeks of IV antibiotics seems reasonable; is encouraging that she defervesced rapidly and her staph aureus is sensitive to everything on her sensitivity panel. 5. Resume her low-dose Coreg 3.125 mg twice daily; hold if her heart rate runs 55 or lower bpm; add lisinopril given her hypertension and normal creatinine. October 18, 2016: 1. Ms. Umana is doing well clinically other than her mild right upper medial thigh tenderness which persists but is significantly improved. 2. Arterial ultrasound again demonstrates relatively small pseudoaneurysm relatively stable 3. Presumed infected pseudoaneurysm with resolved staph aureus bacteremia ( sensitive to everything) and follow-up cultures negative 3 days 4. Agree with 6 weeks of IV antibiotic 5. At follow-up would reassess pseudoaneurysm to decide if she needs endovascular open surgical intervention 6. Echocardiogram yesterday shows ejection fraction 65% with no evidence of endocarditis 7. She can be discharged from a cardiac standpoint Current Visit: Yes (2) Fever Status: Acute Current Visit: Yes Cardiology - PN: Subj Interval history: Terri is unchanged with no fever no chest pain or shortness of breath. Her right leg looks good with the exception of the mild tenderness just medial to the SFA stent. Exam (Progress Note) - Constitutional Vitals: Period Temp Pulse Resp BP Sys/Guaman Pulse Ox Last 24 Hr 97.0 F-98.5 F 53-72 18-18 145-160/67-92 94-99 General appearance: normal weight, no acute distress - Head Head exam: Present: normal inspection, normocephalic - Neck Neck exam: Present: normal inspection - Respiratory Respiratory exam: Present: clear to auscultation bilaterally. Absent: rales, stridor, wheezes - Cardiovascular Cardiovascular exam: Present: systolic murmur. Absent: diastolic murmur, rubs - GI/Abdominal GI/Abdominal exam: Present: soft. Absent: tenderness - Extremities Exam Extremities exam: Present: other (Right foot looks good with trivial edema; right groin has mild tenderness). Absent: edema Result/EKG - Labs CBC & BMP: 10/17/16 00:54 10/17/16 00:54 Labs: Laboratory Results - last 24 hr 10/17/16 10/17/16 15:49 15:49 ESR Westergren 122 H Total Creatine Kinase 45 C-Reactive Protein 5.73 H Specialty Discharge - Follow Up or Referrals Follow up with: Kennedi Hodgson MD [Physician] - 11/28/16 9:00 am (CBC, CMP, SED RATE, C REACTIVE PROTEIN WEEKLY LABS FAXED TO [phone].) Melo Muñoz MD [Physician] - 11/29/16 12:10 pm (KEEP SCHEDULED APPOINTMENT LAB WORK AT 12:10, SEE DR MUÑOZ AT 12:40) Jac Marks MD [Physician] - 11/29/16 2:10 pm (6 WEEKS) Jer Sommer MD [Physician] - (CALL NEEDED)
--- NOTE | 2016-10-24 14:26 | Physician Query Form ---
CLICK EDIT DOCUMENT TO SELECT QUERY ANSWER --> OK --> SIGN Theresa Tolliver RN Clinical Infusion Pharmacist W) [phone] (f) [phone] [email or web address] PROVIDERS: Make your selection(s) from the choices in EACH section by typing an "x" and enter comments in the comment section. Please use your independent medical judgment in providing your response. This request does not imply that any particular answer is desired or expected. CLINICAL INDICATORS: (Providers should not edit this section) Based on documentation of "stent placement after intervention by Dr. Sheppard in the right femoral artery . 2 weeks following surgery the patient developed septicemia and has cultured methicillin sensitive staph aureus" "Status post stent to right superficial femoral artery. Bare-metal stent was used. Stent is now thought to be infected" "Sepsis" Treated with IV Levaquin, IV Merrem, and IV Vancomycin. Based on the above, could you clarify the appropriate diagnosis, if significant , that supports the above abnormalities and additional evaluation, monitoring, and/or treatment rendered: ( x) Sepsis due to infection to bare metal stent placed to right superficial femoral artery ( ) Sepsis NOT due to infection to bare metal stent placed to right superficial femoral artery. ( ) Other, please specify: ( ) Clinically unable to determine COMMENTS: PLEASE ALSO DOCUMENT RESPONSE IN PROGRESS NOTES AND/OR DISCHARGE SUMMARY Use of terms such as suspected, likely, or probable (associated with a specific diagnosis that is being evaluated, monitored, or treated as if it exists) are acceptable and can be restated in the discharge summary if not ruled out. MTDD
== END 2016-10-18 13:10 | disposition home health service (06) | DRG 206 ==
LOC: N.ED 09:15 → N.EDINP 12:23 → SUATTDRO 12:23 → N.EDINP 13:33 → N.3E 13:39
PROVIDERS: ADMIT Internal Medicine; ATTEND Internal Medicine

== ENCOUNTER 2016-11-07 07:24 | Inpatient (IN) ==
[2016-11-02 11:24] LABS: Basophils # 0.1 10*3/uL (0.0-0.2); Basophils % 1.1 % (0.0-0.8); Eosinophils # 0.4 10*3/uL (0.0-0.87); Eosinophils % 7.6 % (0.00-10.9); Hemoglobin 11.3 GM/DL (12.0-16.0); Immature Granulocytes % 0.2 %; Immature Granulocytes Absolute 0.01 #; Lymphocytes % 36.7 % (21.3-54.2); Mean Corpuscular HGB Conc 31.4 GM/DL (32-36); Mean Corpuscular Hemoglobin 29 PG (27-34); Mean Corpuscular Volume 92.3 FL (87-102); Mean Platelet Volume 9.4 FL (9.6-12.0); Monocytes # 0.5 10*3/uL (0.11-0.8); Monocytes % 8.5 % (1.7-12.7); Neutrophils # 2.5 10*3/uL (1.4-7.4); Neutrophils % 45.9 % (38.7-73.9); Platelet Count 189 T/CUMM (130-400); Red Cell Distribution Width 18.7 % (9.3-17.3); White Blood Count 5.4 T/CUMM (4-12)
--- NOTE | 2016-11-02 11:55 | EKG Report ---
Stationary ECG Study [facility] Test Date: 11/02/2016 11:28:21 AM Pat Name: ROME PERALTA Department: Room: Gender: F Chute Greaser: NARESH FONSECA : 1955 Requested by: Gina White Order Number: [id number] Reading MD: ELDA GILLESPIE Intervals [place] Rate: 56 P: 39 UT: 149 QRS: 25 QRSD: 98 T: 11 QT: 449 QTc: 442 Interpretive Statements SINUS RHYTHM NONSPECIFIC T-WAVE ABNORMALITY Electronically Signed On 11-03-16 15:18:15 CDT by ELDA GILLESPIE [email or web address]
[2016-11-02 11:56] LABS: Calcium 9.1 MG/DL (8.5-10.1); Osmolality,Calculated 273.7 MOS/KG (273-304); Potassium 3.7 MMOL/L (3.5-5.1)
[~2016-11-07 07:24] MED LIST: VANCOMYCIN INJ 1,000 MG in SODIUM CHLORIDE 0.9% 250 ML IV ONE
[2016-11-07] MEDS ORDERED: VANCOMYCIN 1,000 MG VIAL ONE (07:31)
[2016-11-07] MEDS ORDERED: SODIUM CHLORIDE 0.9% 250 ML IV ONE (07:32)
--- NOTE | 2016-11-07 08:02 | History and Physical Update ---
History and Physical Update - History and Physical H&P was reviewed, the patient examined and there: are no changes in the patients condition since last H&P was completed.
[2016-11-07] MEDS ORDERED: HEPARIN 5,000 UNIT/1 ML VIAL ONE (08:06)
[2016-11-07] MEDS ORDERED: THROMBIN TOPICAL (RECOMBINANT) 5,000 UNIT VIAL TOP ONE (08:07)
[2016-11-07] MEDS ORDERED: VANCOMYCIN 500 MG VIAL ONE (08:07)
[2016-11-07] MEDS ORDERED: ALBUTEROL 2.5 MG/3 ML NEB RESP TX ONE (08:17)
[2016-11-07] MEDS ORDERED: DIAZEPAM 5 MG TABLET PO ONE (08:17)
[2016-11-07] MEDS ORDERED: FAMOTIDINE 20 MG TABLET PO ONE (08:17)
[2016-11-07] MEDS ORDERED: FAMOTIDINE 20 MG TABLET ONE (08:24)
[2016-11-07] MEDS ORDERED: DIAZEPAM 5 MG TABLET ONE (08:24)
[2016-11-07] MEDS: LACTATED RINGERS 1,000 ML IV SCH ×2 (08:25→20:30)
[2016-11-07] MEDS ORDERED: PROTAMINE SULFATE 50 MG/5 ML VIAL IV ONE ×2 (09:44→11:27)
[2016-11-07] MEDS ORDERED: TISSUE ADHESIVE 1 EACH APPLICATOR TOP ONE (10:25)
[2016-11-07] MEDS ORDERED: ONDANSETRON 4 MG/2 ML VIAL IV PRN ×2 (11:11→11:43)
[2016-11-07] MEDS ORDERED: NITROGLYCERIN SL 0.4 MG TABLET SL PRN (11:13)
--- NOTE | 2016-11-07 11:24 | Operative Note ---
Date of procedure: 11/07/16 Procedure: Dr. Sommer operative report Terri Umana. 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 Indications for the procedure: Ms. Mac is a 61-year-old woman underwent recanalization and stenting of her right superficial femoral artery approximately 5-6 weeks ago then developed what appeared to be an infected false aneurysm. She underwent IV antibiotic therapy for 3 weeks for a follow- up indicated the false aneurysm getting considerably larger. Therefore felt that proceeding with the repair was appropriate as we had gotten approximately 4 weeks of antibiotic therapy explained the procedure risk and complications which she understands and accepts Description of the procedure: After the induction of general endotracheal anesthesia the patient had a Farrell catheter placed her lower abdomen right groin and thigh are prepped with ChloraPrep Ioban and draped in usual fashion I made a somewhat vertical incision over the right femoral canal I cautiously dissected through the superficial femoral down to the superficial femoral artery noting an inflammatory changes no gross purulence. Continued dissecting keeping the false aneurysm intact I was able to control the superficial femoral artery with a vessel loop although the stents were palpable and would have would prevent control with the vessel loop I then dissected proximally up under the inguinal ligament was able to control external iliac artery with vessel loop as well with this done I really could not dissected around the false aneurysm to get good control of the profunda I therefore opened the false aneurysm noted good active bleeding from the profunda femoris but with a balloon catheter I was able to tap and I then dissected around the profunda notably there were branches just at the origin of the profunda that had some difficulty controlling with the balloon but was able to get Vesseloops around the profunda get control the patient received 5000 units of heparin I noted that it appeared that the anterior wall of the artery had basically disintegrated the stent was visible and was clear clearly exposed in the proximal superficial femoral artery I took cultures and then also sent portion of the wall of the aneurysm for further culture I felt with the previous infections of the stent should be removed and I was able to remove it from the artery without difficulty this was sent for culture as well I debrided the wall of the artery had actually is some moderate amount of a modest amount of the posterior wall of the artery I did a modest endarterectomy proximally as there was a large plaque just at the bifurcation of the femoral artery I chose a bovine pericardial patch as I did not really wish to use a totally prosthetic graft here this was trimmed in order to re-build the anterior wall of the common femoral artery and the proximal superficial femoral 5-0 Prolene was used to the anastomosis over the openings removing the balloon and flushing both sides prior to completing the anastomosis flow was then reestablished and was good by Doppler there was a bleeding site on the anastomosis at the superficial femoral that required a pledgeted suture this was placed and we then had good flow in the superficial femoral and profunda by Doppler hemostasis was obtained with 25 mg of protamine moderate pressure of then used Surgicel and Tisseel to seal the wound was irrigated copiously with vancomycin incision was closed with light 2 layers of 2-0 Monocryl and with 4 Monocryl on the skin and surgical glue blood loss is estimated at 300 cc sponge needle and instrument counts correct and the patient taken to recovery in reasonably stable condition. Surgeon / Physician: Jer Sommer Results - Labs CBC & BMP: 11/02/16 11:17 11/02/16 11:17 Discharge Plan - Discharge Medications No Action PARoxetine [Paxil] 20 mg PO QAM Rosuvastatin [Crestor] 40 mg PO BEDTIME Isosorbide Mononitrate [Isosorbide Mononitrate ER] 30 mg PO QAM Nitroglycerin Sl Tab [Nitrostat] 0.4 mg SL Q5M PRN tablet PRN Reason: Chest Pain Clopidogrel [Plavix] 75 mg PO QPM HYDROcodone/ACETAMIN 7.5-325 [[place] 7.5-325] 1 tablet PO Q4H PRN #30 tablet PRN Reason: Pain Moderate (4-7) Lisinopril [Prinivil] 10 mg PO BID #60 tablet Oxacillin 12,000 mg IV DAILY #0 vial Aspirin Chew Tab 81 mg PO BEDTIME Carvedilol [Coreg] 3.125 mg PO BID #60 tablet Ranolazine [Ranexa] 500 mg PO BID - Follow Up or Referral - Forms/Instructions
[2016-11-07] MEDS ORDERED: fentaNYL 100 MCG/2 ML VIAL ONE (11:25)
[2016-11-07] MEDS ORDERED: SEVOFLURANE 1 UNIT/15 MINUTE INH ONE (11:25)
[2016-11-07] MEDS ORDERED: MIDAZOLAM 2 MG/2 ML VIAL ONE (11:25)
[2016-11-07] MEDS ORDERED: HEPARIN 10,000 UNIT/10 ML VIAL ONE (11:26)
[2016-11-07] MEDS ORDERED: GLYCOPYRROLATE 0.4 MG/2 ML VIAL ONE (11:27)
[2016-11-07] MEDS ORDERED: ACETAMINOPHEN 1,000 MG/100 ML VIAL IV ONE (11:27)
[2016-11-07] MEDS ORDERED: ASPIRIN CHEW 81 MG TABLET PO SCH ×2 (11:30→21:00)
[2016-11-07] MEDS ORDERED: HYDROmorphone 2 MG/1 ML VIAL ONE (11:44)
[2016-11-07] MEDS ORDERED: ONDANSETRON 4 MG/2 ML VIAL ONE (11:44)
[2016-11-07] MEDS: HYDROmorphone 2 MG/1 ML VIAL IV PRN ×6 (11:45→21:09)
--- NOTE | 2016-11-07 12:26 | Anesthesia Post-Op ---
Anesthesia Post OP - Post Ansesthetic Evaluation Patient seen in post op: Yes Resp: within normal limits CV: within normal limits Mental: within normal limits Temp: within normal limits [id number]: within normal limits Nausea and Vomiting: within normal limits Pain: within normal limits
--- NOTE | 2016-11-07 14:00 | Cardiology Consult Note ---
Assessment and Plan (1) Peripheral artery disease Status: Acute Assessment and plan: 1. 61-year-old WF well known to me with history of recent breast cancer and mastectomy completed chemotherapy approximately 3 months ago, status post stenting of ostial to distal right SFA occlusion 2 6 weeks ago, who developed bacteremia/transient sepsis from apparent infected right ostial SFA/[employer] pseudoaneurysm (sensitive staph aureus), who had enlargement of the pseudoaneurysm noted last week by ultrasound (also had significant tenderness at the site), on IV antibiotics for about 4-1/2 weeks now immediately status post endarterectomy and removal of her proximal stent doing well clinically. 2. Known CAD status post proximal to mid RCA stenting (2.25 x 38) INOCENCIO with diffuse distal disease which was treated medically May 26, 2016 3. Normal overall LV systolic function with 65% ejection fraction early October 2016 here in the hospital. 4. Early October she had severe anemia with hematocrit to 20% or less but hematocrit is now stable status post transfusion at that time 5. Right foot is warm with at most trivial swelling, but pulses diminished to palpation. 6. She has no heart failure or angina symptoms today or in recent weeks 7. Check EKG and troponin in the morning 8. Would resume Plavix with baby aspirin when felt to be safe from a surgical standpoint 9. Continue high intensity statin therapy. 10. I will ask her to keep follow-up with oncology as well as with me later this month Current Visit: No (2) CAD (coronary artery disease) Status: Chronic Current Visit: No (3) Dyslipidemia Status: Chronic Current Visit: No (4) Hypertension Status: Chronic Current Visit: No History of Present Illness - Consult Narrative History of present illness: Ms. Umana is a 61 year old female admitted in early October with right groin pain and was found out pseudoaneurysm associated with staph aureus bacteremia with temperature to 105.5. She defervesced quickly after IV antibiotics were added but she continued to have some pain at her right inner thigh/groin area. She received well over 4 weeks of IV antibiotics but continued to have tenderness at her pseudoaneurysm site. She is now immediately status post bovine patch by Dr. Sommer and removal of her more proximal stent. She is doing well clinically currently and is alert and oriented. She denied any chest discomfort or shortness of breath today or in recent weeks. CC: Jer Sommer MD - Home Medications and Allergies Home Medications: Home Medications Medication Instructions Recorded Confirmed Type PARoxetine [Paxil] 20 mg PO QAM 03/24/16 11/07/16 History Aspirin Chew Tab 81 mg PO BEDTIME 05/26/16 11/07/16 History Isosorbide Mononitrate [Isosorbide 30 mg PO QAM 05/26/16 11/07/16 History Mononitrate ER] Rosuvastatin [Crestor] 40 mg PO BEDTIME 05/26/16 11/07/16 History Carvedilol [Coreg] 3.125 mg PO BID #60 tablet 08/29/16 11/07/16 Rx Nitroglycerin Sl Tab [Nitrostat] 0.4 mg SL Q5M PRN tablet 08/29/16 11/02/16 Rx Clopidogrel [Plavix] 75 mg PO QPM 09/28/16 11/07/16 History Ranolazine [Ranexa] 500 mg PO BID 09/28/16 11/07/16 History HYDROcodone/ACETAMIN 7.5-325 1 tablet PO Q4H PRN #30 tablet 10/17/16 11/07/16 Rx [[place] 7.5-325] Lisinopril [Prinivil] 10 mg PO BID #60 tablet 10/17/16 11/07/16 Rx Oxacillin 12,000 mg IV DAILY #0 vial 10/18/16 11/07/16 Rx Allergies/Adverse Reactions: Allergies Allergy/AdvReac Type Severity Reaction Status Date / Time ceftriaxone [From Rocephin] Allergy Severe SHORTNESS Verified 11/02/16 10:49 OF BREATH, RASH Medical,Surgical,& Family Hx - Medical History Cardio: History of: Cardiac Dysrhythmia (A FIB DR STONE, SAW BULK FOLDER NOV 02, 2016) , CAD, Hypertension Comment Only: Valvular Heart Disease (DID NOT TELL DR Barajas NURSE ABOUT THIS EKG FAX TO [facility]03/24/15 7113), Cardiovascular Problems (DR TIERNEY IN [facility] SAID MAY HAVE BLOCKGE HAS NOT BEEN CHECK FOR THIS) Psychological: No history of: Depression Neurology: No history of: Seizures HEENT: History of: Eye Problem (GLASSES), Dental Problems (NO TEETH) Respiratory: History of: COPD No history of: Respiratory Problems (FLU VAC-NO; PNEU VAC- NO.) Genitourinary: History of: Bladder Problem (stress incontinence) Gastrointestinal: History of: GERD (PAST HX.), GI Problems (BACTERIA IN COLON/ SEPSIS PAST HX, 2015) Musculoskeletal: History of: Musculoskeletal Problems (legs hurt with ambulation ) No history of: Amputation Reproductive: History of: Breast Cancer (Rt mastectomy, 2016) Other: History of: Anaphylaxis (rocephin), Cancer (R BREAST), MRSA, Miscellaneous Medical Problems (INFECTION TO RIGHT GROIN POSS FROM STENT PLACEMENT FOR SURG 11/07/16) No history of: Anesthesia Reactions - Surgical History Cardiac Surgeries: Sugical HX of: Cardiac Catheterization (1 CARDIAC STENT; 2 STENTS RT LEG.) Thoracic Surgeries: Patient denies;: Organ Transplant, Lobectomy HEENT Surgeries: Patient denies: Eye Surgery, Tonsilectomy & Adenoidectomy Abdominal Surgeries: Surgical HX of: Appendectomy Reproductive Surgeries: Surgical HX of;: Breast Surgery (RIGHT Mastectomy), Tubal Ligation Orthopedic Surgeries: Patient denies;: Implanted Devices - Family History Family History: Reports;: Family Cancer (MOM BROTHER 2 SISTRS), Family Diabetes (BROTHER), Family Heart Disease (SISTER) - Social History Smoking Status: Former smoker Frequency of Alcohol Use: None Type of Drug Use: None Physical Examination Vital Signs Temp Pulse Resp BP Pulse Ox 97.2 F L 61 18 140/78 96 11/07/16 07:47 11/07/16 07:47 11/07/16 07:47 11/07/16 07:47 11/07/16 07:47 General: Present: Appears Well HEENT: Present: Normocephaly Neck: Present: Supple Neck Cardiac: Present: Reg Rate and Rhythm, No Murmur Lungs: Present: Normal Exam Neuro: Absent: Resting Tremor Abdomen: Present: Soft, Non-Tender Extremities: Present: No Edema, Other (warm R foot with diminished/DP/PT pulse to palpation) Result/EKG - Labs CBC & BMP: 11/02/16 11:17 11/02/16 11:17 Quality Measures - VTE Contraindication to Pharmacological VTE Prophylaxis: High Risk of Bleeding
--- NOTE | 2016-11-07 14:30 | Event Note ---
Ms. Umana is awake alert doing well no hematoma forming groin incision looks good foot is warm.
--- NOTE | 2016-11-07 16:37 | Infectious Disease Consult ---
Assessment and Plan (1) MSSA (methicillin susceptible Staphylococcus aureus) septicemia Status: Acute Assessment and plan: Patient to continue oxacillin until November 26. Here instead of continuous infusion she will get 2 g IV every 4 hours. Current Visit: Yes (2) Pseudoaneurysm of right femoral artery Status: Acute Assessment and plan: The pseudoaneurysm is felt to be infected with MSSA. Cultures sent intraoperatively today. Patient will continue oxacillin therapy. If the culture intraoperatively comes back positive then we will need to prolong duration of IV antibiotic therapy. It will be for 6 weeks from today. Thank you very much for the consult. Will follow. Current Visit: Yes History of Present Illness Chief complaint: Infected pseudoaneurysm History of present illness: Ms. Umana is a 61 year old female was saw last month with MSSA septicemia. She had had a vascular procedure following which he developed a pseudoaneurysm to the right superficial femoral artery. It was felt that this aneurysm was infected and the cause of her MSSA septicemia. She has been at home getting continuous infusion oxacillin for the past 3+ weeks. The aneurysm was found to have doubled in size during an ultrasound last week and so she is brought in for repair of this aneurysm. She underwent surgery today with tissue sent for culture. I told patient has been doing well with no fever or other constitutional symptoms. Home Medications Medication Instructions Recorded Confirmed Type PARoxetine [Paxil] 20 mg PO QAM 03/24/16 11/07/16 History Aspirin Chew Tab 81 mg PO BEDTIME 05/26/16 11/07/16 History Isosorbide Mononitrate [Isosorbide 30 mg PO QAM 05/26/16 11/07/16 History Mononitrate ER] Rosuvastatin [Crestor] 40 mg PO BEDTIME 05/26/16 11/07/16 History Carvedilol [Coreg] 3.125 mg PO BID #60 tablet 08/29/16 11/07/16 Rx Nitroglycerin Sl Tab [Nitrostat] 0.4 mg SL Q5M PRN tablet 08/29/16 11/07/16 Rx Clopidogrel [Plavix] 75 mg PO QPM 09/28/16 11/07/16 History Ranolazine [Ranexa] 500 mg PO BID 09/28/16 11/07/16 History HYDROcodone/ACETAMIN 7.5-325 1 tablet PO Q4H PRN #30 tablet 10/17/16 11/07/16 Rx [[place] 7.5-325] Lisinopril [Prinivil] 10 mg PO BID #60 tablet 10/17/16 11/07/16 Rx Oxacillin 12,000 mg IV DAILY #0 vial 10/18/16 11/07/16 Rx Allergies Allergy/AdvReac Type Severity Reaction Status Date / Time ceftriaxone [From Rocephin] Allergy Severe SHORTNESS Verified 11/02/16 10:49 OF BREATH, RASH 12 point system: reviewed and no additional remarkable complaints except as stated (Per HPI) Medical,Surgical,& Family Hx - Medical History Cardio: History of: Cardiac Dysrhythmia (A FIB DR STONE, [employer] NOV 02, 2016) , CAD, Hypertension Comment Only: Valvular Heart Disease (DID NOT TELL DR Barajas NURSE ABOUT THIS EKG FAX TO [facility]03/24/15 6168), Cardiovascular Problems (DR TIERNEY IN [facility] SAID MAY HAVE BLOCKGE HAS NOT BEEN CHECK FOR THIS) Psychological: No history of: Depression Neurology: No history of: Seizures HEENT: History of: Eye Problem (GLASSES), Dental Problems (NO TEETH) Respiratory: History of: COPD No history of: Respiratory Problems (FLU VAC-NO; PNEU VAC- NO.) Genitourinary: History of: Bladder Problem (stress incontinence) Gastrointestinal: History of: GERD (PAST HX.), GI Problems (BACTERIA IN COLON/ SEPSIS PAST HX, 2014) Musculoskeletal: History of: Musculoskeletal Problems (legs hurt with ambulation ) No history of: Amputation Reproductive: History of: Breast Cancer (Rt mastectomy, 2016) Other: History of: Anaphylaxis (rocephin), Cancer (R BREAST), MRSA, Miscellaneous Medical Problems (INFECTION TO RIGHT GROIN POSS FROM STENT PLACEMENT FOR SURG 11/07/16) No history of: Anesthesia Reactions - Surgical History Cardiac Surgeries: Sugical HX of: Cardiac Catheterization (1 CARDIAC STENT; 2 STENTS RT LEG.) Thoracic Surgeries: Patient denies;: Organ Transplant, Lobectomy HEENT Surgeries: Patient denies: Eye Surgery, Tonsilectomy & Adenoidectomy Abdominal Surgeries: Surgical HX of: Appendectomy Reproductive Surgeries: Surgical HX of;: Breast Surgery (RIGHT Mastectomy), Tubal Ligation Orthopedic Surgeries: Patient denies;: Implanted Devices - Family History Family History: Reports;: Family Cancer (MOM BROTHER 2 SISTRS), Family Diabetes (BROTHER), Family Heart Disease (SISTER) - Social History Smoking Status: Former smoker Frequency of Alcohol Use: None Type of Drug Use: None Infectious Disease Exam H&P - Constitutional Vitals: Vital Signs Temp Pulse Resp BP Pulse Ox 97.2 F L 67 18 132/79 97 11/07/16 12:45 11/07/16 15:53 11/07/16 15:53 11/07/16 15:53 11/07/16 15:53 Intake and Output 11/07/16 11/07/16 11/07/16 07:59 15:59 23:59 Intake Total 100 / 100 Balance 100 / 100 Intake: IV 100 / 100 Lr 1,000 ml @ 100 mls/hr 100 / 100 IV .Q10H MINDI Rx#: [id number] Other: Weight 65.635 kg 68.674 kg Patient Weight 11/07/16 23:59 Weight 68.674 kg Exam: General: Patient comfortable HEENT: Mucous membranes pink and moist, anicteric acyanotic, ROSIE, no oropharyngeal exudates Neck: Supple, no thyroid gland enlargement Respiratory system: Breath sounds vesicular, no crepitations or wheezes Cardiovascular: Normal S1 and S2, no murmurs appreciated Abdomen: Normal bowel sounds, soft nontender throughout, no organomegaly or mass Genitourinary: No suprapubic pain or bladder distention Extremities: no edema, sutured wound to right groin Skin: No rash Reports - Labs CBC & BMP: 11/02/16 11:17 11/02/16 11:17
[2016-11-07] MEDS: OXACILLIN 2,000 MG in SODIUM CHLORIDE 0.9% 100 ML IV SCH ×2 (17:26→21:12)
[2016-11-07] MEDS ORDERED: CLOPIDOGREL 75 MG TABLET PO SCH (19:00)
[2016-11-07] MEDS: LISINOPRIL 10 MG TABLET PO SCH (20:27)
[2016-11-07] MEDS: CARVEDILOL 3.125 MG TABLET PO SCH (20:28)
[2016-11-07] MEDS: RANOLAZINE 500 MG TABLET PO SCH (20:28)
[2016-11-07] MEDS ORDERED: ROSUVASTATIN 20 MG TABLET PO SCH (21:00)
[2016-11-07] MEDS ORDERED: VANCOMYCIN INJ 750 MG in SODIUM CHLORIDE 0.9% 250 ML IV SCH (23:00)
[2016-11-08] MEDS: OXACILLIN 2,000 MG in SODIUM CHLORIDE 0.9% 100 ML IV SCH ×4 (01:39→13:26)
[2016-11-08] MEDS: HYDROmorphone 2 MG/1 ML VIAL IV PRN ×5 (01:41→17:30)
[2016-11-08 03:38] LABS: Basophils # 0.1 10*3/uL (0.0-0.2); Basophils % 0.5 % (0.0-0.8); Eosinophils # 0.3 10*3/uL (0.0-0.87); Hemoglobin 8.4 GM/DL (12.0-16.0); Immature Granulocytes % 0.5 %; Immature Granulocytes Absolute 0.05 #; Lymphocytes # 2.1 10*3/uL (1.4-4.0); Lymphocytes % 22.1 % (21.3-54.2); Mean Corpuscular HGB Conc 31.1 GM/DL (32-36); Mean Corpuscular Hemoglobin 30 PG (27-34); Mean Corpuscular Volume 96.4 FL (87-102); Mean Platelet Volume 10.4 FL (9.6-12.0); Monocytes # 0.8 10*3/uL (0.11-0.8); Monocytes % 8.7 % (1.7-12.7); Neutrophils # 6.1 10*3/uL (1.4-7.4); Neutrophils % 65.2 % (38.7-73.9); Platelet Count 147 T/CUMM (130-400); Red Cell Distribution Width 19.3 % (9.3-17.3); White Blood Count 9.4 T/CUMM (4-12)
[2016-11-08 04:01] LABS: Calcium 8.6 MG/DL (8.5-10.1); Magnesium 1.9 MG/DL (1.8-2.4); Osmolality,Calculated 276.5 MOS/KG (273-304); Potassium 3.6 MMOL/L (3.5-5.1)
[2016-11-08] MEDS: LACTATED RINGERS 1,000 ML IV SCH (05:38)
--- NOTE | 2016-11-08 07:44 | EKG Report ---
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
[2016-11-08] MEDS: CARVEDILOL 3.125 MG TABLET PO SCH (08:32)
[2016-11-08] MEDS: RANOLAZINE 500 MG TABLET PO SCH (08:32)
[2016-11-08] MEDS: LISINOPRIL 10 MG TABLET PO SCH (08:33)
[2016-11-08] MEDS ORDERED: ePHEDrine 50 MG/ML AMP ONE (08:37)
[2016-11-08] MEDS ORDERED: OXACILLIN 2,000 MG VIAL IV SCH (09:00)
[2016-11-08] MEDS ORDERED: ISOSORBIDE MONONITRATE 30 MG TABLET PO SCH (09:00)
[2016-11-08] MEDS ORDERED: CLOPIDOGREL 75 MG TABLET PO SCH (09:00)
[2016-11-08] MEDS ORDERED: PARoxetine 20 MG TABLET PO SCH (09:00)
--- NOTE | 2016-11-08 11:13 | Event Note ---
Ms. Umana is doing generally well today she is ambulated a bit in the room tolerating her diet labs are satisfactory with a reasonable drop in her hemoglobin and hematocrit. I do not feel that transfusion is indicated. Incision looks good with no hematoma, erythema or other complicating issues the foot is warm but without palpable pulses as they have been prior to the surgery. My thoughts are for her to ambulate more in the room today if she tolerates her diet and ambulates we can possibly let her go home. The Gram stain has not shown any bacteria from the wound we have wound cultures and culture of the aneurysm wall pending.
--- NOTE | 2016-11-08 12:34 | Infectious Disease Progress ---
Assessment and Plan (1) MSSA (methicillin susceptible Staphylococcus aureus) septicemia Status: Acute Assessment and plan: Patient to continue oxacillin until November 26. Here instead of continuous infusion she will get 2 g IV every 4 hours. Current Visit: Yes (2) Pseudoaneurysm of right femoral artery Status: Acute Assessment and plan: The pseudoaneurysm is felt to be infected with MSSA. Cultures sent intraoperatively are negative to date. Patient will continue oxacillin therapy. If the culture intraoperatively comes back positive then we will need to prolong duration of IV antibiotic therapy to 6 weeks from yesterday. Otherwise stop date as stated above. Will stop vancomycin today. Current Visit: Yes Infectious Disease - PN: Subj Interval history: Paitent doing ok, no fever since admission, only complaint is some swelling of Rt thigh. Infectious Disease Exam (PN) - Constitutional Vitals: Temp Pulse Resp BP Pulse Ox 99.9 F H 87 20 134/59 96 11/08/16 10:54 11/08/16 10:54 11/08/16 10:54 11/08/16 10:54 11/08/16 10:54 Exam: GEN: comfortable HEENT: no oral exudates RS: clear CVS: normal S1 and S2, no murmurs ABD: soft, non-tender EXTREMITIES: edema to Rt groin and thigh, the wound to Rt groin is without redness and drainage Results - Labs CBC & BMP: 11/08/16 02:46 11/08/16 02:46 Lab Results: I have reviewed the past 24 hour labs (wound/tissue cultures NGTD) Quality Measures - VTE Contraindication to Pharmacological VTE Prophylaxis: High Risk of Bleeding Specialty Discharge - Follow Up or Referrals Follow up with: Jer Sommer MD [Physician] -
[2016-11-08 16:35] VITALS: BP 122/55
--- NOTE | 2016-11-08 16:59 | Discharge Summary ---
Hospital Course - Hospital Course Hospital Course: Terri Umana 7-year-old woman had developed an infected pseudoaneurysm of the right femoral artery. She was treated with outpatient IV oxacillin for 3 weeks but the pseudoaneurysm was enlarging and therefore I recommended going ahead with repair as the fever and white blood count had resolved as had the induration and erythema. She underwent repair of the pseudoaneurysm of the right femoral artery yesterday with removal of the stent in the superficial femoral artery which was exposed with the entire anterior aspect of the common and superficial femoral artery disrupted I was able to get a good patch graft which I hope will remain healed and allow normal arterial flow at least into the prone the profunda femoris and hopefully through the superficial femoral artery. I believe there is still a stent further down in the superficial femoral that that I did not attempt to remove. At this point her right foot is well-perfused and warm and comfortable she is able to walk and has been up in the jones walking today the incision looks good with no sign of infection or hematoma. We will continue the outpatient IV oxacillin as thus far cultures and gram stains are negative on the tissue and wound culture from the surgery yesterday. I am going to give her 20 more [place] that she is approximately almost out of them and she will continue her aspirin and Plavix and I will see her in the office early next week. Specialty Discharge - Follow Up or Referrals Follow up with: Jac Marks MD [Physician] - 11/29/16 2:10 pm Jer Sommer MD [Physician] - Discharge Plan - Discharge Data Disposition: Disch To Home/Self Care Condition at Discharge: Stable Discharge Diet: advance to your usual diet Activity: resume usual activities as tolerated Hygiene: may shower Weight Bearing at Discharge: weight bear as tolerated Driving: not until seen by doctor Contact your physician if you experience:: fever over 101, Redness or swelling - Discharge Medications New Clopidogrel [Plavix] 75 mg PO DAILY tablet Lisinopril [Prinivil] 10 mg PO BID tablet Continue PARoxetine [Paxil] 20 mg PO QAM Rosuvastatin [Crestor] 40 mg PO BEDTIME Isosorbide Mononitrate [Isosorbide Mononitrate ER] 30 mg PO QAM Nitroglycerin Sl Tab [Nitrostat] 0.4 mg SL Q5M PRN tablet PRN Reason: Chest Pain Clopidogrel [Plavix] 75 mg PO QPM Oxacillin 12,000 mg IV DAILY #0 vial HYDROcodone/ACETAMIN 7.5-325 [[place] 7.5-325] 1 tablet PO Q4H PRN #20 tablet PRN Reason: Pain Moderate (4-7) Aspirin Chew Tab 81 mg PO BEDTIME Carvedilol [Coreg] 3.125 mg PO BID #60 tablet Ranolazine [Ranexa] 500 mg PO BID Lisinopril 10 mg PO DAILY - Follow Up or Referral Follow Up: Jac Marks MD [Physician] - 11/29/16 2:10 pm Jer Sommer MD [Physician] - 11/13/16 - Forms/Instructions Exam - Constitutional Vitals: Period Temp Pulse Resp BP Sys/[place] Pulse Ox Last 24 Hr 97.1 F-99.9 F 69-87 18-20 106-134/51-60 96-97 Discharge Results Procedures and tests throughout hospitalization: Pending Orders 11/07/16 09:55 Abscess Culture Routine Anaerobic Culture Routine Tissue (Biopsy) Culture and GS Routine Wound Culture Routine Labs on day of discharge: Labs from last 24 hours 11/08/16 11/08/16 11/08/16 02:46 02:46 02:46 WBC 9.4 RBC 2.80 L Hgb 8.4 L Hct 27.0 L MCV 96.4 MCH 30 MCHC 31.1 L RDW 19.3 H Plt Count 147 MPV 10.4 Neut % (Auto) 65.2 Lymph % (Auto) 22.1 [place] % (Auto) 8.7 Eos % (Auto) 3.0 Baso % (Auto) 0.5 Neut # (Auto) 6.1 Lymph # (Auto) 2.1 [place] # (Auto) 0.8 Eos # (Auto) 0.3 Baso # (Auto) 0.1 Immature Gran % 0.5 Nucleated RBC % 0.0 Immature Gran # 0.05 Nucleated RBCs # 0.00 Immature Plt Fraction 0.0 Sodium 139 Potassium 3.6 Chloride 104 Carbon Dioxide 30 Anion Gap 8.6 BUN 10 Creatinine 0.80 GFR Calculation 77 BUN/Creatinine Ratio 12.00 Glucose 120 H Calculated Osmolality 276.5 Calcium 8.6 Magnesium 1.9 Troponin I < 0.015 Preliminary micro results at discharge 11/07/16 09:55 Wound Culture - Preliminary Groin - Right No growth at 24 hours 11/07/16 09:55 Tissue Culture - Preliminary Groin - Right No growth at 24 hours 11/07/16 09:55 Abscess Culture - Preliminary Groin - Right No growth at 24 hours DS: Provider Date of admission: 11/07/16 11:11 Primary care physician: AYLEEN Lin Attending physician on admission: Jer Sommer MD Consults: 11/07/16 11:15 Consult to Physician [CONS] Routine Comment: patient known to you Consulting Provider: Kennedi Hodgson Consulting Provider Notified: Yes When should Consulting Provider be notified: Now Person Notified: brianna called Date Notified: 11/07/16 Time Notified: 13:03 11/07/16 11:16 Consult to Physician [CONS] Routine Comment: patient known to you Consulting Provider: Jac Marks Consulting Provider Notified: Yes When should Consulting Provider be notified: Now Person Notified: [place] called Date Notified: 11/07/16 Time Notified: 12:39 Discharging clinician: Jer Sommer MD
--- NOTE | 2016-11-08 19:32 | Cardiology Progress Note ---
Geneva Alex April RN, am scribing for, and in the presence of, Lele Colbert MD 19:32. Assessment and Plan (1) Peripheral artery disease Status: Chronic Assessment and plan: Initial assessment and plan November 08, 2016: No angina No heart failure Cardiac isoenzymes are negative EKG is negative Okay with me to ambulate Okay with me to discharge when you say so Patient will follow up with Dr. 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 Marks Summary: Ms. Umana is a 61 year old female admitted in early October with right groin pain and was found out pseudoaneurysm associated with staph aureus bacteremia with temperature to 105.5. She defervesced quickly after IV antibiotics were added but she continued to have some pain at her right inner thigh/groin area. She received well over 4 weeks of IV antibiotics but continued to have tenderness at her pseudoaneurysm site. She was admitted November 07 for bovine patch by Dr. Sommer and removal of her more proximal stent. November 08, 2016: Ms. Umana is seen resting in bed in no acute distress. She denies any chest pain, shortness of breath, or palpitations. He does complain of tenderness to her right groin. Lower extremities are warm to touch , unable to palpate pulses in either foot. While I was seeing patient, the nurse was able to Doppler pulses in both feet. She has been afebrile during the night and blood pressures been stable. She is on IV vancomycin as well as IV oxacillin. Plavix and baby aspirin have been restarted her H&H is lower today at 8.4 and 27.0. All other labs unremarkable, including a negative troponin. EKG this morning showed sinus rhythm with heart rate of 69. Exam (Progress Note) - Constitutional Vitals: Period Temp Pulse Resp BP Sys/[place] Pulse Ox Last 24 Hr 97.0 F-98.3 F 60-76 16-96 93-133/51-87 94-100 General appearance: no acute distress, over weight - Head Head exam: Absent: abrasion, hematoma - Eye Eye exam: Absent: periorbital swelling, laceration to eyelids Pupils: Present: ORSIE - Neck Neck exam: Absent: lymphadenopathy, tenderness - Respiratory Respiratory exam: Present: clear to auscultation bilaterally. Absent: accessory muscle use, chest wall tenderness - Cardiovascular Cardiovascular exam: Present: regular rate and rhythm. Absent: systolic murmur - GI/Abdominal GI/Abdominal exam: Present: normal bowel sounds, soft. Absent: distended, tenderness - Extremities Exam Extremities exam: Present: other (Both feet warm with diminished pulses). Absent: calf tenderness, edema - Neurological Exam Neurological exam: Present: alert, oriented X3 - Psychiatric Psychiatric exam: Present: normal affect, normal mood - Skin Skin exam: Present: warm, dry Result/EKG - Labs CBC & BMP: 11/08/16 02:46 11/08/16 02:46 Lab Results: I have reviewed the past 24 hour labs Labs: Laboratory Results - last 24 hr 11/08/16 11/08/16 11/08/16 02:46 02:46 02:46 WBC 9.4 RBC 2.80 L Hgb 8.4 L Hct 27.0 L MCV 96.4 MCH 30 MCHC 31.1 L RDW 19.3 H Plt Count 147 MPV 10.4 Neut % (Auto) 65.2 Lymph % (Auto) 22.1 [place] % (Auto) 8.7 Eos % (Auto) 3.0 Baso % (Auto) 0.5 Neut # (Auto) 6.1 Lymph # (Auto) 2.1 [place] # (Auto) 0.8 Eos # (Auto) 0.3 Baso # (Auto) 0.1 Immature Gran % 0.5 Nucleated RBC % 0.0 Immature Gran # 0.05 Nucleated RBCs # 0.00 Immature Plt Fraction 0.0 Sodium 139 Potassium 3.6 Chloride 104 Carbon Dioxide 30 Anion Gap 8.6 BUN 10 Creatinine 0.80 GFR Calculation 77 BUN/Creatinine Ratio 12.00 Glucose 120 H Calculated Osmolality 276.5 Calcium 8.6 Magnesium 1.9 Troponin I < 0.015 - EKG EKG results: interpreted by me EKG shows: sinus rhythm Quality Measures - VTE Contraindication to Pharmacological VTE Prophylaxis: High Risk of Bleeding Specialty Discharge - Follow Up or Referrals Follow up with: Jac Marks MD [Physician] - 11/29/16 2:10 pm Jer Sommer MD [Physician] - 11/13/16 (PLEASE CALL OFFICE IN THE MORNING AND SCHEDULE FOLLOW UP APPOINTMENT FOR 2016.) I, Lele Colbert MD, personally performed the services described in this documentation, ascribed by Alicia Bean RN in my presence, and it is both accurate and complete 932 .
--- NOTE | 2016-11-10 08:08 | Physician Query Form ---
CLICK EDIT DOCUMENT TO SELECT QUERY ANSWER --> OK --> SIGN Anita Martinez RN, CCDS Certified Clinical Door Assembler W) [phone] (f) [phone] [email or web address] PROVIDERS: Make your selection(s) from the choices in EACH section by typing an "x" and enter comments in the comment section. Please use your independent medical judgment in providing your response. This request does not imply that any particular answer is desired or expected. CLINICAL INDICATORS: (Providers should not edit this section) "She had had a vascular procedure following which he developed a pseudoaneurysm to the right superficial femoral artery" Please clarify the following: ( ) The above is an inherent, integral or routinely potential/expected occurrence of surgery (not a complication) (x ) The above was an inadvertent, unintended, iatrogenic, or unexpected occurrence of surgery (complication) ( ) The above is a complication but not due to the surgery, specify cause: ( ) Other, please specify: ( ) Clinically unable to determine COMMENTS: PLEASE ALSO DOCUMENT RESPONSE IN PROGRESS NOTES AND/OR DISCHARGE SUMMARY Use of terms such as suspected, likely, or probable (associated with a specific diagnosis that is being evaluated, monitored, or treated as if it exists) are acceptable and can be restated in the discharge summary if not ruled out. MTDD
== END 2016-11-08 17:50 | disposition home or self-care (01) | DRG 710 ==
LOC: N.OR 07:24 → N.SDSINP 07:25 → N.3E 09:53
PROVIDERS: ADMIT Surgery; ATTEND Surgery

== ENCOUNTER 2016-11-11 15:50 | Inpatient (IN) ==
--- NOTE | 2016-11-11 17:30 | EKG Report ---
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
[2016-11-11] MEDS ORDERED: SODIUM CHLORIDE 0.9% 1,000 ML IV STA (17:46)
[2016-11-11] MEDS ORDERED: VANCOMYCIN INJ 1,000 MG in SODIUM CHLORIDE 0.9% 250 ML IV STA (17:47)
[2016-11-11] MEDS ORDERED: VANCOMYCIN 1,000 MG VIAL ONE (18:36)
[2016-11-11 18:49] LABS: Basophils % 0.3 % (0.0-0.8); Eosinophils # 0.4 10*3/uL (0.0-0.87); Eosinophils % 4.8 % (0.00-10.9); Hemoglobin 7.3 GM/DL (12.0-16.0); Immature Granulocytes % 0.3 %; Immature Granulocytes Absolute 0.03 #; Lymphocytes # 1.7 10*3/uL (1.4-4.0); Lymphocytes % 19.1 % (21.3-54.2); Mean Corpuscular HGB Conc 31.7 GM/DL (32-36); Mean Corpuscular Hemoglobin 30 PG (27-34); Mean Corpuscular Volume 93.9 FL (87-102); Monocytes # 0.6 10*3/uL (0.11-0.8); Monocytes % 6.8 % (1.7-12.7); Neutrophils # 6.1 10*3/uL (1.4-7.4); Neutrophils % 68.7 % (38.7-73.9); Platelet Count 178 T/CUMM (130-400); Red Blood Count 2.45 MC/CUMM (3.8-5.5); Red Cell Distribution Width 19.2 % (9.3-17.3); White Blood Count 8.8 T/CUMM (4-12)
[2016-11-11 19:09] LABS: Albumin 2.7 G/DL (3.4-5.0); Bilirubin,Total 0.5 MG/DL (0.2-1.0); Calcium 8.5 MG/DL (8.5-10.1); Osmolality,Calculated 276.5 MOS/KG (273-304); Potassium 3.5 MMOL/L (3.5-5.1); Total Protein 7.2 G/DL (6.4-8.3)
--- NOTE | 2016-11-11 20:12 | Emergency Department Note ---
Cara Alex Mantricia, am scribing for, and in the presence of, Grace Cintron MD 17:11. ISaida Leanne, MD, personally performed the services described in this documentation, ascribed by Rossi Marroquin in my presence, and it is both accurate and complete . Arrival - Arrival Chief Complaint: Chest Pain Stated Complaint: pain in leg/chest pains ED Nursing Triage Note: c/o Having stent in the right groin on Sunday for vascular blockage by , states today when she woke up she started having pain in the right groin, states she is also having chest pain apx. 15-20 minutes ago., + SOB., denies having temp over the last 24 hours., denies having radiating pain, + nausea.,. currently being treated with antibiotic through picc line in the left arm for a " bacterial infection" , EKG obtained at time of triage Mode of Arrival: Ambulatory Limitations: No Limitations Source: Patient Time Seen by Provider: 11/11/16 16:56 - History of Present Illness HPI Narrative: Pt is a 61 y/o white female ambulating to ED with c/o right groin pain that onset 1300 today. Pt reports that she had a stent placed by Dr. García 4 days ago for vascular blockage. She states that around 1300 today she was walking to the restroom and felt a sharp pain shoot down her right leg. She states that she has always had circulation problems in her lower extremities. She states that once she contacted her home health nurse about her sxs, she was advised to come to ED. Pt also c/o chest pain, SOB, nausea, and coughing up green sputum since yesterday. Since being Dc'd from 3 days ago, she states that she has been taking her antibiotics as prescribed. Pt has a PMHx of breast cancer and reports that her last chemotherapy treatment was 09/15/16. No other complaints were reported to ED. Onset (ago): hour(s) Consistency: constant Severity: moderate Allergies/Adverse Reactions: Allergies Allergy/AdvReac Type Severity Reaction Status Date / Time ceftriaxone [From Rocephin] Allergy Severe SHORTNESS Verified 11/11/16 16:00 OF BREATH, RASH Home Medications: Home Medications Medication Instructions Recorded Confirmed Type PARoxetine [Paxil] 20 mg PO QAM 03/24/16 11/11/16 History Aspirin Chew Tab 81 mg PO BEDTIME 05/26/16 11/11/16 History Isosorbide Mononitrate [Isosorbide 30 mg PO QAM 05/26/16 11/11/16 History Mononitrate ER] Rosuvastatin [Crestor] 40 mg PO BEDTIME 05/26/16 11/11/16 History Carvedilol [Coreg] 3.125 mg PO BID #60 tablet 08/29/16 11/11/16 Rx Nitroglycerin Sl Tab [Nitrostat] 0.4 mg SL Q5M PRN tablet 08/29/16 11/11/16 Rx Ranolazine [Ranexa] 500 mg PO BID 09/28/16 11/11/16 History HYDROcodone/ACETAMIN 7.5-325 1 tablet PO Q4H PRN #20 tablet 11/08/16 11/11/16 Rx [[place] 7.5-325] Lisinopril [Prinivil] 10 mg PO BID tablet 11/08/16 11/11/16 Rx Clopidogrel [Plavix] 75 mg PO QAM 11/11/16 11/11/16 History Pantoprazole Tab [Protonix Tab] 40 mg PO DAILY 11/11/16 11/11/16 History Review of System - Review of System 12 point system: reviewed and no additional remarkable complaints except as stated - Review of System Constitutional: Absent: chills, diaphoresis, fever Respiratory: Present: cough (green sputum), other (SOB) Cardiovascular: Present: chest pain. Absent: palpitations Gastrointestinal: Present: nausea. Absent: abdominal pain, vomiting, diarrhea Musculoskeletal: Present: leg pain (right), other (right groin pain). Absent: arm pain, back pain, neck pain Medical,Surgical,& Family Hx - Medical History Cardio: History of: Cardiac Dysrhythmia (A FIB DR STONE, SAW ORDER MANAGER NOV 02, 2016) , CAD, Hypertension Comment Only: Valvular Heart Disease (DID NOT TELL DR Barajas NURSE ABOUT THIS EKG [facility]15 8581), Cardiovascular Problems (DR TIERNEY IN [facility] SAID MAY HAVE BLOCKGE HAS NOT BEEN CHECK FOR THIS) Psychological: No history of: Depression Neurology: No history of: Seizures HEENT: History of: Eye Problem (GLASSES), Dental Problems (NO TEETH) Respiratory: History of: COPD No history of: Respiratory Problems (FLU VAC-NO; PNEU VAC- NO.) Genitourinary: History of: Bladder Problem (stress incontinence) Gastrointestinal: History of: GERD (PAST HX.), GI Problems (BACTERIA IN COLON/ SEPSIS PAST HX, 2015) Musculoskeletal: History of: Musculoskeletal Problems (legs hurt with ambulation ) No history of: Amputation Reproductive: History of: Breast Cancer (Rt mastectomy, 2016) Other: History of: Anaphylaxis (rocephin), Cancer (R BREAST), MRSA, Miscellaneous Medical Problems (INFECTION TO RIGHT GROIN POSS FROM STENT PLACEMENT FOR SURG 11/07/16) No history of: Anesthesia Reactions - Surgical History Cardiac Surgeries: Sugical HX of: Cardiac Catheterization (1 CARDIAC STENT; 2 STENTS RT LEG.) Thoracic Surgeries: Patient denies;: Organ Transplant, Lobectomy HEENT Surgeries: Patient denies: Eye Surgery, Tonsilectomy & Adenoidectomy Abdominal Surgeries: Surgical HX of: Appendectomy Reproductive Surgeries: Surgical HX of;: Breast Surgery (RIGHT Mastectomy), Tubal Ligation Orthopedic Surgeries: Patient denies;: Implanted Devices - Family History Family History: Reports;: Family Cancer (MOM BROTHER 2 SISTRS), Family Diabetes (BROTHER), Family Heart Disease (SISTER) - Social History Smoking Status: Former smoker Frequency of Alcohol Use: None Type of Drug Use: None Exam Vital Signs: Vital Signs Temperature 98.3 F 11/11/16 16:53 Pulse Rate 96 H 11/11/16 16:53 Respiratory Rate 18 11/11/16 16:53 Blood Pressure 125/61 11/11/16 16:53 O2 Sat by Pulse Oximetry 96 11/11/16 15:53 - General General appearance: alert, in no apparent distress - Head Head exam: Present: atraumatic, normocephalic - Eye Eye exam: Present: normal appearance, PERRL, EOMI - ENT ENT exam: Present: normal exam - Neck Neck exam: Present: normal inspection - Chest Chest inspection: Present: normal inspection - Respiratory Respiratory exam: Present: normal lung sounds bilaterally - Cardiovascular Cardiovascular exam: Present: regular rate, normal rhythm, normal heart sounds - Abdominal Exam Abdominal exam: Present: soft. Absent: distention, tenderness, guarding, rebound - Extremities Exam Extremities exam: Present: tenderness, normal capillary refill, other (right groin surgical site is red, warm, indurated and TTP) - Back Exam Back exam: Present: normal inspection - Neurological Exam Neurological exam: Present: alert, oriented X3, CN II-XII intact - Psychiatric Psychiatric exam: Present: normal affect, normal mood - Skin Skin exam: Present: warm, dry, intact, normal color Course Course Narrative: pt has new cellulitis at surgical site. started vancomycin. h/h lower than one on 11/08 which was 8.4. could be a drop since surgery. will redraw this at 2200 to see if any change in h/h. Results - Labs CBC & BMP: 11/11/16 18:33 11/11/16 18:33 Lab Results: I have reviewed the patients labs (h/h low. may be after surgery but will monitor and recheck h/h at 2200) Disposition Clinical Impression: Cellulitis of groin, right Case discussed with: patient Additional Instructions: admit to dr. garcía with dr. frey student education specialist.
[2016-11-11 21:09] LABS: Sedimentation Rate-Westergren 125 MM/HR (0-30)
[2016-11-11] MEDS: MORPHINE 2 MG/1 ML SYRINGE IV PRN (21:40)
[2016-11-11 22:03] LABS: Hematocrit 23.2 VOL% (35.7-47.0); Hemoglobin 7.1 GM/DL (12.0-16.0)
[2016-11-12] MEDS: MORPHINE 2 MG/1 ML SYRINGE IV PRN ×6 (00:17→20:45)
[2016-11-12] MEDS ORDERED: VANCOMYCIN INJ 1,250 MG in SODIUM CHLORIDE 0.9% 250 ML IV SCH (06:00)
[2016-11-12] MEDS: VANCOMYCIN INJ 1,000 MG in SODIUM CHLORIDE 0.9% 250 ML IV SCH ×2 (06:04→18:32)
--- NOTE | 2016-11-12 10:31 | History and Physical Update ---
History and Physical Update - Physical Exam Mental Status: alert and oriented Heart: regular rate and rhythm Lung: clear to auscultation Abdomen: within normal limits Vitals: within normal limits History and Physical Changes: Interval admission on Terri Umana. Ms. Umana had a repair of a right femoral pseudoaneurysm last week and has been on chronic oxacillin due to what we felt was an infection of the right pseudoaneurysm. She had done well with surgery and was discharged home but developed discomfort and some drainage last night is come back again and was felt to have cellulitis in the area and has been readmitted. He states she has had some pain in her ankle but nothing to the extent of vascular problems that she has had in the past new On examination she is awake alert and oriented with no acute distress the right groin shows some modest contusion and definitely has some erythema in the area although it is not intense. Moderate swelling as I would expect with the surgery that was carried out there is a small amount of bloody drainage which again expect that this is a result of her surgery. At this time I am going to go ahead and continue the vancomycin and the oxacillin will use a K pad and follow this for several more days.
--- NOTE | 2016-11-12 10:34 | Event Note ---
I have reviewed the microbiology from the wound culture that I did at the time of the surgery to repair the pseudoaneurysm. It is growing a staph epidermidis that is resistant to oxacillin but sensitive to vancomycin Bactrim and tetracycline. I am going to go ahead and continue vancomycin now but asked Dr. Princess Alexandra to see her tomorrow.
--- NOTE | 2016-11-12 10:35 | General Surg History&Physical ---
Assessment and Plan - Time spent with patient Time spent with patient: Less than 30 minutes (1) Cellulitis of groin, right Status: Acute Assessment and plan: We will admit her to Dr. David. We will continue IV antibiotics. She already feels a little better with vancomycin. Current Visit: Yes History of Present Illness Chief complaint: Infection right groin History of present illness: Ms. Umana is a 61 year old female Who has had recent surgery in her right femoral artery where a stent was removed. Apparently she had an infection in this location before. The patient had a PICC line in place and was obtaining antibiotics at home. She states that she had increased redness and swelling and pain in her right groin and came to the emergency room where she was admitted to my service last night. She has not had any bleeding. She has not had any pain in her leg or foot to suggest ischemia. Home Medications Medication Instructions Recorded Confirmed Type PARoxetine [Paxil] 20 mg PO QAM 03/24/16 11/12/16 History Aspirin Chew Tab 81 mg PO BEDTIME 05/26/16 11/12/16 History Isosorbide Mononitrate [Isosorbide 30 mg PO QAM 05/26/16 11/12/16 History Mononitrate ER] Rosuvastatin [Crestor] 40 mg PO BEDTIME 05/26/16 11/12/16 History Carvedilol [Coreg] 3.125 mg PO BID #60 tablet 08/29/16 11/12/16 Rx Nitroglycerin Sl Tab [Nitrostat] 0.4 mg SL Q5M PRN tablet 08/29/16 11/12/16 Rx Ranolazine [Ranexa] 500 mg PO BID 09/28/16 11/12/16 History HYDROcodone/ACETAMIN 7.5-325 1 tablet PO Q4H PRN #20 tablet 11/08/16 11/12/16 Rx [[place] 7.5-325] Lisinopril [Prinivil] 10 mg PO BID tablet 11/08/16 11/12/16 Rx Clopidogrel [Plavix] 75 mg PO QAM 11/11/16 11/12/16 History Pantoprazole Tab [Protonix Tab] 40 mg PO DAILY 11/11/16 11/12/16 History Allergies Allergy/AdvReac Type Severity Reaction Status Date / Time ceftriaxone [From Rocephin] Allergy Severe SHORTNESS Verified 11/11/16 16:00 OF BREATH, RASH Medical,Surgical,& Family Hx - Medical History Cardio: History of: Cardiac Dysrhythmia (A FIB DR STONE, SAW ORAL THERAPIST NOV 02, 2016) , CAD, Hypertension Comment Only: Valvular Heart Disease (DID NOT TELL DR Barajas NURSE ABOUT THIS EKG FAX TO [facility]03/24/15 1053), Cardi[facility] Problems ([facility] HAS NOT BEEN CHECK FOR THIS) Psychological: No history of: Depression Neurology: No history of: Seizures HEENT: History of: Eye Problem (GLASSES), Dental Problems (NO TEETH) Respiratory: History of: COPD No history of: Respiratory Problems (FLU VAC-NO; PNEU VAC- NO.) Genitourinary: History of: Bladder Problem (stress incontinence) Gastrointestinal: History of: GERD (PAST HX.), GI Problems (BACTERIA IN COLON/ SEPSIS PAST HX, 2014) Musculoskeletal: History of: Musculoskeletal Problems (legs hurt with ambulation ) No history of: Amputation Reproductive: History of: Breast Cancer (Rt mastectomy, 2016) Other: History of: Anaphylaxis (rocephin), Cancer (R BREAST), MRSA, Miscellaneous Medical Problems (INFECTION TO RIGHT GROIN POSS FROM STENT PLACEMENT FOR SURG 11/07/16) No history of: Anesthesia Reactions - Surgical History Cardiac Surgeries: Sugical HX of: Cardiac Catheterization (1 CARDIAC STENT; 2 STENTS RT LEG.) Thoracic Surgeries: Patient denies;: Organ Transplant, Lobectomy HEENT Surgeries: Patient denies: Eye Surgery, Tonsilectomy & Adenoidectomy Abdominal Surgeries: Surgical HX of: Appendectomy Reproductive Surgeries: Surgical HX of;: Breast Surgery (RIGHT Mastectomy), Tubal Ligation Orthopedic Surgeries: Patient denies;: Implanted Devices - Family History Family History: Reports;: Family Cancer (MOM BROTHER 2 SISTRS), Family Diabetes (BROTHER), Family Heart Disease (SISTER) - Social History Smoking Status: Former smoker Frequency of Alcohol Use: None Type of Drug Use: None Exam - Constitutional Vitals: Period Temp Pulse Resp BP Sys/[place] Pulse Ox Last 24 Hr 97.9 F-99.0 F 69-96 16-20 119-151/53-81 95-100 General appearance: no acute distress - Head Head exam: Present: normocephalic - Eye Eye exam: Absent: scleral icterus - ENT Mouth exam: Present: normal voice - Neck Neck exam: Present: trachea midline - Respiratory Respiratory exam: Present: clear to auscultation bilaterally. Absent: accessory muscle use - Cardiovascular Cardiovascular exam: Present: RRR - GI/Abdominal GI/Abdominal exam: Present: soft. Absent: distended, tenderness - Extremities Exam Extremities exam: Present: other (She has erythema and induration surrounding her right groin incision. There is no fluctuance or necrosis or signs of a hematoma.). Absent: calf tenderness, edema - Constitutional Constitutional: Absent: anorexia, chills, fever(s) - Cardiovascular Cardiovascular: Absent: chest pain at rest, chest pain with activity, dyspnea, dyspnea on exertion - Respiratory Respiratory: Absent: dyspnea, hemoptysis, dyspnea on exertion - Gastrointestinal Gastrointestinal: Absent: abdominal pain - Genitourinary Genitourinary: Absent: hematuria - Neurological Neurological: Absent: focal weakness, syncope Results - Labs CBC & BMP: 11/11/16 21:41 11/11/16 18:33 Lab Results: I have reviewed the past 24 hour labs
[2016-11-13] MEDS: MORPHINE 2 MG/1 ML SYRINGE IV PRN ×6 (00:19→21:02)
[2016-11-13] MEDS: VANCOMYCIN INJ 1,000 MG in SODIUM CHLORIDE 0.9% 250 ML IV SCH ×2 (05:30→19:01)
--- NOTE | 2016-11-13 09:15 | Event Note ---
Ms. Umana is afebrile with definitely less swelling and erythema of the right thigh and groin incision. My thoughts are to continue vancomycin until we have the opportunity to review the situation with Dr. Hodgson and determine when or if the p.o. antibiotic would be appropriate for her. I am also interested in whether we should continue the oxacillin for completion of the full 6 week therapy.
--- NOTE | 2016-11-13 14:09 | Infectious Disease Consult ---
Assessment and Plan (1) Cellulitis of groin, right Status: Acute Assessment and plan: By patient report this cellulitis has improved since admission 2 days ago. Since this developed on oxacillin is possible that the MRSE was contributing to it. Recommendations: 1. Agree with vancomycin however tomorrow, in preparation for discharge home I am going to switch to daptomycin 6 mg/kg IV daily. 2. Consult clinical social work therapist to arrange outpatient daptomycin. Patient may need this at outpatient infusion center if cost of getting it at home is prohibitive 3. Because we are dealing with a vascular infection I prefer to be little more aggressive and treat with IV antibiotics for 4 weeks including what she got here so far. This treatment will continue until December 10. 4. CPK monitoring weekly while on daptomycin therapy Thank you very much for the consult. Will follow. Discussed with Dr. Sommer. Current Visit: Yes (2) Pseudoaneurysm of right femoral artery Status: Acute Assessment and plan: Treatment as above Current Visit: No (3) MSSA (methicillin susceptible Staphylococcus aureus) septicemia Status: Acute Assessment and plan: This infection was from last month and has not relapsed. Current Visit: No History of Present Illness Chief complaint: Cellulitis right thigh, infected pseudoaneurysm right superficial femoral History of present illness: Ms. Umana is a 61 year old female who was recently in hospital, sent home last Sunday. Essentially she had vascular intervention with placement of a stent in the right superficial femoral artery. She came back in because of swelling of that extremity and was found to have a pseudoaneurysm and positive blood cultures for MSSA. She was sent home on continuous infusion oxacillin however on review she had doubling of the size of the pseudoaneurysm and so was brought into hospital a week ago for surgical repair of this aneurysm. Intraoperative cultures were negative at the time of discharge however subsequently came back positive for MRS in 1 of 3 samples and MSSE in 2 of 3 samples. Patient is doing well at home continue with amoxicillin however 3 days ago she developed increasing pain and swelling to the right thigh and groin area. By this Sunday which was 2 days ago she could hardly walk because of severe pain in the area. She never had fever or other constitutional symptoms. Home health recommended that she go to the emergency room and she was admitted with cellulitis to that right thigh. Vancomycin was started and today she says she is significantly better with less swelling and pain. I am asked to assist with management. Of note no fever since admission. Home Medications Medication Instructions Recorded Confirmed Type PARoxetine [Paxil] 20 mg PO QAM 03/24/16 11/12/16 History Aspirin Chew Tab 81 mg PO BEDTIME 05/26/16 11/12/16 History Isosorbide Mononitrate [Isosorbide 30 mg PO QAM 05/26/16 11/12/16 History Mononitrate ER] Rosuvastatin [Crestor] 40 mg PO BEDTIME 05/26/16 11/12/16 History Carvedilol [Coreg] 3.125 mg PO BID #60 tablet 08/29/16 11/12/16 Rx Nitroglycerin Sl Tab [Nitrostat] 0.4 mg SL Q5M PRN tablet 08/29/16 11/12/16 Rx Ranolazine [Ranexa] 500 mg PO BID 09/28/16 11/12/16 History HYDROcodone/ACETAMIN 7.5-325 1 tablet PO Q4H PRN #20 tablet 11/08/16 11/12/16 Rx [[place] 7.5-325] Lisinopril [Prinivil] 10 mg PO BID tablet 11/08/16 11/12/16 Rx Clopidogrel [Plavix] 75 mg PO QAM 11/11/16 11/12/16 History Pantoprazole Tab [Protonix Tab] 40 mg PO DAILY 11/11/16 11/12/16 History Allergies Allergy/AdvReac Type Severity Reaction Status Date / Time ceftriaxone [From Rocephin] Allergy Severe SHORTNESS Verified 11/11/16 16:00 OF BREATH, RASH 12 point system: reviewed and no additional remarkable complaints except as stated (Per HPI) Medical,Surgical,& Family Hx - Medical History Cardio: History of: Cardiac Dysrhythmia (A FIB DR STONE, SAW ABSORPTION AND ADSORPTION ENGINEER NOV 02, 2016) , CAD, Hypertension Comment Only: Valvular Heart Disease (DID NOT TELL DR Barajas NURSE ABOUT THIS EKG FAX TO [facility]03/24/15 4508), Cardiovascular Problems (DR TIERNEY IN [facility] SAID MAY HAVE BLOCKGE HAS NOT BEEN CHECK FOR THIS) Psychological: No history of: Depression Neurology: No history of: Seizures HEENT: History of: Eye Problem (GLASSES), Dental Problems (NO TEETH) Respiratory: History of: COPD No history of: Respiratory Problems (FLU VAC-NO; PNEU VAC- NO.) Genitourinary: History of: Bladder Problem (stress incontinence) Gastrointestinal: History of: GERD (PAST HX.), GI Problems (BACTERIA IN COLON/ SEPSIS PAST HX, 2014) Musculoskeletal: History of: Musculoskeletal Problems (legs hurt with ambulation ) No history of: Amputation Reproductive: History of: Breast Cancer (Rt mastectomy, 2016) Other: History of: Anaphylaxis (rocephin), Cancer (R BREAST), MRSA, Miscellaneous Medical Problems (INFECTION TO RIGHT GROIN POSS FROM STENT PLACEMENT FOR SURG 11/07/16) No history of: Anesthesia Reactions - Surgical History Cardiac Surgeries: Sugical HX of: Cardiac Catheterization (1 CARDIAC STENT; 2 STENTS RT LEG.) Thoracic Surgeries: Patient denies;: Organ Transplant, Lobectomy HEENT Surgeries: Patient denies: Eye Surgery, Tonsilectomy & Adenoidectomy Abdominal Surgeries: Surgical HX of: Appendectomy Reproductive Surgeries: Surgical HX of;: Breast Surgery (RIGHT Mastectomy), Tubal Ligation Orthopedic Surgeries: Patient denies;: Implanted Devices - Family History Family History: Reports;: Family Cancer (MOM BROTHER 2 SISTRS), Family Diabetes (BROTHER), Family Heart Disease (SISTER) - Social History Smoking Status: Former smoker Frequency of Alcohol Use: None Type of Drug Use: None Infectious Disease Exam H&P - Constitutional Vitals: Vital Signs Temp Pulse Resp BP Pulse Ox 97.1 F L 82 20 123/74 99 11/13/16 11:00 11/13/16 12:24 11/13/16 11:00 11/13/16 12:24 11/13/16 11:00 Intake and Output 11/12/16 11/13/16 11/13/16 23:59 07:59 15:59 Intake Total 250 / 250 0 / 0 Balance 250 / 250 0 / 0 Intake: IV 250 / 250 0 / 0 Vancomycin Inj 1,000 mg 250 / 250 0 / 0 In Ns 250 ml @ 250 mls/hr IV Q12H MINDI Rx#: [id number] Other: Voiding Method Toilet Toilet # Voids 2 3 Exam: General: Patient relatively comfortable HEENT: Mucous membranes pink and moist, anicteric acyanotic, ROSIE, no oropharyngeal exudates Neck: Supple, no thyroid gland enlargement Respiratory system: Breath sounds vesicular, no crepitations or wheezes Cardiovascular: Normal S1 and S2, no murmurs appreciated Abdomen: Normal bowel sounds, soft nontender throughout, no organomegaly or mass Genitourinary: No suprapubic pain or bladder distention Extremities: Mild edema to right thigh, much improved from when I saw her in the hospital a week ago. Surgical wound noted to right groin which has some erythema and induration and a bit of maceration centrally as well. No ham drainage. The area is tender to touch. Skin: No rash Reports - Labs CBC & BMP: 11/11/16 21:41 11/11/16 18:33 - Reports Microbiology: Microbiology 11/11/16 18:17 Blood Culture - Preliminary Blood No growth at 1 day 11/11/16 18:17 Blood Culture - Preliminary Blood No growth at 1 day
[2016-11-14] MEDS: MORPHINE 2 MG/1 ML SYRINGE IV PRN ×4 (04:22→20:01)
[2016-11-14] MEDS ORDERED: VANCOMYCIN INJ 1,250 MG in SODIUM CHLORIDE 0.9% 250 ML IV SCH (08:00)
--- NOTE | 2016-11-14 11:04 | Event Note ---
Ms. Umana is afebrile and doing generally well. At this point her right groin still shows some induration which is not unexpected only mild cellulitis and minimal drainage. Dr. Drew Anaya is suggested changing to daptomycin for a daily outpatient antibiotic for 4 weeks time. I will go ahead and go to daptomycin today and stop vancomycin she has had her morning dose. We may continue this for 2-3 more days to be certain medication as tolerated and that we have all arrangements made for outpatient therapy but I would like to watch this area for another day or 2 but daptomycin
[2016-11-14] MEDS: DAPTOmycin 500 MG in SODIUM CHLORIDE 0.9% 50 ML IV SCH (11:10)
--- NOTE | 2016-11-14 16:01 | Infectious Disease Progress ---
Assessment and Plan (1) Cellulitis of groin, right Status: Acute Assessment and plan: Improved since admission but not much change between yesterday and today. Recommendations: 1. Switch from vancomycin to daptomycin today. Dose currently a bit high for her weight so we will decreased to 6 mg/kg every 24 hours 2. I am told that licensed social worker got her approved for home IV daptomycin. Therapy to be continued until December 10. 3. Local wound care Current Visit: Yes (2) Pseudoaneurysm of right femoral artery Status: Acute Assessment and plan: Treatment as above Current Visit: No (3) MSSA (methicillin susceptible Staphylococcus aureus) septicemia Status: Acute Assessment and plan: This infection was from last month and has not relapsed. Current Visit: No Infectious Disease - PN: Subj Interval history: Patient doing fair, not much improvement in right groin swelling and pain since yesterday. She has not had fever. No problems with antibiotics including no nausea vomiting or diarrhea. Infectious Disease Exam (PN) - Constitutional Vitals: Temp Pulse Resp BP Pulse Ox 97.1 F L 85 18 108/63 98 11/14/16 11:02 11/14/16 11:02 11/14/16 11:02 11/14/16 11:02 11/14/16 11:02 General appearance: no acute distress Exam: General appearance: no acute distress - Eye Eye exam: Present: EOMI. no icterus Pupils: Present: ROSIE - ENT ENT exam: no oral exudates - Respiratory Respiratory exam: vesicular BS, no crepitations or wheezes - Cardiovascular Cardiovascular exam: regular rate and rhythm, no murmurs - GI/Abdominal GI/Abdominal exam: normal bowel sounds, soft, non-tender, no organomegaly or mass - Extremities Exam Extremities exam: no edema, to be no improvement in right inguinal edema and induration since yesterday. Still a bit of maceration about the surgical wound with scant bloody drainage - Skin Skin exam: no rash Results - Labs CBC & BMP: 11/11/16 21:41 11/11/16 18:33 Lab Results: I have reviewed the past 24 hour labs
[2016-11-15] MEDS: MORPHINE 2 MG/1 ML SYRINGE IV PRN ×2 (03:21→10:25)
--- NOTE | 2016-11-15 09:21 | Event Note ---
Ms. Umana's leg is looking better with less induration and certainly less erythema she is tolerating the daptomycin at this stage. My thoughts are to continue here today with daptomycin and if everything is satisfactory she can be discharged home for home therapy tomorrow
[2016-11-15] MEDS ORDERED: NITROGLYCERIN SL 0.4 MG TABLET SL PRN (09:22)
[2016-11-15] MEDS: ISOSORBIDE MONONITRATE 30 MG TABLET PO SCH (10:11)
[2016-11-15] MEDS: RANOLAZINE 500 MG TABLET PO SCH ×2 (10:11→20:54)
[2016-11-15] MEDS: PANTOPRAZOLE 40 MG TABLET PO SCH (10:12)
[2016-11-15] MEDS: PARoxetine 20 MG TABLET PO SCH (10:12)
[2016-11-15] MEDS: CLOPIDOGREL 75 MG TABLET PO SCH (10:12)
[2016-11-15] MEDS: CARVEDILOL 3.125 MG TABLET PO SCH ×2 (10:13→20:54)
[2016-11-15] MEDS: LISINOPRIL 10 MG TABLET PO SCH ×2 (10:24→20:53)
[2016-11-15] MEDS: DAPTOmycin 500 MG in SODIUM CHLORIDE 0.9% 50 ML IV SCH (11:33)
--- NOTE | 2016-11-15 12:32 | Infectious Disease Progress ---
Assessment and Plan (1) Cellulitis of groin, right Status: Acute Assessment and plan: Improved since admission. Recommendations: 1. Continue daptomycin until December 10. 2. Hold rosuvastatin for duration of time on daptomycin; patient was informed of this and the risk of myositis if the 2 medicines are taken together Current Visit: Yes (2) Pseudoaneurysm of right femoral artery Status: Acute Assessment and plan: Treatment as above Current Visit: No (3) MSSA (methicillin susceptible Staphylococcus aureus) septicemia Status: Acute Assessment and plan: This infection was from last month and has not relapsed. Current Visit: No Infectious Disease - PN: Subj Interval history: Patient doing fairly okay, still some discomfort in the right groin area but improved. Tolerating daptomycin without muscle soreness; no nausea vomiting or diarrhea. She has not had any fever. Infectious Disease Exam (PN) - Constitutional Vitals: Temp Pulse Resp BP Pulse Ox 97.8 F 82 20 112/57 99 11/15/16 10:41 11/15/16 10:41 11/15/16 10:41 11/15/16 10:41 11/15/16 10:41 General appearance: no acute distress Exam: General appearance: no acute distress - Eye Eye exam: Present: EOMI. no icterus Pupils: Present: ROSIE - ENT ENT exam: no oral exudates - Extremities Exam Extremities exam: right inguinal edema and induration somewhat improved since yesterday. Still a bit of maceration about the surgical wound with scant bloody drainage - Skin Skin exam: no rash Results - Labs CBC & BMP: 11/11/16 21:41 11/11/16 18:33 Lab Results: I have reviewed the past 24 hour labs (Blood cultures remain negative to date)
[2016-11-15] MEDS ORDERED: ASPIRIN CHEW 81 MG TABLET PO SCH (21:00)
[2016-11-15] MEDS ORDERED: ROSUVASTATIN 20 MG TABLET PO SCH (21:00)
[2016-11-16] MEDS: MORPHINE 2 MG/1 ML SYRINGE IV PRN (00:20)
[2016-11-16] MEDS: ISOSORBIDE MONONITRATE 30 MG TABLET PO SCH (08:48)
[2016-11-16] MEDS: RANOLAZINE 500 MG TABLET PO SCH (08:49)
[2016-11-16] MEDS: LISINOPRIL 10 MG TABLET PO SCH (08:49)
[2016-11-16] MEDS: PARoxetine 20 MG TABLET PO SCH (08:50)
[2016-11-16] MEDS: CLOPIDOGREL 75 MG TABLET PO SCH (08:50)
[2016-11-16] MEDS: CARVEDILOL 3.125 MG TABLET PO SCH (08:50)
[2016-11-16] MEDS: PANTOPRAZOLE 40 MG TABLET PO SCH (08:51)
--- NOTE | 2016-11-16 10:49 | Discharge Summary ---
Hospital Course - Hospital Course Hospital Course: Ms. 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 katie Alexandra is recommended we switch to daptomycin until December 10 Ms. Mac is now ready to be discharged home and will continue with the PICC line in her left arm and the daptomycin I will see her in the office next week and I think Dr. Goodman Alexandra will see her in 2 weeks. Specialty Discharge - Follow Up or Referrals Follow up with: Kennedi Hodgson MD [Physician] - Jer Sommer MD [Physician] - 11/21/16 2:00 pm Discharge Plan - Discharge Data Disposition: Disch To Home/Self Care Condition at Discharge: Guarded Discharge Diet: advance to your usual diet Activity: resume usual activities as tolerated Hygiene: may shower Weight Bearing at Discharge: full weight bearing Driving: not until seen by doctor Contact your physician if you experience:: fever over 101, Redness or swelling - Discharge Medications No Action PARoxetine [Paxil] 20 mg PO QAM Rosuvastatin [Crestor] 40 mg PO BEDTIME Isosorbide Mononitrate [Isosorbide Mononitrate ER] 30 mg PO QAM Nitroglycerin Sl Tab [Nitrostat] 0.4 mg SL Q5M PRN tablet PRN Reason: Chest Pain Lisinopril [Prinivil] 10 mg PO BID tablet HYDROcodone/ACETAMIN 7.5-325 [Gibson 7.5-325] 1 tablet PO Q4H PRN #20 tablet PRN Reason: Pain Moderate (4-7) Pantoprazole Tab [Protonix Tab] 40 mg PO DAILY Aspirin Chew Tab 81 mg PO BEDTIME Carvedilol [Coreg] 3.125 mg PO BID #60 tablet Ranolazine [Ranexa] 500 mg PO BID Clopidogrel [Plavix] 75 mg PO QAM - Follow Up or Referral Follow Up: Kennedi Hodgson MD [Physician] - Jer Sommer MD [Physician] - 11/21/16 2:00 pm - Forms/Instructions Exam - Constitutional Vitals: Period Temp Pulse Resp BP Sys/Guaman Pulse Ox Last 24 Hr 96.3 F-98.2 F 70-84 18-20 105-134/48-65 97-100 Discharge Results Procedures and tests throughout hospitalization: Pending Orders 11/11/16 18:17 Blood Culture Stat Labs on day of discharge: Preliminary micro results at discharge 11/11/16 18:17 Blood Culture - Preliminary Blood No growth at 3 days 11/11/16 18:17 Blood Culture - Preliminary Blood No growth at 3 days DS: Provider Date of admission: 11/13/16 14:06 Primary care physician: AYLEEN Lin Attending physician on admission: Jer Sommer MD Consults: 11/11/16 21:49 Consult to Pharmacy [CONS] Routine Reason for Pharmacy Consult: Dose/Manage Vancomycin 11/12/16 10:32 Consult to Physician [CONS] Routine Comment: followup infected psuedoaneurysm Consulting Provider: Kennedi Hodgson Consulting Provider Notified: Yes When should Consulting Provider be notified: Now Person Notified: brianna dickens Date Notified: 11/13/16 Time Notified: 08:35 11/13/16 14:14 Consult to Case Mgmt/Social Srvs [CONS] Routine Reason for Case Mgmt/Social Srvs: Home IV Therapy Consult Comment: Arrange daptomycin 6 mg/kg IV daily until December 10 Discharging clinician: Jer Sommer MD
--- NOTE | 2016-11-16 12:01 | Infectious Disease Progress ---
Assessment and Plan (1) Cellulitis of groin, right Status: Acute Assessment and plan: I significantly mproved since admission. Recommendations: 1. Continue daptomycin until December 10. 2. Hold rosuvastatin for duration of time on daptomycin; 3. CPK monitoring weekly while on daptomycin See me in the office within 2 weeks of discharge Current Visit: Yes (2) Pseudoaneurysm of right femoral artery Status: Acute Assessment and plan: Treatment as above Current Visit: No (3) MSSA (methicillin susceptible Staphylococcus aureus) septicemia Status: Acute Assessment and plan: This infection was from last month and has not relapsed. Current Visit: No Infectious Disease - PN: Subj Interval history: Patient seen and examined this morning before she went home. Agreed that she was improving and ready to go home. No fever. Tolerating it better without any difficulties. Admits to less pain and swelling to right groin. Infectious Disease Exam (PN) - Constitutional Vitals: Temp Pulse Resp BP Pulse Ox 97.6 F 78 18 142/72 97 11/16/16 10:45 11/16/16 10:45 11/16/16 10:45 11/16/16 10:45 11/16/16 10:45 General appearance: no acute distress Exam: General appearance: no acute distress - Eye Eye exam: Present: EOMI. no icterus Pupils: Present: ROSIE - ENT ENT exam: no oral exudates - Extremities Exam Extremities exam: right inguinal edema and induration overall improved since admission. Still a bit of maceration about the surgical wound but no more significant drainage - Skin Skin exam: no rash Results - Labs CBC & BMP: 11/11/16 21:41 11/11/16 18:33 Lab Results: I have reviewed the past 24 hour labs (Blood cultures negative at day 3) Specialty Discharge - Follow Up or Referrals Follow up with: Kennedi Hodgson MD [Physician] - 11/30/16 9:15 am Jer Sommer MD [Physician] - 11/21/16 2:00 pm
[2016-11-16 16:10] VITALS: BP 105/52
== END 2016-11-16 17:14 | disposition home health service (06) | DRG 383 ==
LOC: N.ED 15:50 → N.EDINP 15:50 → N.3E 20:51
PROVIDERS: ADMIT Surgery; ATTEND Surgery

== ENCOUNTER 2016-12-05 16:46 | Inpatient (IN) ==
[2016-12-05] MEDS ORDERED: ACETAMINOPHEN 325 MG TABLET PO PRN (17:00)
[2016-12-05] MEDS ORDERED: ONDANSETRON 4 MG/2 ML VIAL IV PRN (17:00)
[2016-12-05] MEDS ORDERED: NITROGLYCERIN SL 0.4 MG TABLET SL PRN (17:08)
--- NOTE | 2016-12-05 18:52 | CT Report ---
Exam: CT angiography abdomen and pelvis with intravenous contrast Exam date: 12/05/2016 5: 43 PM Clinical History: 61 years,Female, right femoral aneurysm, pain Technique: Axial computed tomographic angiography images of the abdomen and pelvis with intravenous contrast using routine protocol. The CT exam was performed using one or more of the following dose reduction techniques: Automated exposure control, adjustment of the mA and/or kV according to patient size, or use of iterative reconstruction technique. Contrast: 100 mL of Omnipaque 350 administered intravenously Comparison: October 13, 2016 Findings: Atheromatous plaquing with irregular mural thrombus involving the visualized thoracic and abdominal aorta. Fusiform ectasia of the distal aorta at the bifurcation with small flap formation, unchanged. Hard and soft plaquing at the origins of the internal iliac artery with mild narrowing bilaterally. Interval increase in size of the heterogeneous, hypoattenuating mass within the right groin abutting the right common femoral artery at the origin of the femoral stent takeoff. There is focal nodule of enhancement adjacent to the right common femoral artery. Stranding within the adjacent soft tissues. Occlusion of the proximal to mid right femoral stent reconstituting distally just above the popliteal artery. Occlusion of the left superficial femoral artery reconstituting distally just above the popliteal fossa, unchanged. Again three-vessel runoff to the bilateral extremities. Gallbladder is distended. No demonstratable stones. Fat-containing ventral hernia is again noted. Impression: 1. Interval enlargement of the right femoral pseudoaneurysm with appearance that suggests near complete thrombosis. 2. Reactive inflammatory changes within the right groin soft tissues 3. Occlusion of the right superficial femoral arterial stent, reconstituting distally just above the popliteal fossa 4. 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
[2016-12-05 19:09] LABS: Alanine Aminotransferase 13 U/L (13-56); Albumin 3.3 G/DL (3.4-5.0); Alkaline Phosphatase 78 U/L (45-117); Aspartate Amino Transferase 16 U/L (0-37); Bilirubin,Total < 0.39 MG/DL (0.2-1.0); Blood Urea Nitrogen 12 MG/DL (7-18); Calcium 8.8 MG/DL (8.5-10.1); Glucose 96 MG/DL (74-106); Osmolality,Calculated 274.7 MOS/KG (273-304); Potassium 3.7 MMOL/L (3.5-5.1); Sodium 138 MMOL/L (136-145); Total Protein 7.2 G/DL (6.4-8.3)
[2016-12-05] MEDS ORDERED: ROSUVASTATIN 20 MG TABLET PO SCH (21:00)
[2016-12-05] MEDS: ASPIRIN CHEW 81 MG TABLET PO SCH (22:26)
[2016-12-05] MEDS: LISINOPRIL 10 MG TABLET PO SCH (22:26)
[2016-12-05] MEDS: RANOLAZINE 500 MG TABLET PO SCH (22:26)
[2016-12-05] MEDS: CARVEDILOL 3.125 MG TABLET PO SCH (22:27)
[2016-12-06 08:16] LABS: Hematocrit 23.7 VOL% (35.7-47.0); Hemoglobin 7.3 GM/DL (12.0-16.0)
[2016-12-06] MEDS ORDERED: ONDANSETRON 4 MG/2 ML VIAL ONE ×2 (09:00→11:49)
[2016-12-06] MEDS ORDERED: ROCURONIUM 100 MG/10 ML VIAL IV ONE (09:00)
[2016-12-06] MEDS ORDERED: GLYCOPYRROLATE 0.4 MG/2 ML VIAL ONE (09:00)
[2016-12-06] MEDS ORDERED: ETOMIDATE 20 MG/10 ML VIAL IV ONE (09:00)
[2016-12-06] MEDS ORDERED: PANTOPRAZOLE 40 MG TABLET PO SCH (09:00)
[2016-12-06] MEDS ORDERED: NEOSTIGMINE 10 MG/10 ML VIAL ONE ×2 (09:00→11:54)
[2016-12-06] MEDS ORDERED: PHENYLEPHRINE 50 MG/5 ML VIAL ONE (09:00)
[2016-12-06] MEDS ORDERED: DAPTOmycin 500 MG VIAL IV SCH (09:00)
[2016-12-06] MEDS ORDERED: LIDOCAINE 100 MG/5 ML SYRINGE ONE (09:00)
[2016-12-06] MEDS: RANOLAZINE 500 MG TABLET PO SCH ×2 (09:04→20:38)
[2016-12-06] MEDS: CARVEDILOL 3.125 MG TABLET PO SCH ×2 (09:04→20:38)
[2016-12-06] MEDS: ISOSORBIDE MONONITRATE 30 MG TABLET PO SCH (09:04)
[2016-12-06] MEDS: PARoxetine 20 MG TABLET PO SCH (09:04)
[2016-12-06] MEDS: LISINOPRIL 10 MG TABLET PO SCH ×2 (09:04→20:33)
[2016-12-06] MEDS: PANTOPRAZOLE 40 MG TABLET PO SCH (09:04)
--- NOTE | 2016-12-06 09:07 | Cardiology Consult Note ---
<Torie Carranza E - Last Filed: 12/06/16 10:42> Assessment and Plan - Time spent with patient Time spent with patient: Greater than 30 minutes (1) Pseudoaneurysm of right femoral artery Status: Acute Assessment and plan: SEE PLAN OF CARE LISTED BELOW Current Visit: No (2) Anemia Status: Chronic Assessment and plan: SEE PLAN OF CARE LISTED BELOW Current Visit: No (3) Breast cancer Status: Chronic Assessment and plan: SEE PLAN OF CARE LISTED BELOW Current Visit: No (4) CAD (coronary artery disease) Status: Chronic Assessment and plan: SEE PLAN OF CARE LISTED BELOW Current Visit: No Qualifiers: Coronary Disease-Associated Artery/Lesion type: [place] artery [place] vs. transplanted heart: [place] heart Associated angina: without angina Qualified Code(s): I25.10 - Atherosclerotic heart disease of [place] coronary artery without angina pectoris (5) Dyslipidemia Status: Chronic Assessment and plan: SEE PLAN OF CARE LISTED BELOW Current Visit: No (6) Hypertension Status: Chronic Assessment and plan: SEE PLAN OF CARE LISTED BELOW Current Visit: No (7) Peripheral artery disease Status: Chronic Assessment and plan: SEE PLAN OF CARE LISTED BELOW Current Visit: No History of Present Illness - Data of Consult Patient: known to practice within the last 3 years Consult date: 12/06/16 Requesting Physician: Jer Sommer - Consult Narrative Reason for consult: right groin pseudoaneurysm 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 Umana, 61 WF, has risk factors significant for: CAD, hypertension, dyslipidemia, PAD, history of tobacco use, sedentary lifestyle. Cardiac catheterization May 26, 2016 required PCI of proximal to mid RCA with INOCENCIO. ( See cardiac catheterization report). September 28, 2016 underwent PCI of ostial to distal right SFA. (See report). Echocardiogram November 11, 2016: EF 55%, mild concentric LVH, RVSP 39 mmHg. After the September 28, 2016 SFA intervention, patient has had an infected pseudoaneurysm (staph aureus bacteremia) requiring hospitalization. She was treated with 6 weeks of IV antibiotics, followed by Dr. Quinn outpatient as well as Dr. Sommer and Dr. Drew Alexandra. Patient reports she was doing relatively well until the evening of December 04, 2016. Reports she bumped her right hip on a mattress, heard a "pop" and started bleeding from the right groin. Pressure was applied by EMS in route to the ED and the bleeding stopped. Her blood counts were stable. She had a scheduled appointment with Dr. Sommer the following day and she was discharged home. Patient reports she saw Dr. Sommer in clinic yesterday and he directly admitted her for CT abdomen which revealed the following: enlargement of the right femoral pseudoaneurysm, near complete thrombosis. (See report). Patient is being prepared for surgical evaluation this morning. Denies chest pain, heaviness, tightness. States that she is breathing well and overall felt as if she was doing well. Will clarify when her last dose of Plavix was. This needs to be resumed as soon as possible. Will further discuss with Dr. Escamilla and await additional recommendations. IMPRESSION/PLAN: 1. RIGHT FEMORAL ARTERY PSEUDOANEURYSM - being prepared for exploration by Dr. Sommer this morning. Has been started on IV vancomycin. 2. CAD - S/P PCI of proximal to mid RCA with INOCENCIO May 26, 2016. Has been taking Plavix. Will clarify when her last dose of Plavix was. This will need to be resumed DA. Will reincorporate aspirin, beta-jennifer, ROSIO inhibitor, lipid-lowering agent. 3. HYPERTENSION - adequately controlled. Will adjust medications accordingly during hospital stay 4. DYSLIPIDEMIA - continue Crestor. No need to repeat fasting lipid profile at this point. 5. SEVERE PAD - continue Aspirin and Plavix as soon as possible. Continue lipid-lowering agent. 6. BREAST CANCER - status post right mastectomy May 2016 for stage I triple negative breast cancer. Underwent mastectomy with adjunctive chemotherapy. Completed chemotherapy regimen August 2016. She is followed by Dr. Mejía 7. ANEMIA - patient will benefit from transfusion of 2 units of packed red blood cells given her severe PAD and CAD. Will request transfusion this afternoon, repeat labs in a.m. Patient has a long-standing history of anemia requiring transfusions in the recent past. Etiology unknown but will review chart for additional information. CC: Jer Sommer MD - Home Medications and Allergies Home Medications: Home Medications Medication Instructions Recorded Confirmed Type PARoxetine [Paxil] 20 mg PO QAM 03/24/16 12/05/16 History Aspirin Chew Tab 81 mg PO BEDTIME 05/26/16 12/05/16 History Isosorbide Mononitrate [Isosorbide 30 mg PO QAM 05/26/16 12/05/16 History Mononitrate ER] Rosuvastatin [Crestor] 40 mg PO BEDTIME 05/26/16 12/05/16 History Carvedilol [Coreg] 3.125 mg PO BID #60 tablet 08/29/16 12/05/16 Rx Nitroglycerin Sl Tab [Nitrostat] 0.4 mg SL Q5M PRN tablet 08/29/16 12/05/16 Rx Ranolazine [Ranexa] 500 mg PO BID 09/28/16 12/05/16 History HYDROcodone/ACETAMIN 7.5-325 1 tablet PO Q4H PRN #20 tablet 11/08/16 12/05/16 Rx [[place] 7.5-325] Lisinopril [Prinivil] 10 mg PO BID tablet 11/08/16 12/05/16 Rx Clopidogrel [Plavix] 75 mg PO QPM 11/11/16 12/05/16 History Pantoprazole Tab [Protonix Tab] 40 mg PO DAILY 11/11/16 12/05/16 History DAPTOmycin [Cubicin] 400 mg IV DAILY vial 11/16/16 12/05/16 Rx Allergies/Adverse Reactions: Allergies Allergy/AdvReac Type Severity Reaction Status Date / Time ceftriaxone [From Rocephin] Allergy Severe SHORTNESS Verified 11/11/16 16:00 OF BREATH, RASH Review of systems: REVIEW OF SYSTEMS: - Constitutional Constitutional: Present: Chronic fatigue. Absent: syncope, anorexia, night sweats - EENT Eyes: Absent: blurry vision, loss of vision, diplopia Ears: Absent: decreased hearing, ear pain, ear discharge - Cardiovascular Cardiovascular: Denies: chest pain with exertion, dyspnea on exertion. Occasional bilateral lower extremity edema. Denies palpitations. Denies chest pain with deep breath - Respiratory Respiratory: Denies: [place], cough. Absent: wheezing, hemoptysis, change in phlegm color - Gastrointestinal Gastrointestinal: Denies constipation. Absent: abdominal pain, hematemesis, hematochezia, melena, change in bowel habits, nausea - Genitourinary Genitourinary: Absent: difficulty urinating, dysuria, urinary hesitancy, flank pain - Musculoskeletal Musculoskeletal: Present: back pain, right groin pain absent: joint swelling, muscle cramps, muscle weakness - Neurological Neurological: Present: normal gait without frequent falls. Absent: dizziness, hemiparesis - Psychiatric Psychiatric: Absent: anxiety, depression, difficulty concentrating - Endocrine Endocrine: Absent: cold intolerance, heat intolerance, polyuria, polyphagia, polydipsia - Hematologic/Lymphatic Hematologic/Lymphatic: Present: easy bruising. Absent: easy bleeding -Integumentary Integumentary: Right groin warm, has been bleeding, painful to touch. 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) , CAD, Hypertension, PVD Comment Only: Valvular Heart Disease (DID NOT TELL DR Barajas NURSE ABOUT THIS EKG FA[facility]/24[facility] [id number]), Cardiovascular Problems ([facility] SA[facility] MAY HAVE BLOCKGE HAS NOT BEEN CHECK FOR THIS) Psychological: No history of: Depression Neurology: No history of: Seizures HEENT: History of: Eye Problem (GLASSES), Dental Problems (NO TEETH) Respiratory: History of: COPD No history of: Respiratory Problems (FLU VAC-NO; PNEU VAC- NO.) Genitourinary: History of: Bladder Problem (stress incontinence) Gastrointestinal: History of: GERD (PAST HX.), GI Problems (BACTERIA IN COLON/ SEPSIS PAST HX, 2014) Musculoskeletal: History of: Musculoskeletal Problems (legs hurt with ambulation ) No history of: Amputation Reproductive: History of: Breast Cancer (Rt mastectomy, 2016) Other: History of: Anaphylaxis (rocephin), Cancer (R BREAST), MRSA, Miscellaneous Medical Problems (INFECTION TO RIGHT GROIN POSS FROM STENT PLACEMENT FOR SURG 11/07/16) No history of: Anesthesia Reactions - Surgical History Cardiac Surgeries: Sugical HX of: Cardiac Catheterization (1 CARDIAC STENT; 1 STENTS RT LEG.) Thoracic Surgeries: Patient denies;: Organ Transplant, Lobectomy HEENT Surgeries: Patient denies: Eye Surgery, Tonsilectomy & Adenoidectomy Abdominal Surgeries: Surgical HX of: Appendectomy Reproductive Surgeries: Surgical HX of;: Breast Surgery (RIGHT Mastectomy), Tubal Ligation Orthopedic Surgeries: Patient denies;: Implanted Devices - Family History Family History: Reports;: Family Cancer (MOM BROTHER 2 SISTRS), Family Diabetes (BROTHER), Family Heart Disease (SISTER) - Social History Smoking Status: Former smoker Have you smoked in the last 12 months: No Frequency of Alcohol Use: None Type of Drug Use: None Functional capacity: independent ambulation Physical Examination Vital Signs Temp Pulse Resp BP Pulse Ox 97.5 F L 64 20 99/58 95 12/05/16 17:20 10 17:20 12/05/16 17:20 12/05/16 17:20 12/05/16 17:20 Exam: General: [Thin, ill-appearing female. She is in no apparent distress ] [Pleasant and cooperative. ] [Appears comfortable.] HEENT: [PERRL, normocephalic, atraumatic. Mucous membranes moist. No jaundice noted. Conjunctiva moist and clear, sclerae anicteric] Neck: No JVD/HJR, no thyromegaly or lymphadenopathy noted. Cardiac: [Regular rate and rhythm.] [No obvious murmur rub or gallop.] Lungs: [Clear to auscultation without accessory muscle use to assist the respiratory pattern.] Using oxygen intermittently Abdomen: Soft, bowel sounds normoactive. Nontender and nondistended. No abdominal bruit or thrill noted. No masses noted. Musculoskeletal: No fluid collection. Decreased range of motion is noted. Extremities: No clubbing, cyanosis noted. [Trace bilateral lower extreme edema noted.] Upper extremity pulses 2+. Lower extremity pulses trace +. Capillary refill l sluggish. Right groin dressing is intact and dry. (Did not assess groin site as she was being taken to surgery for exploration) Skin: No unusual lesions or rashes. No skin breakdown appreciated. Neuro: Awake, alert and oriented 3. Moves all extremities well without hemiparesis or paralysis. No essential tremor is appreciated. Result/EKG - Labs CBC & BMP: 12/06/16 08:01 12/05/16 18:32 Lab Results: I have reviewed the past 24 hour labs Labs: Laboratory Results - last 24 hr 12/05/16 12/05/16 12/05/16 17:56 18:32 18:32 Hgb Hct Sodium 138 Potassium 3.7 Chloride 103 Carbon Dioxide 28 Anion Gap 10.7 BUN 12 Creatinine 0.90 POC Creatinine 0.90 GFR Calculation 64 POC Estimated GFR (eGFR) > 60 BUN/Creatinine Ratio 13.00 Glucose 96 Calculated Osmolality 274.7 Calcium 8.8 Total Bilirubin < 0.39 AST 16 ALT 13 Alkaline Phosphatase 78 Total Protein 7.2 Albumin 3.3 L Globulin 3.9 H Albumin/Globulin Ratio 0.8 L Blood Type B POSITIVE Antibody Screen Negative 12/06/16 08:01 Hgb 7.3 L Hct 23.7 L Sodium Potassium Chloride Carbon Dioxide Anion Gap BUN Creatinine POC Creatinine GFR Calculation POC Estimated GFR (eGFR) BUN/Creatinine Ratio Glucose Calculated Osmolality Calcium Total Bilirubin AST ALT Alkaline Phosphatase Total Protein Albumin Globulin Albumin/Globulin Ratio Blood Type Antibody Screen - Diagnostic Findings Procedure: CT: report reviewed by me Quality Measures - VTE Contraindication to Pharmacological VTE Prophylaxis: High Risk of Bleeding <Gloria Escamilla - Last Filed: 12/06/16 17:26> History of Present Illness - Consult Narrative History of present illness: I have personally interviewed and evaluated the patient, reviewed the chart and discussed medical decision-making with Practitioner Dillon. I have read this note and agree with her documentation here in. CC: Jer Sommer MD Physical Examination Vital Signs Temp Pulse Resp BP Pulse Ox 97.5 F L 64 20 99/58 95 12/05/16 17:20 12/05/16 17:20 12/05/16 17:20 12/05/16 17:20 12/05/16 17:20 Result/EKG - Labs CBC & BMP: 12/06/16 11:44 12/05/16 18:32 Labs: Laboratory Results - last 24 hr 12/05/16 12/05/16 12/05/16 17:56 18:32 18:32 Hgb Hct Sodium 138 Potassium 3.7 Chloride 103 Carbon Dioxide 28 Anion Gap 10.7 BUN 12 Creatinine 0.90 POC Creatinine 0.90 GFR Calculation 64 POC Estimated GFR (eGFR) > 60 BUN/Creatinine Ratio 13.00 Glucose 96 Calculated Osmolality 274.7 Calcium 8.8 Total Bilirubin < 0.39 AST 16 ALT 13 Alkaline Phosphatase 78 Total Creatine Kinase CK-MB (CK-2) Troponin I Total Protein 7.2 Albumin 3.3 L Globulin 3.9 H Albumin/Globulin Ratio 0.8 L Urine Color Urine Appearance Urine pH Ur Specific [place] Urine Protein Urine Glucose (UA) Urine Ketones Urine Blood Urine Nitrate Urine Bilirubin Urine Urobilinogen Urine Leukocytes Urine RBC Urine WBC Ur Squamous Epith Cells Urine Bacteria Ur Culture Indicated? Blood Type B POSITIVE Antibody Screen Negative Crossmatch 12/06/16 12/06/16 12/06/16 08:01 09:29 11:44 Hgb 7.3 L Hct 23.7 L Sodium Potassium Chloride Carbon Dioxide Anion Gap BUN Creatinine POC Creatinine GFR Calculation POC Estimated GFR (eGFR) BUN/Creatinine Ratio Glucose Calculated Osmolality Calcium Total Bilirubin AST ALT Alkaline Phosphatase Total Creatine Kinase 50 CK-MB (CK-2) < 1.0 Troponin I < 0.015 Total Protein Albumin Globulin Albumin/Globulin Ratio Urine Color Urine Appearance Urine pH Ur Specific [place] Urine Protein Urine Glucose (UA) Urine Ketones Urine Blood Urine Nitrate Urine Bilirubin Urine Urobilinogen Urine Leukocytes Urine RBC Urine WBC Ur Squamous Epith Cells Urine Bacteria Ur Culture Indicated? Blood Type Antibody Screen Crossmatch See Detail 12/06/16 12/06/16 12/06/16 11:44 15:32 Unknown Hgb 10.3 L D Hct 33.1 L Sodium Potassium Chloride Carbon Dioxide Anion Gap BUN Creatinine POC Creatinine GFR Calculation POC Estimated GFR (eGFR) BUN/Creatinine Ratio Glucose Calculated Osmolality Calcium Total Bilirubin AST ALT Alkaline Phosphatase Total Creatine Kinase 50 CK-MB (CK-2) 2.0 Troponin I 0.583 H D Total Protein Albumin Globulin Albumin/Globulin Ratio Urine Color Straw Urine Appearance Clear Urine pH 7.0 Ur Specific [place] 1.004 Urine Protein Negative Urine Glucose (UA) Negative Urine Ketones Negative Urine Blood Negative Urine Nitrate Negative Urine Bilirubin Negative Urine Urobilinogen < 2.0 H Urine Leukocytes Negative Urine RBC 1 Urine WBC <1 Ur Squamous Epith Cells Few Urine Bacteria Occasional Ur Culture Indicated? Not indicated Blood Type Antibody Screen Crossmatch
[2016-12-06] MEDS ORDERED: THROMBIN TOPICAL (RECOMBINANT) 5,000 UNIT VIAL TOP ONE (09:20)
[2016-12-06] MEDS ORDERED: VANCOMYCIN 500 MG VIAL ONE (09:20)
[2016-12-06] MEDS ORDERED: HEPARIN 5,000 UNIT/1 ML VIAL ONE (09:20)
[2016-12-06] MEDS: LACTATED RINGERS 1,000 ML IV SCH ×2 (09:30→13:31)
[2016-12-06] MEDS ORDERED: SODIUM CHLORIDE 0.9% 250 ML IV PRN (10:50)
--- NOTE | 2016-12-06 10:50 | Operative Note ---
Date of procedure: 12/06/16 Procedure: Dr. Sommer operative report Terri Umana. Surgeon: Kemal Anesthesia: [place] general LMA Preoperative diagnosis: Hematoma of the right femoral artery possible infected patch graft Postoperative diagnosis: Hematoma of the right inguinal incision Procedure: Debridement of wound with evacuation hematoma irrigation and placement of wound VAC Indications for the procedure: Ms. 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 She was recently seen in the emergency room with an episode of bleeding and returned with an area of necrosis of the skin recommended evacuation of the hematoma and evaluation of the artery to determine if there is in fact an infected patch graft explained the alternatives risks and complications which she understood and accepted Description of the procedure: After the induction of LMA LMA anesthesia patient' s lower abdomen right thigh and leg are prepped with ChloraPrep fluid is placed in isolation bag Ioban was placed across the groin I put through the Ioban and excise the necrotic skin on the surface of the wound wound measuring approximately 2 x 1 cm this went down into the superficial subcutaneous tissues I entered into the wound and encountered a hematoma there was no gross purulence or odor of the hematoma was evacuated and the wound was recultured completely evacuated hematoma noted a small bleeding site over the edge of the patch graft but it appeared to be a small branch this was oversewn with 6-0 Prolene suture for easy control I then copiously irrigated with sterile water I evaluated the wound thoroughly I felt that there was not a grossly infected patch graft or disrupted patch graft I used Tisseel to cover the patch graft and the wound I then closed the deep tissues with 2-0 Monocryl left superficial tissues open and placed a wound VAC acute blood loss is approximately 50 cc sponge needle and his counts correct and patient taken to recovery in stable condition Surgeon / Physician: Jer Sommer Results - Labs CBC & BMP: 12/06/16 08:01 12/05/16 18:32 Discharge Plan - Discharge Medications No Action PARoxetine [Paxil] 20 mg PO QAM Rosuvastatin [Crestor] 40 mg PO BEDTIME Isosorbide Mononitrate [Isosorbide Mononitrate ER] 30 mg PO QAM Nitroglycerin Sl Tab [Nitrostat] 0.4 mg SL Q5M PRN tablet PRN Reason: Chest Pain Lisinopril [Prinivil] 10 mg PO BID tablet HYDROcodone/ACETAMIN 7.5-325 [[place] 7.5-325] 1 tablet PO Q4H PRN #20 tablet PRN Reason: Pain Moderate (4-7) Pantoprazole Tab [Protonix Tab] 40 mg PO DAILY Aspirin Chew Tab 81 mg PO BEDTIME Carvedilol [Coreg] 3.125 mg PO BID #60 tablet Ranolazine [Ranexa] 500 mg PO BID Clopidogrel [Plavix] 75 mg PO QPM DAPTOmycin [Cubicin] 400 mg IV DAILY vial - Follow Up or Referral - Forms/Instructions
[2016-12-06] MEDS ORDERED: LACTATED RINGERS 1,000 ML IV SCH (11:00)
[2016-12-06] MEDS ORDERED: SUGAMMADEX 200 MG/2 ML VIAL IV ONE (11:09)
[2016-12-06 11:38] LABS: Apearance,Urine CLEAR (Clear); Bacteria,Urine Occasional /HPF (Few); Bilirubin,Urine Negative (Negative); Blood, Urine Negative (Negative); Glucose,Urine (UA) Negative (Negative); Ketones,Urine Negative (Negative); Nitrite,Urine Negative (Negative); Protein,Urine Negative; RBC,Urine 1 /HPF (0-4); Urine Color Straw (Yellow); Urine Specific Gravity 1.004 (1.001-1.035); Urine Urobilinogen < 2.0 EU/DL (0.2-1.0); WBC,Urine <1 /HPF (0-6)
[2016-12-06 11:40] LABS: Squamous Epithelial Cell,Urine Few /HPF (0-10)
[2016-12-06] MEDS ORDERED: ALBUTEROL/IPRATROPIUM 3 ML NEB RESP TX ONE (11:40)
[2016-12-06 11:48] LABS: Hematocrit 33.1 VOL% (35.7-47.0)
[2016-12-06] MEDS ORDERED: HYDROmorphone 2 MG/1 ML VIAL IV PRN (11:48)
[2016-12-06] MEDS ORDERED: ONDANSETRON 4 MG/2 ML VIAL IV PRN (11:48)
[2016-12-06] MEDS ORDERED: HYDROmorphone 2 MG/1 ML VIAL ONE (11:49)
--- NOTE | 2016-12-06 11:49 | Anesthesia Post-Op ---
Anesthesia Post OP - Post Ansesthetic Evaluation Patient seen in post op: Yes Resp: within normal limits (sats 97) CV: within normal limits Mental: within normal limits (awake and alert) Temp: within normal limits [id number]: within normal limits Nausea and Vomiting: within normal limits Pain: within normal limits (no complaints)
[2016-12-06] MEDS ORDERED: SEVOFLURANE 1 UNIT/15 MINUTE INH ONE (11:53)
[2016-12-06] MEDS ORDERED: MIDAZOLAM 2 MG/2 ML VIAL ONE (11:54)
[2016-12-06] MEDS ORDERED: SODIUM CHLORIDE 0.9% 250 ML IV ONE (11:54)
[2016-12-06] MEDS ORDERED: SODIUM CHLORIDE 0.9% 1,000 ML IV ONE (11:54)
[2016-12-06] MEDS ORDERED: ACETAMINOPHEN 1,000 MG/100 ML VIAL IV ONE (11:54)
[2016-12-06] MEDS ORDERED: fentaNYL 100 MCG/2 ML VIAL ONE (11:54)
[2016-12-06 11:55] LABS: Hemoglobin 10.3 GM/DL (12.0-16.0)
[2016-12-06] MEDS ORDERED: CLOPIDOGREL 75 MG TABLET PO ONE (12:30)
[2016-12-06] MEDS ORDERED: CALCIUM CHLORIDE 1,000 MG/10 ML SYRINGE IV ONE (12:34)
[2016-12-06] MEDS ORDERED: PHENYLEPHRINE DRIP 40 MG/250 ML PREMIX IV ONE (12:54)
[2016-12-06 12:58] LABS: Troponin I Only < 0.015 NG/ML (0.00-0.045)
[2016-12-06] MEDS ORDERED: CLOPIDOGREL 75 MG TABLET ONE (13:10)
--- NOTE | 2016-12-06 13:23 | Event Note ---
Patient has been gone for a few hours for surgery. Will check back on her this afternoon or tomorrow. She is to continue daptomycin.
[2016-12-06] MEDS ORDERED: PHENYLEPHRINE DRIP 40 MG/250 ML PREMIX IV SCH (13:30)
[2016-12-06] MEDS ORDERED: ASPIRIN 325 MG TABLET ONE (13:34)
[2016-12-06] MEDS ORDERED: ASPIRIN 325 MG TABLET PO ONE (13:36)
--- NOTE | 2016-12-06 13:37 | Order Completion Report ---
See report scanned to EMR
[2016-12-06] MEDS ORDERED: SODIUM CHLORIDE 0.9% 1,000 ML IV SCH (14:00)
--- NOTE | 2016-12-06 14:51 | XRay Report ---
XR chest 1V portable Indication: Postop Comparison: Chest x-ray dated October 11, 2016 Technique: Single frontal view of the chest. Findings: Left-sided PICC line terminates over the SVC. Borderline heart size. Nonspecific mild interstitial prominence may reflect mild interstitial pulmonary edema. Visualized osseous and surrounding soft tissue structures appear grossly unchanged. IMPRESSION: As above. PROCEDURE INTERPRETED AT [facility] DEPARTMENT OF RADIOLOGY Final Report Signed by: Dr Jack Gauthier
--- NOTE | 2016-12-06 15:06 | Event Note ---
<Torie Carranza - Last Filed: 12/06/16 15:00> Patient was undergoing procedure to right groin when, in the postop phase while under sedation, began to experience EKG changes. She experienced hypotension ( systolic blood pressure in the 60s) when Jacob-Synephrine was initiated. Patient had been given 20 mg of IV Lasix and diuresed 800 mL quickly. Was in the process of receiving 2 units of packed red blood cells but had not yet been started when she experienced hypotension. Stat labs were obtained. When I arrived, patient denied chest pain, heaviness, tightness. She appeared very comfortable without shortness of breath. Blood pressure had normalized at 112/ 68 (off Jacob-Synephrine). She was given Plavix 75 mg orally and aspirin 325 mg orally. Repeat EKG returned which revealed resolved EKG changes inferolaterally. Cardiac biomarkers returned with negative results. At this time, patient is coherent and we discussed timing of her last dose of Plavix. Patient was under the impression she was not to take Plavix with her antibiotic therefore she has not had Plavix since approximately November 16, 2016. Patient is being transitioned to the ICU. At this point she is stable. Greater than 45 minutes was spent today with patient in the PACU. Will continue to follow along closely monitoring her telemetry, cardiac biomarkers. Chest x-ray has been ordered as well. <Gloria Escamilla - Last Filed: 12/06/16 17:27> I have personally interviewed and evaluated the patient, reviewed the chart and discussed medical decision-making with Practitioner Dillon. I have read this note and agree with her documentation here in. I evaluated the patient in the PACU with Torie, she was hemodynamically stable at this point and ECG changes had normalized. She was asymptomatic.
--- NOTE | 2016-12-06 15:26 | Order Completion Report ---
See report scanned to EMR
--- NOTE | 2016-12-06 15:36 | Event Note ---
Ms. Umana is awake and alert in the ICU and comfortable she did experience hypotension in the postop period thought to have maybe been a bit overloaded but responded to blood transfusion and Lasix. At this point we are going to keep her in intensive care unit overnight but she can be out of the bed resume her diet may resume Plavix and aspirin I will use Arixtra for the time being. If everything continues stable I will plan for her to move to a room tomorrow. My thoughts are to probably leave the wound VAC on until Sunday I have cultures pending that were taken today Gram stain thus far is negative for bacteria the
[2016-12-06 16:13] LABS: Troponin I Only 0.583 NG/ML (0.00-0.045)
--- NOTE | 2016-12-06 18:00 | Order Completion Report ---
See report scanned to EMR
[2016-12-06 18:58] LABS: Troponin I Only 0.488 NG/ML (0.00-0.045)
[2016-12-06] MEDS ORDERED: KETOROLAC 30 MG/1 ML VIAL IV ONE (20:58)
[2016-12-06] MEDS: ASPIRIN CHEW 81 MG TABLET PO SCH (21:05)
--- NOTE | 2016-12-06 21:46 | Order Completion Report ---
See report scanned to EMR
[2016-12-07 05:08] LABS: Basophils % 0.4 % (0.0-0.8); Eosinophils # 0.3 10*3/uL (0.0-0.87); Eosinophils % 4.4 % (0.00-10.9); Hematocrit 29.8 VOL% (35.7-47.0); Hemoglobin 9.5 GM/DL (12.0-16.0); Immature Granulocytes % 0.3 %; Immature Granulocytes Absolute 0.02 #; Lymphocytes # 2.2 10*3/uL (1.4-4.0); Lymphocytes % 28.8 % (21.3-54.2); Mean Corpuscular HGB Conc 31.9 GM/DL (32-36); Mean Corpuscular Hemoglobin 30 PG (27-34); Mean Corpuscular Volume 93.7 FL (87-102); Mean Platelet Volume 10.3 FL (9.6-12.0); Monocytes # 0.4 10*3/uL (0.11-0.8); Monocytes % 5.7 % (1.7-12.7); Neutrophils # 4.6 10*3/uL (1.4-7.4); Neutrophils % 60.4 % (38.7-73.9); Platelet Count 146 T/CUMM (130-400); Red Blood Count 3.18 MC/CUMM (3.8-5.5); Red Cell Distribution Width 19.4 % (9.3-17.3); White Blood Count 7.5 T/CUMM (4-12)
[2016-12-07 05:26] LABS: Calcium 8.9 MG/DL (8.5-10.1); Osmolality,Calculated 282.1 MOS/KG (273-304); Potassium 3.6 MMOL/L (3.5-5.1)
[2016-12-07] MEDS: FONDAPARINUX 2.5 MG/0.5 ML SYRINGE SUBCUT SCH (05:26)
--- NOTE | 2016-12-07 08:21 | Cardiology Progress Note ---
<Torie Carranza E - Last Filed: 12/07/16 08:05> Assessment and Plan - Time spent with patient Time spent with patient: Greater than 30 minutes (1) Pseudoaneurysm of right femoral artery Status: Resolved Assessment and plan: SEE PLAN OF CARE LISTED BELOW Current Visit: No (2) Anemia Status: Chronic Assessment and plan: SEE PLAN OF CARE LISTED BELOW Current Visit: No (3) Breast cancer Status: Chronic Assessment and plan: SEE PLAN OF CARE LISTED BELOW Current Visit: No (4) CAD (coronary artery disease) Status: Chronic Assessment and plan: SEE PLAN OF CARE LISTED BELOW Current Visit: No Qualifiers: Coronary Disease-Associated Artery/Lesion type: [place] artery [facility] vs. transplanted heart: deering heart Associated angina: without angina Qualified Code(s): I25.10 - Atherosclerotic heart disease of deering coronary artery without angina pectoris (5) Dyslipidemia Status: Chronic Assessment and plan: SEE PLAN OF CARE LISTED BELOW Current Visit: No (6) Hypertension Status: Chronic Assessment and plan: SEE PLAN OF CARE LISTED BELOW Current Visit: No (7) Peripheral artery disease Status: Chronic Assessment and plan: SEE PLAN OF CARE LISTED BELOW Current Visit: No (8) Hematoma Status: Acute Assessment and plan: SEE PLAN OF CARE LISTED BELOW Current Visit: Yes Cardiology - PN: Subj Interval history: HUMAN SERVICES INSTRUCTOR: DR. QUINN SUMMARY: Ms. Umana, 61 WF, has risk factors significant for: CAD, hypertension , dyslipidemia, PAD, history of tobacco use, sedentary lifestyle. Cardiac catheterization May 26, 2016 required PCI of proximal to mid RCA with INOCENCIO. ( See cardiac catheterization report). September 28, 2016 underwent PCI of ostial to distal right SFA. (See report). Echocardiogram November 11, 2016: EF 55%, mild concentric LVH, RVSP 39 mmHg. After the September 28, 2016 SFA intervention, patient has had an infected pseudoaneurysm (staph aureus bacteremia) requiring hospitalization. She was treated with 6 weeks of IV antibiotics, followed by Dr. Quinn outpatient as well as Dr. Sommer and Dr. Drew Alexandra. Patient was seen by Dr. Sommer in clinic December 05, 2016. Patient was directly admitted to hospital for treatment of right femoral artery hematoma and possible infected patch graft. December 05, 2016 Dr. Sommer performed debridement of wound with evacuation of hematoma, irrigation and placement of wound VAC. During the procedure, experienced hypotension and inferolateral EKG changes. Postoperatively, patient acknowledged she had been off her Plavix for approximately 6 weeks because she thought she was not to take Plavix and antibiotics together. Once patient's blood pressure normalized, EKG changes resolved. She was placed in the ICU overnight. DECEMBER 07, 2016: Patient is followed for chronic, stable conditions to include CAD, hypertension, dyslipidemia. She is followed for more acute conditions including PAD with right femoral artery hematoma and possible infected patch graft, hypotension. Denies chest pain, heaviness, tightness. She denies shortness of breath, lightheadedness, dizziness or palpitations. She is having some right groin tenderness and soreness. Vital signs are stable. Troponin peaked at 0.583 and is trending down (demand ischemia). Plavix and Aspirin continue. Hopefully, patient will be transitioned out of the ICU today. We will continue to follow her labs daily, EKG. I will further discuss with Dr. Escamilla and await additional recommendations. DECEMBER 07, 2016 REVIEW OF SYSTEMS: Cardiovascular: Denies chest pain, heaviness, tightness. Denies palpitations. Pulmonary: Denies shortness of breath, orthopnea or PND Gastrointestinal: Denies abdominal pain, nausea or vomiting IMPRESSION/PLAN: 1. RIGHT FEMORAL ARTERY HEMATOMA -S/P evacuation, irrigation and placement of wound VAC. Continuing antibiotics. 2. CAD - S/P PCI of proximal to mid RCA with INOCENCIO May 26, 2016. Continue Aspirin and Plavix. 3. HYPERTENSION - adequately controlled. Continuing ROSIO inhibitor and beta- jennifer. Will adjust medications accordingly during hospital stay 4. DYSLIPIDEMIA - continue Crestor. No need to repeat fasting lipid profile at this point as there is a recent result on file in clinic. 5. SEVERE PAD - continue Aspirin and Plavix. Appreciate Dr. Gillespie's assistance. 6. BREAST CANCER - status post right mastectomy May 2016 for stage I triple negative breast cancer. Underwent mastectomy with adjunctive chemotherapy. Completed chemotherapy regimen August 2016. She is followed by Dr. Mejía 7. ANEMIA - transfused 2 units yesterday. Anemia has improved. Will continue to monitor CBC daily. 8. ELEVATED TROPONIN - mildly increased last evening, trending down. Thought to be related to demand ischemia from hypotension, anemia. Stable Exam (Progress Note) - Constitutional Vitals: Period Temp Pulse Resp BP Sys/[place] Pulse Ox Last 24 Hr 97.7 F-98.9 F 57-93 11-26 64-135/6-78 89-100 Exam: General: [Appears well with no apparent distress.] [Pleasant and cooperative. ] [Appears comfortable.] HEENT: [PERRL, normocephalic, atraumatic. Mucous membranes moist. No jaundice noted. Conjunctiva moist and clear, sclerae anicteric] Neck: No JVD/HJR, no thyromegaly or lymphadenopathy noted. Cardiac: [Regular rate and rhythm.] [No murmur rub or gallop.] Lungs: [Clear to auscultation without accessory muscle use to assist the respiratory pattern.] Not requiring oxygen Abdomen: Soft, bowel sounds normoactive. Nontender and nondistended. No abdominal bruit or thrill noted. No masses noted. Musculoskeletal: No fluid collection. Decreased range of motion is noted. Extremities: Right groin wound VAC intact. No clubbing, cyanosis noted. [ No edema noted.] Upper extremity pulses 2+. Trace lower extremity pulses. Skin: No unusual lesions or rashes. No skin breakdown appreciated. Neuro: Awake, alert and oriented 3. Moves all extremities well without hemiparesis or paralysis. No essential tremor is appreciated. Result/EKG - Labs CBC & BMP: 12/07/16 04:19 12/07/16 04:19 Lab Results: I have reviewed the past 24 hour labs Labs: Laboratory Results - last 24 hr 12/06/16 12/06/16 12/06/16 08:01 09:29 11:44 WBC RBC Hgb 7.3 L Hct 23.7 L MCV MCH MCHC RDW Plt Count MPV Neut % (Auto) Lymph % (Auto) [place] % (Auto) Eos % (Auto) Baso % (Auto) Neut # (Auto) Lymph # (Auto) [place] # (Auto) Eos # (Auto) Baso # (Auto) Immature Gran % Nucleated RBC % Immature Gran # Nucleated RBCs # Immature Plt Fraction Sodium Potassium Chloride Carbon Dioxide Anion Gap BUN Creatinine GFR Calculation BUN/Creatinine Ratio Glucose Calculated Osmolality Calcium Total Creatine Kinase 50 CK-MB (CK-2) < 1.0 Troponin I < 0.015 Urine Color Urine Appearance Urine pH Ur Specific [place] Urine Protein Urine Glucose (UA) Urine Ketones Urine Blood Urine Nitrate Urine Bilirubin Urine Urobilinogen Urine Leukocytes Urine RBC Urine WBC Ur Squamous Epith Cells Urine Bacteria Ur Culture Indicated? Crossmatch See Detail 12/06/16 12/06/16 12/06/16 11:44 15:32 18:13 WBC RBC Hgb 10.3 L D Hct 33.1 L MCV MCH MCHC RDW Plt Count MPV Neut % (Auto) Lymph % (Auto) [place] % (Auto) Eos % (Auto) Baso % (Auto) Neut # (Auto) Lymph # (Auto) [place] # (Auto) Eos # (Auto) Baso # (Auto) Immature Gran % Nucleated RBC % Immature Gran # Nucleated RBCs # Immature Plt Fraction Sodium Potassium Chloride Carbon Dioxide Anion Gap BUN Creatinine GFR Calculation BUN/Creatinine Ratio Glucose Calculated Osmolality Calcium Total Creatine Kinase 50 54 CK-MB (CK-2) 2.0 2.3 Troponin I 0.583 H D 0.488 H Urine Color Urine Appearance Urine pH Ur Specific [place] Urine Protein Urine Glucose (UA) Urine Ketones Urine Blood Urine Nitrate Urine Bilirubin Urine Urobilinogen Urine Leukocytes Urine RBC Urine WBC Ur Squamous Epith Cells Urine Bacteria Ur Culture Indicated? Crossmatch 12/06/16 12/07/16 12/07/16 Unknown 04:19 04:19 WBC 7.5 RBC 3.18 L D Hgb 9.5 L Hct 29.8 L MCV 93.7 MCH 30 MCHC 31.9 L RDW 19.4 H Plt Count 146 MPV 10.3 Neut % (Auto) 60.4 Lymph % (Auto) 28.8 [place] % (Auto) 5.7 Eos % (Auto) 4.4 Baso % (Auto) 0.4 Neut # (Auto) 4.6 Lymph # (Auto) 2.2 [place] # (Auto) 0.4 Eos # (Auto) 0.3 Baso # (Auto) 0.0 Immature Gran % 0.3 Nucleated RBC % 0.0 Immature Gran # 0.02 Nucleated RBCs # 0.00 Immature Plt Fraction 0.0 Sodium 142 Potassium 3.6 Chloride 104 Carbon Dioxide 28 Anion Gap 13.6 BUN 9 Creatinine 1.00 GFR Calculation 57 BUN/Creatinine Ratio 9.00 Glucose 122 H Calculated Osmolality 282.1 Calcium 8.9 Total Creatine Kinase CK-MB (CK-2) Troponin I Urine Color Straw Urine Appearance Clear Urine pH 7.0 Ur Specific [place] 1.004 Urine Protein Negative Urine Glucose (UA) Negative Urine Ketones Negative Urine Blood Negative Urine Nitrate Negative Urine Bilirubin Negative Urine Urobilinogen < 2.0 H Urine Leukocytes Negative Urine RBC 1 Urine WBC <1 Ur Squamous Epith Cells Few Urine Bacteria Occasional Ur Culture Indicated? Not indicated Crossmatch - Diagnostic Findings Procedure: Chest x-ray: report reviewed by me - EKG EKG results: interpreted by me EKG shows: sinus rhythm Quality Measures - VTE Contraindication to Pharmacological VTE Prophylaxis: High Risk of Bleeding <Gloria Escamilla - Last Filed: 12/07/16 17:55> Cardiology - PN: Subj Interval history: I have personally interviewed and evaluated the patient, reviewed the chart and discussed medical decision-making with Practitioner Dillon. I have read this note and agree with her documentation here in. Exam (Progress Note) - Constitutional Vitals: Period Temp Pulse Resp BP Sys/[place] Pulse Ox Last 24 Hr 97.1 F-98.9 F 56-84 12-22 102-136/6-72 95-100 Result/EKG - Labs CBC & BMP: 12/07/16 04:19 12/07/16 04:19 Labs: Laboratory Results - last 24 hr 12/06/16 12/07/16 12/07/16 18:13 04:19 04:19 WBC 7.5 RBC 3.18 L D Hgb 9.5 L Hct 29.8 L MCV 93.7 MCH 30 MCHC 31.9 L RDW 19.4 H Plt Count 146 MPV 10.3 Neut % (Auto) 60.4 Lymph % (Auto) 28.8 [place] % (Auto) 5.7 Eos % (Auto) 4.4 Baso % (Auto) 0.4 Neut # (Auto) 4.6 Lymph # (Auto) 2.2 [place] # (Auto) 0.4 Eos # (Auto) 0.3 Baso # (Auto) 0.0 Immature Gran % 0.3 Nucleated RBC % 0.0 Immature Gran # 0.02 Nucleated RBCs # 0.00 Immature Plt Fraction 0.0 Sodium 142 Potassium 3.6 Chloride 104 Carbon Dioxide 28 Anion Gap 13.6 BUN 9 Creatinine 1.00 GFR Calculation 57 BUN/Creatinine Ratio 9.00 Glucose 122 H Calculated Osmolality 282.1 Calcium 8.9 Total Creatine Kinase 54 CK-MB (CK-2) 2.3 Troponin I 0.488 H
--- NOTE | 2016-12-07 08:31 | Event Note ---
Ms. Umana is doing well she is awake alert much more comfortable her wound VAC looks good her leg is in good condition good urine output labs are stable blood pressure is better off Jacob-Synephrine. This point I think we can satisfactory transfer her upstairs Monocryl I will increase her [place] 7-1/2 one or 2 every 4 hours continue the Toradol for another 48 hours.
[2016-12-07] MEDS: RANOLAZINE 500 MG TABLET PO SCH ×2 (08:51→22:19)
[2016-12-07] MEDS: CLOPIDOGREL 75 MG TABLET PO SCH (08:52)
[2016-12-07] MEDS: PARoxetine 20 MG TABLET PO SCH (08:52)
[2016-12-07] MEDS: CARVEDILOL 3.125 MG TABLET PO SCH ×2 (08:52→22:20)
[2016-12-07] MEDS: KETOROLAC 10 MG TABLET PO PRN (08:52)
[2016-12-07] MEDS: PANTOPRAZOLE 40 MG TABLET PO SCH (08:52)
[2016-12-07] MEDS: ISOSORBIDE MONONITRATE 30 MG TABLET PO SCH (08:52)
--- NOTE | 2016-12-07 14:49 | Event Note ---
Bettye awake alert doing well this has been up without difficulty I may try to let her go home over the weekend and follow up with wound VAC change in health
--- NOTE | 2016-12-07 16:52 | Infectious Disease Consult ---
Assessment and Plan (1) Hematoma Status: Acute Current Visit: Yes (2) Edema of right lower extremity Status: Acute Current Visit: No (3) Pseudoaneurysm of right femoral artery Status: Resolved Assessment and plan: The pseudoaneurysm was infected and the patient has gotten almost 4 weeks of antibiotic therapy. So far tissue cultures from yesterday of the right groin surgical wound are negative. He does not appear that she has ongoing infection. Recommendations: Continue daptomycin therapy. I think I will extend it for 1-2 weeks beyond the original stop date of October 10. Will reevaluate in the office and decide on final stop date. Thank you very much for the consult. Will follow. Discussed with Dr. David Discussed with patient's family Current Visit: No History of Present Illness Chief complaint: Infected femoral artery aneurysm History of present illness: Ms. Umana is a 61 year old female who I know well having seen her during her last admission, and also in the office last week. She was managed initially for MSSA septicemia, then she developed a pseudoaneurysm of her right superficial femoral artery. She ended up having surgery on that because it enlarged and then the cultures are positive for MRSE and also MSSE. Patient was initially on oxacillin but then switched to daptomycin after those staph epi cultures. She was at home getting the daptomycin and was to do 4 weeks which would have ended on 10 December. The patient was doing well but when I saw her in the office last week there was still a bit of edema about the right groin surgical wound. She came to hospital 2 nights ago after she started having severe bleeding with blood gushing from the right groin wound. This occurred after she pushed a bed. She was discharged from the emergency room but then when they inform Dr. Sommer of what happened she was informed to come to the hospital and was admitted. Dr. Austin explored the right groin yesterday and found a hematoma in the area. This was debrided and the patient now has a wound VAC. I am asked to continue with management of antibiotic therapy. Patient has not had any fever or other constitutional symptoms. She was admitted to ICU overnight for close monitoring following her vascular surgery. Home Medications Medication Instructions Recorded Confirmed Type PARoxetine [Paxil] 20 mg PO QAM 03/24/16 12/05/16 History Aspirin Chew Tab 81 mg PO BEDTIME 05/26/16 12/05/16 History Isosorbide Mononitrate [Isosorbide 30 mg PO QAM 05/26/16 12/05/16 History Mononitrate ER] Rosuvastatin [Crestor] 40 mg PO BEDTIME 05/26/16 12/05/16 History Carvedilol [Coreg] 3.125 mg PO BID #60 tablet 08/29/16 12/05/16 Rx Nitroglycerin Sl Tab [Nitrostat] 0.4 mg SL Q5M PRN tablet 08/29/16 12/05/16 Rx Ranolazine [Ranexa] 500 mg PO BID 09/28/16 12/05/16 History HYDROcodone/ACETAMIN 7.5-325 1 tablet PO Q4H PRN #20 tablet 11/08/16 12/05/16 Rx [Interior 7.5-325] Lisinopril [Prinivil] 10 mg PO BID tablet 11/08/16 12/05/16 Rx Clopidogrel [Plavix] 75 mg PO QPM 11/11/16 12/05/16 History Pantoprazole Tab [Protonix Tab] 40 mg PO DAILY 11/11/16 12/05/16 History DAPTOmycin [Cubicin] 400 mg IV DAILY vial 11/16/16 12/05/16 Rx Allergies Allergy/AdvReac Type Severity Reaction Status Date / Time ceftriaxone [From Rocephin] Allergy Severe SHORTNESS Verified 11/11/16 16:00 OF BREATH, RASH 12 point system: reviewed and no additional remarkable complaints except as stated (Per HPI) Medical,Surgical,& Family Hx - Medical History Cardio: History of: Cardiac Dysrhythmia (A FIB DR STONE, SAW SURVEY ENGINEER NOV 02, 2016) , CAD, Hypertension, PVD Comment Only: Valvular Heart Disease (DID NOT TELL DR Barajas NURSE ABOUT THIS EKG [facility]03/24/15 9172), Cardiovascular Problems (DR TIERNEY IN [facility] SAID MAY HAVE BLOCKGE HAS NOT BEEN CHECK FOR THIS) Psychological: No history of: Depression Neurology: No history of: Seizures HEENT: History of: Eye Problem (GLASSES), Dental Problems (NO TEETH) Respiratory: History of: COPD No history of: Respiratory Problems (FLU VAC-NO; PNEU VAC- NO.) Genitourinary: History of: Bladder Problem (stress incontinence) Gastrointestinal: History of: GERD (PAST HX.), GI Problems (BACTERIA IN COLON/ SEPSIS PAST HX, 2015) Musculoskeletal: History of: Musculoskeletal Problems (legs hurt with ambulation ) No history of: Amputation Reproductive: History of: Breast Cancer (Rt mastectomy, 2016) Other: History of: Anaphylaxis (rocephin), Cancer (R BREAST), MRSA, Miscellaneous Medical Problems (INFECTION TO RIGHT GROIN POSS FROM STENT PLACEMENT FOR SURG 11/07/16) No history of: Anesthesia Reactions - Surgical History Cardiac Surgeries: Sugical HX of: Cardiac Catheterization (1 CARDIAC STENT; 1 STENTS RT LEG.) Thoracic Surgeries: Patient denies;: Organ Transplant, Lobectomy HEENT Surgeries: Patient denies: Eye Surgery, Tonsilectomy & Adenoidectomy Abdominal Surgeries: Surgical HX of: Appendectomy Reproductive Surgeries: Surgical HX of;: Breast Surgery (RIGHT Mastectomy), Tubal Ligation Orthopedic Surgeries: Patient denies;: Implanted Devices - Family History Family History: Reports;: Family Cancer (MOM BROTHER 2 SISTRS), Family Diabetes (BROTHER), Family Heart Disease (SISTER) - Social History Smoking Status: Former smoker Frequency of Alcohol Use: None Type of Drug Use: None Infectious Disease Exam H&P - Constitutional Vitals: Vital Signs Temp Pulse Resp BP Pulse Ox 97.2 F L 69 18 114/71 97 12/07/16 10:20 12/07/16 10:20 12/07/16 14:45 12/07/16 10:20 12/07/16 10:20 Intake and Output 12/07/16 12/07/16 12/07/16 07:59 15:59 23:59 Intake Total 500 / 500 1180 / 1180 Output Total 1240 / 1240 1385 / 1385 Balance -740 / -740 -205 / -205 Intake: Oral 500 / 500 1180 / 1180 Output: Drainage 25 / 25 0 / 0 RIGHT GROIN WOUND VAC 25 / 25 0 / 0 Urine 1215 / 1215 1385 / 1385 Other: Voiding Method Indwelling Catheter Toilet # Bowel Movements 0 Weight 63.866 kg Patient Weight 12/07/16 23:59 Weight 63.866 kg Exam: General: Patient comfortable HEENT: Mucous membranes pink and moist, anicteric acyanotic, ROSIE, no oral exudates Neck: Supple, no thyroid gland enlargement Respiratory system: Breath sounds vesicular, no crepitations or wheezes Cardiovascular: Normal S1 and S2, no murmurs appreciated Abdomen: Normal bowel sounds, soft nontender throughout, no organomegaly or mass Genitourinary: No suprapubic pain or bladder distention Extremities: Right groin wound with VAC, mild surrounding edema extending to medial thigh, no erythema Skin: No rash Reports - Labs CBC & BMP: 12/07/16 04:19 12/07/16 04:19 Labs: Laboratory Results - last 24 hr 12/06/16 12/07/16 12/07/16 18:13 04:19 04:19 WBC 7.5 RBC 3.18 L D Hgb 9.5 L Hct 29.8 L MCV 93.7 MCH 30 MCHC 31.9 L RDW 19.4 H Plt Count 146 MPV 10.3 Neut % (Auto) 60.4 Lymph % (Auto) 28.8 [place] % (Auto) 5.7 Eos % (Auto) 4.4 Baso % (Auto) 0.4 Neut # (Auto) 4.6 Lymph # (Auto) 2.2 [place] # (Auto) 0.4 Eos # (Auto) 0.3 Baso # (Auto) 0.0 Immature Gran % 0.3 Nucleated RBC % 0.0 Immature Gran # 0.02 Nucleated RBCs # 0.00 Immature Plt Fraction 0.0 Sodium 142 Potassium 3.6 Chloride 104 Carbon Dioxide 28 Anion Gap 13.6 BUN 9 Creatinine 1.00 GFR Calculation 57 BUN/Creatinine Ratio 9.00 Glucose 122 H Calculated Osmolality 282.1 Calcium 8.9 Total Creatine Kinase 54 CK-MB (CK-2) 2.3 Troponin I 0.488 H - Reports Microbiology: Microbiology 12/06/16 10:22 Abscess Culture - Preliminary Groin - Right No growth at 24 hours 12/06/16 10:22 Tissue Culture - Preliminary Groin - Right No growth at 24 hours Gram Stain - Final No organisms seen 12/06/16 14:30 MRSA Surveillance Culture - Preliminary Nasal Passage No MRSA isolated. - Diagnostic Findings Procedure: Chest x-ray: report reviewed by me (Unremarkable study)
[2016-12-07] MEDS ORDERED: CLOPIDOGREL 75 MG TABLET PO SCH (19:00)
[2016-12-07] MEDS: ASPIRIN CHEW 81 MG TABLET PO SCH (22:19)
[2016-12-08] MEDS: FONDAPARINUX 2.5 MG/0.5 ML SYRINGE SUBCUT SCH (05:08)
--- NOTE | 2016-12-08 08:50 | Event Note ---
Ms. Umana's vital signs look good and she seems okay but states that during the night she had chest pain along the left sternal border that she describes as pressure and was associated with nausea she did require some help getting up to the restroom last night this seems to have resolved this morning but does bring up concerns about continued angina. I will repeat the EKG and troponins this morning and contact cardiology and asked them to be sure and check her this morning I had considered her going home over the weekend but I will postpone that for now
--- NOTE | 2016-12-08 09:08 | Order Completion Report ---
See report scanned to EMR
[2016-12-08] MEDS ORDERED: ISOSORBIDE MONONITRATE 30 MG TABLET PO ONE (09:41)
[2016-12-08 09:42] LABS: Troponin I Only 0.042 NG/ML (0.00-0.045)
[2016-12-08] MEDS ORDERED: ASPIRIN EC 81 MG TABLET PO ONE (09:43)
--- NOTE | 2016-12-08 09:52 | Cardiology Progress Note ---
<Torie Carranza E - Last Filed: 12/08/16 09:44> Assessment and Plan - Time spent with patient Time spent with patient: Greater than 30 minutes (1) Anemia Status: Chronic Assessment and plan: SEE PLAN OF CARE LISTED BELOW Current Visit: No (2) Breast cancer Status: Chronic Assessment and plan: SEE PLAN OF CARE LISTED BELOW Current Visit: No (3) CAD (coronary artery disease) Status: Chronic Assessment and plan: SEE PLAN OF CARE LISTED BELOW Current Visit: No Qualifiers: Coronary Disease-Associated Artery/Lesion type: [place] artery [place] vs. transplanted heart: [place] heart Associated angina: without angina Qualified Code(s): I25.10 - Atherosclerotic heart disease of [place] coronary artery without angina pectoris (4) Dyslipidemia Status: Chronic Assessment and plan: SEE PLAN OF CARE LISTED BELOW Current Visit: No (5) Hypertension Status: Chronic Assessment and plan: SEE PLAN OF CARE LISTED BELOW Current Visit: No (6) Peripheral artery disease Status: Chronic Assessment and plan: SEE PLAN OF CARE LISTED BELOW Current Visit: No (7) Hematoma Status: Acute Assessment and plan: SEE PLAN OF CARE LISTED BELOW Current Visit: Yes Cardiology - PN: Subj Interval history: BOOSTER OPERATOR: DR. QUINN SUMMARY: Ms. Umana, 61 WF, has risk factors significant for: CAD, hypertension , dyslipidemia, PAD, history of tobacco use, sedentary lifestyle. Cardiac catheterization May 26, 2016 required PCI of proximal to mid RCA with INOCENCIO. ( See cardiac catheterization report). September 28, 2016 underwent PCI of ostial to distal right SFA. (See report). Echocardiogram November 11, 2016: EF 55%, mild concentric LVH, RVSP 39 mmHg. After the September 28, 2016 SFA intervention, patient has had an infected pseudoaneurysm (staph aureus bacteremia) requiring hospitalization. She was treated with 6 weeks of IV antibiotics, followed by Dr. Quinn outpatient as well as Dr. Sommer and Dr. Drew Alexandra. Patient was seen by Dr. Sommer in clinic December 05, 2016. Patient was directly admitted to hospital for treatment of right femoral artery hematoma and possible infected patch graft. December 05, 2016 Dr. Sommer performed debridement of wound with evacuation of hematoma, irrigation and placement of wound VAC. During the procedure, experienced hypotension and inferolateral EKG changes. Postoperatively, patient acknowledged she had been off her Plavix for approximately 6 weeks because she thought she was not to take Plavix and antibiotics together. Once patient's blood pressure normalized, EKG changes resolved. She was placed in the ICU overnight. DECEMBER 08, 2016: Patient is followed for chronic, stable conditions to include CAD, hypertension, dyslipidemia. She is followed for more acute conditions including PAD with right femoral artery hematoma and possible infected patch graft, hypotension. Denies current chest pain, heaviness, tightness. She denies shortness of breath, lightheadedness, dizziness or palpitations. During the maintenance assistant hours, however, patient did experience chest heaviness located in the left breast area. It lasted approximately 30 minutes to 1 hour. It was not associated shortness of breath, nausea or vomiting. She can identify no aggravating nor any alleviating factors. Rates the discomfort as a 5 on a scale of 1-10, currently chest pain-free. An EKG has been obtained which does reveal some changes from prior EKG. Increasing nitrate, Ran[place] at this time. She had Plavix and Aspirin last night. Troponin has been ordered and we are awaiting results. I will further discuss with Dr. Escamilla and await additional recommendations. DECEMBER 08, 2016 REVIEW OF SYSTEMS: Cardiovascular: Denies current chest pain, heaviness, tightness. Denies palpitations. Did have chest pain during the maintenance assistant hours Pulmonary: Denies shortness of breath, orthopnea or PND Gastrointestinal: Denies abdominal pain, nausea or vomiting IMPRESSION/PLAN: 1. RIGHT FEMORAL ARTERY HEMATOMA -S/P evacuation, irrigation and placement of wound VAC. Continuing antibiotics. 2. CAD - S/P PCI of proximal to mid RCA with INOCENCIO May 26, 2016. Continue Aspirin and Plavix. 3. HYPERTENSION - adequately controlled. Continuing ROSIO inhibitor and beta- jennifer. Will adjust medications accordingly during hospital stay 4. DYSLIPIDEMIA - continue Crestor. No need to repeat fasting lipid profile at this point as there is a recent result on file in clinic. 5. SEVERE PAD - continue Aspirin and Plavix. Appreciate Dr. Sommer's assistance. 6. BREAST CANCER - status post right mastectomy May 2016 for stage I triple negative breast cancer. Underwent mastectomy with adjunctive chemotherapy. Completed chemotherapy regimen August 2016. She is followed by Dr. Mejía 7. ANEMIA - transfused 2 units Sunday. Anemia has improved. Will continue to monitor CBC daily. 8. ELEVATED TROPONIN -was mildly increased last evening and trended down. Current troponin is pending. Exam (Progress Note) - Constitutional Vitals: Period Temp Pulse Resp BP Sys/[place] Pulse Ox Last 24 Hr 97.0 F-97.9 F 66-81 16-18 114-136/65-72 95-97 Exam: General: [Appears well with no apparent distress.] [Pleasant and cooperative. ] [Appears comfortable.] HEENT: [PERRL, normocephalic, atraumatic. Mucous membranes moist. No jaundice noted. Conjunctiva moist and clear, sclerae anicteric] Neck: No JVD/HJR, no thyromegaly or lymphadenopathy noted. Cardiac: [Regular rate and rhythm.] [No murmur rub or gallop.] Lungs: [Clear to auscultation without accessory muscle use to assist the respiratory pattern.] Not requiring oxygen Abdomen: Soft, bowel sounds normoactive. Nontender and nondistended. No abdominal bruit or thrill noted. No masses noted. Musculoskeletal: No fluid collection. Decreased range of motion is noted. Extremities: Right groin wound VAC intact. No clubbing, cyanosis noted. [ No edema noted.] Upper extremity pulses 2+. Trace lower extremity pulses. Skin: No unusual lesions or rashes. No skin breakdown appreciated. Neuro: Awake, alert and oriented 3. Moves all extremities well without hemiparesis or paralysis. No essential tremor is appreciated. Result/EKG - Labs CBC & BMP: 12/07/16 04:19 12/07/16 04:19 Lab Results: I have reviewed the past 24 hour labs - EKG EKG results: interpreted by me EKG shows: sinus rhythm Quality Measures - VTE Contraindication to Pharmacological VTE Prophylaxis: High Risk of Bleeding <Gloria Escamilla - Last Filed: 12/08/16 15:03> Cardiology - PN: Subj Interval history: I have personally interviewed and evaluated the patient, reviewed the chart and discussed medical decision-making with Practitioner Dillon. I have read this note and agree with her documentation here in. The patient has developed recurrent angina with dynamic ECG changes in the inferior lateral territory, where she was recently stented. We will proceed with urgent left heart catheterization via the left femoral approach Exam (Progress Note) - Constitutional Vitals: Period Temp Pulse Resp BP Sys/[place] Pulse Ox Last 24 Hr 97.0 F-99.7 F 66-81 16-18 126-136/65-72 95-96 Result/EKG - Labs CBC & BMP: 12/07/16 04:19 12/07/16 04:19 Labs: Laboratory Results - last 24 hr 12/08/16 12/08/16 09:01 10:48 INR 1.0 PT Patient/Control Mix 10.3 Total Creatine Kinase 40 D CK-MB (CK-2) < 1.0 Troponin I 0.042
[2016-12-08] MEDS: ISOSORBIDE MONONITRATE 30 MG TABLET PO SCH (09:53)
[2016-12-08] MEDS: PANTOPRAZOLE 40 MG TABLET PO SCH (09:53)
[2016-12-08] MEDS: CARVEDILOL 3.125 MG TABLET PO SCH ×2 (09:53→20:48)
[2016-12-08] MEDS: CLOPIDOGREL 75 MG TABLET PO SCH (09:53)
[2016-12-08] MEDS: PARoxetine 20 MG TABLET PO SCH (09:54)
[2016-12-08] MEDS: KETOROLAC 10 MG TABLET PO PRN ×2 (09:57→20:48)
[2016-12-08] MEDS ORDERED: MAGNESIUM SULF RIDER 2 GM in PREMIX 1 EACH IV PRN (10:19)
[2016-12-08] MEDS ORDERED: DIAZEPAM 5 MG TABLET PO ONE (10:19)
[2016-12-08] MEDS ORDERED: POTASSIUM CHLORIDE RIDER 10 MEQ in PREMIX 1 EACH IV PRN (10:19)
[2016-12-08] MEDS ORDERED: diphenhydrAMINE CAP 25 MG CAPSULE PO ONE (10:19)
[2016-12-08 11:03] LABS: PT Patient Result 10.3 SECS
[2016-12-08] MEDS: PIPERACILLIN/TAZOBACTAM 3,375 MG in SODIUM CHLORIDE 0.9% 100 ML IV SCH ×2 (11:27→18:25)
--- NOTE | 2016-12-08 11:42 | Infectious Disease Progress ---
Assessment and Plan (1) Hematoma Status: Acute Current Visit: Yes (2) Edema of right lower extremity Status: Acute Current Visit: No (3) Pseudoaneurysm of right femoral artery Status: Resolved Assessment and plan: The pseudoaneurysm was infected and the patient has gotten almost 4 weeks of antibiotic therapy. Tissue cultures from yesterday positive for gram-negative rods. In speaking with Dr. Sommer yesterday seems this infection involves the soft tissue, not the vascular graft material. Recommendations: 1. Continue daptomycin therapy 2. Add Zosyn 2. Follow-up finalized to see cultures and adjust antibiotics accordingly Current Visit: No Infectious Disease - PN: Subj Interval history: Patient doing fairly okay, has not had fever. No significant discomfort to right groin. Tolerating antibiotic without nausea vomiting or diarrhea, or muscle soreness. Infectious Disease Exam (PN) - Constitutional Vitals: Temp Pulse Resp BP Pulse Ox 99.7 F H 69 18 126/65 96 12/08/16 10:53 12/08/16 10:53 12/08/16 10:53 12/08/16 10:53 12/08/16 10:53 Exam: General appearance: no acute distress - Eye Eye exam: Present: EOMI. no icterus Pupils: Present: ROSIE - ENT ENT exam: no oral exudates - Respiratory Respiratory exam: vesicular BS, no crepitations or wheezes - Cardiovascular Cardiovascular exam: regular rate and rhythm, no murmurs - GI/Abdominal GI/Abdominal exam: normal bowel sounds, soft, non-tender, no organomegaly or mass - Extremities Exam Extremities exam: Right groin wound with VAC, less surrounding induration, no erythema - Skin Skin exam: no rash Results - Labs CBC & BMP: 12/07/16 04:19 12/07/16 04:19 Lab Results: I have reviewed the past 24 hour labs (Gram-negative rods growing from tissue culture) Quality Measures - VTE Contraindication to Pharmacological VTE Prophylaxis: High Risk of Bleeding
[2016-12-08] MEDS ORDERED: HEPARIN/NACL 0.9% 2 UNITS/ML 1,000 ML IV ONE (14:44)
[2016-12-08] MEDS ORDERED: LIDOCAINE 1% 20 ML VIAL ONE (14:44)
--- NOTE | 2016-12-08 15:03 | History and Physical Update ---
Sedation H&P Update - History and Physical H&P was reviewed, the patient examined and there: are no changes in the patients condition since last H&P was completed. - Dictation Physical: refer to H&P completed by admitting physician - Physical Exam Mental Status: alert and oriented Heart: regular rate and rhythm Lung: clear to auscultation Abdomen: within normal limits Vitals: within normal limits - Sedation Plan for Sedation: moderate Patient Consent: Procedure disscussed with patient and patinet has consented., Risks and benefits were discussed with patient,including infection,, bleeding, injury to surrounding structures, seizure, temporary nerve, Patient understands and accepts potential risks/benefits and agrees to, proceed. ASA Class: IV Airway Assessment: Class II: Soft palate, uvula, fauces visible
[2016-12-08] MEDS ORDERED: MIDAZOLAM 2 MG/2 ML VIAL ONE (15:18)
[2016-12-08] MEDS ORDERED: fentaNYL 100 MCG/2 ML VIAL ONE (15:23)
[2016-12-08] MEDS ORDERED: BIVALIRUDIN 250 MG VIAL IV ONE (15:50)
[2016-12-08] MEDS ORDERED: CLOPIDOGREL 300 MG TABLET ONE (16:31)
[2016-12-08] MEDS: RANOLAZINE 500 MG TABLET PO SCH ×2 (20:36→20:48)
[2016-12-08] MEDS: ASPIRIN CHEW 81 MG TABLET PO SCH (20:48)
[2016-12-09] MEDS: PIPERACILLIN/TAZOBACTAM 3,375 MG in SODIUM CHLORIDE 0.9% 100 ML IV SCH ×3 (03:02→20:27)
[2016-12-09 04:48] LABS: Basophils % 0.4 % (0.0-0.8); Eosinophils # 0.3 10*3/uL (0.0-0.87); Eosinophils % 3.4 % (0.00-10.9); Hematocrit 30.7 VOL% (35.7-47.0); Hemoglobin 9.7 GM/DL (12.0-16.0); Immature Granulocytes % 0.4 %; Immature Granulocytes Absolute 0.03 #; Lymphocytes % 25.9 % (21.3-54.2); Mean Corpuscular HGB Conc 31.6 GM/DL (32-36); Mean Corpuscular Hemoglobin 30 PG (27-34); Mean Corpuscular Volume 94.2 FL (87-102); Mean Platelet Volume 10.2 FL (9.6-12.0); Monocytes # 0.6 10*3/uL (0.11-0.8); Monocytes % 8.4 % (1.7-12.7); Neutrophils # 4.7 10*3/uL (1.4-7.4); Neutrophils % 61.5 % (38.7-73.9); Platelet Count 165 T/CUMM (130-400); Red Blood Count 3.26 MC/CUMM (3.8-5.5); Red Cell Distribution Width 18.6 % (9.3-17.3); White Blood Count 7.6 T/CUMM (4-12)
[2016-12-09 05:23] LABS: Calcium 8.8 MG/DL (8.5-10.1); Magnesium 2.1 MG/DL (1.8-2.4); Osmolality,Calculated 275.5 MOS/KG (273-304)
[2016-12-09] MEDS: FONDAPARINUX 2.5 MG/0.5 ML SYRINGE SUBCUT SCH (06:07)
--- NOTE | 2016-12-09 07:45 | Order Completion Report ---
See report scanned to EMR
[2016-12-09] MEDS: PARoxetine 20 MG TABLET PO SCH (08:09)
[2016-12-09] MEDS: CLOPIDOGREL 75 MG TABLET PO SCH (08:09)
[2016-12-09] MEDS: PANTOPRAZOLE 40 MG TABLET PO SCH (08:09)
[2016-12-09] MEDS: RANOLAZINE 500 MG TABLET PO SCH ×2 (08:09→20:28)
[2016-12-09] MEDS: ISOSORBIDE MONONITRATE 60 MG TABLET PO SCH (08:09)
[2016-12-09] MEDS: CARVEDILOL 3.125 MG TABLET PO SCH ×2 (08:09→20:28)
--- NOTE | 2016-12-09 09:45 | Cardiology Progress Note ---
Assessment and Plan (1) Stented coronary artery Status: Acute Current Visit: Yes (2) CAD (coronary artery disease) Status: Chronic Current Visit: No Qualifiers: Coronary Disease-Associated Artery/Lesion type: [place] artery [place] vs. transplanted heart: [place] heart Associated angina: without angina Qualified Code(s): I25.10 - Atherosclerotic heart disease of [place] coronary artery without angina pectoris (3) Dyslipidemia Status: Chronic Current Visit: No (4) Unstable angina Status: Acute Current Visit: No (5) Anemia Status: Chronic Current Visit: No (6) Hypertension Status: Chronic Current Visit: No (7) Peripheral artery disease Status: Chronic Current Visit: No (8) Pseudoaneurysm of right femoral artery Status: Resolved Current Visit: No (9) Cellulitis of groin, right Status: Acute Current Visit: No Cardiology - PN: Subj Interval history: GREASE MONKEY: DR. QUINN SUMMARY: Ms. Umana, 61 WF, has risk factors significant for: CAD, hypertension , dyslipidemia, PAD, history of tobacco use, sedentary lifestyle. Cardiac catheterization May 26, 2016 required PCI of proximal to mid RCA with INOCENCIO. ( See cardiac catheterization report). September 28, 2016 underwent PCI of ostial to distal right SFA. (See report). Echocardiogram November 11, 2016: EF 55%, mild concentric LVH, RVSP 39 mmHg. After the September 28, 2016 SFA intervention, patient has had an infected pseudoaneurysm (staph aureus bacteremia) requiring hospitalization. She was treated with 6 weeks of IV antibiotics, followed by Dr. Quinn outpatient as well as Dr. Sommer and Dr. Drew Alexandra. Patient was directly admitted to hospital for treatment of right femoral artery hematoma and possible infected patch graft. December 05, 2016 Dr. Sommer performed debridement of wound with evacuation of hematoma, irrigation and placement of wound VAC. During the procedure, experienced hypotension and inferolateral EKG changes. Postoperatively, patient acknowledged she had been off her Plavix for approximately 6 weeks because she thought she was not to take Plavix and antibiotics together. Once patient's blood pressure normalized , EKG changes resolved. She was placed in the ICU overnight. The subsequent day she developed recurrent chest pain with dynamic inferolateral ECG changes. She underwent cardiac catheterization with PCI to her distal mid RCA and placement of synergy 2.25 x 20 mm drug-eluting stent on December 08, 2016. December 09, 2016: Evening was uneventful. She denies any chest pain, shortness of breath, groin pain. She is not having any nausea, vomiting, diarrhea. Hemodynamics are stable. Hemoglobin is stable. IMPRESSION/PLAN: 1. Unstable angina now status post PCI to distal mid RCA-clinically this is now stable. She is on dual antiplatelet therapy. 2. RIGHT FEMORAL ARTERY HEMATOMA -S/P evacuation, irrigation and placement of wound VAC. Continuing antibiotics. 3. CAD - S/P PCI of proximal to mid RCA with INOCENCIO May 26, 2016 and now December 08, 2016. Continue Aspirin and Plavix. 4. HYPERTENSION - adequately controlled. Continuing ROSIO inhibitor and beta- jennifer. Will adjust medications accordingly during hospital stay 5. DYSLIPIDEMIA - continue Crestor. No need to repeat fasting lipid profile at this point as there is a recent result on file in clinic. 6. SEVERE PAD - continue Aspirin and Plavix. Appreciate Dr. Sommer's assistance. 7. BREAST CANCER - status post right mastectomy May 2016 for stage I triple negative breast cancer. Underwent mastectomy with adjunctive chemotherapy. Completed chemotherapy regimen August 2016. She is followed by Dr. Mejía 8. ANEMIA - transfused 2 units Sunday. Anemia has improved and is stable. Will continue to monitor CBC daily. 9. ELEVATED TROPONIN -was mildly increased last evening and trended down. Current troponin is pending. The patient is stable for transfer to the floor. I asked the nurse to find a surgical bed with remote telemetry. Exam (Progress Note) - Constitutional Vitals: Period Temp Pulse Resp BP Sys/[place] Pulse Ox Last 24 Hr 97.4 F-99.7 F 59-76 13-22 85-135/51-81 93-97 Exam: General appearance: normal weight, no acute distress - Head Head exam: Present: normal inspection, normocephalic, atraumatic. Absent: hematoma, laceration - Eye Eye exam: Present: EOMI. Absent: conjunctival injection, nystagmus, periorbital swelling, scleral icterus, laceration to eyelids Pupils: Present: PERRL. Absent: constricted, dilated, fixed, irregular, unequal - ENT ENT exam: Present: normal exam, normal external ear exam - Neck Neck exam: Present: normal inspection. Absent: lymphadenopathy, meningismus, tenderness, thyromegaly - Respiratory Respiratory exam: Present: clear to auscultation bilaterally. Absent: accessory muscle use, chest wall tenderness - Cardiovascular Cardiovascular exam: Present: regular rate and rhythm, soft 2/6 holosystolic murmur. Absent: carotid bruit, gallop, JVD, rubs - GI/Abdominal GI/Abdominal exam: Present: normal bowel sounds, soft. Absent: distended, firm , guarding, hernia, mass, tenderness, rebound. - Extremities Exam Extremities exam: Present: Wound VAC to right groin, left groin without hematoma or bruit, left femoral pulse is 2+ and bilateral distal pulses are palpable. Absent: calf tenderness, edema - Back Exam Back exam: Present: normal inspection. Absent: muscle spasm, vertebral tenderness - Neurological Exam Neurological exam: Present: alert, oriented X3, grossly intact without resting or intention tremor - Psychiatric Psychiatric exam: Present: normal affect, normal mood - Skin Skin exam: Present: normal color, warm, dry, intact. Absent: cyanosis, diaphoretic, rash, urticaria Result/EKG - Labs CBC & BMP: 12/09/16 04:32 12/09/16 04:32 Lab Results: I have reviewed the past 24 hour labs Labs: Laboratory Results - last 24 hr 12/08/16 12/08/16 12/09/16 09:01 10:48 04:32 WBC 7.6 RBC 3.26 L Hgb 9.7 L Hct 30.7 L MCV 94.2 MCH 30 MCHC 31.6 L RDW 18.6 H Plt Count 165 MPV 10.2 Neut % (Auto) 61.5 Lymph % (Auto) 25.9 [place] % (Auto) 8.4 Eos % (Auto) 3.4 Baso % (Auto) 0.4 Neut # (Auto) 4.7 Lymph # (Auto) 2.0 [place] # (Auto) 0.6 Eos # (Auto) 0.3 Baso # (Auto) 0.0 Immature Gran % 0.4 Nucleated RBC % 0.0 Immature Gran # 0.03 Nucleated RBCs # 0.00 Immature Plt Fraction 0.0 INR 1.0 PT Patient/Control Mix 10.3 Sodium Potassium Chloride Carbon Dioxide Anion Gap BUN Creatinine GFR Calculation BUN/Creatinine Ratio Glucose Calculated Osmolality Calcium Magnesium Total Creatine Kinase 40 D CK-MB (CK-2) < 1.0 Troponin I 0.042 12/09/16 04:32 WBC RBC Hgb Hct MCV MCH MCHC RDW Plt Count MPV Neut % (Auto) Lymph % (Auto) [place] % (Auto) Eos % (Auto) Baso % (Auto) Neut # (Auto) Lymph # (Auto) [place] # (Auto) Eos # (Auto) Baso # (Auto) Immature Gran % Nucleated RBC % Immature Gran # Nucleated RBCs # Immature Plt Fraction INR PT Patient/Control Mix Sodium 139 Potassium 4.0 Chloride 106 Carbon Dioxide 23 Anion Gap 14.0 BUN 10 Creatinine 0.70 GFR Calculation 87 BUN/Creatinine Ratio 14.00 Glucose 99 Calculated Osmolality 275.5 Calcium 8.8 Magnesium 2.1 Total Creatine Kinase CK-MB (CK-2) Troponin I - EKG EKG results: interpreted by me, sinus rhythm, no acute changes Quality Measures - VTE Contraindication to Pharmacological VTE Prophylaxis: High Risk of Bleeding
--- NOTE | 2016-12-09 10:31 | Event Note ---
This patient is doing well today. She had a cardiac catheterization yesterday with stenting of her RCA. She has been cleared by cardiology to transfer to a monitored bed. Her right leg wound is clean and dry and the wound VAC is in place with some bloody drainage but no evidence of uncontrolled infection. Transferred to monitored bed on 3 E. and continue current antibiotics and wound VAC therapy.
[2016-12-09] MEDS: ASPIRIN CHEW 81 MG TABLET PO SCH (20:28)
[2016-12-10] MEDS: PIPERACILLIN/TAZOBACTAM 3,375 MG in SODIUM CHLORIDE 0.9% 100 ML IV SCH ×3 (03:10→18:01)
[2016-12-10] MEDS: FONDAPARINUX 2.5 MG/0.5 ML SYRINGE SUBCUT SCH (05:47)
[2016-12-10] MEDS: ISOSORBIDE MONONITRATE 60 MG TABLET PO SCH (09:25)
[2016-12-10] MEDS: RANOLAZINE 500 MG TABLET PO SCH ×2 (09:26→20:17)
[2016-12-10] MEDS: CLOPIDOGREL 75 MG TABLET PO SCH (09:26)
[2016-12-10] MEDS: CARVEDILOL 3.125 MG TABLET PO SCH ×2 (09:27→20:18)
[2016-12-10] MEDS: PARoxetine 20 MG TABLET PO SCH (09:27)
[2016-12-10] MEDS: PANTOPRAZOLE 40 MG TABLET PO SCH (09:27)
--- NOTE | 2016-12-10 09:40 | Event Note ---
No events overnight. Patient was transferred to the monitored bed on from the ICU yesterday. She is not having any chest pain or shortness of breath. Her wound VAC is working well and has minimal additional serosanguineous/sanguinous output. She is afebrile with normal vital signs. Her right groin VAC site dressing is clean and dry with no erythema. Continue current care.
--- NOTE | 2016-12-10 16:27 | Cardiology Progress Note ---
Assessment and Plan (1) Stented coronary artery Status: Acute Current Visit: Yes (2) CAD (coronary artery disease) Status: Chronic Current Visit: No Qualifiers: Coronary Disease-Associated Artery/Lesion type: [place] artery [place] vs. transplanted heart: [place] heart Associated angina: without angina Qualified Code(s): I25.10 - Atherosclerotic heart disease of [place] coronary artery without angina pectoris (3) Dyslipidemia Status: Chronic Current Visit: No (4) Unstable angina Status: Acute Current Visit: No (5) Anemia Status: Chronic Current Visit: No (6) Hypertension Status: Chronic Current Visit: No (7) Peripheral artery disease Status: Chronic Current Visit: No (8) Pseudoaneurysm of right femoral artery Status: Resolved Current Visit: No (9) Cellulitis of groin, right Status: Acute Current Visit: No Cardiology - PN: Subj Interval history: SOCIAL MEDIA ASSISTANT: DR. QUINN SUMMARY: Ms. Umana, 61 WF, has risk factors significant for: CAD, hypertension , dyslipidemia, PAD, history of tobacco use, sedentary lifestyle. Cardiac catheterization May 26, 2016 required PCI of proximal to mid RCA with INOCENCIO. ( See cardiac catheterization report). September 28, 2016 underwent PCI of ostial to distal right SFA. (See report). Echocardiogram November 11, 2016: EF 55%, mild concentric LVH, RVSP 39 mmHg. After the September 28, 2016 SFA intervention, patient has had an infected pseudoaneurysm (staph aureus bacteremia) requiring hospitalization. She was treated with 6 weeks of IV antibiotics, followed by Dr. Quinn outpatient as well as Dr. Sommer and Dr. Drew Alexandra. Patient was directly admitted to hospital for treatment of right femoral artery hematoma and possible infected patch graft. December 05, 2016 Dr. Sommer performed debridement of wound with evacuation of hematoma, irrigation and placement of wound VAC. During the procedure, experienced hypotension and inferolateral EKG changes. Postoperatively, patient acknowledged she had been off her Plavix for approximately 6 weeks because she thought she was not to take Plavix and antibiotics together. Once patient's blood pressure normalized , EKG changes resolved. She was placed in the ICU overnight. The subsequent day she developed recurrent chest pain with dynamic inferolateral ECG changes. She underwent cardiac catheterization with PCI to her distal mid RCA and placement of synergy 2.25 x 20 mm drug-eluting stent on December 08, 2016. December 10, 2016: Evening was uneventful. She denies any chest pain, shortness of breath, groin pain. She is not having any nausea, vomiting, diarrhea. Hemodynamics are stable. Hemoglobin is stable. IMPRESSION/PLAN: 1. Unstable angina now status post PCI to distal mid RCA-clinically this is now stable. She is on dual antiplatelet therapy. 2. RIGHT FEMORAL ARTERY HEMATOMA -S/P evacuation, irrigation and placement of wound VAC. Continuing antibiotics. 3. CAD - S/P PCI of proximal to mid RCA with INOCENCIO May 26, 2016 and now December 08, 2016. Continue Aspirin and Plavix. 4. HYPERTENSION - adequately controlled. Continuing ROSIO inhibitor and beta- jennifer. Will adjust medications accordingly during hospital stay 5. DYSLIPIDEMIA - continue Crestor. No need to repeat fasting lipid profile at this point as there is a recent result on file in clinic. 6. SEVERE PAD - continue Aspirin and Plavix. 7. BREAST CANCER - status post right mastectomy May 2016 for stage I triple negative breast cancer. Underwent mastectomy with adjunctive chemotherapy. Completed chemotherapy regimen August 2016. She is followed by Dr. Mejía 8. ANEMIA - transfused 2 units Sunday. Anemia has improved and is stable. Will continue to monitor CBC daily. Continue current therapy, no new recommendations. Exam (Progress Note) - Constitutional Vitals: Period Temp Pulse Resp BP Sys/[place] Pulse Ox Last 24 Hr 96.9 F-98.3 F 68-70 14-18 115-150/63-71 96-99 Exam: General appearance: normal weight, no acute distress - Head Head exam: Present: normal inspection, normocephalic, atraumatic. Absent: hematoma, laceration - Eye Eye exam: Present: EOMI. Absent: conjunctival injection, nystagmus, periorbital swelling, scleral icterus, laceration to eyelids Pupils: Present: PERRL. Absent: constricted, dilated, fixed, irregular, unequal - ENT ENT exam: Present: normal exam, normal external ear exam - Neck Neck exam: Present: normal inspection. Absent: lymphadenopathy, meningismus, tenderness, thyromegaly - Respiratory Respiratory exam: Present: clear to auscultation bilaterally. Absent: accessory muscle use, chest wall tenderness - Cardiovascular Cardiovascular exam: Present: regular rate and rhythm, soft 2/6 holosystolic murmur. Absent: carotid bruit, gallop, JVD, rubs - GI/Abdominal GI/Abdominal exam: Present: normal bowel sounds, soft. Absent: distended, firm , guarding, hernia, mass, tenderness, rebound. - Extremities Exam Extremities exam: Present: Wound VAC to right groin, left groin without hematoma or bruit, left femoral pulse is 2+ and bilateral distal pulses are palpable. Absent: calf tenderness, edema - Back Exam Back exam: Present: normal inspection. Absent: muscle spasm, vertebral tenderness - Neurological Exam Neurological exam: Present: alert, oriented X3, grossly intact without resting or intention tremor - Psychiatric Psychiatric exam: Present: normal affect, normal mood - Skin Skin exam: Present: normal color, warm, dry, intact. Absent: cyanosis, diaphoretic, rash, urticaria Result/EKG - Labs CBC & BMP: 12/09/16 04:32 12/09/16 04:32 Lab Results: I have reviewed the past 24 hour labs Quality Measures - VTE Contraindication to Pharmacological VTE Prophylaxis: High Risk of Bleeding
[2016-12-10] MEDS: ASPIRIN CHEW 81 MG TABLET PO SCH (20:18)
[2016-12-11] MEDS: PIPERACILLIN/TAZOBACTAM 3,375 MG in SODIUM CHLORIDE 0.9% 100 ML IV SCH ×2 (03:17→10:50)
[2016-12-11] MEDS: FONDAPARINUX 2.5 MG/0.5 ML SYRINGE SUBCUT SCH (05:32)
[2016-12-11] MEDS: RANOLAZINE 500 MG TABLET PO SCH ×2 (08:41→21:15)
[2016-12-11] MEDS: ISOSORBIDE MONONITRATE 60 MG TABLET PO SCH (08:42)
[2016-12-11] MEDS: PARoxetine 20 MG TABLET PO SCH (08:42)
[2016-12-11] MEDS: CARVEDILOL 3.125 MG TABLET PO SCH ×2 (08:42→21:15)
[2016-12-11] MEDS: PANTOPRAZOLE 40 MG TABLET PO SCH (08:42)
[2016-12-11] MEDS: CLOPIDOGREL 75 MG TABLET PO SCH (08:42)
--- NOTE | 2016-12-11 09:34 | Event Note ---
Mrs. Umana is not having any further chest pain since her cardiac catheterization and intervention last Sunday. She is afebrile and getting along reasonably well we change the wound VAC today and there is some improvement in the wound but we clearly need to continue the back at the low pressure for now. Notably the culture from last weeks evacuation shows an E. coli which is a new bacteria but it is susceptible to most antibiotics of the daptomycin that she is currently taking should provide coverage I think that if we can arrange for a home wound VAC we can make arrangements for her to be treated as an outpatient
--- NOTE | 2016-12-11 12:22 | Infectious Disease Progress ---
Assessment and Plan (1) Hematoma Status: Acute Current Visit: Yes (2) Edema of right lower extremity Status: Acute Current Visit: No (3) Pseudoaneurysm of right femoral artery Status: Resolved Assessment and plan: The pseudoaneurysm was infected and the patient has gotten almost 4 weeks of antibiotic therapy. Tissue cultures from latest surgery positive for E. coli, this will be secondary infection. Recommendations: 1. De-escalate from Zosyn to levofloxacin 500 mg daily 2. Continue daptomycin 3. Continue above antibiotic regimen for about 2 weeks 4. Appointment to see me in the office in 2 weeks Current Visit: No Infectious Disease - PN: Subj Interval history: Patient doing generally okay, no problems over the weekend. No nausea vomiting or diarrhea and antibiotics. No fever. Infectious Disease Exam (PN) - Constitutional Vitals: Temp Pulse Resp BP Pulse Ox 96.6 F L 64 17 112/68 95 12/11/16 10:39 12/11/16 10:39 12/11/16 10:39 12/11/16 10:39 12/11/16 10:39 Exam: General appearance: no acute distress - Eye Eye exam: Present: EOMI. no icterus Pupils: Present: ROSIE - ENT ENT exam: no oral exudates - Respiratory Respiratory exam: vesicular BS, no crepitations or wheezes - Cardiovascular Cardiovascular exam: regular rate and rhythm, no murmurs - GI/Abdominal GI/Abdominal exam: normal bowel sounds, soft, non-tender, no organomegaly or mass - Extremities Exam Extremities exam: Right groin wound with VAC, no significant surrounding induration, no erythema, area looks much better in general - Skin Skin exam: no rash Results - Labs CBC & BMP: 12/09/16 04:32 12/09/16 04:32 Lab Results: I have reviewed the past 24 hour labs (E. coli from right groin tissue culture) Quality Measures - VTE Contraindication to Pharmacological VTE Prophylaxis: High Risk of Bleeding
[2016-12-11] MEDS: LEVOFLOXACIN 500 MG TABLET PO SCH (13:00)
[2016-12-11] MEDS: ASPIRIN CHEW 81 MG TABLET PO SCH (21:15)
--- NOTE | 2016-12-11 22:23 | Cardiology Progress Note ---
Geneva Alex April RN, am scribing for, and in the presence of, Lele Colbert MD 22:22. Assessment and Plan (1) CAD (coronary artery disease) Status: Chronic Assessment and plan: Initial assessment and plan December 11, 2016: No chest pain after standing Right groin wound VAC is working well Left groin okay Increase activity Review meds list Current Visit: Yes Qualifiers: Coronary Disease-Associated Artery/Lesion type: [place] artery [place] vs. transplanted heart: [place] heart Associated angina: without angina Qualified Code(s): I25.10 - Atherosclerotic heart disease of [place] coronary artery without angina pectoris (2) Stented coronary artery Status: Acute Current Visit: Yes (3) Anemia Status: Acute Current Visit: Yes (4) Cellulitis of groin, right Status: Acute Current Visit: Yes (5) Dyslipidemia Status: Chronic Current Visit: Yes (6) Hypertension Status: Chronic Current Visit: Yes (7) Peripheral artery disease Status: Chronic Current Visit: Yes Cardiology - PN: Subj Interval history: Cloud Developer: Dr. Marks SUMMARY: Ms. Umana, 61 WF, has risk factors significant for: CAD, hypertension , dyslipidemia, PAD, history of tobacco use, sedentary lifestyle. Cardiac catheterization May 26, 2016 required PCI of proximal to mid RCA with INOCENCIO. ( See cardiac catheterization report). September 28, 2016 underwent PCI of ostial to distal right SFA. (See report). Echocardiogram November 11, 2016: EF 55%, mild concentric LVH, RVSP 39 mmHg. After the September 28, 2016 SFA intervention, patient has had an infected pseudoaneurysm (staph aureus bacteremia) requiring hospitalization. She was treated with 6 weeks of IV antibiotics, followed by Dr. Marks outpatient as well as Dr. Sommer and Dr. Drew Alexandra. Patient was directly admitted to hospital for treatment of right femoral artery hematoma and possible infected patch graft. December 05, 2016 Dr. Sommer performed debridement of wound with evacuation of hematoma, irrigation and placement of wound VAC. During the procedure, experienced hypotension and inferolateral EKG changes. Postoperatively, patient acknowledged she had been off her Plavix for approximately 6 weeks because she thought she was not to take Plavix and antibiotics together. Once patient's blood pressure normalized , EKG changes resolved. She was placed in the ICU overnight. The subsequent day she developed recurrent chest pain with dynamic inferolateral ECG changes. She underwent cardiac catheterization with PCI to her distal mid RCA and placement of synergy 2.25 x 20 mm drug-eluting stent on December 08, 2016. December 11, 2016: Ms. Umana is seen resting in bed no acute distress. She denies any chest pain or shortness of breath. Wound VAC to right groin. Left groin soft without evidence of bleeding or hematoma. Vital signs have been stable. Discharge planning is in affect, checking to see if she can go home with wound VAC. Review of systems: Cardiovascular: Denies chest pain. Gastrointestinal: Denies abdominal pain. Neurological: Awake, alert, and oriented. Exam (Progress Note) - Constitutional Vitals: Period Temp Pulse Resp BP Sys/[place] Pulse Ox Last 24 Hr 96.9 F-97.8 F 58-70 14-18 104-128/57-77 96-100 Exam: General appearance: normal weight, no acute distress - Head Head exam: Present: normal inspection, normocephalic, atraumatic. Absent: hematoma, laceration - Eye Eye exam: Present: EOMI. Absent: conjunctival injection, nystagmus, periorbital swelling, scleral icterus, laceration to eyelids Pupils: Present: PERRL. Absent: constricted, dilated, fixed, irregular, unequal - ENT ENT exam: Present: normal exam, normal external ear exam - Neck Neck exam: Present: normal inspection. Absent: lymphadenopathy, meningismus, tenderness, thyromegaly - Respiratory Respiratory exam: Present: clear to auscultation bilaterally. Absent: accessory muscle use, chest wall tenderness - Cardiovascular Cardiovascular exam: Present: regular rate and rhythm, murmur. Absent: carotid bruit, gallop, JVD, rubs - GI/Abdominal GI/Abdominal exam: Present: normal bowel sounds, soft. Absent: distended, firm , guarding, hernia, mass, tenderness, rebound. - Extremities Exam Extremities exam: Present: Wound VAC to right groin, left groin without hematoma or bruit, left femoral pulse is 2+ and bilateral distal pulses are palpable. Absent: calf tenderness, edema - Back Exam Back exam: Present: normal inspection. Absent: muscle spasm, vertebral tenderness - Neurological Exam Neurological exam: Present: alert, oriented X3, grossly intact without resting or intention tremor - Psychiatric Psychiatric exam: Present: normal affect, normal mood - Skin Skin exam: Present: normal color, warm, dry, intact. Absent: cyanosis, diaphoretic, rash, urticaria Result/EKG - Labs CBC & BMP: 12/09/16 04:32 12/09/16 04:32 Labs: Laboratory Results - last 24 hr 12/06/16 09:29 Crossmatch See Detail - EKG EKG results: interpreted by me EKG shows: sinus rhythm Quality Measures - VTE Contraindication to Pharmacological VTE Prophylaxis: High Risk of Bleeding Specialty Discharge - Follow Up or Referrals Follow up with: Kennedi Hodgson MD [Physician] - 12/26/16 9:30 am ISayra Dale, MD, personally performed the services described in this documentation, ascribed by Alicia Bean RN in my presence, and it is both accurate and complete .
[2016-12-12] MEDS: FONDAPARINUX 2.5 MG/0.5 ML SYRINGE SUBCUT SCH (06:07)
--- NOTE | 2016-12-12 09:01 | Discharge Summary ---
Hospital Course - Hospital Course Hospital Course: Ms. Umana was admitted with a hematoma of her right inguinal incision taken to surgery where this was irrigated and evacuated the wound edges debrided and we are treating with a wound VAC. Second cultures were done at that time are growing E. coli she is currently on daptomycin for MRSA that was grown previously. We will add Levaquin 2 weeks and I will see her in the office next week. We have set up wound VAC care at home with her home health agency. Also during this hospitalization she had recurrent chest pain she had some difficulty at the time of her surgery with hypotension and changes in EKG. She underwent cardiac catheterization and placement of a 9 another right coronary stent last Sunday. Emphasized to her that she should continue with her Plavix which she had stopped previously I will see her in the office next Specialty Discharge - Follow Up or Referrals Follow up with: Kennedi Hodgson MD [Physician] - 12/26/16 9:30 am Discharge Plan - Discharge Data Disposition: Home Health Service Condition at Discharge: Stable Discharge Diet: advance to your usual diet Activity: resume usual activities as tolerated Hygiene: may shower Weight Bearing at Discharge: full weight bearing Driving: not until seen by doctor Contact your physician if you experience:: fever over 101, Redness or swelling, Bleeding - Discharge Medications New DAPTOmycin [Cubicin] 400 mg IV Q24H vial Isosorbide Mononitrate [Imdur] 60 mg PO DAILY tablet Levofloxacin Tab [Levaquin Tab] 500 mg PO Q24H #14 tablet Pantoprazole Tab [Protonix Tab] 40 mg PO DAILY tablet Ranolazine [Ranexa] 1,000 mg PO BID tablet Clopidogrel [Plavix] 75 mg PO DAILY tablet HYDROcodone/ACETAMIN 7.5-325 [[place] 7.5-325] 2 tablet PO Q4H PRN tablet PRN Reason: Pain Moderate (4-7) Continue PARoxetine [Paxil] 20 mg PO QAM Rosuvastatin [Crestor] 40 mg PO BEDTIME Isosorbide Mononitrate [Isosorbide Mononitrate ER] 30 mg PO QAM Nitroglycerin Sl Tab [Nitrostat] 0.4 mg SL Q5M PRN tablet PRN Reason: Chest Pain Lisinopril [Prinivil] 10 mg PO BID tablet HYDROcodone/ACETAMIN 7.5-325 [[place] 7.5-325] 1 tablet PO Q4H PRN #20 tablet PRN Reason: Pain Moderate (4-7) Pantoprazole Tab [Protonix Tab] 40 mg PO DAILY Aspirin Chew Tab 81 mg PO BEDTIME Carvedilol [Coreg] 3.125 mg PO BID #60 tablet Ranolazine [Ranexa] 500 mg PO BID Clopidogrel [Plavix] 75 mg PO QPM DAPTOmycin [Cubicin] 400 mg IV DAILY vial - Follow Up or Referral Follow Up: Kennedi Hodgson MD [Physician] - 12/26/16 9:30 am Jer Sommer MD [Physician] - 12/18/16 - Forms/Instructions Exam - Constitutional Vitals: Period Temp Pulse Resp BP Sys/[place] Pulse Ox Last 24 Hr 96.5 F-98.0 F 63-71 17-20 104-130/60-71 95-98 Discharge Results Labs on day of discharge: Labs from last 24 hours 12/06/16 09:29 Crossmatch See Detail DS: Provider Date of admission: 12/05/16 16:52 Primary care physician: AYLEEN Lin Attending physician on admission: Jer Sommer MD Consults: 12/05/16 17:00 Consult to Physician [CONS] Routine Comment: patient known to you Consulting Provider: Jac Marks Consulting Provider Notified: Yes When should Consulting Provider be notified: Now Person Notified: [place] called Date Notified: 12/06/16 Time Notified: 07:45 12/05/16 17:03 Consult to Physician [CONS] Routine Comment: patient known to you Consulting Provider: Kennedi Hodgson Consulting Provider Notified: Yes When should Consulting Provider be notified: Now Person Notified: kennedy called Date Notified: 12/06/16 Time Notified: 08:35 12/05/16 20:45 Consult to Dietitian [CONS] Routine Reason for Dietitian: Other Consult to Pastoral Services [CONS] Routine Comment: Pastoral Screen: Request Bleach Mixer Visit Pastoral Screen Source of Request: Patient 12/06/16 10:54 Consult to Wound Care [facility] [CONS] Routine Reason for Wound Care: Wound Care Management Consult Comment: wound vac placed in OR Discharging clinician: Jer Sommer MD
[2016-12-12] MEDS: PARoxetine 20 MG TABLET PO SCH (09:31)
[2016-12-12] MEDS: CLOPIDOGREL 75 MG TABLET PO SCH (09:31)
[2016-12-12] MEDS: CARVEDILOL 3.125 MG TABLET PO SCH ×2 (09:31→20:50)
[2016-12-12] MEDS: PANTOPRAZOLE 40 MG TABLET PO SCH (09:32)
[2016-12-12] MEDS: RANOLAZINE 500 MG TABLET PO SCH ×2 (09:32→20:50)
[2016-12-12] MEDS: ISOSORBIDE MONONITRATE 60 MG TABLET PO SCH (09:33)
--- NOTE | 2016-12-12 10:04 | Event Note ---
Patient doing well, getting ready to go home today. She remains on antibiotic therapy, daptomycin and oral levofloxacin. She is see me in the office in about 2 weeks time.
[2016-12-12] MEDS: LEVOFLOXACIN 500 MG TABLET PO SCH (13:04)
--- NOTE | 2016-12-12 20:39 | Cardiology Progress Note ---
Assessment and Plan (1) CAD (coronary artery disease) Status: Chronic Assessment and plan: Initial assessment and plan December 11, 2016: No chest pain after standing Right groin wound VAC is working well Left groin okay Increase activity Review meds list 12/12/16 No angina Wound VAC is doing well Okay with me for her to be discharged with a wound VAC Since she had a recent stent she will need to be on dual antiplatelet therapy Dr. Guru Sheppard will see her back in follow-up within the next few weeks. Current Visit: Yes Qualifiers: Coronary Disease-Associated Artery/Lesion type: [place] artery [place] vs. transplanted heart: [place] heart Associated angina: without angina Qualified Code(s): I25.10 - Atherosclerotic heart disease of [place] coronary artery without angina pectoris (2) Stented coronary artery Status: Acute Current Visit: Yes (3) Anemia Status: Inactive Current Visit: Yes (4) Cellulitis of groin, right Status: Acute Current Visit: Yes (5) Dyslipidemia Status: Chronic Current Visit: Yes (6) Hypertension Status: Chronic Current Visit: Yes (7) Peripheral artery disease Status: Chronic Current Visit: Yes Cardiology - PN: Subj Interval history: No chest pain or shortness of breath Exam (Progress Note) - Constitutional Vitals: Period Temp Pulse Resp BP Sys/[place] Pulse Ox Last 24 Hr 96.4 F-98.2 F 65-88 17-20 112-135/60-79 95-99 Exam: General appearance: normal weight, no acute distress - Head Head exam: Present: normal inspection, normocephalic, atraumatic. Absent: hematoma, laceration - Eye Eye exam: Present: EOMI. Absent: conjunctival injection, nystagmus, periorbital swelling, scleral icterus, laceration to eyelids Pupils: Present: PERRL. Absent: constricted, dilated, fixed, irregular, unequal - ENT ENT exam: Present: normal exam, normal external ear exam - Neck Neck exam: Present: normal inspection. Absent: lymphadenopathy, meningismus, tenderness, thyromegaly - Respiratory Respiratory exam: Present: clear to auscultation bilaterally. Absent: accessory muscle use, chest wall tenderness - Cardiovascular Cardiovascular exam: Present: regular rate and rhythm, murmur. Absent: carotid bruit, gallop, JVD, rubs - GI/Abdominal GI/Abdominal exam: Present: normal bowel sounds, soft. Absent: distended, firm , guarding, hernia, mass, tenderness, rebound. - Extremities Exam Extremities exam: Present: Wound VAC to right groin, left groin without hematoma or bruit, left femoral pulse is 2+ and bilateral distal pulses are palpable. Absent: calf tenderness, edema - Back Exam Back exam: Present: normal inspection. Absent: muscle spasm, vertebral tenderness - Neurological Exam Neurological exam: Present: alert, oriented X3, grossly intact without resting or intention tremor - Psychiatric Psychiatric exam: Present: normal affect, normal mood - Skin Skin exam: Present: normal color, warm, dry, intact. Absent: cyanosis, diaphoretic, rash, urticaria Result/EKG - Labs CBC & BMP: 12/09/16 04:32 12/09/16 04:32 Lab Results: I have reviewed the past 24 hour labs Labs: Laboratory Results - last 24 hr 12/06/16 09:29 Crossmatch See Detail - EKG EKG results: interpreted by me Quality Measures - VTE Contraindication to Pharmacological VTE Prophylaxis: High Risk of Bleeding Specialty Discharge - Follow Up or Referrals Follow up with: Kennedi Hodgson MD [Physician] - 12/26/16 9:30 am Jer Sommer MD [Physician] - 12/18/16 2:30 pm Jac Marks MD [Physician] - (In about 4-6 weeks)
[2016-12-12] MEDS: ASPIRIN CHEW 81 MG TABLET PO SCH (20:50)
[2016-12-13 05:01] LABS: Basophils # 0.1 10*3/uL (0.0-0.2); Basophils % 0.8 % (0.0-0.8); Eosinophils # 0.4 10*3/uL (0.0-0.87); Eosinophils % 5.9 % (0.00-10.9); Hematocrit 34.9 VOL% (35.7-47.0); Hemoglobin 11.1 GM/DL (12.0-16.0); Immature Granulocytes % 0.2 %; Immature Granulocytes Absolute 0.01 #; Lymphocytes # 2.4 10*3/uL (1.4-4.0); Mean Corpuscular HGB Conc 31.8 GM/DL (32-36); Mean Corpuscular Hemoglobin 30 PG (27-34); Mean Corpuscular Volume 93.3 FL (87-102); Mean Platelet Volume 9.8 FL (9.6-12.0); Monocytes # 0.5 10*3/uL (0.11-0.8); Monocytes % 8.5 % (1.7-12.7); Neutrophils % 46.6 % (38.7-73.9); Platelet Count 262 T/CUMM (130-400); Red Blood Count 3.74 MC/CUMM (3.8-5.5); Red Cell Distribution Width 17.2 % (9.3-17.3); White Blood Count 6.3 T/CUMM (4-12)
[2016-12-13 05:38] LABS: Calcium 9.7 MG/DL (8.5-10.1); Osmolality,Calculated 276.7 MOS/KG (273-304); Potassium 4.2 MMOL/L (3.5-5.1)
[2016-12-13] MEDS: FONDAPARINUX 2.5 MG/0.5 ML SYRINGE SUBCUT SCH (06:16)
[2016-12-13] MEDS: CLOPIDOGREL 75 MG TABLET PO SCH (09:28)
[2016-12-13] MEDS: ISOSORBIDE MONONITRATE 60 MG TABLET PO SCH (09:28)
[2016-12-13] MEDS: PANTOPRAZOLE 40 MG TABLET PO SCH (09:28)
[2016-12-13] MEDS: PARoxetine 20 MG TABLET PO SCH (09:28)
[2016-12-13] MEDS: CARVEDILOL 3.125 MG TABLET PO SCH ×2 (09:28→20:56)
[2016-12-13] MEDS: RANOLAZINE 500 MG TABLET PO SCH ×2 (09:29→20:56)
--- NOTE | 2016-12-13 10:22 | Event Note ---
Mrs. Umana was ready for discharge yesterday but it turns out her insurance will not approve the use of the home wound VAC. I feel very strongly that the wound VAC has [place] major impact on healing this wound satisfactorily. We are therefore trying to find a location where that can be done she may only need it for 2 or 3 more weeks but I will be adamant that this wound care and wound VAC needs to be continued
[2016-12-13] MEDS: LEVOFLOXACIN 500 MG TABLET PO SCH (13:07)
[2016-12-13] MEDS: ASPIRIN CHEW 81 MG TABLET PO SCH (20:56)
[2016-12-14] MEDS: FONDAPARINUX 2.5 MG/0.5 ML SYRINGE SUBCUT SCH (05:59)
--- NOTE | 2016-12-14 08:22 | Cardiology Progress Note ---
Assessment and Plan (1) CAD (coronary artery disease) Status: Chronic Assessment and plan: Initial assessment and plan December 11, 2016: No chest pain after standing Right groin wound VAC is working well Left groin okay Increase activity Review meds list 12/12/16 No angina Wound VAC is doing well Okay with me for her to be discharged with a wound VAC Since she had a recent stent she will need to be on dual antiplatelet therapy Dr. Guru Sheppard will see her back in follow-up within the next few weeks. 12/13/16 No angina Left groin is okay Right groin has a wound VAC and doing well The patient tells me that Medicaid will not pay for home care for her wound VAC. She will be here to continue healing. Right groin wound is healing well. Watch for any signs or symptoms of ischemia. Current Visit: Yes Qualifiers: Coronary Disease-Associated Artery/Lesion type: [place] artery [place] vs. transplanted heart: [place] heart Associated angina: without angina Qualified Code(s): I25.10 - Atherosclerotic heart disease of [place] coronary artery without angina pectoris (2) Stented coronary artery Status: Acute Current Visit: Yes (3) Anemia Status: Inactive Current Visit: Yes (4) Cellulitis of groin, right Status: Acute Current Visit: Yes (5) Dyslipidemia Status: Chronic Current Visit: Yes (6) Hypertension Status: Chronic Current Visit: Yes (7) Peripheral artery disease Status: Chronic Current Visit: Yes Cardiology - PN: Subj Interval history: No chest pain or shortness of breath Exam (Progress Note) - Constitutional Vitals: Period Temp Pulse Resp BP Sys/[place] Pulse Ox Last 24 Hr 96.1 F-97.9 F 77-83 18-20 117-154/66-79 94-99 Exam: General appearance: normal weight, no acute distress - Head Head exam: Present: normal inspection, normocephalic, atraumatic. Absent: hematoma, laceration - Eye Eye exam: Present: EOMI. Absent: conjunctival injection, nystagmus, periorbital swelling, scleral icterus, laceration to eyelids Pupils: Present: PERRL. Absent: constricted, dilated, fixed, irregular, unequal - ENT ENT exam: Present: normal exam, normal external ear exam - Neck Neck exam: Present: normal inspection. Absent: lymphadenopathy, meningismus, tenderness, thyromegaly - Respiratory Respiratory exam: Present: clear to auscultation bilaterally. Absent: accessory muscle use, chest wall tenderness - Cardiovascular Cardiovascular exam: Present: regular rate and rhythm, murmur. Absent: carotid bruit, gallop, JVD, rubs - GI/Abdominal GI/Abdominal exam: Present: normal bowel sounds, soft. Absent: distended, firm , guarding, hernia, mass, tenderness, rebound. - Extremities Exam Extremities exam: Present: Wound VAC to right groin, left groin without hematoma or bruit, left femoral pulse is 2+ and bilateral distal pulses are palpable. Absent: calf tenderness, edema - Back Exam Back exam: Present: normal inspection. Absent: muscle spasm, vertebral tenderness - Neurological Exam Neurological exam: Present: alert, oriented X3, grossly intact without resting or intention tremor - Psychiatric Psychiatric exam: Present: normal affect, normal mood - Skin Skin exam: Present: normal color, warm, dry, intact. Absent: cyanosis, diaphoretic, rash, urticaria Result/EKG - Labs CBC & BMP: 12/13/16 04:03 12/13/16 04:03 Quality Measures - VTE Contraindication to Pharmacological VTE Prophylaxis: High Risk of Bleeding Specialty Discharge - Follow Up or Referrals Follow up with: Kennedi Hodgson MD [Physician] - 12/26/16 9:30 am Jac Marsk MD [Physician] - 01/10/17 12:40 pm (In about 4-6 weeks) Jer Sommer MD [Physician] - 12/18/16 2:30 pm
--- NOTE | 2016-12-14 09:22 | Event Note ---
We have changed Ms. Umana's wound VAC this morning it looks to be granulating and healing in well much mercury cell cleaner than it was on Sunday. She is ready for discharge and arrangements appear to have been made that she can get a home wound VAC and have it changed by home health so the plan now is for her to go home today change wound VAC on Mondays and I will plan to see her in approximately 2 weeks
[2016-12-14] MEDS: CARVEDILOL 3.125 MG TABLET PO SCH ×2 (09:34→21:17)
[2016-12-14] MEDS: ISOSORBIDE MONONITRATE 60 MG TABLET PO SCH (09:34)
[2016-12-14] MEDS: RANOLAZINE 500 MG TABLET PO SCH ×2 (09:34→21:17)
[2016-12-14] MEDS: PARoxetine 20 MG TABLET PO SCH (09:34)
[2016-12-14] MEDS: PANTOPRAZOLE 40 MG TABLET PO SCH (09:34)
[2016-12-14] MEDS: CLOPIDOGREL 75 MG TABLET PO SCH (09:36)
[2016-12-14] MEDS: LEVOFLOXACIN 500 MG TABLET PO SCH (12:14)
[2016-12-14] MEDS: ASPIRIN CHEW 81 MG TABLET PO SCH (21:18)
--- NOTE | 2016-12-14 23:25 | Cardiology Progress Note ---
Assessment and Plan (1) CAD (coronary artery disease) Status: Chronic Assessment and plan: Initial assessment and plan December 11, 2016: No chest pain after standing Right groin wound VAC is working well Left groin okay Increase activity Review meds list 12/12/16 No angina Wound VAC is doing well Okay with me for her to be discharged with a wound VAC Since she had a recent stent she will need to be on dual antiplatelet therapy Dr. Guru Sheppard will see her back in follow-up within the next few weeks. 12/13/16 No angina Left groin is okay Right groin has a wound VAC and doing well The patient tells me that Medicaid will not pay for home care for her wound VAC. She will be here to continue healing. Right groin wound is healing well. Watch for any signs or symptoms of ischemia. 12/14/16 no cp rt groin is ok cont. to improve to use HH when goes home Current Visit: Yes Qualifiers: Coronary Disease-Associated Artery/Lesion type: [place] artery [place] vs. transplanted heart: [place] heart Associated angina: without angina Qualified Code(s): I25.10 - Atherosclerotic heart disease of [place] coronary artery without angina pectoris (2) Stented coronary artery Status: Acute Current Visit: Yes (3) Anemia Status: Inactive Current Visit: Yes (4) Cellulitis of groin, right Status: Acute Current Visit: Yes (5) Dyslipidemia Status: Chronic Current Visit: Yes (6) Hypertension Status: Chronic Current Visit: Yes (7) Peripheral artery disease Status: Chronic Current Visit: Yes Cardiology - PN: Subj Interval history: no cp or sob Exam (Progress Note) - Constitutional Vitals: Period Temp Pulse Resp BP Sys/[place] Pulse Ox Last 24 Hr 96.0 F-97.9 F 72-81 18-20 117-141/66-79 94-99 Exam: General appearance: normal weight, no acute distress - Head Head exam: Present: normal inspection, normocephalic, atraumatic. Absent: hematoma, laceration - Eye Eye exam: Present: EOMI. Absent: conjunctival injection, nystagmus, periorbital swelling, scleral icterus, laceration to eyelids Pupils: Present: PERRL. Absent: constricted, dilated, fixed, irregular, unequal - ENT ENT exam: Present: normal exam, normal external ear exam - Neck Neck exam: Present: normal inspection. Absent: lymphadenopathy, meningismus, tenderness, thyromegaly - Respiratory Respiratory exam: Present: clear to auscultation bilaterally. Absent: accessory muscle use, chest wall tenderness - Cardiovascular Cardiovascular exam: Present: regular rate and rhythm, murmur. Absent: carotid bruit, gallop, JVD, rubs - GI/Abdominal GI/Abdominal exam: Present: normal bowel sounds, soft. Absent: distended, firm , guarding, hernia, mass, tenderness, rebound. - Extremities Exam Extremities exam: Present: Wound VAC to right groin, left groin without hematoma or bruit, left femoral pulse is 2+ and bilateral distal pulses are palpable. Absent: calf tenderness, edema - Back Exam Back exam: Present: normal inspection. Absent: muscle spasm, vertebral tenderness - Neurological Exam Neurological exam: Present: alert, oriented X3, grossly intact without resting or intention tremor - Psychiatric Psychiatric exam: Present: normal affect, normal mood - Skin Skin exam: Present: normal color, warm, dry, intact. Absent: cyanosis, diaphoretic, rash, urticaria Result/EKG - Labs CBC & BMP: 12/13/16 04:03 12/13/16 04:03 Lab Results: I have reviewed the past 24 hour labs - EKG EKG results: interpreted by me Quality Measures - VTE Contraindication to Pharmacological VTE Prophylaxis: High Risk of Bleeding Specialty Discharge - Follow Up or Referrals Follow up with: Kennedi Hodgson MD [Physician] - 12/26/16 9:30 am Jac Marks MD [Physician] - 01/10/17 12:40 pm (In about 4-6 weeks) Jer Sommer MD [Physician] - 12/18/16 2:30 pm
[2016-12-15] MEDS: FONDAPARINUX 2.5 MG/0.5 ML SYRINGE SUBCUT SCH (06:06)
[2016-12-15] MEDS: CARVEDILOL 3.125 MG TABLET PO SCH (08:42)
[2016-12-15] MEDS: RANOLAZINE 500 MG TABLET PO SCH (08:42)
[2016-12-15] MEDS: PARoxetine 20 MG TABLET PO SCH (08:43)
[2016-12-15] MEDS: ISOSORBIDE MONONITRATE 60 MG TABLET PO SCH (08:43)
[2016-12-15] MEDS: CLOPIDOGREL 75 MG TABLET PO SCH (08:43)
[2016-12-15] MEDS: PANTOPRAZOLE 40 MG TABLET PO SCH (08:43)
[2016-12-15] MEDS: LEVOFLOXACIN 500 MG TABLET PO SCH (12:19)
--- NOTE | 2016-12-15 14:40 | Event Note ---
The patient did not discharge yesterday as anticipated. Overnight she had no events. Her vitals remained stable. She has no complaints with my visit this morning. She continues to void without difficulty and tolerate oral intake. She continues to pass flatus and has had a bowel movement. On exam, her vital signs are stable. She is alert and oriented 3. Heart with regular rate and rhythm. Lungs are clear to auscultation bilaterally. Abdomen is soft and nontender with normoactive bowel sounds. Calves are soft and nontender without pedal edema. Wound VAC is intact and operational in the right groin and set at 125 mmHg with minimal output. She is minimally tender in this region without localized erythema or evidence of wound edge necrosis. Assessment and plan Patient has been stable for discharge and we have been awaiting resources for the prescribed discharge plan. Wound VAC is anticipated for arrival today to discharge home with home health services. She will discharge when she has all the resources recommended.
--- NOTE | 2016-12-15 15:37 | Cardiology Progress Note ---
Geneva Alex April RN, am scribing for, and in the presence of, Torie Carranza NP 15:36. Assessment and Plan (1) CAD (coronary artery disease) Status: Chronic Assessment and plan: Initial assessment and plan December 11, 2016: No chest pain after standing Right groin wound VAC is working well Left groin okay Increase activity Review meds list Assessment and plan December 12, 2016: No angina Wound VAC is doing well Okay with me for her to be discharged with a wound VAC Since she had a recent stent she will need to be on dual antiplatelet therapy Dr. Guru Sheppard will see her back in follow-up within the next few weeks. Assessment and plan December 13, 2016: No angina Left groin is okay Right groin has a wound VAC and doing well The patient tells me that Medicaid will not pay for home care for her wound VAC. She will be here to continue healing. Right groin wound is healing well. Watch for any signs or symptoms of ischemia. Assessment and plan December 14, 2016: no cp rt groin is ok cont. to improve to use HH when goes home Current Visit: Yes Qualifiers: Coronary Disease-Associated Artery/Lesion type: jena artery [place] vs. transplanted heart: jena heart Associated angina: without angina Qualified Code(s): I25.10 - Atherosclerotic heart disease of jena coronary artery without angina pectoris (2) Stented coronary artery Status: Acute Current Visit: Yes (3) Anemia Status: Inactive Current Visit: Yes (4) Cellulitis of groin, right Status: Acute Current Visit: Yes (5) Dyslipidemia Status: Chronic Current Visit: Yes (6) Hypertension Status: Chronic Current Visit: Yes (7) Peripheral artery disease Status: Chronic Current Visit: Yes Cardiology - PN: Subj Interval history: [employer]: Dr. Marks SUMMARY: Ms. Umana, 61 WF, has risk factors significant for: CAD, hypertension , dyslipidemia, PAD, history of tobacco use, sedentary lifestyle. Cardiac catheterization May 26, 2016 required PCI of proximal to mid RCA with INOCENCIO. ( See cardiac catheterization report). September 28, 2016 underwent PCI of ostial to distal right SFA. (See report). Echocardiogram November 11, 2016: EF 55%, mild concentric LVH, RVSP 39 mmHg. After the September 28, 2016 SFA intervention, patient has had an infected pseudoaneurysm (staph aureus bacteremia) requiring hospitalization. She was treated with 6 weeks of IV antibiotics, followed by Dr. Marks outpatient as well as Dr. Sommer and Dr. Drew Alexandra. Patient was directly admitted to hospital for treatment of right femoral artery hematoma and possible infected patch graft. December 05, 2016 Dr. Sommer performed debridement of wound with evacuation of hematoma, irrigation and placement of wound VAC. During the procedure, experienced hypotension and inferolateral EKG changes. Postoperatively, patient acknowledged she had been off her Plavix for approximately 6 weeks because she thought she was not to take Plavix and antibiotics together. Once patient's blood pressure normalized , EKG changes resolved. She was placed in the ICU overnight. The subsequent day she developed recurrent chest pain with dynamic inferolateral ECG changes. She underwent cardiac catheterization with PCI to her distal mid RCA and placement of synergy 2.25 x 20 mm drug-eluting stent on December 08, 2016. December 15, 2016: Ms. Umana is seen sitting up on side of the bed working with physical therapy. She denies any chest pain, shortness of breath, palpitations, or dizziness. She does look much better today. Left groin stable and without evidence of bleeding or hematoma. Wound VAC noted to right groin. Discharge planning is in place for her to go home with home health to change wound VAC. Review of systems: Cardiovascular: Denies chest pain. Gastrointestinal: Denies abdominal pain. Neurological: Awake, alert, and oriented. Exam (Progress Note) - Constitutional Vitals: Period Temp Pulse Resp BP Sys/[place] Pulse Ox Last 24 Hr 96.0 F-99.0 F 72-89 18-18 125-144/66-76 94-99 Exam: General appearance: normal weight, no acute distress - Head Head exam: Present: normal inspection, normocephalic, atraumatic. Absent: hematoma, laceration - Eye Eye exam: Present: EOMI. Absent: conjunctival injection, nystagmus, periorbital swelling, scleral icterus, laceration to eyelids Pupils: Present: PERRL. Absent: constricted, dilated, fixed, irregular, unequal - ENT ENT exam: Present: normal exam, normal external ear exam - Neck Neck exam: Present: normal inspection. Absent: lymphadenopathy, meningismus, tenderness, thyromegaly - Respiratory Respiratory exam: Present: clear to auscultation bilaterally. Absent: accessory muscle use, chest wall tenderness - Cardiovascular Cardiovascular exam: Present: regular rate and rhythm, murmur. Absent: carotid bruit, gallop, JVD, rubs - GI/Abdominal GI/Abdominal exam: Present: normal bowel sounds, soft. Absent: distended, firm , guarding, hernia, mass, tenderness, rebound. - Extremities Exam Extremities exam: Present: Wound VAC to right groin, left groin without hematoma or bruit, left femoral pulse is 2+ and bilateral distal pulses are palpable. Absent: calf tenderness, edema - Back Exam Back exam: Present: normal inspection. Absent: muscle spasm, vertebral tenderness - Neurological Exam Neurological exam: Present: alert, oriented X3, grossly intact without resting or intention tremor - Psychiatric Psychiatric exam: Present: normal affect, normal mood - Skin Skin exam: Present: normal color, warm, dry, intact. Absent: cyanosis, diaphoretic, rash, urticaria Result/EKG - Labs CBC & BMP: 12/13/16 04:03 12/13/16 04:03 - EKG EKG results: interpreted by me EKG shows: sinus rhythm Quality Measures - VTE Contraindication to Pharmacological VTE Prophylaxis: High Risk of Bleeding Specialty Discharge - Follow Up or Referrals Follow up with: Kennedi Hodgson MD [Physician] - 12/26/16 9:30 am Jac Marks MD [Physician] - 01/10/17 12:40 pm (In about 4-6 weeks) Jer Sommer MD [Physician] - 01/01/17 2:45 pm Dillon Alex Bonnie E, PEDIATRIC PHYSICAL THERAPIST, personally performed the services described in this documentation, ascribed by Alicia Bean RN in my presence, and it is both accurate and complete [id number] .
[2016-12-15 15:50] VITALS: BP 120/77
== END 2016-12-15 19:25 | disposition home health service (06) | DRG 175 ==
LOC: N.3E → OBSVTOIN 16:52 → N.ICU 12-06 14:31 → N.3E 12-07 10:29 → N.CC 12-08 16:41 → N.3E 12-09 14:19
PROVIDERS: ADMIT Surgery; ATTEND Surgery
PROC: CLCCHCL (ICD-10-PCS; 2016-12-08 15:15)

== ENCOUNTER 2020-01-19 14:37 | Observation (INO) ==
[2020-01-19 15:12] LABS: Basophils % 0.6 % (0.0-0.8); Eosinophils # 0.1 10*3/uL (0.0-0.87); Eosinophils % 1.8 % (0.00-10.9); Hematocrit 35.3 VOL% (35.7-47.0); Hemoglobin 11.3 GM/DL (12.0-16.0); Immature Granulocytes % 0.6 %; Immature Granulocytes Absolute 0.04 #; Lymphocytes # 1.4 10*3/uL (1.4-4.0); Lymphocytes % 20.7 % (21.3-54.2); Mean Platelet Volume 10.3 FL (9.6-12.0); Monocytes % 7.9 % (1.7-12.7); Neutrophils % 68.4 % (38.7-73.9); Platelet Count 184 T/CUMM (130-400); Red Blood Count 3.64 MC/CUMM (3.8-5.5); Red Cell Distribution Width 13.9 % (9.3-17.3); White Blood Count 6.7 T/CUMM (4-12)
[2020-01-19] MEDS ORDERED: SODIUM CHLORIDE 0.9% 1,000 ML IV STA ×2 (15:15→17:20)
[2020-01-19 15:24] LABS: PT Patient Result 11.2 SECS (9.8-11.9); Partial Thromboplastin Time 26.5 SECS (23.9-33.8)
[2020-01-19 15:38] LABS: Albumin 3.6 G/DL (3.4-5.0); Bilirubin,Total 0.6 MG/DL (0.2-1.0); Calcium 9.2 MG/DL (8.5-10.1); Osmolality,Calculated 280.1 MOS/KG (273-304); Total Protein 8.2 G/DL (6.4-8.3)
[2020-01-19 16:08] LABS: Bilirubin,Urine Negative (Negative); Blood, Urine Negative (Negative); Glucose,Urine (UA) >=500 mg/dL (Negative); Hyaline Casts,Urine 15 /LPF (0-3); Ketones,Urine Negative (Negative); Mucus,Urine Few /LPF (Occasional); Nitrite,Urine Negative (Negative); Protein,Urine 30 MG/DL; RBC,Urine 1 /HPF (0-4); Squamous Epithelial Cell,Urine Occasional /HPF (0-10); Urine Appearance Slightly Hazy (Clear); Urine Color Amber (Yellow); Urine Specific Gravity 1.016 (1.001-1.035); Urine Urobilinogen < 2.0 EU/DL (0.2-1.0); WBC,Urine 1 /HPF (0-6)
[2020-01-19] MEDS ORDERED: DEXTROSE 50% 25 GM/50 ML VIAL IV PRN (18:50)
[2020-01-19] MEDS ORDERED: GLUCAGON 1 MG VIAL IM PRN (18:50)
[2020-01-19] MEDS ORDERED: ACETAMINOPHEN 325 MG TABLET PO PRN (18:55)
[2020-01-19] MEDS: INSULIN REGULAR 100 UNIT/ML SUBCUT SCH (21:32)
[2020-01-20] MEDS: INSULIN REGULAR 100 UNIT/ML SUBCUT SCH ×4 (07:43→21:19)
[2020-01-20 08:25] LABS: Basophils % 0.6 % (0.0-0.8); Eosinophils # 0.1 10*3/uL (0.0-0.87); Eosinophils % 1.8 % (0.00-10.9); Hematocrit 33.2 VOL% (35.7-47.0); Hemoglobin 10.9 GM/DL (12.0-16.0); Immature Granulocytes % 0.3 %; Immature Granulocytes Absolute 0.02 #; Lymphocytes # 2.1 10*3/uL (1.4-4.0); Lymphocytes % 31.3 % (21.3-54.2); Mean Corpuscular HGB Conc 32.8 GM/DL (32-36); Mean Corpuscular Volume 96.5 FL (87-102); Mean Platelet Volume 10.2 FL (9.6-12.0); Monocytes % 7.4 % (1.7-12.7); Neutrophils % 58.6 % (38.7-73.9); Platelet Count 172 T/CUMM (130-400); Red Blood Count 3.44 MC/CUMM (3.8-5.5); White Blood Count 6.6 T/CUMM (4-12)
[2020-01-20] MEDS: PANTOPRAZOLE 40 MG TABLET PO SCH (08:28)
[2020-01-20 08:53] LABS: Alanine Aminotransferase 29 U/L (13-56); Albumin 3.2 G/DL (3.4-5.0); Alkaline Phosphatase 80 U/L (45-117); Aspartate Amino Transferase 29 U/L (0-37); Bilirubin,Total < 0.39 MG/DL (0.2-1.0); Blood Urea Nitrogen 15 MG/DL (7-18); Calcium 8.9 MG/DL (8.5-10.1); Estimated Glom Filtration Rate 40 ML/MIN; Glucose 181 MG/DL (74-106); Osmolality,Calculated 284.4 MOS/KG (273-304); Total Protein 7.9 G/DL (6.4-8.3)
[2020-01-20] MEDS ORDERED: NITROGLYCERIN SL 0.4 MG TABLET SL PRN (14:03)
[2020-01-20] MEDS ORDERED: METOPROLOL SUCCINATE XL 25 MG TABLET PO SCH (21:00)
[2020-01-20] MEDS: ASPIRIN CHEW 81 MG TABLET PO SCH (21:11)
[2020-01-20] MEDS: GABAPENTIN 100 MG CAPSULE PO SCH (21:11)
[2020-01-20] MEDS: AMITRIPTYLINE 25 MG TABLET PO SCH (21:11)
[2020-01-20] MEDS: RANOLAZINE 500 MG TABLET PO SCH (21:11)
[2020-01-20] MEDS: cilostazoL 50 MG TABLET PO SCH (21:18)
[2020-01-21 06:09] LABS: Basophils % 0.6 % (0.0-0.8); Eosinophils # 0.1 10*3/uL (0.0-0.87); Eosinophils % 1.7 % (0.00-10.9); Hematocrit 36.4 VOL% (35.7-47.0); Hemoglobin 11.8 GM/DL (12.0-16.0); Immature Granulocytes % 0.7 %; Immature Granulocytes Absolute 0.05 #; Lymphocytes # 2.5 10*3/uL (1.4-4.0); Lymphocytes % 34.1 % (21.3-54.2); Mean Corpuscular HGB Conc 32.4 GM/DL (32-36); Mean Corpuscular Volume 96.3 FL (87-102); Mean Platelet Volume 10.2 FL (9.6-12.0); Monocytes % 8.6 % (1.7-12.7); Neutrophils % 54.3 % (38.7-73.9); Platelet Count 183 T/CUMM (130-400); Red Blood Count 3.78 MC/CUMM (3.8-5.5); Red Cell Distribution Width 13.9 % (9.3-17.3); White Blood Count 7.2 T/CUMM (4-12)
[2020-01-21 06:31] LABS: Calcium 10.1 MG/DL (8.5-10.1)
[2020-01-21] MEDS ORDERED: OLMESARTAN 20 MG TABLET PO SCH (09:00)
[2020-01-21] MEDS ORDERED: ERGOCALCIFEROL 50,000 UNIT CAPSULE PO SCH (09:00)
[2020-01-21] MEDS: INSULIN REGULAR 100 UNIT/ML SUBCUT SCH ×4 (09:40→21:21)
[2020-01-21] MEDS: PANTOPRAZOLE 40 MG TABLET PO SCH (09:41)
[2020-01-21] MEDS: ROSUVASTATIN 20 MG TABLET PO SCH (09:41)
[2020-01-21] MEDS: GABAPENTIN 100 MG CAPSULE PO SCH ×2 (09:41→21:20)
[2020-01-21] MEDS: METOPROLOL SUCCINATE XL 25 MG TABLET PO SCH (09:41)
[2020-01-21] MEDS: PARoxetine 20 MG TABLET PO SCH (09:41)
[2020-01-21] MEDS: cilostazoL 50 MG TABLET PO SCH ×2 (09:41→21:20)
[2020-01-21] MEDS: EZETIMIBE 10 MG TABLET PO SCH (09:41)
[2020-01-21] MEDS: OLMESARTAN 5 MG TABLET PO SCH (09:41)
[2020-01-21] MEDS: RANOLAZINE 500 MG TABLET PO SCH ×2 (09:42→21:20)
[2020-01-21] MEDS: PRASUGREL 10 MG TABLET PO SCH (09:42)
[2020-01-21] MEDS: sitaGLIPtin 100 MG TABLET PO SCH (14:33)
[2020-01-21] MEDS ORDERED: INSULIN GLARGINE 100 UNIT/ML SUBCUT SCH (21:00)
[2020-01-21] MEDS: ASPIRIN CHEW 81 MG TABLET PO SCH (21:20)
[2020-01-21] MEDS: AMITRIPTYLINE 25 MG TABLET PO SCH (21:20)
[2020-01-21] MEDS: levETIRAcetam 500 MG TABLET PO SCH (21:20)
[2020-01-22 05:50] LABS: Basophils # 0.1 10*3/uL (0.0-0.2); Basophils % 0.7 % (0.0-0.8); Eosinophils # 0.2 10*3/uL (0.0-0.87); Eosinophils % 1.7 % (0.00-10.9); Hematocrit 36.2 VOL% (35.7-47.0); Immature Granulocytes % 0.7 %; Immature Granulocytes Absolute 0.06 #; Lymphocytes # 2.6 10*3/uL (1.4-4.0); Lymphocytes % 29.1 % (21.3-54.2); Mean Corpuscular HGB Conc 33.1 GM/DL (32-36); Mean Corpuscular Volume 95.5 FL (87-102); Mean Platelet Volume 10.2 FL (9.6-12.0); Monocytes % 8.6 % (1.7-12.7); Neutrophils % 59.2 % (38.7-73.9); Platelet Count 204 T/CUMM (130-400); Red Blood Count 3.79 MC/CUMM (3.8-5.5); Red Cell Distribution Width 13.8 % (9.3-17.3); White Blood Count 8.8 T/CUMM (4-12)
[2020-01-22 06:24] LABS: Calcium 10.1 MG/DL (8.5-10.1); Osmolality,Calculated 279.4 MOS/KG (273-304)
[2020-01-22] MEDS: RANOLAZINE 500 MG TABLET PO SCH (08:40)
[2020-01-22] MEDS: GABAPENTIN 100 MG CAPSULE PO SCH (08:40)
[2020-01-22] MEDS: sitaGLIPtin 100 MG TABLET PO SCH (08:40)
[2020-01-22] MEDS: PRASUGREL 10 MG TABLET PO SCH (08:40)
[2020-01-22] MEDS: METOPROLOL SUCCINATE XL 25 MG TABLET PO SCH (08:40)
[2020-01-22] MEDS: PANTOPRAZOLE 40 MG TABLET PO SCH (08:40)
[2020-01-22] MEDS: OLMESARTAN 5 MG TABLET PO SCH (08:40)
[2020-01-22] MEDS: cilostazoL 50 MG TABLET PO SCH (08:40)
[2020-01-22] MEDS: ROSUVASTATIN 20 MG TABLET PO SCH (08:40)
[2020-01-22] MEDS: levETIRAcetam 500 MG TABLET PO SCH (08:40)
[2020-01-22] MEDS: INSULIN REGULAR 100 UNIT/ML SUBCUT SCH ×2 (08:41→11:42)
[2020-01-22] MEDS: PARoxetine 20 MG TABLET PO SCH (08:41)
[2020-01-22] MEDS: EZETIMIBE 10 MG TABLET PO SCH (08:41)
[2020-01-22 11:46] VITALS: BP 80/49
== END 2020-01-22 13:05 | disposition home or self-care (01) ==
LOC: EDBD → EDUNIT# → N.EDINP 14:37 → N.ED 14:37 → SUATTDRO 18:50 → N.3E 21:43
PROVIDERS: ADMIT Internal Medicine; ATTEND Internal Medicine

== ENCOUNTER 2021-06-14 06:56 | Inpatient (IN) ==
[2021-06-07 16:31] LABS: Basophils # 0.1 10*3/uL (0.0-0.2); Basophils % 0.7 % (0.0-0.8); Eosinophils # 0.2 10*3/uL (0.0-0.87); Eosinophils % 2.4 % (0.00-10.9); Hematocrit 37.4 VOL% (35.7-47.0); Immature Granulocytes % 0.1 %; Immature Granulocytes Absolute 0.01 #; Lymphocytes # 2.3 10*3/uL (1.4-4.0); Mean Corpuscular HGB Conc 32.1 GM/DL (32-36); Mean Corpuscular Volume 97.1 FL (87-102); Mean Platelet Volume 10.6 FL (9.6-12.0); Monocytes % 8.9 % (1.7-12.7); Neutrophils % 53.9 % (38.7-73.9); Platelet Count 189 T/CUMM (130-400); Red Blood Count 3.85 MC/CUMM (3.8-5.5); Red Cell Distribution Width 14.9 % (9.3-17.3); White Blood Count 6.7 T/CUMM (4-12)
[2021-06-07 16:41] LABS: Albumin 3.5 G/DL (3.4-5.0); Bilirubin,Total 0.4 MG/DL (0.20-1.00); Calcium 9.2 MG/DL (8.5-10.1); Osmolality,Calculated 277.7 MOS/KG (273-304); Potassium 4.1 MMOL/L (3.5-5.1); Total Protein 8.1 G/DL (6.4-8.2)
[2021-06-07 16:53] LABS: PT Patient Result 10.7 SECS (10.5-12.0); Partial Thromboplastin Time 26.5 SECS (23.8-32.1)
[2021-06-14] MEDS: LACTATED RINGERS 1,000 ML IV SCH ×3 (08:00→22:49)
[2021-06-14] MEDS ORDERED: HEPARIN 5,000 UNIT/1 ML VIAL ONE (10:28)
[2021-06-14] MEDS ORDERED: fentaNYL 100 MCG/2 ML VIAL ONE (10:29)
[2021-06-14] MEDS ORDERED: SEVOFLURANE 1 UNIT/15 MINUTE INH ONE ×6 (10:29→14:36)
[2021-06-14] MEDS ORDERED: MIDAZOLAM 2 MG/2 ML VIAL ONE (10:29)
[2021-06-14] MEDS ORDERED: propofoL 200 MG/20 ML VIAL IV ONE (10:29)
[2021-06-14] MEDS ORDERED: LIDOCAINE 2% 5 ML VIAL ONE (10:29)
[2021-06-14] MEDS ORDERED: ROCURONIUM 50 MG/5 ML VIAL IV ONE (10:29)
[2021-06-14] MEDS ORDERED: ACETAMINOPHEN INJ 1,000 MG/100 ML VIAL IV ONE (10:29)
[2021-06-14] MEDS ORDERED: PHENYLEPHRINE 1 MG/10 ML SYRINGE IV ONE (11:44)
[2021-06-14] MEDS ORDERED: ePHEDrine 50 MG/ML VIAL ONE (12:03)
[2021-06-14] MEDS ORDERED: HYDROmorphone 1 MG/1 ML SYRINGE IV PRN ×2 (14:44→14:59)
[2021-06-14] MEDS ORDERED: ONDANSETRON 4 MG/2 ML VIAL IV PRN ×2 (14:44→14:59)
[2021-06-14] MEDS ORDERED: NITROGLYCERIN SL 0.4 MG TABLET SL PRN (14:47)
[2021-06-14] MEDS ORDERED: KETOROLAC 30 MG/1 ML VIAL IV ONE (14:49)
[2021-06-14] MEDS ORDERED: diphenhydrAMINE 50 MG/1 ML VIAL IV PRN (14:59)
[2021-06-14] MEDS ORDERED: PROMETHAZINE INJ 25 MG in SODIUM CHLORIDE 0.9% 50 ML IV PRN (14:59)
[2021-06-14] MEDS: MEPERIDINE 25 MG/1 ML VIAL IV PRN ×2 (15:00→15:10)
[2021-06-14] MEDS ORDERED: PROMETHAZINE 25 MG/1 ML VIAL ONE (15:06)
[2021-06-14 15:58] LABS: Calcium 8.4 MG/DL (8.5-10.1)
[2021-06-14 16:15] LABS: Hematocrit 30.6 VOL% (35.7-47.0); Hemoglobin 9.7 GM/DL (12.0-16.0)
[2021-06-14] MEDS ORDERED: GLUCAGON 1 MG VIAL IM PRN (16:59)
[2021-06-14] MEDS ORDERED: DEXTROSE 10% 250 ML BAG IV PRN (16:59)
[2021-06-14] MEDS ORDERED: ERGOCALCIFEROL 50,000 UNIT CAPSULE PO SCH (17:00)
[2021-06-14] MEDS: KETOROLAC 10 MG TABLET PO SCH (19:31)
[2021-06-14] MEDS: RANOLAZINE 500 MG TABLET PO SCH (21:04)
[2021-06-14] MEDS: GABAPENTIN 300 MG CAPSULE PO SCH (21:04)
[2021-06-14] MEDS: EZETIMIBE 10 MG TABLET PO SCH (21:04)
[2021-06-14] MEDS: PANTOPRAZOLE 40 MG TABLET PO SCH (21:04)
[2021-06-14] MEDS: ROSUVASTATIN 20 MG TABLET PO SCH (21:04)
[2021-06-14] MEDS: cilostazoL 50 MG TABLET PO SCH (21:04)
[2021-06-14] MEDS: METOPROLOL SUCCINATE XL 25 MG TABLET PO SCH (21:04)
[2021-06-14] MEDS: sitaGLIPtin 100 MG TABLET PO SCH (21:04)
[2021-06-14] MEDS: INSULIN GLARGINE 100 UNIT/ML SUBCUT SCH (21:05)
[2021-06-15] MEDS: KETOROLAC 10 MG TABLET PO SCH ×4 (01:19→18:27)
[2021-06-15 04:56] LABS: Basophils % 0.4 % (0.0-0.8); Eosinophils # 0.1 10*3/uL (0.0-0.87); Eosinophils % 1.4 % (0.00-10.9); Hematocrit 26.7 VOL% (35.7-47.0); Hemoglobin 8.2 GM/DL (12.0-16.0); Immature Granulocytes % 0.4 %; Immature Granulocytes Absolute 0.03 #; Lymphocytes % 28.4 % (21.3-54.2); Mean Corpuscular HGB Conc 30.7 GM/DL (32-36); Mean Corpuscular Volume 102.7 FL (87-102); Mean Platelet Volume 10.5 FL (9.6-12.0); Monocytes % 9.7 % (1.7-12.7); Neutrophils % 59.7 % (38.7-73.9); Platelet Count 133 T/CUMM (130-400); Red Cell Distribution Width 15.7 % (9.3-17.3); White Blood Count 6.9 T/CUMM (4-12)
[2021-06-15 05:17] LABS: Calcium 8.4 MG/DL (8.5-10.1); Osmolality,Calculated 283.4 MOS/KG (273-304); Potassium 4.4 MMOL/L (3.5-5.1)
[2021-06-15 05:20] LABS: Eosinophils 3 % (0-10); Lymphocytes 24 % (20-55); Segmented Neutrophils 63 % (50-85); Total Cells Counted 100
[2021-06-15 05:21] LABS: Hypochromia Slight; Microcytosis Slight; Platelet Estimate Normal
[2021-06-15] MEDS: LEVOTHYROXINE 50 MCG TABLET PO SCH (05:43)
[2021-06-15] MEDS: LACTATED RINGERS 1,000 ML IV SCH ×2 (07:00→19:46)
[2021-06-15] MEDS ORDERED: ASPIRIN CHEW 81 MG TABLET PO SCH (09:00)
[2021-06-15] MEDS ORDERED: GABAPENTIN 100 MG CAPSULE PO SCH (09:00)
[2021-06-15] MEDS: PARoxetine 10 MG TABLET PO SCH (10:15)
[2021-06-15] MEDS: METOPROLOL SUCCINATE XL 25 MG TABLET PO SCH ×3 (10:16→20:55)
[2021-06-15] MEDS: cilostazoL 50 MG TABLET PO SCH ×2 (10:16→20:48)
[2021-06-15] MEDS: RANOLAZINE 500 MG TABLET PO SCH ×2 (10:16→20:49)
[2021-06-15] MEDS: ASPIRIN CHEW 81 MG TABLET PO SCH (10:16)
[2021-06-15] MEDS: OLMESARTAN 5 MG TABLET PO SCH (10:16)
[2021-06-15] MEDS: sitaGLIPtin 100 MG TABLET PO SCH (20:48)
[2021-06-15] MEDS: ROSUVASTATIN 20 MG TABLET PO SCH (20:48)
[2021-06-15] MEDS: GABAPENTIN 300 MG CAPSULE PO SCH (20:49)
[2021-06-15] MEDS: EZETIMIBE 10 MG TABLET PO SCH (20:49)
[2021-06-15] MEDS: PANTOPRAZOLE 40 MG TABLET PO SCH (20:49)
[2021-06-15] MEDS: INSULIN GLARGINE 100 UNIT/ML SUBCUT SCH (20:54)
[2021-06-16] MEDS: KETOROLAC 10 MG TABLET PO SCH ×2 (00:35→05:49)
[2021-06-16] MEDS: LEVOTHYROXINE 50 MCG TABLET PO SCH (05:48)
[2021-06-16 07:55] VITALS: BP 111/43
[2021-06-16] MEDS ORDERED: GABAPENTIN 300 MG CAPSULE PO SCH (09:00)
[2021-06-16] MEDS: METOPROLOL SUCCINATE XL 25 MG TABLET PO SCH (09:16)
[2021-06-16] MEDS: PARoxetine 10 MG TABLET PO SCH (09:16)
[2021-06-16] MEDS: cilostazoL 50 MG TABLET PO SCH (09:16)
[2021-06-16] MEDS: ASPIRIN CHEW 81 MG TABLET PO SCH (09:16)
[2021-06-16] MEDS: RANOLAZINE 500 MG TABLET PO SCH (09:16)
[2021-06-16] MEDS: OLMESARTAN 5 MG TABLET PO SCH (09:16)
== END 2021-06-16 11:33 | disposition home or self-care (01) | DRG 181 ==
LOC: N.OR 06:56 → N.SDSINP 06:57 → EDSTATUS 13:00 → N.SDSINP 14:44 → N.3E 16:33
PROVIDERS: ADMIT Surgery; ATTEND Surgery

== ENCOUNTER 2021-07-04 08:07 | Observation (INO) ==
[2021-07-04] MEDS ORDERED: SODIUM CHLORIDE 0.9% 1,000 ML IV STA (08:28)
[2021-07-04] MEDS ORDERED: VANCOMYCIN INJ 1,000 MG in SODIUM CHLORIDE 0.9% 250 ML IV STA (08:36)
[2021-07-04 08:50] LABS: Basophils % 0.3 % (0.0-0.8); Eosinophils % 0.2 % (0.00-10.9); Immature Granulocytes % 1.5 %; Immature Granulocytes Absolute 0.18 #; Lymphocytes # 0.9 10*3/uL (1.4-4.0); Lymphocytes % 7.8 % (21.3-54.2); Mean Corpuscular HGB Conc 30.8 GM/DL (32-36); Mean Corpuscular Volume 97.4 FL (87-102); Mean Platelet Volume 9.8 FL (9.6-12.0); Monocytes # 0.9 10*3/uL (0.11-0.8); Monocytes % 7.6 % (1.7-12.7); Neutrophils % 82.6 % (38.7-73.9); Platelet Count 201 T/CUMM (130-400); Red Blood Count 2.67 MC/CUMM (3.8-5.5); Red Cell Distribution Width 16.1 % (9.3-17.3)
[2021-07-04] MEDS ORDERED: fentaNYL 100 MCG/2 ML VIAL IV STA (08:52)
[2021-07-04 09:02] LABS: INR 1.1; Partial Thromboplastin Time 32.4 SECS (23.8-32.1)
[2021-07-04 10:44] LABS: Calcium 8.3 MG/DL (8.5-10.1); Osmolality,Calculated 276.2 MOS/KG (273-304); Potassium 3.9 MMOL/L (3.5-5.1)
[2021-07-04] MEDS ORDERED: SODIUM CHLORIDE 0.9% 250 ML IV STA (10:45)
[2021-07-04] MEDS ORDERED: VANCOMYCIN INJ 1,000 MG in SODIUM CHLORIDE 0.9% 250 ML IV ONE (10:45)
[2021-07-04] MEDS ORDERED: PHENYLEPHRINE DRIP 20 MG/250 ML PREMIX IV ONE (10:59)
[2021-07-04] MEDS ORDERED: SODIUM CHLORIDE 0.9% 1,000 ML IV PRN (11:28)
[2021-07-04] MEDS ORDERED: fentaNYL 100 MCG/2 ML VIAL ONE (11:41)
[2021-07-04] MEDS ORDERED: DEXAMETHASONE 4 MG/1 ML VIAL ONE (11:42)
[2021-07-04] MEDS ORDERED: ONDANSETRON 4 MG/2 ML VIAL ONE (11:42)
[2021-07-04] MEDS ORDERED: ROCURONIUM 50 MG/5 ML VIAL IV ONE (11:42)
[2021-07-04] MEDS ORDERED: ETOMIDATE 40 MG/20 ML VIAL IV ONE (11:42)
[2021-07-04] MEDS ORDERED: SUCCINYLCHOLINE 200 MG/10 ML VIAL ONE (11:42)
[2021-07-04] MEDS ORDERED: LIDOCAINE 2% 5 ML VIAL ONE (11:42)
[2021-07-04] MEDS ORDERED: SEVOFLURANE 1 UNIT/15 MINUTE INH ONE (12:28)
[2021-07-04] MEDS ORDERED: ONDANSETRON 4 MG/2 ML VIAL IV PRN (12:34)
[2021-07-04] MEDS ORDERED: ACETAMINOPHEN 325 MG TABLET PO PRN (12:34)
[2021-07-04] MEDS ORDERED: GLUCAGON 1 MG VIAL IM PRN (12:34)
[2021-07-04] MEDS ORDERED: NITROGLYCERIN SL 0.4 MG TABLET SL PRN (12:38)
[2021-07-04] MEDS ORDERED: DEXTROSE 10% 250 ML BAG IV PRN (16:47)
[2021-07-04] MEDS: INSULIN REGULAR 100 UNIT/ML SUBCUT SCH ×2 (17:44→20:33)
[2021-07-04] MEDS: LACTATED RINGERS 1,000 ML IV SCH (17:45)
[2021-07-04] MEDS ORDERED: PANTOPRAZOLE 40 MG TABLET PO SCH ×2 (19:00→21:00)
[2021-07-04] MEDS: RANOLAZINE 500 MG TABLET PO SCH (20:33)
[2021-07-04] MEDS: cilostazoL 50 MG TABLET PO SCH (20:33)
[2021-07-04] MEDS: METOPROLOL SUCCINATE XL 25 MG TABLET PO SCH (20:36)
[2021-07-04] MEDS ORDERED: sitaGLIPtin 100 MG TABLET PO SCH (21:00)
[2021-07-04] MEDS ORDERED: INSULIN GLARGINE 100 UNIT/ML SUBCUT SCH (21:00)
[2021-07-04] MEDS ORDERED: ROSUVASTATIN 20 MG TABLET PO SCH (21:00)
[2021-07-04] MEDS ORDERED: EZETIMIBE 10 MG TABLET PO SCH (21:00)
[2021-07-05] MEDS: LACTATED RINGERS 1,000 ML IV SCH (04:20)
[2021-07-05 05:11] LABS: Basophils % 0.2 % (0.0-0.8); Eosinophils # 0.1 10*3/uL (0.0-0.87); Eosinophils % 0.7 % (0.00-10.9); Hematocrit 28.6 VOL% (35.7-47.0); Immature Granulocytes % 0.6 %; Immature Granulocytes Absolute 0.05 #; Lymphocytes # 1.2 10*3/uL (1.4-4.0); Lymphocytes % 13.4 % (21.3-54.2); Mean Corpuscular HGB Conc 31.5 GM/DL (32-36); Mean Corpuscular Volume 92.3 FL (87-102); Mean Platelet Volume 10.2 FL (9.6-12.0); Monocytes # 0.8 10*3/uL (0.11-0.8); Monocytes % 8.6 % (1.7-12.7); Neutrophils % 76.5 % (38.7-73.9); Platelet Count 179 T/CUMM (130-400); Red Cell Distribution Width 17.1 % (9.3-17.3); White Blood Count 8.8 T/CUMM (4-12)
[2021-07-05 05:31] LABS: Calcium 8.4 MG/DL (8.5-10.1); Osmolality,Calculated 275.7 MOS/KG (273-304); Potassium 3.4 MMOL/L (3.5-5.1)
[2021-07-05] MEDS ORDERED: LEVOTHYROXINE 50 MCG TABLET PO SCH (06:30)
[2021-07-05] MEDS: INSULIN REGULAR 100 UNIT/ML SUBCUT SCH ×2 (08:28→11:09)
[2021-07-05] MEDS: cilostazoL 50 MG TABLET PO SCH (08:46)
[2021-07-05] MEDS: RANOLAZINE 500 MG TABLET PO SCH (08:46)
[2021-07-05] MEDS: METOPROLOL SUCCINATE XL 25 MG TABLET PO SCH (08:47)
[2021-07-05] MEDS ORDERED: PRASUGREL 10 MG TABLET PO SCH (09:00)
[2021-07-05] MEDS ORDERED: ASPIRIN CHEW 81 MG TABLET PO SCH (09:00)
[2021-07-05] MEDS ORDERED: PARoxetine 10 MG TABLET PO SCH (09:00)
[2021-07-05] MEDS ORDERED: OLMESARTAN 5 MG TABLET PO SCH (09:00)
[2021-07-05] MEDS ORDERED: ERGOCALCIFEROL 50,000 UNIT CAPSULE PO SCH (09:00)
[2021-07-05] MEDS ORDERED: SULFAMETHOX/TRIMETHOPRIM 800-160 MG TABLET PO SCH (09:00)
[2021-07-05] MEDS ORDERED: GABAPENTIN 300 MG CAPSULE PO SCH ×2 (09:00→12:00)
[2021-07-05] MEDS ORDERED: DEXTROSE 50% 25 GM/50 ML VIAL IV PRN (11:08)
[2021-07-05 14:19] VITALS: BP 104/50
== END 2021-07-05 15:50 | disposition home or self-care (01) ==
LOC: EDBD → EDUNIT# → N.3E 08:07 → N.ED 08:07 → N.3E 12:28
PROVIDERS: ADMIT Surgery; ATTEND Surgery